=== PATIENT | female | born 1960 | race Caucasian/White ===

== ENCOUNTER 2019-08-07 14:16 | Outpatient (CLI) | payer OTHER, SELFPAY ==
--- NOTE | 2019-08-07 15:30 | MM_ITS ---
WS: [id number] SCREENING DIGITAL MAMMOGRAM WITH CAD HISTORY: screening mammogram COMPARISON: 06/27/2018 and 10/25/2016 Bilateral CC and MLO views submitted. Computer aided detection analyzed. Breast composition: There are scattered areas of fibroglandular density. No suspicious masses, microc alcifications or architectural distortion. MM/[place] [id number] IMPRESSION: BI-RADS: 1-Negative FOLLOW UP: 1 Year Follow-up
== END 2019-08-07 14:17 | disposition home or self-care (01) ==
LOC: RADSHAW 14:20
PROVIDERS: Family Provider Family Medicine; PCP Family Medicine; Visit Provider Family Medicine
DX: Z12.31 Encounter for screening mammogram for malignant neoplasm of breast (principal)
CPT/HCPCS: 77067

== ENCOUNTER → 2019-08-27 09:11 | Outpatient (BNVA) | payer OTHER, SELFPAY | PROVIDERS: Family Provider Family Medicine; PCP Family Medicine; Visit Provider Family Medicine | DX: I10 Essential (primary) hypertension (principal); G56.03 Carpal tunnel syndrome, bilateral upper limbs; K21.9 Gastro-esophageal reflux disease without esophagitis | CPT/HCPCS: 80048 ==

== ENCOUNTER 2020-03-13 05:42 | Observation (INO) | payer OTHER, SELFPAY ==
[2020-03-13] VITALS (25 sets, daily range): BP systolic 90–153; BP diastolic 56–86; PULSE 80–140; RESP 10–26; TEMP 36.8–39.6; O2SAT 90–98; BMI 28.1
--- NOTE | 2020-03-13 05:50 | XRR_ITS ---
PROCEDURE INFORMATION: Exam: XR Chest, 1 View Exam date and time: 03/13/2020 5:55 AM Age: 60 years old Clinical indication: Other: Abd pain, vomiting TECHNIQUE: Imaging protocol: XR of the chest Views: 1 view. COMPARISON: CR Chest 1 [place] [id number] 03/13/2016 7:00 AM FINDINGS: Lungs: Unremarkable. No consolidation. Pleural space: Unremarkable. No pleural effusion. No pneumothorax. Heart/Mediastinum: Unremarkable. No cardiomegaly. Bones/joints: Unremarkable. XR/XR chest 1V portable [id number] IMPRESSION: No acute findings. No free air is seen under the diaphragms.
--- NOTE | 2020-03-13 05:51 | ECG_ITS ---
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 Measurements Intervals [place] Rate: 127 P: 43 CO: 147 QRS: 22 QRSD: 62 T: 43 QT: 335 QTc: 487 Interpretive Statements SINUS TACHYCARDIA LOW QRS VOLTAGE IN PRECORDIAL LEADS [QRS DEFLECTION < 1.0 mV IN CHEST LEADS] NONSPECIFIC ST & T-WAVE ABNORMALITY ABNORMAL RHYTHM ECG Compared to ECG 03/13/2020 05:59:04 T-wave abnormality now present ST (T wave) deviation no longer present Electronically Signed On 03-13-2020 15:17:50 CDT by Stacia Pal M.D. [id number]
--- NOTE | 2020-03-13 06:00 | CTR_ITS ---
PROCEDURE INFORMATION: Exam: CT Abdomen And Pelvis With Contrast Exam date and time: 03/13/2020 7:06 AM Age: 60 years old Clinical indication: Abdominal pain. TECHNIQUE: Imaging protocol: Computed tomography of the abdomen and pelvis with intravenous contrast. Radiation optimization: All CT scans at this facility use at least one of these dose optimization techniques: automated exposure control; mA and/or kV adjustment per patient size (includes targeted exams where dose is matched to clinical indication); or iterative reconstruction. Contrast material: OMNI 300; Contrast volume: 95 ml; Contrast route: INTRAVENOUS (IV); COMPARISON: No relevant prior studies available. RADIATION DOSE METRICS: Total DLP (mGy-cm): 1233.68 FINDINGS: Lungs: No acute basilar lung consolidation. Liver: There is fatty change involving the liver parenchyma. Gallbladder and bile ducts: No calcified gallstones, gallbladder wall thickening, or pericholecystic inflammation. No biliary ductal dilation. Pancreas: No pancreatic mass. No peripancreatic inflammation. No pancreatic ductal dilation. Spleen: The spleen is homogeneous and is not enlarged. Adrenals: No adrenal mass. Kidneys and ureters: No hydronephrosis. No nephrolithiasis. Simple appearing 8 mm right renal cyst. Stomach and bowel: No bowel obstruction, colitis or diverticulitis. High attenuation intraluminal material in the proximal colon which may still be due to something the patient ingested. There is thickening of the wall of the terminal ileum which could be due to secondary inflammation. Appendix: The appendix measures 13 mm in diameter. There is appendiceal wall is thickened. There is periappendiceal inflammation. Intraperitoneal space: No ascites or pneumoperitoneum. Vasculature: No abdominal aortic aneurysm. No iliac or common femoral artery aneurysm. Lymph nodes: No enlarged lymph nodes. Bladder: No urinary bladder calculus or wall thickening. Reproductive: Unremarkable as visualized. Bones/joints: Multilevel facet arthropathy in the lumbar spine. Soft tissues: No acute soft tissue abnormality. CT/CT abdomen pelvis w con* [id number] IMPRESSION: Acute appendicitis. COMMENTS: Consistent with the [employer]'s Incidental Findings Committee white paper (J Am Gi Radiol 2018): Any incidental renal lesion less than 1.0 cm or classified as too small to characterize, or any incidental cystic renal lesion characterized as simple-appearing, is likely benign. No follow-up imaging is recommended for these lesions per consensus recommendations based on imaging criteria. Radiation Dose CTDIVOL = (mGy): DLP = 1233.68 (mGy-cm)
--- NOTE | 2020-03-13 06:02 | W.ED.ABDPA2 ---
HPI - Abdominal Pain General: Chief Complaint: Abdominal Pain Stated Complaint: abd pain Time Seen by Provider: 03/13/20 05:48 History of Present Illness: HPI narrative: This patient is a 60-year-old female who presents today with abdominal pain. She reports that it started fairly suddenly after eating pizza on . Since then she has had fairly persistent pain although she said at times she can get in a certain position where it does not hurt. She is not had any vomiting but has had loose stools and dry heaves. The only time she has had anything similar to this was in 2011 when she had a spegalian hernia which was repaired in the right lower quadrant. She has had 2 C-sections and a carpal tunnel release. She has had no other surgeries. She has a history of hypertension. She denies urinary symptoms. The pain does radiate through to her back at times. She denies fever. She denies cough. She has been able to take some broth and liquids but since Saturday has not really eaten anything. MD elicited complaint: abdominal pain Pertinent past history: other (Hernia) Onset (ago): day(s) Location: RUQ and RLQ Severity: severe Quality: sharp Radiation: R flank and back Exacerbating factors: movement Relieving factors: other (Is sometimes able to get into certain positions that relieve the pain) Associated Symptoms: Reports diarrhea (Loose stools) and nausea; Denies chills, fever(s) and vomiting Review of Systems General: Reports: 10 or more systems reviewed and unremarkable except in HPI and below Const: Reports: malaise; Denies: fever(s), chills or fatigue Eyes: Denies: change in vision ENMT: Denies: odynophagia Card: Denies: chest pain or swelling of feet/ankles Resp: Denies: dyspnea, productive cough or non-productive cough GI: Reports: abdominal pain, nausea and diarrhea (Loose stools); Denies: vomiting : Denies: flank pain or difficulty voiding Musc: Reports: back pain; Denies: neck pain Skin/Breast: Denies: rash Neuro: Denies: headache(s), numbness in extremities or weakness in extremities Eduard/Lymph: Denies: easy bruising or easy bleeding PFSH ED PFSH: Medical History Benign essential HTN Bilateral carpal tunnel syndrome Eczema GERD (gastroesophageal reflux disease) Panic attack Surgical History (Updated 03/13/20 @ 08:46 by Chente Hernandez MD) History of 2 sections History of dilatation and curettage x 1 History of hernia repair R spigelian History of surgery on left wrist Comminuted fracture --repaired with bone graft from left hip Family History Other CAD (coronary artery disease) Family history of premature coronary artery disease Social History (Updated 03/13/20 @ 08:48 by Chente Hernandez MD) Smoking and tobacco status: never smoked Alcohol intake: never 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 Exam Const: COMMON NORMALS: patient oriented x3, no limitations and alert GENERAL APPEARANCE: cooperative and in distress NUTRITIONAL APPEARANCE: overweight HENMT: HEAD & SCALP: normal to inspection FACE & SINUS: normal facial exam Eye: GENERAL EYE: appearance normal, both eyes and all related structures Neck/C-Spine: COMMON NORMALS: supple, no meningeal signs and no JVD Chest: COMMONS NORMALS: normal inspection of the chest Resp: COMMON NORMALS: normal respiratory effort, No use of accessory muscles and clear to auscultation bilaterally AUSCULTATION: clear to auscultation bilaterally Cardio: COMMON NORMALS: no JVD, regular rate, regular rhythm and No murmurs present (Cardio) RATE: regular rate RHYTHM: regular rhythm GI: COMMON NORMALS: Normal to inspection, nondistended, normoactive bowel sounds present INSPECTION: No abdominal distension PALPATION: Yes Tenderness to palpation present (GI) Details: RLQ and RUQ Back/Pelvis: COMMON NORMALS: thoracic and lumbar spine normal to inspection Extremity: COMMON NORMALS: normal to inspection Neuro: COMMON NORMALS: patient oriented x3, moves all extremities, no focal motor deficits and no sensory deficits noted SENSORIUM/ORIENTATION: Yes alert MENINGEAL SIGNS: Yes no meningeal signs Psych: COMMON NORMALS: mental status grossly normal, cooperative and normal affect Skin: COMMON NORMALS: no rashes or lesions noted and turgor normal GENERAL SKIN EXAM: no rashes or lesions noted and turgor normal Course ED course: This patient is very ill-appearing on initial presentation. She is tachycardic and although initially afebrile her temp spiked up to 103.3. I did a bedside ultrasound which did not show any obvious abnormalities with the gallbladder. Once labs were back she went to CT and that did show appendicitis with significant amount of inflammation. Given the clinical picture I am concerned that she may have a perforation although it was not read as such on the CT. She also had a very low white count of 1.6. Absolute neutrophil count was severe neutropenia. She has been given Zosyn, morphine, Zofran, IV Tylenol. I have spoken with Dr. Hernandez who will come and see her in the ED. She is also had a liter of fluid and is on her second liter currently. Her sats have been running kind of low. Initially she was in the low 90s. After pain medication she is been running in the high 80s. She was put on 2 L of oxygen. Chest x-ray was clear. EKG was unremarkable other than sinus tachycardia. She has no known covert exposures and clinically does not have symptoms of COVID other than the fever and that can be attributed to the appendicitis. Vital Signs: Vital signs: Vital Signs Temperature 98.6 F 03/13/20 15:30 Pulse Rate 89 03/13/20 15:30 Respiratory Rate 18 03/13/20 15:30 Blood Pressure 111/68 03/13/20 15:30 Pulse Oximetry 94 03/13/20 15:30 MDM - Abdominal Pain Lab Data: Labs: Lab Results 03/13/20 03/13/20 03/13/20 Range/Units 06:04 06:04 06:04 WBC 1.6 L (4.0-10.0) 10^3/ uL RBC 4.60 (4.1-5.3) 10^6/u L Hgb 14.5 (11.5-15.3) g/dL Hct 44.2 (37.0-47.0) % MCV 96.1 (81-99) fL MCH 31.5 (28.0-34.0) pg MCHC 32.8 (30.0-36.0) g/dL RDW 12.8 (12.1-15.1) % Plt Count 196 (130-400) 10^3/c mm MPV 9.7 (7.4-10.4) fL Neut % (Auto) 81.7 % Lymph % (Auto) 17.1 % Cameron % (Auto) 0.6 % Eos % (Auto) 0.6 % Baso % (Auto) 0.0 % Neut # (Auto) 1.29 L (1.8-7.7) 10^3/u L Lymph # (Auto) 0.3 L (0.8-4.8) 10^3/u L Cameron # (Auto) 0.0 L (0.2-0.9) 10^3/u L Eos # (Auto) 0.0 (0.0-0.8) 10^3/u L Baso # (Auto) 0.0 (0.0-0.1) 10^3/u L Nucleated RBC % (a uto) 0 % Nucleated RBCs # 0.0 /100WBC Sodium 135 L (136-145) mmol/L Potassium 3.6 (3.5-5.1) mmol/L Chloride 97 L (98-107) mmol/L Carbon Dioxide 20 L (22-29) mmol/L Anion Gap 21.6 H (5-19) BUN 8 (8-23) mg/dL Creatinine 0.8 (0.5-0.9) mg/dL GFR Calculation 72.9 L (90-130) mL/min Glucose 150 H (65-115) mg/dL Calculated Osmolal ity 279 L (285-295) mOsm/k g Lactic Acid 2.5 H (0.5-2.2) mmol/L Calcium 9.5 (8.5-10.5) mg/dL Total Bilirubin 1.6 H (0.15-1.2) mg/dL AST 54 H (0-32) U/L ALT 53 H (0-33) U/L Alkaline Phosphata se 83 (35-105) IU/L Troponin T Baselin e (0-10) ng/L Total Protein 7.2 (6.6-8.7) g/dL Albumin 4.4 (3.5-5.2) g/dL Globulin 2.8 (1.3-4.6) g/dL Lipase 29 (13-60) U/L Urine Color (Yellow) Urine Appearance (CLEAR) Urine pH (5-7) Ur Specific Gravit y (1.005-1.030) Urine Protein (Negative) Urine Glucose (UA) (Normal) Urine Ketones (Negative) Urine Blood (Negative) Urine Nitrate (Negative) Urine Bilirubin (Negative) Urine Urobilinogen (Negative) mg/dL Ur Leukocyte Nadine ase (Negative) Urine RBC (0-2) /hpf Urine WBC (0-5) /hpf Ur Squamous Epith Cells (0-5) /hpf Amorphous Sediment Urine Bacteria (NONE) /hpf Hyaline Casts /lpf Urine Mucus /hpf 03/13/20 03/13/20 Range/Units 06:04 06:22 WBC (4.0-10.0) 10^3/ uL RBC (4.1-5.3) 10^6/u L Hgb (11.5-15.3) g/dL Hct (37.0-47.0) % MCV (81-99) fL MCH (28.0-34.0) pg MCHC (30.0-36.0) g/dL RDW (12.1-15.1) % Plt Count (130-400) 10^3/c mm MPV (7.4-10.4) fL Neut % (Auto) % Lymph % (Auto) % Cameron % (Auto) % Eos % (Auto) % Baso % (Auto) % Neut # (Auto) (1.8-7.7) 10^3/u L Lymph # (Auto) (0.8-4.8) 10^3/u L Cameron # (Auto) (0.2-0.9) 10^3/u L Eos # (Auto) (0.0-0.8) 10^3/u L Baso # (Auto) (0.0-0.1) 10^3/u L Nucleated RBC % (a uto) % Nucleated RBCs # /100WBC Sodium (136-145) mmol/L Potassium (3.5-5.1) mmol/L Chloride (98-107) mmol/L Carbon Dioxide (22-29) mmol/L Anion Gap (5-19) BUN (8-23) mg/dL Creatinine (0.5-0.9) mg/dL GFR Calculation (90-130) mL/min Glucose (65-115) mg/dL Calculated Osmolal ity (285-295) mOsm/k g Lactic Acid (0.5-2.2) mmol/L Calcium (8.5-10.5) mg/dL Total Bilirubin (0.15-1.2) mg/dL AST (0-32) U/L ALT (0-33) U/L Alkaline Phosphata se (35-105) IU/L Troponin T Baselin e 9 (0-10) ng/L Total Protein (6.6-8.7) g/dL Albumin (3.5-5.2) g/dL Globulin (1.3-4.6) g/dL Lipase (13-60) U/L Urine Color Yellow (Yellow) Urine Appearance Clear (CLEAR) Urine pH 5 (5-7) Ur Specific Gravit y 1.015 (1.005-1.030) Urine Protein Trace (Negative) Urine Glucose (UA) Norm (Normal) Urine Ketones Negative (Negative) Urine Blood Neg (Negative) Urine Nitrate Negative (Negative) Urine Bilirubin Neg (Negative) Urine Urobilinogen Norm (Negative) mg/dL Ur Leukocyte Nadine ase Negative (Negative) Urine RBC None (0-2) /hpf Urine WBC None (0-5) /hpf Ur Squamous Epith Cells 0-4 H (0-5) /hpf Amorphous Sediment Not Reportable Urine Bacteria Trace (NONE) /hpf Hyaline Casts 5-10 H /lpf Urine Mucus Trace /hpf Discharge Plan Discharge Patient Disposition: Admitted As Inpatient Admit Provider: Chente Hernandez Clinical Impression: Acute appendicitis, Severe neutropenia, Sepsis Condition: Stable Referrals: Heaven Tyler DO [Primary Care Provider] - Umberto Dubose MD [Family Provider] - Patient Instructions: Appendicitis (GEN) Discharge Date/Time: 03/13/20 08:47 Coding Level of Care Code ED Paranormal Investigator for Chg Fwd Exam Comprehensive
[2020-03-13] MEDS: sodium chloride 0.9% 1,000 ML 999 ML IV ×2 (06:10→08:26)
[2020-03-13] MEDS: ondansetron 2 mg/ML SDV 2 mL 4 MG IVP (06:11)
[2020-03-13 06:20] LABS: Eosinophils % 0.6 %; Hematocrit 44.2 % (37.0-47.0); Hemoglobin 14.5 g/dL (11.5-15.3); Lymphocytes # 0.3 10^3/uL (0.8-4.8); Lymphocytes % 17.1 %; Mean Corpuscular HGB Conc 32.8 g/dL (30.0-36.0); Mean Corpuscular Hemoglobin 31.5 pg (28.0-34.0); Mean Corpuscular Volume 96.1 fL (81-99); Mean Platelet Volume 9.7 fL (7.4-10.4); Monocytes % 0.6 %; Neutrophils # 1.29 10^3/uL (1.8-7.7); Neutrophils % 81.7 %; Nucleated Red Blood Cells % 0 %; Platelet Count 196 10^3/cmm (130-400); Red Cell Distribution Width 12.8 % (12.1-15.1); White Blood Count 1.6 10^3/uL (4.0-10.0)
[2020-03-13] MEDS: morphine 4 mg/mL SDV 1 mL IVP (06:35)
--- NOTE | 2020-03-13 06:45 | PC.NURSE ---
PATIENT PLACED ON 3 LITERS OF OXYGEN TO MAINTAIN SPO2 >91
[2020-03-13] MEDS: piperacillin-tazobactam 3.375 GM in sodium chloride 0.9% (plus) 50 ML IV ×4 (06:49→21:29)
[2020-03-13 06:53] LABS: Lactic Sepsis W/Reflex 2.5 mmol/L (0.5-2.2)
[2020-03-13 07:00] LABS: Alanine Aminotransferase 53 U/L (0-33); Albumin Level 4.4 g/dL (3.5-5.2); Alkaline Phosphatase 83 IU/L (35-105); Anion Gap 21.6 (5-19); Aspartate Amino Transferase 54 U/L (0-32); Blood Urea Nitrogen 8 mg/dL (8-23); Calcium 9.5 mg/dL (8.5-10.5); Carbon Dioxide 20 mmol/L (22-29); Chloride 97 mmol/L (98-107); Globulin 2.8 g/dL (1.3-4.6); Glomerular Filtration Rate 72.9 mL/min (90-130); Glucose 150 mg/dL (65-115); Lipase 29 U/L (13-60); Osmolality Calculated 279 mOsm/kg (285-295); Potassium 3.6 mmol/L (3.5-5.1); Sodium 135 mmol/L (136-145); Total Bilirubin 1.6 mg/dL (0.15-1.2); Total Protein 7.2 g/dL (6.6-8.7)
[2020-03-13 07:01] LABS: Troponin(5th) Baseline 9 ng/L (0-10)
[2020-03-13] MEDS: iohexol 300 mg/mL 100 mL Btl IV (07:15)
--- NOTE | 2020-03-13 07:17 | PC.NURSE ---
REPORT RECEIVED FROM ARTI CASTANON. PATIENT RESTING IN BED WITH AT BEDSIDE. UPDATED PATIENT ON WAITING FOR LABS FOR CT SCAN.
--- NOTE | 2020-03-13 07:51 | ECG_ITS ---
[facility] Test Date: 2020-03-13 Pat Name: Kimberli Jurado Department: Room: Gender: Female Lei Maker: : 1960 Requested By: Sophie Tavraez Order Number: [id number] Daija MD: Stacia Pal M.D. Measurements Intervals [place] Rate: 136 P: 28 UT: 133 QRS: 18 QRSD: 68 T: 35 QT: 308 QTc: 463 Interpretive Statements SINUS TACHYCARDIA LOW QRS VOLTAGE IN PRECORDIAL LEADS [QRS DEFLECTION < 1.0 mV IN CHEST LEADS] MODERATE ST DEPRESSION [0.05+ mV ST DEPRESSION] Compared to ECG 03/13/2016 06:42:59 Low QRS voltage now present ST (T wave) deviation now present Sinus rhythm no longer present Electronically Signed On 03-13-2020 15:18:27 CDT by Stacia Pal M.D. [id number]
[2020-03-13 08:01] LABS: Reflex Lactate Order REFLEX LACTIC ORDERD
[2020-03-13 08:30] LABS: Add Urine Microscopic? YES; Bilirubin Urine Neg (Negative); Blood Urine Neg (Negative); Glucose Urine UA Norm (Normal); Ketones Urine Negative (Negative); Leukocyte Esterase Urine Negative (Negative); Nitrate Urine Negative (Negative); Protein Urine Trace (Negative); Specific Gravity, Urine 1.015 (1.005-1.030); Urine Appearance Clear (CLEAR); Urine Color Yellow (Yellow); Urobilinogen Urine Norm (Negative); pH Urine 5 (5-7)
[2020-03-13 08:34] LABS: Add Urine Culture? No; Bacteria Urine TRACE /hpf; Mucus Urine TRACE /hpf; Squamous Epithelial Cell Urine 0-4 /hpf (0-5)
--- NOTE | 2020-03-13 08:39 | P.HP_ITS ---
Providers/Chief Complaint Primary Care Provider: Heaven Tyler DO Chief Complaint: abd pain History of Present Illness Kimberli Jurado is a 60 year old female who says that she started having some abdominal pain 3 days ago. She said initially after eating a piece of pizza she developed nausea and left lower quadrant pain that seemed to go laterally around to her side. She says she usually can eat a couple pieces of pizza but she was only able to eat 1 and stopped. The following day (Saturday) she says she actually felt okay. Yesterday, however, she developed more acute right lower quadrant pain. This persisted throughout the day. She had some nausea and only drink some broth yesterday. She denies any recent changes in bowel habits. She awoke this morning with more intense pain in the right lower quadrant and came into the emergency room. A CAT scan showed changes consistent with acute appendicitis. She was also found to be febrile at that time. The patient has never had pain like this before. She has never had a colonoscopy in the past. She denies any family history of colon neoplasia. Review of Systems General: Reports: 10 or more systems reviewed and unremarkable except in HPI and below Const: Reports: fever(s) ( Not until this morning ) GI: Reports: abdominal pain and nausea; Denies: change in bowel habits Psych: Reports: anxiety Medications/Allergies Home Medications Medication Instructions Recorded Confirmed Last Taken Type pantoprazole 40 mg tablet,delayed 40 mg PO ONCE #90 tab 07/09/19 08/27/19 Unknown Rx release hydrochlorothiazide 25 mg tablet 25 mg PO QAM #90 tab 08/27/19 08/27/19 Unknown Rx lisinopril 10 mg tablet 10 mg PO ONCE #90 tab 08/27/19 08/27/19 Unknown Rx meloxicam 15 mg tablet 15 mg PO ONCE #90 tab 08/27/19 08/27/19 Unknown Rx alprazolam 0.25 mg tablet 0.25 mg PO ONCE PRN #30 tab 11/20/19 Unknown Rx escitalopram oxalate 10 mg tablet 10 mg PO .ONCE DAILY #90 tab 11/20/19 Unknown Rx Allergies Allergy/AdvReac Type Severity Reaction Status Date / Time No Known Allergies Allergy Unverified 03/13/20 05:56 PFSH Acute PFSH: Medical History Benign essential HTN Bilateral carpal tunnel syndrome Eczema GERD (gastroesophageal reflux disease) Panic attack Surgical History (Updated 03/13/20 @ 08:46 by Chente Hernandez MD) History of 2 sections History of dilatation and curettage x 1 History of hernia repair R spigelian History of surgery on left wrist Comminuted fracture --repaired with bone graft from left hip Family History Other CAD (coronary artery disease) Family history of premature coronary artery disease Social History (Updated 03/13/20 @ 08:48 by Chente Hernandez MD) Smoking and tobacco status: never smoked Alcohol intake: never 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 She does not appear to be in any acute distress but does not appear as if she feels very well. The pupils are equal. No carotid bruits are heard. The lungs are clear anteriorly. The heart is regular. She is tachycardic. The abdomen is mildly obese but is reasonably soft. Bowel sounds are present but are somewhat hypoactive. Her maximum point of tenderness is in the right lower quadrant. Rovsing's sign is negative. No obvious masses are palpated. The extremities reveal no edema. Neurologically the patient appears to be grossly intact. Data : 03/13/20 06:04 03/13/20 06:04 Micro: Microbiology 03/13/20 06:04 Blood Culture - Preliminary Blood SPECIMEN COLLECTED 03/13/20 06:04 Blood Culture - Preliminary Blood SPECIMEN COLLECTED CT Abd/Pel: My impression: The patient has a dilated and thick-walled appendix with surrounding inflammatory fat in the right lower quadrant. There appears to be a loop of ileum that is dilated adjacent to this; I suspect this is probably refl ective of a adjacent segment of bowel involved in an ileus. It is difficult to say that there is any gross perforation with any certainty. Radiologist's impression: CT abdomen/pelvis 03/13/2020 iMPRESSION: Acute appendicitis. A&P Assessment and plan (1) Acute appendicitis: CT reviewed. I agree with the assessment of acute appendicitis. I cannot see any evidence of obvious perforation, but I would not be surprised given the timeline of the patient's symptoms if she does not have perforation at the time of exploration. I discussed appendicitis, both conservative and surgical treatment methods, surgical risks including bleeding, infection, internal organ injury, etc. The patient seems to understand and would like to proceed with an appendectomy. I told her I would be willing to at least start this laparoscopically in hopes that we could avoid a larger incision, but I would not hesitate to do that if it is felt necessary. She understands. The patient has been n.p.o. since yesterday. We will make arrangements for a laparoscopic or possibly open appendectomy this morning. It is the weekend, and I understand that there is currently a case going on in the operating room right now so we may have a short delay. She has already received some broad-spectrum antibiotics. Status: Acute Attestations Medical Necessity Statement*: Based on my medical assessment, presenting symptoms and consideration of the scope of surgical therapy, I expect this patient will require treatment in the hospital for a period of time spanning less than 2 midnights, and is therefore being placed in observation status. Coding Level of Care Code Acute Organ Tuner Electronic for Anette Delilah Diagnoses Acute appendicitis K35.80
--- NOTE | 2020-03-13 08:46 | ANES.PREANE2 ---
Pre-Anesthetic Assessment Pre-Anesthetic Assessment: Height/Weight: Height 1.7 m Weight 81.647 kg Temp Pulse Resp BP Pulse Ox 103.3 F H 140 H 16 140/69 96 03/13/20 07:10 03/13/20 08:13 03/13/20 08:13 03/13/20 08:13 03/13/20 08:13 Preop Diagnosis: appendicitis Proposed Procedure: Appendectomy Familial anesthetic complications: none Last intake: NPO > 8 hrs Social: Social History: No alcohol and No tobacco Exam: Pre-Anes Outpt Exam: alert, oriented x 3, clear to auscultation bilaterally and regular rate & rhythm Airway: Cervical ROM: WNL MP: 1 Dentition: Full CV/HEM: CV/HEM: HTN GI: GI: GERD Anesthetic Plan: ASA status: 2 Anesthesia: General Risk of > 500 ml blood loss (7ml/kg in children): No PFSH Anesthesia PFSH: Medical History (Updated 03/13/20 @ 08:40 by Chente Hernandez MD) Benign essential HTN Bilateral carpal tunnel syndrome Eczema GERD (gastroesophageal reflux disease) Panic attack Surgical History (Updated 03/13/20 @ 08:46 by Chente Hernandez MD) History of 2 sections History of dilatation and curettage x 1 History of hernia repair R spigelian History of surgery on left wrist Comminuted fracture --repaired with bone graft from left hip Family History Other CAD (coronary artery disease) Family history of premature coronary artery disease Social History Smoking and tobacco status: never smoked Alcohol intake: never Data Anesthesia CBC & Chem 7: 03/13/20 06:04 03/13/20 06:04 Other Labs: Laboratory Results - last 48 hr 03/13/20 03/13/20 03/13/20 06:04 06:04 06:04 WBC 1.6 L RBC 4.60 Hgb 14.5 Hct 44.2 MCV 96.1 MCH 31.5 MCHC 32.8 RDW 12.8 Plt Count 196 MPV 9.7 Neut % (Auto) 81.7 Lymph % (Auto) 17.1 [place] % (Auto) 0.6 Eos % (Auto) 0.6 Baso % (Auto) 0.0 Neut # (Auto) 1.29 L Lymph # (Auto) 0.3 L [place] # (Auto) 0.0 L Eos # (Auto) 0.0 Baso # (Auto) 0.0 Nucleated RBC % (auto) 0 Nucleated RBCs # 0.0 Sodium 135 L Potassium 3.6 Chloride 97 L Carbon Dioxide 20 L Anion Gap 21.6 H BUN 8 Creatinine 0.8 GFR Calculation 72.9 L Glucose 150 H Calculated Osmolality 279 L Lactic Acid 2.5 H Calcium 9.5 Total Bilirubin 1.6 H AST 54 H ALT 53 H Alkaline Phosphatase 83 Troponin T Baseline Total Protein 7.2 Albumin 4.4 Globulin 2.8 Lipase 29 Urine Color Urine Appearance Urine pH Ur Specific [place] Urine Protein Urine Glucose (UA) Urine Ketones Urine Blood Urine Nitrate Urine Bilirubin Urine Urobilinogen Ur Leukocyte Esterase Urine RBC Urine WBC Ur Squamous Epith Cells Amorphous Sediment Urine Bacteria Hyaline Casts Urine Mucus 03/13/20 03/13/20 06:04 06:22 WBC RBC Hgb Hct MCV MCH MCHC RDW Plt Count MPV Neut % (Auto) Lymph % (Auto) [place] % (Auto) Eos % (Auto) Baso % (Auto) Neut # (Auto) Lymph # (Auto) [place] # (Auto) Eos # (Auto) Baso # (Auto) Nucleated RBC % (auto) Nucleated RBCs # Sodium Potassium Chloride Carbon Dioxide Anion Gap BUN Creatinine GFR Calculation Glucose Calculated Osmolality Lactic Acid Calcium Total Bilirubin AST ALT Alkaline Phosphatase Troponin T Baseline 9 Total Protein Albumin Globulin Lipase Urine Color Yellow Urine Appearance Clear Urine pH 5 Ur Specific [place] 1.015 Urine Protein Trace Urine Glucose (UA) Norm Urine Ketones Negative Urine Blood Neg Urine Nitrate Negative Urine Bilirubin Neg Urine Urobilinogen Norm Ur Leukocyte Esterase Negative Urine RBC None Urine WBC None Ur Squamous Epith Cells 0-4 H Amorphous Sediment Not Reportable Urine Bacteria Trace Hyaline Casts 5-10 H Urine Mucus Trace Micro: Microbiology 03/13/20 06:04 Blood Culture - Preliminary Blood SPECIMEN COLLECTED 03/13/20 06:04 Blood Culture - Preliminary Blood SPECIMEN COLLECTED Cardiac 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
--- NOTE | 2020-03-13 10:24 | SUR.PHASEI ---
pt awake alert up to bathroom to void pt denies pain is still warm to touch, and diaphoretic on her back, teds and scds on bilat at bedside,l pt on 2LNC SATS 98%
--- NOTE | 2020-03-13 12:46 | P.OP_ITS ---
Operative Report Date of procedure: March 13, 2020 Pre-op Diagnosis: Acute appendicitis. Post-op diagnosis: same Procedure Done: Laparoscopic appendectomy. Specimens removed/disposition: Appendix. Surgeon: Chente Hernandez Anesthesia: General Estimated blood loss (mL): 5 Complications: None. Condition: stable Disposition: PACU Procedure: The patient was brought to the Operating Room and was placed in a supine position on the operating room table. General endotracheal anesthesia was induced. The abdomen was prepped and draped in a sterile fashion. A small vertical incision was carried out in the superior aspect of the umbilicus. Blunt dissection was carried out down to the fascia, which was grasped with a Halley clamp. A stay suture of 0 Vicryl was placed on either side of the midline and the midline fascia was incised. The underlying peritoneum was opened bluntly and the Jenny port was placed directly into the peritoneal cavity and was held in place with the inflatable balloon. The peritoneal cavity was insufflated with carbon dioxide. The laparoscope was used to inspect the peritoneal cavity. No gross abnormalities were initially noted. Two 5-millimeter ports were placed in the left lower quadrant under direct vision. The patient was tilted in a Trendelenburg position and slightly to the left side. A laparoscopic [place] was used to elevate the cecum and the appendix was identified. The appendix was edematous throughout its length and had a small amount of exudate on its surface. No evidence of gross perforation was present. The appendix was freed using blunt dissection and was then elevated. The mesoappendix was divided using cautery to maintain hemostasis at the base of the appendix. The base of the appendix appeared healthy and was divided using an endoscopic stapler. The appendix was removed from the peritoneal cavity after being placed in a laparoscopic bag. The right lower quadrant and pelvis were irrigated. The staple line on the cecum was identified and appeared to be in good condition. The Jenny port was removed from the umbilical site and the stay sutures of Vicryl were tied to each other at the umbilicus. A simple suture of 0 Vicryl was placed at the top of the fascial opening, closing the fascial defect so that it was airtight. A final round of irrigation was carried out in the right lower quadrant and the pelvis. No ongoing problems were seen. The remaining ports were removed from the abdominal wall as the pneumoperitoneum was evacuated. All skin incisions were closed using inverted interrupted sutures of 4-0 Vicryl. Benzoin and Steri-Strips were placed over the incisions and Band- Aids followed. The patient was taken to the Recovery Room in stable condition postoperatively.
--- NOTE | 2020-03-13 13:06 | SUR.PHASEI ---
1256 PATIENT TO OPS FROM OR. RR EVEN AND UNLABORED. PATIENT DENIES PAIN. 3 INCISIONS TO ABDOMEN, COVERED WITH BANDAIDS, CDI.
--- NOTE | 2020-03-13 13:09 | PM.PACU ---
PACU note Post-Anesthesia Exam: awake and vital signs stable Disposition: admitted
--- NOTE | 2020-03-13 13:09 | ANE.PACU2 ---
Inpatient post-anesthesia follow up: Airway intact: Yes Vital signs: Temperature 98.9 F Pulse Rate [Monito r] 138 Pulse Rate 103 Respiratory Rate 10 Blood Pressure [Ri ght Arm] 130/80 Blood Pressure 106/62 Pulse Oximetry 90 Oxygen Delivery Me thod Nasal Cannula Oxygen Flow Rate 3 Fraction of Inspir ed Oxygen Hydration adequate: Yes Nausea and vomiting: No Pain level: 3 Mental status: Baseline
--- NOTE | 2020-03-13 13:43 | SUR.PHASEI ---
1327 PATIENT TO PACU FROM OR. RR EVEN AND UNLABORED. PAIN 3/10. DENIES NAUSEA, TOLERATING ICE CHIPS. PATIENT AMBULATORY FROM [facility] TO BED.
[2020-03-13] MEDS: famotidine 20 mg/2 mL INJ IVP (15:14)
[2020-03-13] MEDS: heparin 5,000 unit/mL INJ 1 mL 5000 UNIT SUBCUT (15:14)
[2020-03-13] MEDS: D5-NS 0.45% + KCL 20 mEq 20 MEQ/1,000 ML BAG 100 MEQ IV ×2 (15:15→23:43)
[2020-03-13] MEDS: HYDROcodone-acetaminophen 5-325 mg Tablet PO (19:51)
[2020-03-14] VITALS: BP 141/89; PULSE 72; RESP 19; TEMP 36.7; O2SAT 91
[2020-03-14] MEDS: ketorolac 30 mg/mL INJ IVP (01:37)
[2020-03-14] MEDS: famotidine 20 mg/2 mL INJ IVP (01:37)
[2020-03-14] MEDS: heparin 5,000 unit/mL INJ 1 mL 5000 UNIT SUBCUT (01:37)
[2020-03-14 04:37] VITALS: BP 127/67; PULSE 72; RESP 18; TEMP 36.6; O2SAT 94
[2020-03-14 05:54] LABS: Basophils % 0.4 %; Eosinophils # 0.1 10^3/uL (0.0-0.8); Eosinophils % 0.6 %; Hematocrit 37.1 % (37.0-47.0); Hemoglobin 11.8 g/dL (11.5-15.3); Lymphocytes # 0.4 10^3/uL (0.8-4.8); Lymphocytes % 3.4 %; Mean Corpuscular HGB Conc 31.8 g/dL (30.0-36.0); Mean Corpuscular Volume 100.5 fL (81-99); Mean Platelet Volume 10.8 fL (7.4-10.4); Monocytes # 0.4 10^3/uL (0.2-0.9); Monocytes % 4.1 %; Neutrophils % 90.1 %; Nucleated Red Blood Cells % 0 %; Platelet Count 145 10^3/cmm (130-400); Red Blood Count 3.69 10^6/uL (4.1-5.3); Red Cell Distribution Width 13.1 % (12.1-15.1); White Blood Count 10.2 10^3/uL (4.0-10.0)
[2020-03-14] MEDS: piperacillin-tazobactam 3.375 GM in sodium chloride 0.9% (plus) 50 ML IV (06:06)
[2020-03-14 06:12] LABS: Anion Gap 15.1 (5-19); Blood Urea Nitrogen 11 mg/dL (8-23); Calcium 7.7 mg/dL (8.5-10.5); Carbon Dioxide 21 mmol/L (22-29); Chloride 102 mmol/L (98-107); Glomerular Filtration Rate 85.1 mL/min (90-130); Glucose 150 mg/dL (65-115); Osmolality Calculated 277 mOsm/kg (285-295); Potassium 4.1 mmol/L (3.5-5.1); Sodium 134 mmol/L (136-145)
[2020-03-14 08:04] VITALS: BP 123/81; PULSE 67; RESP 18; TEMP 37.1; O2SAT 97
--- NOTE | 2020-03-14 10:16 | P.DS_ITS ---
Discharge Providers Date of Admission: 03/13/20 13:09 Date of Discharge: March 14, 2020 Attending Provider at Admission: Chente Hernandez MD Attending Provider at Discharge: Chente Hernandez MD Primary Care Provider: Heaven Tyler DO Diagnoses at Discharge Discharge Diagnosis (1) Acute appendicitis: Status: Acute Reason for Visit Reason for Visit: abd pain Hospital Course Discharge Summary: This is a 60-year-old white female who presented to the hospital after several day prodrome of intermittent abdominal pain. A CAT scan showed evidence of acute appendicitis. She was taken to the operating room the same day and a laparoscopic appendectomy was performed. No gross evidence of perforation was noted. By the following morning, the patient was feeling much better and was anxious to go home. She had remained afebrile. Her white blood cell count was at the upper limits of normal after being very low at the time of admission. Her wounds looked good. Arrangements will be made for her to follow-up in my office as an outpatient. She was instructed with respect to diet, activity limitations, wound care, etc. Physical Exam Narrative: EXAM NARRATIVE: All of the patient's laparoscopic incisions look good. The Band-Aids were removed and the Steri-Strips were left in place today. Discharge Data Data Completed and Pending: Completed Studies During Hospitalization Category Date Time Status CT abdomen pelvis w con* [id number] Urge nt Cat Scan 03/13/20 06:00 Completed XR chest 1V lilia ble [id number] Stat Exams 03/13/20 05:50 Completed Pending at discharge Category Date Time Status Blood Culture Sta t Lab 03/13/20 06:04 Results Pathology: Surgic al [PTH] Routine Pth 03/13/20 12:46 Ordered Labs from last 24 hours 03/14/20 03/14/20 04:59 04:59 WBC 10.2 H RBC 3.69 L Hgb 11.8 Hct 37.1 MCV 100.5 H MCH 32.0 MCHC 31.8 RDW 13.1 Plt Count 145 MPV 10.8 H Neut % (Auto) 90.1 Lymph % (Auto) 3.4 [place] % (Auto) 4.1 Eos % (Auto) 0.6 Baso % (Auto) 0.4 Neut # (Auto) 9.20 H Lymph # (Auto) 0.4 L [place] # (Auto) 0.4 Eos # (Auto) 0.1 Baso # (Auto) 0.0 Nucleated RBC % (a uto) 0 Nucleated RBCs # 0.0 Sodium 134 L Potassium 4.1 Chloride 102 Carbon Dioxide 21 L Anion Gap 15.1 BUN 11 Creatinine 0.7 GFR Calculation 85.1 L Glucose 150 H Calculated Osmolal ity 277 L Calcium 7.7 L Vitals: Last Vital Signs Temp 98.7 F 03/14/20 08:04 Pulse 67 03/14/20 08:04 Resp 18 03/14/20 08:04 BP 123/81 03/14/20 08:04 Pulse Ox 97 03/14/20 08:04 Discharge Plan Discharge Condition: Stable Prescriptions: New hydrocodone-acetaminophen 5-325 mg tablet 1 - 2 tab PO Q5H PRN (Reason: pain) Qty: 30 RF: 0 Continued pantoprazole 40 mg tablet,delayed release (DR/EC) 40 mg PO ONCE Qty: 90 RF: 1 hydrochlorothiazide 25 mg tablet 25 mg PO QAM Qty: 90 RF: 1 lisinopril 10 mg tablet 10 mg PO ONCE Qty: 90 RF: 1 meloxicam [Mobic] 15 mg tablet 15 mg PO ONCE Qty: 90 RF: 1 escitalopram oxalate 10 mg tablet 10 mg PO .ONCE DAILY Qty: 90 RF: 0 alprazolam 0.25 mg tablet 0.25 mg PO ONCE PRN (Reason: anxiety) Qty: 30 RF: 0 Discharge Orders: Discharge Order (Routine); Ordered 03/14/20 Ordered By: Chente Hernandez Referrals: Chente Hernandez MD [Physician] - 2 weeks Heaven Tyler DO [Primary Care Provider] - Umberto Dubose MD [Family Provider] - Discharge Diet: Advance as tolerated Discharge Activity: Limit activity as instructed Patient Instructions: Appendicitis (GEN) Activity Restrictions/Additional Instructions: 1. Discharge to home today. 2. Appointment to see Dr. Hernandez in 10-14 days as above. 3. Leave Steri-Strip(s) on as discussed, may shower. 4. [place] 5/325 1-2 tablets by mouth every 5 hours as needed for pain. #30, no refills. No lifting over 20 pounds, no repetitive bending or twisting, no strenuous pushi ng / pulling or other heavy activity. Ambulate regularly. May go up and down steps if needed. Discharge Attestations Time Spent in Discharge Care*: less than 30 min Quality Metrics Clinical Quality Measures During this hospital stay, did patient experience: None Coding Level of Care Code Acute Table Games Shift Manager for g Fwd Diagnoses Acute appendicitis K35.80
--- NOTE | 2020-03-14 11:42 | ANE.PACU2 ---
Inpatient post-anesthesia follow up: Airway intact: Yes Vital signs: Temperature 98.7 F Pulse Rate [Monito r] 138 Pulse Rate 67 Respiratory Rate 18 Blood Pressure [Ri ght Arm] 130/80 Blood Pressure 123/81 Pulse Oximetry 97 Oxygen Delivery Me thod Room Air Oxygen Flow Rate 3 Fraction of Inspir ed Oxygen Hydration adequate: Yes Nausea and vomiting: No Pain level: 1 Mental status: Baseline
[2020-03-14] MEDS: D5-NS 0.45% + KCL 20 mEq 20 MEQ/1,000 ML BAG 100 MEQ IV (11:49)
[2020-03-14 12:17] VITALS: BP 145/90; PULSE 66; RESP 18; TEMP 36.7; O2SAT 95
[2020-03-14 13:29] VITALS: BP 145/90; PULSE 66; RESP 18; TEMP 36.7; O2SAT 95
--- NOTE | 2020-03-14 13:34 | PC.CHAP ---
Pastoral Care Encounter/Spiritual Assessment Type of Contact [] Declined nursing center tutor visit [] Patient/Family/Request visit [] Outpatient visit [] Follow-up visit [] Physician referral [] Code/Alert [] Routine visit [] Staff referral [] Actively dying [] Patient sleeping [] Family support [] [] Out of room [] Palliative care [] [x] Receiving care in room [] Pre-surgical visit [] Trauma [] Long length of stay [] ICU visit [] Other: Relational/Emotional Strength [] Patient feels connected with others/family/visitors/staff [] Distress [] Loneliness/isolation [] Abandonment Spirituality of Patient [] Person of [place] [] Attends [employer] of their [place] [] Believes in Prayer [] Reads Bible or Druze materials [] There are Spiritual issues to be addressed Box Stamper Interventions [] Prayer [] Active listening [] Non-anxious presence [] Spiritual/emotional support [] Crisis/trauma care [] Spiritual counseling [] Bereavement support [] Provided bereavement packet [] Provided Bible/devotional materials [] Provided toy/stuffed animal, coloring book to patient or family member [] Provided Communion [] Anointing/[place] [] Salvation [] Completed spiritual assessment [] Other: Impact on Illness or Injury [] Angry [] Fearful [] Anxious [] Often cries [] Exhaustion [] Unable to work [] Unable to attend quaker [] Unable to walk/stand [] Unable to read [] Unable to drive [] Unable to eat/drink [] Unable to sleep [] Unable to be with family [] Patient intubated [] Other: Summary Patient was receiving care from the nursing staff at the time of the nursing center tutor visit. Patient has been referred to next nursing center tutor for a follow-up visit. Patient visit attempted by Box Stamper Haris Givens. Time spent with patient 3 minutes
== END 2020-03-14 13:33 | disposition home or self-care (01) ==
LOC: ER 08:42 → OR 08:46 → MEDSURG 15:56
PROVIDERS: Emergency Medicine; Admitting Provider Surgery; Family Provider Family Medicine; PCP Family Medicine; Visit Provider Surgery
PROC: 0DTJ4ZZ Resection of Appendix, Percutaneous Endoscopic Approach (ICD-10-PCS; CPT 44970; principal; 2020-03-13 11:00)
DX: C18.1 Malignant neoplasm of appendix (principal); K35.80 Unspecified acute appendicitis; I10 Essential (primary) hypertension; D70.9 Neutropenia, unspecified; A41.9 Sepsis, unspecified organism
CPT/HCPCS: 44970; 12345; 36415; 71045; 74177; 80048; 80053; 81001; 83605; 83690; 84484; 85025; 87040; 87077; 87205; 88304; 93005; 96361; 96365; 96366; 96372; 96375; 99284; 99285; G0378; J0131; J0330; J1100; J1644; J1885; J2270; J2405; J2543; J2704; J2710; J3010; J3490; J7030; Q9967

== ENCOUNTER → 2020-04-12 09:17 | Outpatient (BNVA) | payer OTHER, SELFPAY | PROVIDERS: Family Provider Family Medicine; PCP Family Medicine; Visit Provider Family Medicine | DX: I10 Essential (primary) hypertension (principal) | CPT/HCPCS: 80053; 80061; 82043; 85025 ==

== ENCOUNTER 2020-09-06 10:56 | Emergency (ER) | payer OTHER, SELFPAY ==
[2020-09-06 11:06] VITALS: BP 167/94; PULSE 76; RESP 16; TEMP 36.9; O2SAT 97; BMI 28.1
--- NOTE | 2020-09-06 11:40 | XRR_ITS ---
PROCEDURE INFORMATION: Exam: XR Right Hip Exam date and time: 09/06/2020 11:41 AM Age: 60 years old Clinical indication: Pain and injury or trauma; Fall; Blunt trauma (contusions or hematomas); Hip pain; Right hip; Additional info: Pain after a fall TECHNIQUE: Imaging protocol: XR Right hip. Views: AP neutral and frogleg, 2 views. COMPARISON: CT abdomen pelvis w con* [id number] 03/13/2020 7:08 AM FINDINGS: Bones/joints: No acute bony abnormality identified. Soft tissues: Benign-appearing lateral para-articular soft tissue ossification, stable. XR/XR hip RT 2-3V wo/w pel* [id number] IMPRESSION: No acute bony injury identified.
[2020-09-06 11:55] VITALS: BP 140/101; PULSE 70; RESP 18; O2SAT 96
--- NOTE | 2020-09-06 12:20 | W.ED.FALL ---
HPI - Fall General: Chief Complaint: Fall Stated Complaint: FALL, HIP PAIN Time Seen by Provider: 09/06/20 11:14 History of Present Illness: HPI Narrative: 60-year-old female who was moving a barbecue grill last night fell and landed on her right hip. She has been able to get up and was able to ambulate but this morning when she got up had severe pain overlying the greater trochanter. She denies any other injury did not strike her head there is no loss of consciousness. MD complaint: fall Onset (ago): hour(s) Fall from: standing Fall witnessed: yes, by family Place fall occurred: home Loss of consciousness: None Prolonged down time: no Symptoms prior to fall: none Context: tripped/slipped Location of injury: other (Right hip) Severity: moderate Quality: sharp Associated symptoms-after fall: Denies abdominal pain, chest pain, confusion, difficulty walking, headache(s), hematuria, lightheadedness, neck pain, numbness, short of breath, vertigo or weakness Review of Systems Const: Denies: fever(s), chills, body aches, change in appetite, fatigue or malaise ENMT: Denies: throat pain, ear or mastoid pain, nasal discharge or nasal congestion Card: Denies: chest pain or lightheadedness Resp: Denies: dyspnea, productive cough or non-productive cough GI: Denies: abdominal pain : Denies: hematuria Musc: Denies: neck pain Skin/Breast: Denies: rash or pruritus Neuro: Denies: headache(s), difficulty walking, vertigo or confusion 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 Exam Const: COMMON NORMALS: no acute distress GENERAL APPEARANCE: cooperative and comfortable ORIENTATION/CONSCIOUSNESS: Yes awake, Yes oriented to person, Yes oriented to place and Yes oriented to time HENMT: COMMON NORMALS: normocephalic, atraumatic and hearing grossly normal bilaterally HEAD & SCALP: normocephalic and atraumatic Neck/C-Spine: COMMON NORMALS: no JVD Resp: COMMON NORMALS: normal respiratory effort, No retractions, No use of accessory muscles and clear to auscultation bilaterally AUSCULTATION: clear to auscultation bilaterally Cardio: COMMON NORMALS: no JVD, regular rate, regular rhythm and No murmurs present (Cardio) RATE: regular rate RHYTHM: regular rhythm GI: COMMON NORMALS: Soft to palpation and No hepatosplenomegaly present AUSCULTATION: Yes normoactive bowel sounds PALPATION: Yes Soft to palpation, No Tenderness to palpation present (GI), No Guarding due to palpation present (GI) and Yes No hepatosplenomegaly present Extremity: COMMON NORMALS: normal to inspection, capillary refill normal, no clubbing, cyanosis or edema, no calf tenderness and no pedal edema Neuro: SENSORIUM/ORIENTATION: Yes oriented to person, Yes oriented to place and Yes oriented to time Skin: COMMON NORMALS: no rashes or lesions noted GENERAL SKIN EXAM: no rashes or lesions noted Course Vital Signs: Vital signs: Vital Signs Temperature 98.4 F 09/06/20 11:06 Pulse Rate 70 09/06/20 12:52 Respiratory Rate 19 H 09/06/20 12:52 Blood Pressure 146/93 09/06/20 12:52 Pulse Oximetry 96 09/06/20 12:52 MDM - Fall MDM Narrative: Medical decision making narrative: No acute fracture patient is able ambulate start on anti-inflammatories will use diclofenac however hold Mobic and recheck if not improving can also follow-up with primary care and look at. steroid injection into the greater trochanteric bursa. Discharge Plan Discharge Patient Disposition: Home Clinical Impression: Trochanteric bursitis of right hip Condition: Stable Prescriptions: New diclofenac sodium 75 mg tablet,delayed release (DR/EC) 75 mg PO Q12H PRN (Reason: pain) Qty: 20 RF: 0 Held meloxicam [Mobic] 15 mg tablet 15 mg PO DAILY PRN (Reason: UNKNOWN) RF: 0 Hold Instructions: Resume on 09/16/20. No Action hydrochlorothiazide 25 mg tablet 25 mg PO QAM Qty: 90 RF: 1 alprazolam 0.25 mg tablet 0.25 mg PO DAILY PRN (Reason: anxiety) Qty: 30 RF: 0 atorvastatin [Lipitor] 10 mg Tablet 10 mg PO BEDTIME RF: 0 [id number] Tablet 1 tab PO DAILY RF: 0 [place] 1 tab PO BID RF: 0 pantoprazole 40 mg tablet,delayed release (DR/EC) 40 mg PO QAM RF: 0 simvastatin 20 mg tablet 20 mg PO BEDTIME RF: 0 lisinopril 10 mg tablet 10 mg PO QAM RF: 0 escitalopram oxalate 10 mg tablet 10 mg PO QAM RF: 0 Discharge Orders: Discharge ED (Routine); Ordered 09/06/20 Ordered By: Magdiel Lamar Referrals: Heaven Tyler DO [Primary Care Provider] - Discharge Diet: Usual diet Discharge Activity: Resume usual activity Patient Instructions: Opioid Safety Coding Level of Care Code ED Head Of Loss Prevention for Chg Fwd Exam Comprehensive
[2020-09-06 12:52] VITALS: BP 146/93; PULSE 70; RESP 19; O2SAT 96
== END 2020-09-06 12:54 | disposition home or self-care (01) ==
PROVIDERS: Emergency Provider Family Medicine; PCP Family Medicine
DX: M70.61 Trochanteric bursitis, right hip (principal); I10 Essential (primary) hypertension; K21.9 Gastro-esophageal reflux disease without esophagitis
CPT/HCPCS: 73502; 99281

== ENCOUNTER 2021-02-22 16:22 | Emergency (ER) | payer OTHER, SELFPAY ==
[2021-02-22 16:33] VITALS: BP 161/102; PULSE 98; RESP 18; TEMP 36.3; O2SAT 93; BMI 28.1
--- NOTE | 2021-02-22 20:28 | CTR_ITS ---
PROCEDURE INFORMATION: Exam: CT Abdomen And Pelvis With Contrast Exam date and time: 02/22/2021 8:28 PM Age: 60 years old Clinical indication: Nausea and vomiting; Additional info: Abd pain, umbilical hernia TECHNIQUE: Imaging protocol: Computed tomography of the abdomen and pelvis with contrast. Radiation optimization: All CT scans at this facility use at least one of these dose optimization techniques: automated exposure control; mA and/or kV adjustment per patient size (includes targeted exams where dose is matched to clinical indication); or iterative reconstruction. Contrast material: OMNI 300; Contrast volume: 95 ml; Contrast route: INTRAVENOUS (IV); COMPARISON: CT abdomen pelvis w con* [id number] 03/13/2020 7:08 AM RADIATION DOSE METRICS: Total DLP (mGy-cm): 1804.06 FINDINGS: Lungs: Lung bases are clear. Liver: There is diffuse low-attenuation of the liver relative to the spleen consistent with fatty infiltration. There is no focal liver abnormality. Gallbladder and bile ducts: The gallbladder is normal. There is no biliary dilation. Pancreas: The pancreas is unremarkable. Spleen: The spleen is unremarkable. Adrenal glands: The adrenal glands are unremarkable. Kidneys and ureters: The kidneys are unremarkable. No hydronephrosis or stones. No ureteral dilation. Stomach and bowel: The stomach is decompressed, preventing meaningful evaluation of wall thickness. The small bowel is nondilated. The colon is unremarkable. Appendix: The appendix is absent. Intraperitoneal space: There is no free air or significant intraperitoneal free fluid. Vasculature: There is mild aortic atherosclerotic disease. The portal, splenic and superior mesenteric veins are patent. Lymph nodes: There is no lymphadenopathy in the retroperitoneum, mesentery, pelvis or inguinal regions. Urinary bladder: Unremarkable as visualized. Reproductive: The uterus is unremarkable. There is no adnexal mass or large cyst. Bones/joints: There is moderate degenerative disease in the lumbar spine. There are chronic bilateral L5 pars defects without spondylolisthesis. The pelvis and proximal femora are intact. Soft tissues: There is a small fat containing periumbilical ventral hernia which is new since 03/13/2020. There is minimal edema of the fat within the hernia. CT/CT abdomen pelvis w con* [id number] IMPRESSION: 1. Small fat containing periumbilical ventral hernia, new since 03/13/2020. 2. Incidental findings above. Radiation Dose CTDIVOL = (mGy): DLP = 1804.06 (mGy-cm)
--- NOTE | 2021-02-22 20:29 | ED_ITS ---
HPI - Abdominal Pain General: Chief Complaint: Abdominal Pain Stated Complaint: N/V, Poss umbilical Hernia Time Seen by Provider: 02/22/21 20:27 History of Present Illness: HPI narrative: 60-year-old female comes in today with complaints of periumbilical abdominal pain. Patient reports that she has a history of appendicitis a little over 1 year ago which she had a laparoscopic surgery done. Patient states since then she has had some umbilical discomfort w hich she thinks may be due to a hernia secondary to her laparoscopic surgery. Patient reports last 3 days she has had increased nausea and vomiting and then worsening lower abdominal pain. Patient denies any lifting or straining to lift. Patient appears mildly unwell but not toxic. Patient appears in moderate pain. Review of Systems General: Reports: 10 or more systems reviewed and unremarkable except in HPI and below GI: Reports: abdominal pain 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 Exam Const: COMMON NORMALS: no acute distress and patient oriented x3 GENERAL APPEARANCE: cooperative HENMT: COMMON NORMALS: normocephalic and Normal external nose present HEAD & SCALP: normal to inspection and normocephalic NOSE: Normal external nose present MOUTH: Normal oral and palatal mucosa present Eye: GENERAL EYE: appearance normal, both eyes and all related structures Neck/C-Spine: COMMON NORMALS: full ROM Lymph: LYMPHATIC: no lymphadenopathy noted Chest: COMMONS NORMALS: normal inspection of the chest Resp: COMMON NORMALS: normal respiratory effort EFFORT & INSPECTION: Yes able to speak in complete sentences Cardio: COMMON NORMALS: regular rate and regular rhythm RATE: regular rate RHYTHM: regular rhythm GI: COMMON NORMALS: Soft to palpation AUSCULTATION: Yes normoactive bowel sounds PALPATION: Yes Soft to palpation and Yes Tenderness to palpation present (GI) Details: LLQ Back/Pelvis: COMMON NORMALS: thoracic and lumbar spine normal to inspection Extremity: COMMON NORMALS: normal to inspection Neuro: COMMON NORMALS: patient oriented x3 and moves all extremities Psych: COMMON NORMALS: mental status grossly normal and cooperative Skin: COMMON NORMALS: no rashes or lesions noted GENERAL SKIN EXAM: no rashes or lesions noted Course Vital Signs: Vital signs: Vital Signs Temperature 97.3 F L 02/22/21 16:33 Pulse Rate 92 02/22/21 22:00 Respiratory Rate 18 02/22/21 22:00 Blood Pressure 149/90 02/22/21 22:00 Pulse Oximetry 94 02/22/21 22:00 MDM - Abdominal Pain MDM Narrative: Medical decision making narrative: 60-year-old female comes in today with complaints of periumbilical/left lower abdominal pain. On exam patient has tenderness to the left lower abdomen with a soft bowel with normal bowel sounds. Vital signs were normal. Differential diagnosis includes not limited to diverticulitis, incarcerated hernia, muscle strain. Laboratory values were unremarkable except for some mild elevation in liver enzymes which seems to be chronic for patient. CT scan did note a fat-containing ventral hernia but otherwise nonacute. I reviewed this with patient with recommendations for follow-up with surgeon. Patient reported understanding and agreed to plan. Lab Data: Labs: Lab Results 02/22/21 02/22/21 02/22/21 Range/Units 20:09 20:09 20:09 WBC 8.8 (4.0-10.0) 10^3/ uL RBC 4.74 (4.1-5.3) 10^6/u L Hgb 14.8 (11.5-15.3) g/dL Hct 44.4 (37.0-47.0) % MCV 93.7 (81-99) fl MCH 31.2 (28.0-34.0) pg MCHC 33.3 (30.0-36.0) g/dL RDW 13.4 (12.1-15.1) % Plt Count 334 (130-400) 10^3/c mm MPV 10.3 (7.4-10.4) fL Neut % (Auto) 67.9 % Lymph % (Auto) 22.1 % [place] % (Auto) 8.4 % Eos % (Auto) 0.7 % Baso % (Auto) 0.7 % Neut # (Auto) 5.96 (1.8-7.7) 10^3/u L Lymph # (Auto) 1.9 (0.8-4.8) 10^3/u L [place] # (Auto) 0.7 (0.2-0.9) 10^3/u L Eos # (Auto) 0.1 (0.0-0.8) 10^3/u L Baso # (Auto) 0.1 (0.0-0.1) 10^3/u L Nucleated RBC % (a uto) 0 % Nucleated RBCs # 0.0 /100WBC Sodium 136 (136-145) mmol/L Potassium 3.7 (3.5-5.1) mmol/L Chloride 94 L (98-107) mmol/L Carbon Dioxide 24 (22-29) mmol/L Anion Gap 21.7 H (5-19) BUN 11 (8-23) mg/dL Creatinine 0.7 (0.5-0.9) mg/dL GFR Calculation 85.1 L (90-130) mL/min Glucose 125 H (65-115) mg/dL Calculated Osmolal ity 283 L (285-295) mOsm/k g Lactic Acid 2.0 (0.5-2.2) mmol/L Calcium 10.2 (8.5-10.5) mg/dL Total Bilirubin 1.7 H (0.15-1.2) mg/dL AST 63 H (0-32) U/L ALT 55 H (0-33) U/L Alkaline Phosphata se 104 (35-105) IU/L Total Protein 7.4 (6.6-8.7) g/dL Albumin 4.7 (3.5-5.2) g/dL Globulin 2.7 (1.3-4.6) g/dL Lipase 33 (13-60) U/L Discharge Plan Discharge Patient Disposition: Home Clinical Impression: Ventral hernia Qualifiers: Obstruction and gangrene presence: without obstruction or gangrene Qualified Code(s): K43.9 - Ventral hernia without obstruction or gangrene Condition: Stable Prescriptions: New hydrocodone-acetaminophen 5-325 mg tablet 1 tab PO Q6H PRN (Reason: pain (scale score 7-10)) Qty: 14 RF: 0 ondansetron HCl 4 mg tablet 4 mg PO Q8H PRN (Reason: nausea and vomiting) Qty: 10 RF: 0 No Action meloxicam [Mobic] 15 mg tablet 15 mg PO DAILY Qty: 90 RF: 1 alprazolam 0.25 mg tablet 0.25 mg PO DAILY PRN (Reason: anxiety) Qty: 30 RF: 0 simvastatin 20 mg tablet 20 mg PO BEDTIME Qty: 90 RF: 1 [id number] Tablet 1 tab PO DAILY RF: 0 pantoprazole 40 mg tablet,delayed release (DR/EC) 40 mg PO DAILY RF: 0 lisinopril 10 mg tablet 10 mg PO DAILY RF: 0 hydrochlorothiazide 25 mg tablet 25 mg PO DAILY RF: 0 escitalopram oxalate 10 mg tablet 10 mg PO DAILY RF: 0 Discharge Orders: Discharge ED (Routine); Ordered 02/22/21 Ordered By: Edgar Garcia Referrals: Heaven Tyler DO [Primary Care Provider] - Discharge Diet: Usual diet Discharge Activity: Increase activity as tolerated Patient Instructions: Ventral Hernia (ED), Opioid Safety Activity Restrictions/Additional Instructions: Your CT scan noted a fat-containing ventral hernia. There is no sign of bowel obstruction. This can be painful and will need repair. I have placed a case management order to help you with follow-up with surgeon. Monitor for high fever, blood in vomit or stool, or new concerns. Return to the ER as needed. Follow-up with primary care as needed. Coding Level of Care Code ED Guardian Family Member for Anetteg Fwd Exam Comprehensive
[2021-02-22 20:33] LABS: Basophils # 0.1 10^3/uL (0.0-0.1); Basophils % 0.7 %; Eosinophils # 0.1 10^3/uL (0.0-0.8); Eosinophils % 0.7 %; Hematocrit 44.4 % (37.0-47.0); Hemoglobin 14.8 g/dL (11.5-15.3); Lymphocytes # 1.9 10^3/uL (0.8-4.8); Lymphocytes % 22.1 %; Mean Corpuscular HGB Conc 33.3 g/dL (30.0-36.0); Mean Corpuscular Hemoglobin 31.2 pg (28.0-34.0); Mean Corpuscular Volume 93.7 fl (81-99); Mean Platelet Volume 10.3 fL (7.4-10.4); Monocytes # 0.7 10^3/uL (0.2-0.9); Monocytes % 8.4 %; Neutrophils # 5.96 10^3/uL (1.8-7.7); Neutrophils % 67.9 %; Nucleated Red Blood Cells % 0 %; Platelet Count 334 10^3/cmm (130-400); Red Blood Count 4.74 10^6/uL (4.1-5.3); Red Cell Distribution Width 13.4 % (12.1-15.1); White Blood Count 8.8 10^3/uL (4.0-10.0)
[2021-02-22 20:43] VITALS: BP 140/96; PULSE 91; RESP 18; O2SAT 94
[2021-02-22 20:59] LABS: Alanine Aminotransferase 55 U/L (0-33); Albumin Level 4.7 g/dL (3.5-5.2); Alkaline Phosphatase 104 IU/L (35-105); Anion Gap 21.7 (5-19); Aspartate Amino Transferase 63 U/L (0-32); Blood Urea Nitrogen 11 mg/dL (8-23); Calcium 10.2 mg/dL (8.5-10.5); Carbon Dioxide 24 mmol/L (22-29); Chloride 94 mmol/L (98-107); Globulin 2.7 g/dL (1.3-4.6); Glomerular Filtration Rate 85.1 mL/min (90-130); Glucose 125 mg/dL (65-115); Lipase 33 U/L (13-60); Osmolality Calculated 283 mOsm/kg (285-295); Potassium 3.7 mmol/L (3.5-5.1); Sodium 136 mmol/L (136-145); Total Bilirubin 1.7 mg/dL (0.15-1.2); Total Protein 7.4 g/dL (6.6-8.7)
[2021-02-22 21:11] VITALS: RESP 18
[2021-02-22] MEDS: ondansetron 2 mg/ML SDV 2 mL 4 MG IVP (21:11)
[2021-02-22] MEDS: morphine 4 mg/mL SDV 1 mL 2 MG IVP (21:11)
[2021-02-22] MEDS: sodium chloride 0.9% 1,000 ML 999 ML IV (21:11)
[2021-02-22] MEDS: iohexol 300 mg/mL 100 mL Btl IV (21:18)
[2021-02-22 22:00] VITALS: BP 149/90; PULSE 92; RESP 18; O2SAT 94
[2021-02-22 22:21] LABS: Add Urine Microscopic? NO; Charge for UA Resulting for Rev
[2021-02-22 22:27] LABS: Bilirubin Urine Neg (Negative); Blood Urine Neg (Negative); Glucose Urine UA Norm (Normal); Ketones Urine Negative (Negative); Leukocyte Esterase Urine Negative (Negative); Nitrate Urine Negative (Negative); Protein Urine Neg (Negative); Specific Gravity, Urine 1.005 (1.005-1.030); Urine Appearance Clear (CLEAR); Urine Color Yellow (Yellow); Urobilinogen Urine Norm (Negative); pH Urine 5 (5-7)
[2021-02-22 22:37] VITALS: BP 149/90; PULSE 90; O2SAT 94
--- NOTE | 2021-02-23 09:32 | DCPLANNER ---
manager machine had message to schedule a follow up appointment for patient with general surgery. manager machine emailed patients information to Renee at [facility] General Surgery. Patients information will be printed and reviewed, clinic will call patient with appointment information.
--- NOTE | 2021-02-27 13:51 | DCPLANNER ---
Patient has a follow up appointment scheduled for Saturday, March 01, 2021 at 11:[address] Vigil at General Surgery. Clinic will call patient with appointment information.
--- NOTE | 2021-03-24 09:17 | DCPLANNER ---
Patient had a follow up appointment scheduled for 03.01.21 with general surgery - patient did attend appointment.
== END 2021-02-22 22:30 | disposition home or self-care (01) ==
PROVIDERS: Physician Assistant; Emergency Provider Nurse Practitioner Family; PCP Family Medicine
DX: K43.9 Ventral hernia without obstruction or gangrene (principal); I10 Essential (primary) hypertension
CPT/HCPCS: 74177; 80053; 81003; 83605; 83690; 85025; 96361; 96374; 96375; 99284; J2270; J2405; J7030; Q9967

== ENCOUNTER 2021-03-01 12:39 | Outpatient (CLI) | payer OTHER, SELFPAY ==
[2021-03-01 13:23] LABS: Basophils % 0.3 %; Eosinophils # 0.1 10^3/uL (0.0-0.8); Eosinophils % 1.5 %; Hematocrit 44.7 % (37.0-47.0); Hemoglobin 14.8 g/dL (11.5-15.3); Lymphocytes # 1.3 10^3/uL (0.8-4.8); Lymphocytes % 20.1 %; Mean Corpuscular HGB Conc 33.1 g/dL (30.0-36.0); Mean Corpuscular Hemoglobin 31.6 pg (28.0-34.0); Mean Corpuscular Volume 95.5 fl (81-99); Mean Platelet Volume 10.3 fL (7.4-10.4); Monocytes # 0.6 10^3/uL (0.2-0.9); Neutrophils # 4.56 10^3/uL (1.8-7.7); Neutrophils % 68.8 %; Nucleated Red Blood Cells % 0 %; Platelet Count 308 10^3/cmm (130-400); Red Blood Count 4.68 10^6/uL (4.1-5.3); Red Cell Distribution Width 13.4 % (12.1-15.1); White Blood Count 6.6 10^3/uL (4.0-10.0)
[2021-03-01 13:47] LABS: Chol HDL Ratio 4.29 mg/dL (0.0-4.40); Cholesterol 236 mg/dL (0-200); HDL Cholesterol 55 mg/dL (60-100); LDL Cholesterol Calculated 144 mg/dL (50-129); LDL HDL Ratio 2.62 RATIO (0.00-3.22); Triglycerides 185 mg/dL (0-150)
[2021-03-01 13:57] LABS: Carcinoembryonic Antigen 2.8 ng/mL (0.0-4.7)
[2021-03-01 14:09] LABS: Alanine Aminotransferase 82 U/L (0-33); Albumin Level 4.7 g/dL (3.5-5.2); Alkaline Phosphatase 90 IU/L (35-105); Anion Gap 17.4 (5-19); Aspartate Amino Transferase 94 U/L (0-32); Blood Urea Nitrogen 6 mg/dL (8-23); Carbon Dioxide 27 mmol/L (22-29); Chloride 94 mmol/L (98-107); Globulin 2.5 g/dL (1.3-4.6); Glomerular Filtration Rate 101.6 mL/min (90-130); Glucose 107 mg/dL (65-115); Osmolality Calculated 278 mOsm/kg (285-295); Potassium 3.4 mmol/L (3.5-5.1); Sodium 135 mmol/L (136-145); Total Bilirubin 0.7 mg/dL (0.15-1.2); Total Protein 7.2 g/dL (6.6-8.7)
== END 2021-03-01 12:40 | disposition home or self-care (01) ==
PROVIDERS: PCP Family Medicine; Visit Provider Surgery
DX: K43.9 Ventral hernia without obstruction or gangrene (principal); R97.0 Elevated carcinoembryonic antigen [CEA]; E78.5 Hyperlipidemia, unspecified
CPT/HCPCS: 36415; 80053; 80061; 82378; 85025

== ENCOUNTER → 2021-03-03 12:53 | Outpatient (BNVA) | payer OTHER, SELFPAY | PROVIDERS: PCP Family Medicine; Visit Provider Surgery | DX: Z11.52 Encounter for screening for COVID-19 (principal) | CPT/HCPCS: 87635 ==

== ENCOUNTER 2021-03-09 07:07 | Day surgery (SDC) | payer OTHER, SELFPAY ==
[2021-03-08 12:22] VITALS: BMI 28.1
--- NOTE | 2021-03-09 07:24 | ANES.PREANE2 ---
Pre-Anesthetic Assessment Pre-Anesthetic Assessment: Height/Weight: Height 1.7 m Weight 81.647 kg Preop Diagnosis: Acute appendicitis. Proposed Procedure: Operation Date: 03/09/21 08:15 Proposed Procedures p Colonoscopy 85291 C18.1(Not Applicable) - Yg Vigil MD Familial anesthetic complications: None Was Beta Mirian taken within 24 hours: N/A Was Clonidine taken within 24 hours: N/A Last intake: > 8hrs Social: Social History: No alcohol and No tobacco Exam: Pre-Anes Outpt Exam: alert, oriented x 3, clear to auscultation bilaterally and regular rate & rhythm Airway: Cervical ROM: WNL MP: 3 Dentition: Full CV/HEM: CV/HEM: HTN GI: GI: GERD Anesthetic Plan: ASA status: 2 Anesthesia: MAC Risk of > 500 ml blood loss (7ml/kg in children): No PFSH Anesthesia PFSH: Medical History Acute appendicitis Benign essential HTN Bilateral carpal tunnel syndrome Eczema GERD (gastroesophageal reflux disease) Panic attack Surgical History History of 2 sections History of appendectomy History of dilatation and curettage x 1 History of hernia repair R spigelian History of surgery on left wrist Comminuted fracture --repaired with bone graft from left hip Family History Other CAD (coronary artery disease) Family history of premature coronary artery disease Social History Smoking and tobacco status: never smoked Alcohol intake: never 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
[2021-03-09 07:51] VITALS: BP 129/89; PULSE 96; RESP 18; TEMP 36.7; O2SAT 94
[2021-03-09] MEDS: sodium chloride 0.9% 1,000 ML 30 ML IV (07:58)
--- NOTE | 2021-03-09 08:22 | W.PM.OPSUD ---
Surgery/Procedure H&P Update DATE OF PROCEDURE: March 09, 2021 DATE H&P PERFORMED: 03/01/21 H&P UPDATE INFORMATION: I have reviewed H&P completed within last 30 days, I have examined patient prior to procedure and No changes to prior documentation PREOP DIAGNOSIS: Carcinoma of the appendix PRIMARY INDICATION FOR PROCEDURE: The same PLANNED PROCEDURE: Operation Date: 03/09/21 08:15 Proposed Procedures p Colonoscopy 23551 C18.1(Not Applicable) - Yg Vigil MD
[2021-03-09 09:22] VITALS: BP 106/88; PULSE 88; RESP 16; TEMP 36.7; O2SAT 92
[2021-03-09 09:43] VITALS: BP 134/98; PULSE 76; RESP 18; O2SAT 92
--- NOTE | 2021-03-09 14:52 | ANE.PACU2 ---
Inpatient post-anesthesia follow up: Airway intact: Yes Vital signs: Temperature 98.0 F Pulse Rate 76 Respiratory Rate 18 Blood Pressure 134/98 Pulse Oximetry 92 Oxygen Delivery Me thod Room Air Oxygen Flow Rate 3 Fraction of Inspir ed Oxygen Hydration adequate: Yes Nausea and vomiting: No Pain level: 1 Mental status: Baseline
== END 2021-03-09 10:00 | disposition home or self-care (01) ==
PROVIDERS: PCP Family Medicine; Visit Provider Surgery
PROC: 0DJD8ZZ Inspection of Lower Intestinal Tract, Via Natural or Artificial Opening Endoscopic (ICD-10-PCS; CPT 45378; principal; 2021-03-09 08:15)
DX: C18.1 Malignant neoplasm of appendix (principal); I10 Essential (primary) hypertension; K21.9 Gastro-esophageal reflux disease without esophagitis; Z82.49 Family history of ischemic heart disease and other diseases of the circulatory system
CPT/HCPCS: 45378; 96360; J2704; J7030

== ENCOUNTER 2021-03-20 09:45 | Outpatient (CLI) | payer OTHER, SELFPAY ==
--- NOTE | 2021-03-20 09:53 | FL_ITS ---
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 Normal ileocecal valve. No evidence of high-grade s tricture or obstructing mass. Tortuous but otherwise normal appearing sigmoid colon. Normal hepatic a nd splenic flexures. Osteopenia. Degenerative arthritis both hips with joint space narrowing. FL/FL barium enema w air* [id number] IMPRESSION: Normal barium enema. No suspicious findings.
== END 2021-03-20 09:46 | disposition home or self-care (01) ==
LOC: RAD 09:47
PROVIDERS: PCP Family Medicine; Visit Provider Surgery
DX: C18.1 Malignant neoplasm of appendix (principal)
CPT/HCPCS: 74280

== ENCOUNTER → 2021-05-08 08:26 | Outpatient (BNVA) | payer OTHER, SELFPAY | PROVIDERS: PCP Family Medicine; Visit Provider Family Medicine | DX: R79.89 Other specified abnormal findings of blood chemistry (principal) | CPT/HCPCS: 80053 ==

== ENCOUNTER → 2021-09-12 16:10 | Outpatient (BNVA) | payer OTHER, SELFPAY | PROVIDERS: PCP Family Medicine; Visit Provider Family Medicine | DX: E78.5 Hyperlipidemia, unspecified (principal); I10 Essential (primary) hypertension | CPT/HCPCS: 80053; 80061; 85025 ==

== ENCOUNTER 2021-12-02 15:58 | Emergency (ER) | payer OTHER, SELFPAY ==
[2021-12-02 16:07] VITALS: BP 144/91; PULSE 100; RESP 18; TEMP 36.6; O2SAT 97; BMI 29.7
--- NOTE | 2021-12-02 16:18 | USR_ITS ---
PROCEDURE INFORMATION: Exam: US Abdomen, Limited; Right Upper Quadrant Exam date and time: 12/02/2021 4:28 PM Age: 61 years old Clinical indication: Nausea and vomiting; Abdominal pain; Generalized; Prior surgery; Surgery type: Multiple hernia repairs; Additional info: Ruq pain, n/v TECHNIQUE: Imaging protocol: US abdomen. Real time ultrasound with image documentation. Limited exam focused on the right upper quadrant. COMPARISON: CT abdomen pelvis w con* [id number] 02/22/2021 9:13 PM FINDINGS: Liver: Hepatic steatosis. Gallbladder: Normal. No gallstones. There is no gallbladder wall thickening. Biliary ducts: Normal. No stones. No dilation. Pancreas: Visualized pancreas is unremarkable. Right kidney: Normal. No mass. No hydronephrosis. US/US gall bladder [id number] IMPRESSION: 1. Negative for cholelithiasis or cholecystitis. 2. Hepatic steatosis.
--- NOTE | 2021-12-02 16:20 | W.ED.ABDPA2 ---
Documented by User: OSCAR Zamora 12/04/21 07:48 HPI - Abdominal Pain General: Chief Complaint: Abdominal Pain Stated Complaint: N/D painful Time Seen by Provider: 12/02/21 16:13 History of Present Illness: Patient is a 61-year-old female comes to the ED with abdominal pain nausea and vomiting. Patient's nausea and vomiting started approximately a week ago. Symptoms worsen after she eats fatty or greasy foods. She is able to keep p.o. water down. Of the last 24 hours she started developing abdominal pain in the right upper quadrant of her abdomen. She rates the pain currently a 5 out of 10. She endorses having some soft stool that is yellow in color. Denies any fevers. 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 Associated Symptoms: Reports nausea and vomiting; Denies chills, constipation, diarrhea, dysuria, fever(s), hematochezia and hematuria Review of Systems Const: Denies: fever(s), chills or fatigue Eyes: Denies: change in vision or eye discomfort ENMT: Denies: throat pain, odynophagia, nasal discharge or nasal congestion Card: Denies: chest pain, palpitations, edema, swelling of feet/ankles, dyspnea on exertion or orthopnea Resp: Denies: dyspnea, productive cough or non-productive cough GI: Reports: abdominal pain, nausea and vomiting; Denies: diarrhea, constipation or hematochezia : Denies: flank pain, dysuria or hematuria Musc: Denies: neck pain, back pain or extremity swelling Skin/Breast: Denies: rash or new lesions Neuro: Denies: headache(s), numbness in extremities or weakness in extremities 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 Exam Const: COMMON NORMALS: patient oriented x3 and alert GENERAL APPEARANCE: cooperative HENMT: COMMON NORMALS: normocephalic HEAD & SCALP: normocephalic MOUTH: Normal oral and palatal mucosa present THROAT: posterior oropharynx normal and uvula midline Neck/C-Spine: COMMON NORMALS: supple GENERAL: Yes normal visual inspection Resp: COMMON NORMALS: normal respiratory effort, No retractions, No use of accessory muscles and clear to auscultation bilaterally AUSCULTATION: clear to auscultation bilaterally Cardio: COMMON NORMALS: regular rate, regular rhythm, S1 normal heart sound present, S2 normal heart sound present, No gallops present (Cardio), No clicks present (Cardio), No murmurs present (Cardio) and Peripheral pulses 2+ throughout RATE: regular rate RHYTHM: regular rhythm HEART SOUNDS: S1 normal heart sound present and S2 normal heart sound present PERIPHERAL PULSES: Peripheral pulses 2+ throughout GI: COMMON NORMALS: Normal to inspection, nondistended, normoactive bowel sounds present, Soft to palpation and no masses PALPATION: Yes Soft to palpation and Yes Tenderness to palpation present (GI) Details: RUQ (Positive Diaz sign) : COMMON NORMALS: Yes no CVA tenderness BLADDER/KIDNEY EXAM: Yes no CVA tenderness Back/Pelvis: COMMON NORMALS: no CVA tenderness Extremity: COMMON NORMALS: normal to inspection Neuro: COMMON NORMALS: patient oriented x3 SENSORIUM/ORIENTATION: Yes alert Skin: GENERAL SKIN EXAM: dry skin Course Vital Signs: Vital signs: Vital Signs Temperature 98 F 12/02/21 16:07 Pulse Rate 84 12/02/21 18:42 Respiratory Rate 16 12/02/21 18:42 Blood Pressure 124/74 12/02/21 18:42 Pulse Oximetry 93 12/02/21 18:42 MDM - Abdominal Pain Medical Decision Making Patient is a 62-year-old female comes to the ED with abdominal pain nausea and vomiting. Symptoms have been going on for the past couple weeks but pain just started within the last 24 hours. Abdominal pain is in the right upper quadrant. She says eating certain foods such as fatty or greasy foods cause worsening symptoms. Past medical history of appendectomy, 2 ventral hernia repair and adenocarcinoma of appendix. Vitals are stable. Exam with patient shows positive Diaz sign with right upper quadrant tenderness. The rest of exam is benign. All labs were unremarkable. Ultrasound of gallbladder showed no cholelithiasis or cholecystitis. Some hepatic steatosis noted. Patient was given IV fluids, Zofran and morphine and her symptoms resolved. She was stable for discharge home. She was diagnosed with biliary colic and was discharged home with a prescription for Zofran and [place] for pain. Clear liquid diet for the next 24 hours then slowly advance diet as tolerated. Avoid fatty/greasy foods that cause worsening symptoms. She was instructed to follow-up with her PCP within the next 3 to 5 days for reevaluation. Given her history she was given strict return to ED precautions. Patient understood and agreed with plan. Lab Data I reviewed the patient's lab results. : 12/02/21 17:09 12/02/21 17:09 Labs/Radiology: Radiology Impressions Gallbladder Ultrasound 12/02/21 16:18 IMPRESSION: 1. Negative for cholelithiasis or cholecystitis. 2. Hepatic steatosis. Laboratory Results WBC 5.9 10^3/uL (4.0-10.0) 12/02/21 17:09 RBC 4.43 10^6/uL (4.1-5.3) 12/02/21 17:09 Hgb 14.7 g/dL (11.5-15.3) 12/02/21 17:09 Hct 43.0 % (37.0-47.0) 12/02/21 17:09 MCV 97.1 fl (81-99) 12/02/21 17:09 MCH 33.2 pg (28.0-34.0) 12/02/21 17:09 MCHC 34.2 g/dL (30.0-36.0) 12/02/21 17:09 RDW 12.8 % (12.1-15.1) 12/02/21 17:09 Plt Count 292 10^3/cmm (130-400) 12/02/21 17:09 MPV 10.1 fL (7.4-10.4) 12/02/21 17:09 Neut % (Auto) 66.5 % 12/02/21 17:09 Lymph % (Auto) 21.1 % 12/02/21 17:09 [place] % (Auto) 9.4 % 12/02/21 17:09 Eos % (Auto) 2.2 % 12/02/21 17:09 Baso % (Auto) 0.5 % 12/02/21 17:09 Neut # (Auto) 3.90 10^3/uL (1.8-7.7) 12/02/21 17:09 Lymph # (Auto) 1.2 10^3/uL (0.8-4.8) 12/02/21 17:09 [place] # (Auto) 0.6 10^3/uL (0.2-0.9) 12/02/21 17:09 Eos # (Auto) 0.1 10^3/uL (0.0-0.8) 12/02/21 17:09 Baso # (Auto) 0.0 10^3/uL (0.0-0.1) 12/02/21 17:09 Nucleated RBC % (auto) 0 % 12/02/21 17:09 Nucleated RBCs # 0.0 /100WBC 12/02/21 17:09 Sodium 138 mmol/L (136-145) 12/02/21 17:09 Potassium 3.9 mmol/L (3.5-5.1) 12/02/21 17:09 Chloride 95 mmol/L (98-107) L 12/02/21 17:09 Carbon Dioxide 29 mmol/L (22-29) 12/02/21 17:09 Anion Gap 17.9 (5-19) 12/02/21 17:09 BUN 10 mg/dL (8-23) 12/02/21 17:09 Creatinine 0.8 mg/dL (0.5-0.9) 12/02/21 17:09 GFR Calculation 72.7 mL/min (90-130) L 12/02/21 17:09 Glucose 115 mg/dL (65-115) 12/02/21 17:09 Calculated Osmolality 286 mOsm/kg (285-295) 12/02/21 17:09 Calcium 11.3 mg/dL (8.5-10.5) H 12/02/21 17:09 Total Bilirubin 0.4 mg/dL (0.15-1.2) 12/02/21 17:09 AST 66 U/L (0-32) H 12/02/21 17:09 ALT 81 U/L (0-33) H 12/02/21 17:09 Alkaline Phosphatase 107 IU/L (35-105) H 12/02/21 17:09 Total Protein 7.6 g/dL (6.6-8.7) 12/02/21 17:09 Albumin 4.8 g/dL (3.5-5.2) 12/02/21 17:09 Globulin 2.8 g/dL (1.3-4.6) 12/02/21 17:09 Lipase 46 U/L (13-60) 12/02/21 17:09 Urine Color Yellow (Yellow) 12/02/21 17:22 Urine Appearance Clear (CLEAR) 12/02/21 17:22 Urine pH 5 (5-7) 12/02/21 17:22 Ur Specific [place] 1.010 (1.005-1.030) 12/02/21 17:22 Urine Protein Neg (Negative) 12/02/21 17:22 Urine Glucose (UA) Norm (Normal) 12/02/21 17:22 Urine Ketones Negative (Negative) 12/02/21 17:22 Urine Blood Neg (Negative) 12/02/21 17:22 Urine Nitrate Negative (Negative) 12/02/21 17:22 Urine Bilirubin Neg (Negative) 12/02/21 17:22 Urine Urobilinogen Norm mg/dL (Negative) 12/02/21 17:22 Ur Leukocyte Esterase Negative (Negative) 12/02/21 17:22 Discharge Plan Discharge Patient Disposition: Home Clinical Impression: Biliary colic Condition: Stable Prescriptions: New ondansetron 4 mg tablet,disintegrating 4 mg PO Q8H PRN (Reason: nausea and vomiting) Qty: 20 0RF No Action lisinopril 20 mg tablet 10 mg PO BID Qty: 90 1RF alprazolam 0.25 mg tablet 0.25 mg PO DAILY PRN (Reason: anxiety) Qty: 30 1RF escitalopram oxalate 10 mg tablet 10 mg PO DAILY Qty: 90 1RF simvastatin 20 mg tablet 20 mg PO DAILY Qty: 90 1RF meloxicam 15 mg tablet See Rx Instructions .ROUTE .COMPLEX Qty: 90 1RF Dose Instruction: TAKE 1 TABLET BY MOUTH EVERY DAY Rx Instructions: TAKE 1 TABLET BY MOUTH EVERY DAY pantoprazole 40 mg tablet,delayed release (DR/EC) 40 mg PO DAILY Qty: 90 1RF hydrochlorothiazide 25 mg tablet See Rx Instructions .ROUTE .COMPLEX Qty: 90 1RF Dose Instruction: TAKE 1 TABLET BY MOUTH DAILY Rx Instructions: TAKE 1 TABLET BY MOUTH DAILY Discharge Orders: Discharge ED (Routine); Ordered 12/02/21 Ordered By: Jayme Arias Referrals: Heaven Tyler, [Primary Care Provider] - Discharge Diet: Advance as tolerated and Clear Liquid Discharge Activity: Increase activity as tolerated Patient Instructions: Biliary Colic (ED), Opioid Safety Activity Restrictions/Additional Instructions: Follow-up with medical provider as directed in the next 5 to 7 days for reevaluation. For the next 24 hours to a clear liquid diet then slowly advance diet as tolerated. Avoid any fatty, greasy foods that cause worsening symptoms. Take medications as prescribed. Return to the ER or your medical provider if condition worsens. Please read and understand discharge instructions. Thank you for choosing [facility] for your healthcare needs today. Please realize this is an emergency room and that we are providing you with a medical screening exam and this may not be complete and all inclusive of all the testing and or work up that you may need to determine your ailment or severity of your illness. It is very important that you follow up as instructed or that you return to the Emergency Department should you have concerns or if your condition changes or worsens in any way. Coding Level of Care Code ED Intellectual Property Legal Assistant for Chg Fwd Exam Comprehensive Documented by User: Solitario Moore MD 12/12/21 19:56 HPI - Abdominal Pain General: Chief Complaint: Abdominal Pain Stated Complaint: N/D painful Time Seen by Provider: 12/02/21 16:13 FOR[facility] ED PFSH: Medical History Acute appendicitis Benign essential HTN Bilateral carpal tunnel syndrome Eczema GERD (gastroesophageal reflux disease) Panic attack Surgical History History of 2 sections History of appendectomy History of dilatation and curettage x 1 History of hernia repair R spigelian History of surgery on left wrist Comminuted fracture --repaired with bone graft from left hip Family History Other CAD (coronary artery disease) Family history of premature coronary artery disease Social History Smoking and tobacco status: never smoked Alcohol intake: never 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 Symptoms have been going on for the past couple weeks but pain just started within the last 24 hours. Abdominal pain is in the right upper quadrant. She says eating certain foods such as fatty or greasy foods cause worsening symptoms. Past medical history of appendectomy, 2 ventral hernia repair and adenocarcinoma of appendix. Vitals are stable. Exam with patient shows positive Diaz sign with right upper quadrant tenderness. The rest of exam is benign. All labs were unremarkable. Ultrasound of gallbladder showed no cholelithiasis or cholecystitis. Some hepatic steatosis noted. Patient was given IV fluids, Zofran and morphine and her symptoms resolved. She was stable for discharge home. She was diagnosed with biliary colic and was discharged home with a prescription for Zofran and [place] for pain. Clear liquid diet for the next 24 hours then slowly advance diet as tolerated. Avoid fatty/greasy foods that cause worsening symptoms. She was instructed to follow-up with her PCP within the next 3 to 5 days for reevaluation. Given her history she was given strict return to ED precautions. Patient understood and agreed with plan. I discussed this case with Jayme MOORE. I have reviewed documentation. Based on discussion patient does likely need CT in the outpatient setting at some point however no emergent need to perform in the emergency department as this would likely be due to clinical history. Solitario Moore MD Emergency Medicine Lab Data : 12/02/21 17:09 12/02/21 17:09 Labs/Radiology: Radiology Impressions Gallbladder Ultrasound 12/02/21 16:18 IMPRESSION: 1. Negative for cholelithiasis or cholecystitis. 2. Hepatic steatosis. Laboratory Results WBC 5.9 10^3/uL (4.0-10.0) 12/02/21 17:09 RBC 4.43 10^6/uL (4.1-5.3) 12/02/21 17:09 Hgb 14.7 g/dL (11.5-15.3) 12/02/21 17:09 Hct 43.0 % (37.0-47.0) 12/02/21 17:09 MCV 97.1 fl (81-99) 12/02/21 17:09 MCH 33.2 pg (28.0-34.0) 12/02/21 17:09 MCHC 34.2 g/dL (30.0-36.0) 12/02/21 17:09 RDW 12.8 % (12.1-15.1) 12/02/21 17:09 Plt Count 292 10^3/cmm (130-400) 12/02/21 17:09 MPV 10.1 fL (7.4-10.4) 12/02/21 17:09 Neut % (Auto) 66.5 % 12/02/21 17:09 Lymph % (Auto) 21.1 % 12/02/21 17:09 [place] % (Auto) 9.4 % 12/02/21 17:09 Eos % (Auto) 2.2 % 12/02/21 17:09 Baso % (Auto) 0.5 % 12/02/21 17:09 Neut # (Auto) 3.90 10^3/uL (1.8-7.7) 12/02/21 17:09 Lymph # (Auto) 1.2 10^3/uL (0.8-4.8) 12/02/21 17:09 [place] # (Auto) 0.6 10^3/uL (0.2-0.9) 12/02/21 17:09 Eos # (Auto) 0.1 10^3/uL (0.0-0.8) 12/02/21 17:09 Baso # (Auto) 0.0 10^3/uL (0.0-0.1) 12/02/21 17:09 Nucleated RBC % (auto) 0 % 12/02/21 17:09 Nucleated RBCs # 0.0 /100WBC 12/02/21 17:09 Sodium 138 mmol/L (136-145) 12/02/21 17:09 Potassium 3.9 mmol/L (3.5-5.1) 12/02/21 17:09 Chloride 95 mmol/L (98-107) L 12/02/21 17:09 Carbon Dioxide 29 mmol/L (22-29) 12/02/21 17:09 Anion Gap 17.9 (5-19) 12/02/21 17:09 BUN 10 mg/dL (8-23) 12/02/21 17:09 Creatinine 0.8 mg/dL (0.5-0.9) 12/02/21 17:09 GFR Calculation 72.7 mL/min (90-130) L 12/02/21 17:09 Glucose 115 mg/dL (65-115) 12/02/21 17:09 Calculated Osmolality 286 mOsm/kg (285-295) 12/02/21 17:09 Calcium 11.3 mg/dL (8.5-10.5) H 12/02/21 17:09 Total Bilirubin 0.4 mg/dL (0.15-1.2) 12/02/21 17:09 AST 66 U/L (0-32) H 12/02/21 17:09 ALT 81 U/L (0-33) H 12/02/21 17:09 Alkaline Phosphatase 107 IU/L (35-105) H 12/02/21 17:09 Total Protein 7.6 g/dL (6.6-8.7) 12/02/21 17:09 Albumin 4.8 g/dL (3.5-5.2) 12/02/21 17:09 Globulin 2.8 g/dL (1.3-4.6) 12/02/21 17:09 Lipase 46 U/L (13-60) 12/02/21 17:09 Urine Color Yellow (Yellow) 12/02/21 17:22 Urine Appearance Clear (CLEAR) 12/02/21 17:22 Urine pH 5 (5-7) 12/02/21 17:22 Ur Specific [place] 1.010 (1.005-1.030) 12/02/21 17:22 Urine Protein Neg (Negative) 12/02/21 17:22 Urine Glucose (UA) Norm (Normal) 12/02/21 17:22 Urine Ketones Negative (Negative) 12/02/21 17:22 Urine Blood Neg (Negative) 12/02/21 17:22 Urine Nitrate Negative (Negative) 12/02/21 17:22 Urine Bilirubin Neg (Negative) 12/02/21 17:22 Urine Urobilinogen Norm mg/dL (Negative) 12/02/21 17:22 Ur Leukocyte Esterase Negative (Negative) 12/02/21 17:22 Discharge Plan Discharge Patient Disposition: Home Clinical Impression: Biliary colic Condition: Stable Prescriptions: New ondansetron 4 mg tablet,disintegrating 4 mg PO Q8H PRN (Reason: nausea and vomiting) Qty: 20 0RF No Action lisinopril 20 mg tablet 10 mg PO BID Qty: 90 1RF alprazolam 0.25 mg tablet 0.25 mg PO DAILY PRN (Reason: anxiety) Qty: 30 1RF escitalopram oxalate 10 mg tablet 10 mg PO DAILY Qty: 90 1RF simvastatin 20 mg tablet 20 mg PO DAILY Qty: 90 1RF meloxicam 15 mg tablet See Rx Instructions .ROUTE .COMPLEX Qty: 90 1RF Dose Instruction: TAKE 1 TABLET BY MOUTH EVERY DAY Rx Instructions: TAKE 1 TABLET BY MOUTH EVERY DAY pantoprazole 40 mg tablet,delayed release (DR/EC) 40 mg PO DAILY Qty: 90 1RF hydrochlorothiazide 25 mg tablet See Rx Instructions .ROUTE .COMPLEX Qty: 90 1RF Dose Instruction: TAKE 1 TABLET BY MOUTH DAILY Rx Instructions: TAKE 1 TABLET BY MOUTH DAILY Discharge Orders: Discharge ED (Routine); Ordered 12/02/21 Ordered By: Jayme Arias Referrals: Heaven Tyler DO [Primary Care Provider] - Discharge Diet: Advance as tolerated and Clear Liquid Discharge Activity: Increase activity as tolerated Patient Instructions: Biliary Colic (ED), Opioid Safety Activity Restrictions/Additional Instructions: Follow-up with medical provider as directed in the next 5 to 7 days for reevaluation. For the next 24 hours to a clear liquid diet then slowly advance diet as tolerated. Avoid any fatty, greasy foods that cause worsening symptoms. Take medications as prescribed. Return to the ER or your medical provider if condition worsens. Please read and understand discharge instructions. Thank you for choosing [facility] for your healthcare needs today. Please realize this is an emergency room and that we are providing you with a medical screening exam and this may not be complete and all inclusive of all the testing and or work up that you may need to determine your ailment or severity of your illness. It is very important that you follow up as instructed or that you return to the Emergency Department should you have concerns or if your condition changes or worsens in any way. Coding Level of Care Code ED Intellectual Property Legal Assistant for Myles Fwd Exam Comprehensive
[2021-12-02] MEDS: sodium chloride 0.9% 1,000 ML 999 ML IV (17:05)
[2021-12-02] MEDS: morphine 4 mg/mL SDV 1 mL IVP (17:06)
[2021-12-02] MEDS: ondansetron 2 mg/ML SDV 2 mL 4 MG IVP (17:06)
[2021-12-02 17:12] VITALS: BP 128/86; PULSE 88; RESP 16; O2SAT 92
[2021-12-02 17:29] LABS: Basophils % 0.5 %; Eosinophils # 0.1 10^3/uL (0.0-0.8); Eosinophils % 2.2 %; Hemoglobin 14.7 g/dL (11.5-15.3); Lymphocytes # 1.2 10^3/uL (0.8-4.8); Lymphocytes % 21.1 %; Mean Corpuscular HGB Conc 34.2 g/dL (30.0-36.0); Mean Corpuscular Hemoglobin 33.2 pg (28.0-34.0); Mean Corpuscular Volume 97.1 fl (81-99); Mean Platelet Volume 10.1 fL (7.4-10.4); Monocytes # 0.6 10^3/uL (0.2-0.9); Monocytes % 9.4 %; Neutrophils % 66.5 %; Nucleated Red Blood Cells % 0 %; Platelet Count 292 10^3/cmm (130-400); Red Blood Count 4.43 10^6/uL (4.1-5.3); Red Cell Distribution Width 12.8 % (12.1-15.1); White Blood Count 5.9 10^3/uL (4.0-10.0)
[2021-12-02 17:36] LABS: Add Urine Microscopic? NO; Charge for UA Resulting for Rev
[2021-12-02 17:47] LABS: Bilirubin Urine Neg (Negative); Blood Urine Neg (Negative); Glucose Urine UA Norm (Normal); Ketones Urine Negative (Negative); Leukocyte Esterase Urine Negative (Negative); Nitrate Urine Negative (Negative); Protein Urine Neg (Negative); Urine Appearance Clear (CLEAR); Urine Color Yellow (Yellow); Urobilinogen Urine Norm (Negative); pH Urine 5 (5-7)
[2021-12-02 17:49] LABS: Alanine Aminotransferase 81 U/L (0-33); Albumin Level 4.8 g/dL (3.5-5.2); Alkaline Phosphatase 107 IU/L (35-105); Anion Gap 17.9 (5-19); Aspartate Amino Transferase 66 U/L (0-32); Blood Urea Nitrogen 10 mg/dL (8-23); Calcium 11.3 mg/dL (8.5-10.5); Carbon Dioxide 29 mmol/L (22-29); Chloride 95 mmol/L (98-107); Globulin 2.8 g/dL (1.3-4.6); Glomerular Filtration Rate 72.7 mL/min (90-130); Glucose 115 mg/dL (65-115); Lipase 46 U/L (13-60); Osmolality Calculated 286 mOsm/kg (285-295); Potassium 3.9 mmol/L (3.5-5.1); Sodium 138 mmol/L (136-145); Total Bilirubin 0.4 mg/dL (0.15-1.2); Total Protein 7.6 g/dL (6.6-8.7)
[2021-12-02 18:42] VITALS: BP 124/74; PULSE 84; RESP 16; O2SAT 93
== END 2021-12-02 18:45 | disposition home or self-care (01) ==
PROVIDERS: Emergency Provider Physician Assistant; PCP Family Medicine
DX: K80.50 Calculus of bile duct without cholangitis or cholecystitis without obstruction (principal)
CPT/HCPCS: 76705; 80053; 81003; 83690; 85025; 96361; 96374; 96375; 99284; J2270; J2405; J7030

== ENCOUNTER 2022-03-08 15:59 | Observation (INO) | payer OTHER, SELFPAY ==
[2022-03-08] VITALS (21 sets, daily range): BP systolic 112–135; BP diastolic 76–85; PULSE 83–110; RESP 16–31; TEMP 36.8; O2SAT 92–94
--- NOTE | 2022-03-08 16:15 | ECG_ITS ---
[facility] Test Date: 2022-03-08 Pat Name: Kimberli Jurado Department: Room: Gender: Female 3D Designer: : 1960 Requested By: Solitario Moore Order Number: [id number] Daija MD: Martinez Valencia M.D. Measurements Intervals [place] Rate: 100 P: 57 [place]: 148 QRS: 19 QRSD: 73 T: 12 QT: 346 QTc: 448 Interpretive Statements SINUS TACHYCARDIA WITH OCCASIONAL VENTRICULAR PREMATURE COMPLEXES LOW QRS VOLTAGE IN PRECORDIAL LEADS [QRS DEFLECTION < 1.0 mV IN CHEST LEADS] ST DEVIATION AND MODERATE T-WAVE ABNORMALITY, CONSIDER ANTERIOR ISCHEMIA [-0.1+ mV T-WAVE IN V3/V4] Compared to ECG 03/13/2020 07:52:22 Ventricular premature complex(es) now present Possible ischemia now present T-wave abnormality still present Electronically Signed On 03-09-2022 14:29:00 CDT by Martinez Valencia M.D. [id number]
--- NOTE | 2022-03-08 17:11 | ECG_ITS ---
[facility] Test Date: 2022-03-08 Pat Name: Kimberli Jurado Department: Room: Gender: Female Supervisor [employer] Joining: : 1960 Requested By: Magdiel Tavarez Order Number: [id number] Daija MD: Martinez Valencia M.D. Measurements Intervals [place] Rate: 87 P: 84 IA: 157 QRS: 24 QRSD: 70 T: 16 QT: 348 QTc: 420 Interpretive Statements SINUS RHYTHM ST DEVIATION AND MODERATE T-WAVE ABNORMALITY, CONSIDER ANTEROLATERAL ISCHEMIA [-0.1+ mV T-WAVE IN V3-V6] Compared to ECG 03/08/2022 16:15:02 Sinus tachycardia no longer present Ventricular premature complex(es) no longer present T-wave abnormality still present Possible ischemia still present Electronically Signed On 03-09-2022 14:28:25 CDT by Martinez Valencia M.D. [id number]
--- NOTE | 2022-03-08 17:30 | XRR_ITS ---
NOTE: Report was unsigned for reason: Order was edited. Original Signature date and time was: 03/08/2022 1732 [employer] [facility] Final Radiology Report Call: [phone] assistance Online chat: [email or web address] Name: REYNALDO BLAIR Age: 62Years F Date: 03/08/2022 SSN: [id number] : 1960 Study: XR CHEST 1 VIEW Requesting Physician: MICHAEL MARIA Images: 1 Add?l Studies: Provided Clinical History: dyspnea/cough PROCEDURE INFORMATION: Exam: XR Chest Exam date and time: 03/08/2022 5:13 PM Age: 62 years old Clinical indication: Shortness of breath; Additional info: Dyspnea/cough TECHNIQUE: Imaging protocol: Radiologic exam of the chest. Views: 1 view. COMPARISON: CR XR chest 1V portable [id number] 03/13/2020 5:58 AM FINDINGS: Lungs: Interval appearance of 2 areas of horizontal stranding in the right lower lung. Still no consolidation. Pleural spaces: Still no pneumothorax or apparent pleural fluid. Heart/Mediastinum: Still no cardiomegaly. Bones/joints: Diffuse osteopenia now possible. [facility] XR/XR chest 1V [id number] IMPRESSION: Interval appearance of 2 areas of probable atelectasis in the right lower lung. No acute finding elsewhere. Thank you for allowing us to participate in the care of your patient. Dictated and Authenticated by: Alexia Duvall MD 03/08/2022 5:32 PM Central Time ([place] & [place])
[2022-03-08 17:39] LABS: Basophils % 0.5 %; Eosinophils # 0.2 10^3/uL (0.0-0.8); Eosinophils % 2.2 %; Hematocrit 46.2 % (37.0-47.0); Hemoglobin 15.4 g/dL (11.5-15.3); Lymphocytes # 1.5 10^3/uL (0.8-4.8); Mean Corpuscular HGB Conc 33.3 g/dL (30.0-36.0); Mean Corpuscular Hemoglobin 31.4 pg (28.0-34.0); Mean Corpuscular Volume 94.1 fl (81-99); Mean Platelet Volume 10.1 fL (7.4-10.4); Monocytes # 0.6 10^3/uL (0.2-0.9); Monocytes % 7.9 %; Neutrophils # 5.64 10^3/uL (1.8-7.7); Nucleated Red Blood Cells % 0 %; Platelet Count 376 10^3/cmm (130-400); Red Blood Count 4.91 10^6/uL (4.1-5.3); Red Cell Distribution Width 13.2 % (12.1-15.1); White Blood Count 8.1 10^3/uL (4.0-10.0)
[2022-03-08] MEDS: aspirin 81 mg Chew Tablet 324 MG PO (17:57)
[2022-03-08 18:00] LABS: Alanine Aminotransferase 41 U/L (0-33); Albumin Level 0.2 g/dL (3.5-5.2); Aspartate Amino Transferase 41 U/L (0-32); Blood Urea Nitrogen 12 mg/dL (8-23); Calcium 11.5 mg/dL (8.5-10.5); Carbon Dioxide 26 mmol/L (22-29); Globulin 7.2 g/dL (1.3-4.6); Glucose 113 mg/dL (65-115); Total Bilirubin 1.4 mg/dL (0.15-1.2); Total Protein 7.4 g/dL (6.6-8.7)
[2022-03-08 18:09] LABS: Troponin(5th) Baseline 11 ng/L (0-10)
--- NOTE | 2022-03-08 18:33 | ED_ITS ---
HPI - SOB/Dyspnea General: Chief Complaint: Shortness of Breath/Dyspnea Stated Complaint: SOB Time Seen by Provider: 03/08/22 17:09 Source: patient Mode of arrival: ambulatory Limitations: no limitations History of Present Illness: HPI Narrative: 62-year-old female states that over the last 2 to 3 weeks she has been having an increasing cough she states that she is started having exertional dyspnea with her cough as well. States its been much worse today she been having some chest pain as well. She states with any exertion currently she gets very short of breath. Has had subjective fevers at home. 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 Exam Const: COMMON NORMALS: patient oriented x3 HENMT: COMMON NORMALS: normocephalic and atraumatic HEAD & SCALP: normocephalic and atraumatic Eye: COMMON NORMALS: Equal, round and reactive pupils present and EOMs intact bilaterally PUPIL: Yes Equal, round and reactive pupils present Neck/C-Spine: COMMON NORMALS: full ROM and supple Chest: COMMONS NORMALS: normal inspection of the chest and normal palpation of entire chest wall Resp: COMMON NORMALS: normal respiratory effort, No retractions and No use of accessory muscles AUSCULTATION: rales on the right Cardio: COMMON NORMALS: regular rate, regular rhythm and No murmurs present (Cardio) RATE: regular rate RHYTHM: regular rhythm GI: COMMON NORMALS: Normal to inspection, nondistended, normoactive bowel sounds present, Soft to palpation, non-tender and no masses PALPATION: Yes Soft to palpation Extremity: COMMON NORMALS: normal to inspection and full ROM Neuro: COMMON NORMALS: patient oriented x3, moves all extremities and no focal motor deficits Psych: COMMON NORMALS: mental status grossly normal, Normal thought process present and cooperative THOUGHT PROCESS: Normal thought process present Skin: COMMON NORMALS: no rashes or lesions noted and no wounds GENERAL SKIN EXAM: no rashes or lesions noted Course Vital Signs: Vital signs: Vital Signs Temperature 98.3 F 03/08/22 16:02 Pulse Rate 91 03/08/22 18:10 Respiratory Rate 26 H 03/08/22 18:10 Blood Pressure 121/76 03/08/22 18:00 Pulse Oximetry 92 03/08/22 18:14 Oxygen Delivery Me thod 03/08/22 18:14 MDM - SOB/Dyspnea Medical Decision Making Patient presents here with exertional dyspnea along with pain her CT does show pulmonary emboli no signs of RV strain we will admit at this time patient given Lovenox in the ER. Lab Data : 03/08/22 17:28 03/08/22 17:28 Labs/Radiology: Radiology Impressions Chest CTA 03/08/22 18:43 IMPRESSION: 1. Interval appearance of multiple bilateral pulmonary emboli as described above. No RV strain. 2. Interval appearance of most of the patchy haziness and stranding in the lungs, with the greatest disease in the right middle lobe related to the pulmonary embolic disease. 3. Interval subacute fractures of 3 left ribs. Probable hepatic steatosis. Other findings detailed above. ADDENDUM: 03/08/22 2030 THIS REPORT CONTAINS FINDINGS THAT MAY BE CRITICAL TO PATIENT CARE. The findings were verbally communicated via telephone conference with DEBI RIZZO at 8:09 PM CDT on 03/08/2022. The findings were acknowledged and understood. Laboratory Results WBC 8.1 10^3/uL (4.0-10.0) 03/08/22 17:28 RBC 4.91 10^6/uL (4.1-5.3) 03/08/22 17:28 Hgb 15.4 g/dL (11.5-15.3) H 03/08/22 17:28 Hct 46.2 % (37.0-47.0) 03/08/22 17:28 MCV 94.1 fl (81-99) 03/08/22 17:28 MCH 31.4 pg (28.0-34.0) 03/08/22 17: MCHC 33.3 g/dL (30.0-36.0) 03/08/22 17: RDW 13.2 % (12.1-15.1) 03/08/22 17:28 Plt Count 376 10^3/cmm (130-400) 03/08/22 17: MPV 10.1 fL (7.4-10.4) 03/08/22 17:28 Neut % (Auto) 70.0 % 03/08/22 17: Lymph % (Auto) 19.0 % 03/08/22 17:28 [place] % (Auto) 7.9 % 03/08/22 17: Eos % (Auto) 2.2 % 03/08/22 17: Baso % (Auto) 0.5 % 03/08/22: Neut # (Auto) 5.64 10^3/uL (1.8-7.7) 03/08/22 17: Lymph # (Auto) 1.5 10^3/uL (0.8-4.8) 03/08/22 17:28 [place] # (Auto) 0.6 10^3/uL (0.2-0.9) 03/08/22 17:28 Eos # (Auto) 0.2 10^3/uL (0.0-0.8) 03/08/22 17: Baso # (Auto) 0.0 10^3/uL (0.0-0.1) 03/08/22 17: Nucleated RBC % (auto) 0 % 03/08/22 17: Nucleated RBCs # 0.0 /100WBC 03/08/22 17:28 D-Dimer 1.41 ug/mIFEU (0-0.59) H 03/08/22 17:24 Sodium 126 mmol/L (136-145) L 03/08/22 17:28 Potassium 3.8 mmol/L (3.5-5.1) 03/08/22 17:28 Chloride 85 mmol/L (98-107) L 03/08/22 17:28 Carbon Dioxide 26 mmol/L (22-29) 03/08/22 17:28 Anion Gap 18.8 (5-19) 03/08/22 17:28 BUN 12 mg/dL (8-23) 03/08/22 17:28 Creatinine 1.0 mg/dL (0.5-0.9) H 03/08/22 17:28 GFR Calculation 56.0 mL/min (90-130) L 03/08/22 17:28 Glucose 113 mg/dL (65-115) 03/08/22 17:28 Calculated Osmolality 263 mOsm/kg (285-295) L 03/08/22 17:28 Calcium 11.5 mg/dL (8.5-10.5) H 03/08/22 17:28 Total Bilirubin 1.4 mg/dL (0.15-1.2) H 03/08/22 17:28 AST 41 U/L (0-32) H 03/08/22 17:28 ALT 41 U/L (0-33) H 03/08/22 17:28 Alkaline Phosphatase 123 U/L (35-105) H 03/08/22 17:28 Troponin T Baseline 11 ng/L (0-10) H 03/08/22 17:28 Total Protein 7.4 g/dL (6.6-8.7) 03/08/22 17:28 Albumin 0.2 g/dL (3.5-5.2) L 03/08/22 17:28 Globulin 7.2 g/dL (1.3-4.6) H 03/08/22 17:28 EKG Data EKG 1: I personally reviewed and interpreted this EKG as follows: EKG Interpretation Date: 03/08/22 EKG interpretation time: 18:17 Interpretation: nsr hr [address] or t wave abnormalities qrs 70 qtc 392 Discharge Plan Discharge Patient Disposition: Admitted As Inpatient Clinical Impression: Pulmonary embolism Condition: Stable Prescriptions: No Action alprazolam 0.25 mg tablet 0.25 mg PO DAILY PRN (Reason: anxiety) Qty: 30 1RF escitalopram oxalate 10 mg tablet 10 mg PO DAILY Qty: 90 1RF pantoprazole 40 mg tablet,delayed release (DR/EC) 40 mg PO DAILY Qty: 90 1RF lisinopril 10 mg tablet 10 mg PO BID meloxicam 15 mg tablet 15 mg PO DAILY hydrochlorothiazide 25 mg tablet 25 mg PO DAILY Referrals: Heaven Tyler DO [Primary Care Provider] - Coding Level of Care Code ED Metal Wire Technician for Chg Fwd Exam Comprehensive
[2022-03-08 18:39] LABS: D Dimer 1.41 ug/mIFEU (0-0.59)
--- NOTE | 2022-03-08 18:43 | CTR_ITS ---
PROCEDURE INFORMATION: Exam: CTA Chest With Contrast Exam date and time: 03/08/2022 7:22 PM Age: 62 years old Clinical indication: Cough and shortness of breath; Additional info: SOB TECHNIQUE: Imaging protocol: Computed tomographic angiography of the chest with contrast. 3D rendering (Not supervised by radiologist): MIP and/or 3D reconstructed images were created by the technologist. Radiation optimization: All CT scans at this facility use at least one of these dose optimization techniques: automated exposure control; mA and/or kV adjustment per patient size (includes targeted exams where dose is matched to clinical indication); or iterative reconstruction. Contrast material: OMNIPAQUE 350; Contrast volume: 80 ml; Contrast route: INTRAVENOUS (IV); COMPARISON: CT angio chest PE protcl [id number] 07/30/2015 8:50 PM RADIATION DOSE METRICS: Total DLP (mGy-cm): 422.94 FINDINGS: Pulmonary arteries: Interval appearance of multiple bilateral pulmonary emboli, with a large right central branching embolus noted to occlude the right middle lobe arteries and some of the right lower lobe pulmonary arteries. Prominent narrowing of the central segmental and subsegmental right upper lobe pulmonary arteries due to emboli. Segmental emboli in the left upper and lower lobes noted to be mostly nonocclusive in nature; branching of the left lower lobe embolus noted to occlude 1 subsegmental artery. Aorta: No interval aortic aneurysm or dissection. Lungs: Interval appearance of most of the patchy haziness and stranding in the lungs. Largest area of stranding and conceivable early airspace disease evident in the right middle lobe. Pleural spaces: No pneumothorax or pleural fluid. Interval disappearance of the minimal right pleural fluid. Heart: Probably no interval cardiomegaly considering the fat pads along the heart. Still no pericardial effusion. No coronary artery calcifications. Heart RV/LV ratio: 0.8 (Normal is less than 0.9-1). Mediastinal space: Interval worsening of the mediastinal lipomatosis. Lymph nodes: Continued calcified lymph node in the left axilla. No interval suspicious lymph nodes. Liver: Probable hepatic steatosis. Bones/joints: Old compression fractures again evident. Continued degeneration of several discs. Large cavernous hemangioma in T7 still present. Interval increase in the subchondral defects in the humeral heads. A few small calcifications now visible along the right humeral head. Interval subacute fractures of the distal left 4th, 5th and 7th ribs. Soft tissues: No acute finding. CT/CT angio chest PE protcl [id number] IMPRESSION: 1. Interval appearance of multiple bilateral pulmonary emboli as described above. No RV strain. 2. Interval appearance of most of the patchy haziness and stranding in the lungs, with the greatest disease in the right middle lobe related to the pulmonary embolic disease. 3. Interval subacute fractures of 3 left ribs. Probable hepatic steatosis. Other findings detailed above.
[2022-03-08 18:48] LABS: Anion Gap 18.8 (5-19); Chloride 85 mmol/L (98-107); Osmolality Calculated 263 mOsm/kg (285-295); Potassium 3.8 mmol/L (3.5-5.1); Sodium 126 mmol/L (136-145)
[2022-03-08] MEDS: cefTRIAXone 1,000 MG in sodium chloride 0.9% (plus) 50 ML 100 MG IV (18:48)
[2022-03-08 20:35] LABS: Alkaline Phosphatase 123 U/L (35-105)
--- NOTE | 2022-03-08 20:44 | PM.HP ---
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 Patient is stating that for last 2 weeks she has been experiencing dry hacking cough but today she started spearing seeing chest pain on exertion that prompted her visit to the ER. Her shortness of breath is also associated with exertion. She has not noticed any fever, COVID-like symptoms. No recent long drive, traveling. She is leading a very active lifestyle. 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 Otherwise she is healthy, non-smoker. No family history of blood disorder, clotting disorder. No history of recurrent abortions. In the ER she has been diagnosed with pulmonary embolism without right heart strain no active chest pain she is hemodynamically stable D-dimer 1.4 Sodium 126 She takes hydrochlorothiazide and lisinopril for hypertension Review of Systems Const: Denies: chills Eyes: Denies: change in vision ENMT: Denies: throat pain Card: Reports: chest pain Resp: Reports: dyspnea GI: Reports: nausea : Denies: flank pain Musc: Denies: neck pain Skin/Breast: Denies: rash Neuro: Denies: headache(s) Psych: Denies: anxiety Endo: Denies: polyuria Eduard/Lymph: Denies: easy bruising All/Imm: Denies: urticaria Medications/Allergies Home Medications Medication Instructions Recorded Confirmed Last Taken Type alprazolam 0.25 mg tablet 0.25 mg PO DAILY PRN anxiety #30 10/30/21 03/08/22 Unknown Rx tabs escitalopram oxalate 10 mg tablet 10 mg PO DAILY #90 tabs 10/30/21 03/08/22 03/08/22 Rx pantoprazole 40 mg tablet,delayed 40 mg PO DAILY #90 tabs 10/30/21 03/08/22 03/08/22 Rx release hydrochlorothiazide 25 mg tablet 25 mg PO DAILY 03/08/22 03/08/22 03/08/22 History lisinopril 10 mg tablet 10 mg PO BID 03/08/22 03/08/22 03/08/22 History meloxicam 15 mg tablet 15 mg PO DAILY 03/08/22 03/08/22 03/08/22 History Allergies Allergy/AdvReac Type Severity Reaction Status Date / Time No Known Allergies Allergy Verified 03/08/22 19:00 PFSH Acute PFSH: Medical History Acute appendicitis Benign essential HTN Bilateral carpal tunnel syndrome Eczema GERD (gastroesophageal reflux disease) Panic attack Surgical History History of 2 sections History of appendectomy History of dilatation and curettage x 1 History of hernia repair R spigelian History of surgery on left wrist Comminuted fracture --repaired with bone graft from left hip Family History Other CAD (coronary artery disease) Family history of premature coronary artery disease Social History Smoking and tobacco status: never smoked Alcohol intake: never 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 Vitals/I&O/Wt Last Vital Signs Temp 98.3 F 03/08/22 16:02 Pulse 91 03/08/22 18:10 Resp 26 H 03/08/22 18:10 BP 121/76 03/08/22 18:00 Pulse Ox 92 03/08/22 18:14 O2 Del Method 03/08/22 18:14 Weight last 48 hrs Weight 96.162 kg Physical Exam Narrative: female sitting comfortably at the bedside at the bedside Awake and alert Healthy appearing Euvolemic S1, S2 Lungs are clear to auscultation Currently on room air Abdomen soft No signs of edema of legs EOMI, PERRLA Nonfocal neuro exam Appropriate mood and affect Data : 03/08/22 17:28 03/08/22 17:28 Micro: Microbiology 03/08/22 18:35 Blood Culture - Preliminary Blood SPECIMEN COLLECTED 03/08/22 18:35 Blood Culture - Preliminary Blood SPECIMEN COLLECTED A&P Assessment and plan (1) Pulmonary embolism: Status: Acute (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 (3) GERD (gastroesophageal reflux disease): Status: Chronic Qualifiers: Esophagitis presence: without esophagitis Qualified Code(s): K21.9 - Gastro-esophageal reflux disease without esophagitis (4) Benign essential HTN: Status: Chronic (5) Hyponatremia: Status: Acute Plan Unprovoked pulmonary embolism Symptomatic pulm embolism Adenocarcinoma of appendix Started on therapeutic dose of Lovenox Check echo Venous Doppler in the morning Currently hemodynamically stable No right heart strain At the time of discharge she will most likely need Eliquis loading dose Full code Cardiac diet DVT prophylaxis sufficed with therapeutic Lovenox Hyponatremia most likely related to use of hydrochlorothiazide I will start her on normal saline gentle hydration overnight Attestations Medical Necessity Statement*: Anticipating discharge within 42 hours will need work-up for unprovoked PE Time Spent in Patient Care: 40 Coding Level of Care Code Acute Permastone Mechanic for Chg Fwd Diagnoses Pulmonary embolism I26.99 Goblet cell carcinoid of small intestine C17.9 GERD (gastroesophageal reflux disease) K21.9 Esophagitis presence: without esophagitis Benign essential HTN I10 Hyponatremia E87.1
[2022-03-08] MEDS: sodium chloride 0.9% 1,000 ML 999 ML IV (21:17)
[2022-03-08] MEDS: azithromycin 500 MG in sodium chloride 0.9% 250 ML 250 MG IV ×2 (21:30→21:38)
[2022-03-08] MEDS: enoxaparin 100 mg/mL Syringe SUBCUT (21:38)
--- NOTE | 2022-03-08 22:02 | USCV_ITS ---
Kimberli Jurado Age: 62 Gender: F : 1960 Exam Date: 03/09/2022 00:34 Ordering Phys: Stacia Edmonds MD Technologist: AAMRILYS [place]am Location[place] [facility] [place] Indication: pulmonary emboli. No history of cardiac intervention per patient. BP: 135 / 79 HR: 84 Rhythm: Sinus Technical Quality: Adequate MEASUREMENTS (Male / Female) Normal Values 2D ECHO LV Diastolic Diameter PLAX 3.7 cm 4.2 - 5.9 / 3.9 - 5.3 cm LV Systolic Diameter PLAX 2.5 cm IVS Diastolic Thickness 1.2 cm 0.6 - 1.0 / 0.6 - 0.9 cm IVS Systolic Thickness 1.5 cm LVPW Diastolic Thickness 1.3 cm 0.6 - 1.0 / 0.6 - 0.9 cm LVPW Systolic Thickness 1.6 cm LVOT Diameter 1.8 cm LV Ejection Fraction 2D Teich 59.4 % LV Ejection Fraction MOD 2C 64.9 % LV Ejection Fraction 2C AL 71.3 % LA Diameter 3.7 cm LA Width 3.0 cm LA Height 2.9 cm RA Width 3.5 cm RA Height 3.8 cm Aorta at Sinotubular Diameter 2.8 cm IVC Diameter 1.5 cm M-MODE Aortic Annulus Diameter 3.3 cm LA Ao Ratio MM 1.2 MV E Point Septal Separation 0.3 cm DOPPLER AV Peak Velocity 136.0 cm/s LVOT Peak Velocity 73.0 cm/s AV Area Cont Eq vti 2.1 cm squared AV Area Cont Eq pk 1.4 cm squared MV Area PHT 2.7 cm squared Mitral E to A Ratio 0.5 MV E' Velocity 27.5 cm/s Mitral E to MV E' Ratio 5.2 Mitral E to LV E' Lateral Ratio 5.4 Mitral E to LV E' Septal Ratio 5.0 TR Peak Velocity 300.5 cm/s TR Peak Gradient 36.1 mmHg TV Peak E Velocity 44.0 cm/s Right Atrial Pressure 5.0 mmHg Pulmonary Artery Systolic Pressu 41.1 mmHg PV Peak Velocity 104.0 cm/s RV Acceleration Time 0.1 s RV Ejection Time 0.4 s RV AcT/ET 0.2 FINDINGS Left Ventricle Left ventricle is normal in size. LV systolic function is normal with EF 55 to 60%. No regional wall motion abnormalities are seen.Grade 1 diastolic dysfunction Right Ventricle Normal in size and function Right Atrium Normal in size Left Atrium Normal in size Mitral Valve Structurally normal mitral valve. No significant regurgitation or stenosis Aortic Valve Grossly normal.Mild aortic regurgitation. No significant aortic stenosis Tricuspid Valve Mild tricuspid regurgitation. RVSP is 40 to 45 mmHg. This is consistent with mild to moderate pulmonary hypertension. Pulmonic Valve Not well-visualized Pericardium Normal Aorta Normal in size IVC CONCLUSIONS LV systolic function is normal with EF 55 to 60%. Grade 1 diastolic dysfunction. Mild aortic regurgitation. Mild tricuspid regurgitation. Mild to moderate pulmonary hypertension Compared to prior echocardiogram from 2016, patient has mild to moderate pulmonary hypertension. Martinez Valencia MD (Electronically Signed) Final Date: 09 March 2022 17:38 S
[2022-03-08 22:11] LABS: NT Pro B Type Natriuretic Pept 165 pg/mL (0-125)
[2022-03-08] MEDS: sodium chloride 0.9% 1,000 ML 75 ML IV (22:19)
--- NOTE | 2022-03-08 23:11 | ECG_ITS ---
[facility] Test Date: 2022-03-08 Pat Name: Kimberli Jurado Department: Room: Gender: Female Still Operator Gin: : 1960 Requested By: Magdiel Tavarez Order Number: [id number] Daija MD: Martinez Valencia M.D. Measurements Intervals [place] Rate: 73 P: 47 [place]: 143 QRS: 24 QRSD: 74 T: 26 QT: 386 QTc: 428 Interpretive Statements SINUS RHYTHM LOW QRS VOLTAGE IN PRECORDIAL LEADS [QRS DEFLECTION < 1.0 mV IN CHEST LEADS] ST DEVIATION AND MODERATE T-WAVE ABNORMALITY, CONSIDER ANTERIOR ISCHEMIA [-0.1+ mV T-WAVE IN V3/V4] Compared to ECG 03/08/2022 18:17:23 Low QRS voltage now present T-wave abnormality still present Possible ischemia still present Electronically Signed On 03-09-2022 14:40:00 CDT by Martinez Valencia M.D. [email or web address]
[2022-03-08 23:38] LABS: Troponin 5 6HR 12.83 ng/L (0-10)
[2022-03-08 23:43] LABS: Troponin 5 6HR Delta 1.83 ng/L (0-12)
[2022-03-09 01:25] VITALS: BP 112/69; PULSE 77; RESP 15; TEMP 36.8; O2SAT 94
[2022-03-09 02:09] VITALS: PULSE 79; RESP 16; O2SAT 97
[2022-03-09 05:47] LABS: Basophils % 0.6 %; Eosinophils # 0.3 10^3/uL (0.0-0.8); Eosinophils % 5.5 %; Hematocrit 40.9 % (37.0-47.0); Hemoglobin 13.6 g/dL (11.5-15.3); Lymphocytes # 1.4 10^3/uL (0.8-4.8); Lymphocytes % 27.6 %; Mean Corpuscular HGB Conc 33.3 g/dL (30.0-36.0); Mean Corpuscular Hemoglobin 31.6 pg (28.0-34.0); Mean Corpuscular Volume 94.9 fl (81-99); Monocytes # 0.4 10^3/uL (0.2-0.9); Monocytes % 7.9 %; Neutrophils # 2.95 10^3/uL (1.8-7.7); Nucleated Red Blood Cells % 0 %; Platelet Count 264 10^3/cmm (130-400); Red Blood Count 4.31 10^6/uL (4.1-5.3); White Blood Count 5.1 10^3/uL (4.0-10.0)
[2022-03-09 06:03] LABS: Blood Urea Nitrogen 11 mg/dL (8-23); C Reactive Protein 21.3 mg/L (0.0-4.9); Calcium 10.7 mg/dL (8.5-10.5); Carbon Dioxide 24 mmol/L (22-29); Chloride 99 mmol/L (98-107); Glomerular Filtration Rate 72.4 mL/min (90-130); Glucose 105 mg/dL (65-115); Magnesium 1.5 mg/dL (1.7-2.3); Osmolality Calculated 280 mOsm/kg (285-295); Sodium 135 mmol/L (136-145)
[2022-03-09 06:21] LABS: Anion Gap 15.8 (5-19); Potassium 3.8 mmol/L (3.5-5.1)
[2022-03-09 08:00] VITALS: BP 104/72; PULSE 73; PULSE 85; RESP 16; TEMP 36.6; O2SAT 95; O2SAT 97
[2022-03-09] MEDS: pantoprazole DR 40 mg Tablet PO (08:16)
[2022-03-09] MEDS: enoxaparin 100 mg/mL Syringe SUBCUT (08:16)
[2022-03-09] MEDS: lisinopril 10 mg Tablet PO (08:16)
--- NOTE | 2022-03-09 09:17 | USCV_ITS ---
Kimberli Jurado Age: 62 Gender: F : 1960 Exam Date: 03/09/2022 12:21 Ordering Phys: Pawel Arredondo MD Technologist: Hari Rowe Exam Location: [facility] – [place] Indication: RT LEG PAIN PROCEDURES: The venous duplex Doppler examination of both lower extremities was performed in the standard fashion. The following venous structures were evaluated: common femoral vein, profunda vein, proximal portion of the greater saphenous vein, superficial femoral vein, and the popliteal vein. FINDINGS: There is non occluding dvt in rt cfv vein protruding from a completely thrombused rt great saph the entire lt leg veins are normal CONCLUSIONS Non-occlusive DVT in right common femoral vein in continuity with the thrombosed right GSV No evidence of left lower extremity DVT. Guido Schaffer MD (Electronically Signed) Final Date: 09 March 2022 13:19 S
[2022-03-09 09:36] VITALS: O2SAT 93; O2SAT 95
--- NOTE | 2022-03-09 11:51 | PC.CHAP ---
Pastoral Care Encounter/Spiritual Assessment Type of Contact [] Declined cardiac catheterization technologist visit [] Patient/Family/Request visit [] Outpatient visit [] Follow-up visit [] Physician referral [] Code/Alert [x] Routine visit [] Staff referral [] Actively dying [] Patient sleeping [] Family support [] [] Out of room [] Palliative care [] [] Receiving care in room [] Pre-surgical visit [] Trauma [] Long length of stay [] ICU visit [] Other: Relational/Emotional Strength [] Patient feels connected with others/family/visitors/staff [] Distress [] Loneliness/isolation [] Abandonment Spirituality of Patient [] Person of [place] [] Attends Restorationism of their [place] [] Believes in Prayer [] Reads Bible or Advent materials [] There are Spiritual issues to be addressed Data Coordinator Interventions x[] Prayer [] Active listening [] Non-anxious presence [] Spiritual/emotional support [] Crisis/trauma care [] Spiritual counseling [] Bereavement support [] Provided bereavement packet [] Provided Bible/devotional materials [] Provided toy/stuffed animal, coloring book to patient or family member [] Provided Communion [] Anointing/[place] [] Salvation [x] Completed spiritual assessment [] Other: Impact on Illness or Injury [] Angry [] Fearful [] Anxious [] Often cries [] Exhaustion [] Unable to work [] Unable to attend mu-ism [] Unable to walk/stand [] Unable to read [] Unable to drive [] Unable to eat/drink [] Unable to sleep [] Unable to be with family [] Patient intubated [] Other: Summary patient very quite and not responsive Time spent with patient 5 min
--- NOTE | 2022-03-09 11:53 | P.DS_ITS ---
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 Patient is stating that for last 2 weeks she has been experiencing dry hacking cough but today she started spearing seeing chest pain on exertion that prompted her visit to the ER.? Her shortness of breath is also associated with exertion.? She has not noticed any fever, COVID-like symptoms.? No recent long drive, traveling.? She is leading a very active lifestyle.? 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 Otherwise she is healthy, non-smoker.? No family history of blood disorder, clotting disorder.? History of 2 miscarriages in the past. In the ER she was found to have elevated D-dimer after which CTA was done which was consistent with bilateral pulmonary embolism without right heart strain. Patient remained on room air during hospitalization without any chest pain. She was started on anticoagulation which was later transition to Eliquis. She has been discharged hemodynamically stable condition on Eliquis 10 mg twice daily for next 7 days followed by 5 mg twice daily. She is to follow-up with her primary care provider within next 1 week. Patient is advised to have a CT abdomen pelvis and chest done as an outpatient for evaluation of malignancy given her past medical history. Physical Exam Narrative: female sitting comfortably at the bedside at the bedside Awake and alert Healthy appearing Euvolemic S1, S2 Lungs are clear to auscultation Currently on room air Abdomen soft No signs of edema of legs EOMI, PERRLA Nonfocal neuro exam Appropriate mood and affect Discharge Data Studies Completed and Pending Completed Studies During Hospitalization Category Date Time Status CTA chest [CT angio chest PE protcl 42079] Stat Cat Scan 03/08/22 18:43 Completed XR chest 1V 43708 Stat Exams 03/08/22 16:10 Completed Pending at discharge Category Date Time Status Blood Culture Stat Lab 03/08/22 18:35 Results COVID [SARS Covid-2 Antigen] Routine Lab 03/09/22 09:17 Uncollected CV. echo complete* [id number] Routine Ultrasound 03/08/22 22:02 Taken US venous duplex lower extremity bilat [CV venous Ultrasound 03/09/22 09:17 [place] [id number]] Routine Radiology Impressions Chest X-Ray 03/08/22 17:30 IMPRESSION: Interval appearance of 2 areas of probable atelectasis in the right lower lung. No acute findingn elsewhere. Thank you for allowing us to participate in the care of your patient. Dictated and Authenticated by: Alexia Duvall MD 03/08/2022 5:32 PM Central Time ([place] & [place]) Chest CTA 03/08/22 18:43 IMPRESSION: 1. Interval appearance of multiple bilateral pulmonary emboli as described above. No RV strain. 2. Interval appearance of most of the patchy haziness and stranding in the lungs, with the greatest disease in the right middle lobe related to the pulmonary embolic disease. 3. Interval subacute fractures of 3 left ribs. Probable hepatic steatosis. Other findings detailed above. ADDENDUM: 03/08/22 1468 THIS REPORT CONTAINS FINDINGS THAT MAY BE CRITICAL TO PATIENT CARE. The findings were verbally communicated via telephone conference with DEBI RIZZO at 8:09 PM CDT on 03/08/2022. The findings were acknowledged and understood. Laboratory Results WBC 5.1 10^3/uL (4.0-10.0) 03/09/22 05:15 RBC 4.31 10^6/uL (4.1-5.3) 03/09/22 05:15 Hgb 13.6 g/dL (11.5-15.3) 03/09/22 05:15 Hct 40.9 % (37.0-47.0) 03/09/22 05:15 MCV 94.9 fl (81-99) 03/09/22 05:15 MCH 31.6 pg (28.0-34.0) 03/09/22 05:15 MCHC 33.3 g/dL (30.0-36.0) 03/09/22 05:15 RDW 13.0 % (12.1-15.1) 03/09/22 05:15 Plt Count 264 10^3/cmm (130-400) 03/09/22 05:15 MPV 10.0 fL (7.4-10.4) 03/09/22 05:15 Neut % (Auto) 58.0 % 03/09/22 05:15 Lymph % (Auto) 27.6 % 03/09/22 05:15 [place] % (Auto) 7.9 % 03/09/22 05:15 Eos % (Auto) 5.5 % 03/09/22 05:15 Baso % (Auto) 0.6 % 03/09/22 05:15 Neut # (Auto) 2.95 10^3/uL (1.8-7.7) 03/09/22 05:15 Lymph # (Auto) 1.4 10^3/uL (0.8-4.8) 03/09/22 05:15 [place] # (Auto) 0.4 10^3/uL (0.2-0.9) 03/09/22 05:15 Eos # (Auto) 0.3 10^3/uL (0.0-0.8) 03/09/22 05:15 Baso # (Auto) 0.0 10^3/uL (0.0-0.1) 03/09/22 05:15 Nucleated RBC % (auto) 0 % 03/09/22 05:15 Nucleated RBCs # 0.0 /100WBC 03/09/22 05:15 D-Dimer 1.41 ug/mIFEU (0-0.59) H 03/08/22 17:24 Sodium 135 mmol/L (136-145) L 03/09/22 05:15 Potassium 3.8 mmol/L (3.5-5.1) 03/09/22 05:15 Chloride 99 mmol/L (98-107) 03/09/22 05:15 Carbon Dioxide 24 mmol/L (22-29) 03/09/22 05:15 Anion Gap 15.8 (5-19) 03/09/22 05:15 BUN 11 mg/dL (8-23) 03/09/22 05:15 Creatinine 0.8 mg/dL (0.5-0.9) 03/09/22 05:15 GFR Calculation 72.4 mL/min (90-130) L 03/09/22 05:15 Glucose 105 mg/dL (65-115) 03/09/22 05:15 Calculated Osmolality 280 mOsm/kg (285-295) L 03/09/22 05:15 Calcium 10.7 mg/dL (8.5-10.5) H 03/09/22 05:15 Magnesium 1.5 mg/dL (1.7-2.3) L 03/09/22 05:15 Total Bilirubin 1.4 mg/dL (0.15-1.2) H 03/08/22 17:28 AST 41 U/L (0-32) H 03/08/22 17:28 ALT 41 U/L (0-33) H 03/08/22 17:28 Alkaline Phosphatase 123 U/L (35-105) H 03/08/22 17:28 Troponin T Baseline 11 ng/L (0-10) H 03/08/22 17:28 Troponin T Hi Sens 6Hr 12.83 ng/L (0-10) H 03/08/22 23:02 Troponin T Hi Sens 6Hr Delta 1.83 ng/L (0-12) 03/08/22 23:02 C-Reactive Protein 21.3 mg/L (0.0-4.9) H 03/09/22 05:15 NT-Pro-B Natriuret Pep 165 pg/mL (0-125) H 03/08/22 17:28 Total Protein 7.4 g/dL (6.6-8.7) 03/08/22 17:28 Albumin 0.2 g/dL (3.5-5.2) L 03/08/22 17:28 Globulin 7.2 g/dL (1.3-4.6) H 03/08/22 17:28 Vitals Last Vital Signs Temp 97.9 F 03/09/22 08:00 Pulse 73 03/09/22 08:00 Resp 16 03/09/22 08:00 BP 104/72 03/09/22 08:00 Pulse Ox 95 03/09/22 09:36 O2 Del Method 03/09/22 08:00 Discharge Plan Discharge Patient Disposition: Home Condition: Stable Prescriptions: New Eliquis DVT-PE Treat 30D Start 5 mg (74 tabs) tablets,dose pack See Rx Instructions .ROUTE .COMPLEX Qty: 74 0RF Rx Instructions: orally per package directions Continued alprazolam 0.25 mg tablet 0.25 mg PO DAILY PRN (Reason: anxiety) Qty: 30 1RF escitalopram oxalate 10 mg tablet 10 mg PO DAILY Qty: 90 1RF pantoprazole 40 mg tablet,delayed release (DR/EC) 40 mg PO DAILY Qty: 90 1RF meloxicam 15 mg tablet 15 mg PO DAILY Changed lisinopril 10 mg tablet 10 mg PO DAILY Qty: 30 0RF Discontinued hydrochlorothiazide 25 mg tablet 25 mg PO DAILY Discharge Orders: Discharge Order (Routine); Ordered 03/09/22 Ordered By: Pawel Arredondo Referrals: Heaven Tyler DO [Primary Care Provider] - 1 week Discharge Diet: Cardiac Discharge Activity: Resume usual activity and Increase activity as tolerated Patient Instructions: Apixaban (By mouth) (Eliquis), Opioid Safety Discharge Attestations Time Spent in Discharge Care*: greater than 30 min Specific Discharge Activities: educating patient, educating and/or supporting family/caregiver, discussing with rifle case repairer/social workers/dc planners, documenting/other paperwork and evaluating patient/reviewing data Status at Discharge: Cognitive status at discharge: cognitively intact , Behavioral status at discharge: cooperative , Functional status at discharge: independent ambulation , Overall status at discharge: patient is back to baseline Quality Metrics Clinical Quality Measures [ Venous Thromboembolism { Contraindication to Overlap Therapy: None; Overlap threrpy ordered; VTE Discharge Education: Education about anticoagulant therapy/Care Notes given; Deep Vein Thrombosis/Pulmonary Embolism Present on Admission: Yes;}] Coding Level of Care Code Acute g DC note Diagnoses Pulmonary embolism I26.99 Goblet cell carcinoid of small intestine C17.9 GERD (gastroesophageal reflux disease) K21.9 Esophagitis presence: without esophagitis Benign essential HTN I10 Hyponatremia E87.1
[2022-03-09 12:00] VITALS: BP 98/66; PULSE 76; RESP 16; TEMP 36.8; O2SAT 97
[2022-03-09 12:20] LABS: SARS Covid-2 Antigen Negative (Negative)
== END 2022-03-09 13:55 | disposition home or self-care (01) ==
LOC: ER 20:45 → MEDSURG 21:01
PROVIDERS: Family Medicine; Admitting Provider Internal Medicine; Emergency Provider Emergency Medicine; PCP Family Medicine; Visit Provider Student in an Organized Health Care Education/Training Program
DX: I26.99 Other pulmonary embolism without acute cor pulmonale (principal); I10 Essential (primary) hypertension; K21.9 Gastro-esophageal reflux disease without esophagitis; E78.1 Pure hyperglyceridemia; Z85.038 Personal history of other malignant neoplasm of large intestine; Z82.49 Family history of ischemic heart disease and other diseases of the circulatory system
CPT/HCPCS: 36415; 71045; 71275; 80048; 80053; 83735; 83880; 84484; 85025; 85378; 86140; 87040; 87426; 93005; 93306; 93970; 94760; 96365; 96366; 96367; 96372; 99285; G0378; J0456; J0696; J1650; J7030; J7050; Q9967

== ENCOUNTER 2022-04-09 14:47 | Emergency (ER) | payer OTHER, SELFPAY ==
[2022-04-09 15:04] VITALS: BP 120/82; PULSE 94; RESP 16; TEMP 36.8; O2SAT 94; BMI 33.0
--- NOTE | 2022-04-09 15:08 | ECG_ITS ---
[facility] Test Date: 2022-04-09 Pat Name: Kimberli Jurado Department: Room: Gender: Female Management Coordinator: : 1960 Requested By: Magdiel Tavarez Order Number: [id number] Daija MD: Víctor Jiang M.D. Measurements Intervals [place] Rate: 103 P: 52 SC: 154 QRS: 12 QRSD: 59 T: 33 QT: 309 QTc: 405 Interpretive Statements SINUS TACHYCARDIA LOW QRS VOLTAGE IN PRECORDIAL LEADS [QRS DEFLECTION < 1.0 mV IN CHEST LEADS] NONSPECIFIC ST & T-WAVE ABNORMALITY ABNORMAL RHYTHM ECG Compared to ECG 03/08/2022 20:54:41 Sinus rhythm no longer present Possible ischemia no longer present T-wave abnormality still present Electronically Signed On 04-09-2022 21:26:22 CDT by Víctor Jiang M.D. [id number] f
== END 2022-04-09 17:35 | disposition left against medical advice (07) ==
PROVIDERS: Emergency Provider Family Medicine; PCP Family Medicine
DX: Z53.21 Procedure and treatment not carried out due to patient leaving prior to being seen by health care provider (principal)
CPT/HCPCS: 93005

== ENCOUNTER 2022-04-10 15:11 | Emergency (ER) | payer OTHER, SELFPAY ==
[2022-04-10 15:33] VITALS: BP 137/85; PULSE 87; RESP 18; TEMP 36.7; O2SAT 95; BMI 33.0
[2022-04-10 16:56] LABS: Basophils % 0.6 %; Eosinophils # 0.1 10^3/uL (0.0-0.8); Eosinophils % 2.2 %; Hematocrit 43.1 % (37.0-47.0); Hemoglobin 13.9 g/dL (11.5-15.3); Lymphocytes # 1.3 10^3/uL (0.8-4.8); Lymphocytes % 26.2 %; Mean Corpuscular HGB Conc 32.3 g/dL (30.0-36.0); Mean Corpuscular Hemoglobin 30.3 pg (28.0-34.0); Mean Corpuscular Volume 94.1 fl (81-99); Mean Platelet Volume 10.4 fL (7.4-10.4); Monocytes # 0.5 10^3/uL (0.2-0.9); Monocytes % 9.3 %; Neutrophils # 3.02 10^3/uL (1.8-7.7); Neutrophils % 61.5 %; Nucleated Red Blood Cells % 0 %; Platelet Count 299 10^3/cmm (130-400); Red Blood Count 4.58 10^6/uL (4.1-5.3); Red Cell Distribution Width 12.5 % (12.1-15.1); White Blood Count 4.9 10^3/uL (4.0-10.0)
[2022-04-10 17:15] LABS: Alanine Aminotransferase 62 U/L (0-33); Albumin Level 4.2 g/dL (3.5-5.2); Alkaline Phosphatase 96 U/L (35-105); Anion Gap 15.1 (5-19); Aspartate Amino Transferase 65 U/L (0-32); Blood Urea Nitrogen 7 mg/dL (8-23); Calcium 11.5 mg/dL (8.5-10.5); Carbon Dioxide 25 mmol/L (22-29); Chloride 101 mmol/L (98-107); Globulin 2.8 g/dL (1.3-4.6); Glucose 125 mg/dL (65-115); Osmolality Calculated 283 mOsm/kg (285-295); Potassium 4.1 mmol/L (3.5-5.1); Sodium 137 mmol/L (136-145); Total Bilirubin 0.9 mg/dL (0.15-1.2)
--- NOTE | 2022-04-10 17:38 | ED_ITS ---
HPI - Dizziness General: Chief Complaint: Dizziness Stated Complaint: Dr. Tyler sent for Low BP Time Seen by Provider: 04/10/22 17:07 Source: patient History of Present Illness: HPI Narrative: 62-year-old female presents emergency room concerning with low blood pressure. She had a PE last month and is reporting that when she bends over time she will get dizzy and lightheaded she not been particularly short of breath. She has dizziness with change in position. Most often when she bends over. She not have any chest pain. She is still taking her Eliquis 5 mg twice daily. MD elicited complaint: dizziness and lightheadedness Onset (ago): day(s) Severity: mild Description: lightheadedness Exacerbating factors: change in body position Relieving factors: remaining still and lying down Associated symptoms: Denies abnormal vaginal bleeding, change in hearing, chest pain, chills, cough, diaphoresis, ear discharge, ear pressure, fevers/chills, headache(s), malaise, nausea, nasal congestion, palpitations, rash, short of breath, syncope, tinnitus, vomiting or weakness Associated neuro symptoms: Deny confusion, difficulty speaking, dysphagia, diplopia, extremity weakness, facial numbness, facial weakness, gait changes, numbness in extremities or visual changes Review of Systems Const: Denies: fever(s), chills, fatigue, malaise or diaphoresis ENMT: Denies: ear discharge, change in hearing, tinnitus or nasal congestion Card: Denies: chest pain, palpitations, irregular heart rhythm, edema or syncope Resp: Denies: dyspnea, productive cough, non-productive cough or wheezing GI: Denies: abdominal pain, nausea, vomiting or dysphagia : Denies: flank pain, difficulty voiding, dysuria or urinary frequency Neuro: Denies: headache(s), numbness in extremities or confusion PFSH ED PFSH: Medical History Acute appendicitis Benign essential HTN Bilateral carpal tunnel syndrome Eczema GERD (gastroesophageal reflux disease) Goblet cell carcinoid of small intestine Panic attack Surgical History History of 2 sections History of appendectomy History of dilatation and curettage x 1 History of hernia repair R spigelian History of surgery on left wrist Comminuted fracture --repaired with bone graft from left hip Family History Other CAD (coronary artery disease) Family history of premature coronary artery disease Social History Smoking and tobacco status: never smoked Alcohol intake: never 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 Exam Const: COMMON NORMALS: no acute distress GENERAL APPEARANCE: cooperative and comfortable ORIENTATION/CONSCIOUSNESS: Yes awake, Yes oriented to person, Yes oriented to place and Yes oriented to time HENMT: COMMON NORMALS: normocephalic, atraumatic, hearing grossly normal bilaterally, external ears normal, EAC's normal, TM's normal bilaterally and Normal nasal mucous membranes and turbinates present HEAD & SCALP: normocephalic and atraumatic NOSE: Normal nasal mucous membranes and turbinates present EXTERNAL EAR: Yes external ears normal EXTERNAL AUDITORY CANAL: EAC's normal TYMPANIC MEMBRANE: TM's normal bilaterally Eye: COMMON NORMALS: Equal, round and reactive pupils present, EOMs intact bilaterally, conjunctivae normal and no scleral icterus CONJUNCTIVA: Yes conjunctivae normal PUPIL: Yes Equal, round and reactive pupils present Resp: COMMON NORMALS: normal respiratory effort, No retractions, No use of accessory muscles and clear to auscultation bilaterally AUSCULTATION: clear to auscultation bilaterally Cardio: COMMON NORMALS: regular rate, regular rhythm and No murmurs present (Cardio) RATE: regular rate RHYTHM: regular rhythm GI: COMMON NORMALS: Soft to palpation and No hepatosplenomegaly present AUSCULTATION: Yes normoactive bowel sounds PALPATION: Yes Soft to palpation, No Tenderness to palpation present (GI), No Guarding due to palpation present (GI) and Yes No hepatosplenomegaly present Extremity: COMMON NORMALS: normal to inspection, capillary refill normal, no clubbing, cyanosis or edema, no calf tenderness and no pedal edema Neuro: SENSORIUM/ORIENTATION: Yes oriented to person, Yes oriented to place and Yes oriented to time Skin: COMMON NORMALS: no rashes or lesions noted GENERAL SKIN EXAM: no rashes or lesions noted Course Vital Signs: Vital signs: Vital Signs Temperature 98.1 F 04/10/22 15:33 Pulse Rate 77 04/10/22 18:12 Respiratory Rate 18 10/11/22 15:33 Blood Pressure 147/110 04/10/22 18:12 Pulse Oximetry 92 04/10/22 18:12 Oxygen Delivery Me thod 04/10/22 17:39 MDM - Dizziness Medical Decision Making Laboratory studies reviewed. Liver enzymes mildly elevated but this is a chronic thing for her. They are about at the same level to have been in the pas t for the most part T bili is normal. Electrolytes and hemoglobin are all fine. She is not significantly anemic. Blood pressure is stable. Remainder of exam is unremarkable at this point no indication for repeat CT scan observe avoid sudden postural changes follow-up with your primary care doctor. Medical Records I reviewed the patient's medical records. Lab Data I reviewed the patient's lab results. : 04/10/22 16:43 04/10/22 16:43 Laboratory Results WBC 4.9 10^3/uL (4.0-10.0) 04/10/22 16:43 RBC 4.58 10^6/uL (4.1-5.3) 04/10/22 16:43 Hgb 13.9 g/dL (11.5-15.3) 04/10/22 16:43 Hct 43.1 % (37.0-47.0) 04/10/22 16:43 MCV 94.1 fl (81-99) 04/10/22 16:43 MCH 30.3 pg (28.0-34.0) 04/10/22 16:43 MCHC 32.3 g/dL (30.0-36.0) 04/10/22 16:43 RDW 12.5 % (12.1-15.1) 04/10/22 16:43 Plt Count 299 10^3/cmm (130-400) 04/10/22 16:43 MPV 10.4 fL (7.4-10.4) 04/10/22 16:43 Neut % (Auto) 61.5 % 04/10/22 16:43 Lymph % (Auto) 26.2 % 04/10/22 16:43 [place] % (Auto) 9.3 % 04/10/22 16:43 Eos % (Auto) 2.2 % 04/10/22 16:43 Baso % (Auto) 0.6 % 04/10/22 16:43 Neut # (Auto) 3.02 10^3/uL (1.8-7.7) 04/10/22 16:43 Lymph # (Auto) 1.3 10^3/uL (0.8-4.8) 04/10/22 16:43 [place] # (Auto) 0.5 10^3/uL (0.2-0.9) 04/10/22 16:43 Eos # (Auto) 0.1 10^3/uL (0.0-0.8) 04/10/22 16:43 Baso # (Auto) 0.0 10^3/uL (0.0-0.1) 04/10/22 16:43 Nucleated RBC % (auto) 0 % 04/10/22 16:43 Nucleated RBCs # 0.0 /100WBC 04/10/22 16:43 Sodium 137 mmol/L (136-145) 04/10/22 16:43 Potassium 4.1 mmol/L (3.5-5.1) 04/10/22 16:43 Chloride 101 mmol/L (98-107) 04/10/22 16:43 Carbon Dioxide 25 mmol/L (22-29) 04/10/22 16:43 Anion Gap 15.1 (5-19) 04/10/22 16:43 BUN 7 mg/dL (8-23) L 04/10/22 16:43 Creatinine 0.6 mg/dL (0.5-0.9) 04/10/22 16:43 GFR Calculation 101.0 mL/min (90-130) 04/10/22 16:43 Glucose 125 mg/dL (65-115) H 04/10/22 16:43 Calculated Osmolality 283 mOsm/kg (285-295) L 04/10/22 16:43 Calcium 11.5 mg/dL (8.5-10.5) H 04/10/22 16:43 Total Bilirubin 0.9 mg/dL (0.15-1.2) 04/10/22 16:43 AST 65 U/L (0-32) H 04/10/22 16:43 ALT 62 U/L (0-33) H 04/10/22 16:43 Alkaline Phosphatase 96 U/L (35-105) 04/10/22 16:43 Total Protein 7.0 g/dL (6.6-8.7) 04/10/22 16:43 Albumin 4.2 g/dL (3.5-5.2) 04/10/22 16:43 Globulin 2.8 g/dL (1.3-4.6) 04/10/22 16:43 Discharge Plan Discharge Patient Disposition: Home Clinical Impression: Orthostatic hypotension, Pulmonary embolism Condition: Stable Prescriptions: No Action simvastatin 20 mg tablet 20 mg PO DAILY Eliquis 5 mg tablet 5 mg PO BID Qty: 60 5RF lisinopril 10 mg tablet 10 mg PO BID 90 Days Qty: 180 1RF alprazolam 0.25 mg tablet 0.25 mg PO DAILY PRN (Reason: anxiety) Qty: 30 1RF escitalopram oxalate 10 mg tablet 10 mg PO DAILY Qty: 90 1RF pantoprazole 40 mg tablet,delayed release (DR/EC) 40 mg PO DAILY Qty: 90 1RF Eliquis DVT-PE Treat 30D Start 5 mg (74 tabs) tablets,dose pack See Rx Instructions .ROUTE .COMPLEX Qty: 74 0RF Rx Instructions: orally per package directions Discharge Orders: Discharge ED (Routine); Ordered 04/10/22 Ordered By: Magdiel Lamar Referrals: Heaven Tyler DO [Primary Care Provider] - Patient Instructions: Opioid Safety, Pain Management Activity Restrictions/Additional Instructions: Follow-up with your primary care doctor continue to hold the hydrochlorothiazide. Recommend following up with your primary care doctor within the week and taking your home blood pressure monitor to your appointment to compare readings at the office. Coding Level of Care Code ED Specialized Developer 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
[2022-04-10 17:39] VITALS: BP 134/96; BP 142/89; PULSE 74; PULSE 78; O2SAT 99
[2022-04-10 17:45] VITALS: BP 144/94; PULSE 82
[2022-04-10 17:48] VITALS: BP 134/96; PULSE 84
[2022-04-10 18:12] VITALS: BP 147/110; PULSE 77; O2SAT 92
== END 2022-04-10 18:14 | disposition home or self-care (01) ==
PROVIDERS: Emergency Provider Family Medicine; PCP Family Medicine
DX: I95.1 Orthostatic hypotension (principal); I26.99 Other pulmonary embolism without acute cor pulmonale; Z79.01 Long term (current) use of anticoagulants; I10 Essential (primary) hypertension
CPT/HCPCS: 36415; 80053; 85025; 99282

== ENCOUNTER 2022-04-26 14:36 | Outpatient (CLI) | payer OTHER, SELFPAY ==
[2022-04-26] MEDS: iohexol 350 mg/mL 100 mL Btl PO (15:03)
[2022-04-26] MEDS: iohexol 350 mg/mL 100 mL Btl IV (15:04)
--- NOTE | 2022-04-26 16:00 | CT_ITS ---
WS: [id number] CT CHEST, ABDOMEN AND PELVIS WITH CONTRAST HISTORY: rule out mass, follow-up carcinoma of the appendix and pulmonary embolism. TECHNIQUE: Contiguous 5 mm axial imaging performed through the chest, abdomen and pelvis with IV cont rast, oral contrast has been provided. Coronal and sagittal reformats chest. Coronal and sagittal ref ormats through the abdomen and pelvis. All CT scans at [facility] use at least one of these d ose optimization techniques: automated exposure control; mA and/or kV adjustment per patient size (in cludes targeted exams where dose is matched to clinical indication); or iterative reconstruction. CONTRAST: Omnipaque 350; 95 mL IV. DLP: 1737.15 mGy.cm COMPARISON: 03/08/2022 and 02/22/[address]: Compared to the prior CT angiogram there has been significant improvement in the pulmonary embolic burden. Please note this study was not obtained angiogram of the chest CT. There is no saddle embolism. Filling defects are noted at the bifurcation of the RIGHT pulmonary artery. Emboli extend to the proximal upper and lower lobes. In light described in the LEFT lower lobe and LEFT upper lobe pulmonary arteries is resolved. Wedge-shaped opacification RIGHT middle lobe corresponds to an area o f atelectasis and possible infarct. This was also noted on the prior examination. No additional mass or nodule. No mediastinal or hilar adenopathy. No RIGHT heart strain. No pericardial or pleural effus ion. Abdomen CT: Liver is normal size. No portal vein thrombosis or enlargement. Normal spleen and gallbla dder. Normal pancreas and adrenal glands. No bile duct dilatation. Normal size kidneys with a few are as of cortical thinning and scarring. No obstruction or mass. No ascites or adenopathy. Mildly distended stomach. No small bowel obstruction. Appendix is been removed. No recurrent mass in the RIGHT lower quadrant. No colon obstruction. Fat-containing umbilical hernia. There are several small defects in the periumbilical region with her niating fat. Pelvic CT: No free fluid in the pelvis. Urinary bladder is normally distended. Uterus is atrophic. CT/CT chest abd pel w con* IMPRESSION: 1. Significant improvement in the pulmonary embolic burden described on 03/08/20 22. Residual emboli in the proximal RIGHT lobar arteries. 2. RIGHT middle lobe partial atelectasis and infarct. 3. No metastatic disease in the chest, abdomen or pelvis. 4. Prior appendectomy. 5. Multiple small periumbilical hernias containing fat only.
== END 2022-04-26 14:37 | disposition home or self-care (01) ==
LOC: RAD 14:36
PROVIDERS: PCP Family Medicine; Visit Provider Family Medicine
DX: C17.9 Malignant neoplasm of small intestine, unspecified (principal); K42.9 Umbilical hernia without obstruction or gangrene; Q42.8 Congenital absence, atresia and stenosis of other parts of large intestine; J98.11 Atelectasis
CPT/HCPCS: 71260; 74177

== ENCOUNTER 2022-06-02 10:10 | Observation (INO) | payer OTHER, SELFPAY ==
[2022-06-02] VITALS (16 sets, daily range): BP systolic 127–159; BP diastolic 71–98; PULSE 70–103; RESP 15–20; TEMP 36.6–36.9; O2SAT 91–98
--- NOTE | 2022-06-02 10:21 | ECG_ITS ---
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 Measurements Intervals [place] Rate: 79 P: 55 TX: 148 QRS: 27 QRSD: 74 T: 32 QT: 354 QTc: 408 Interpretive Statements SINUS RHYTHM LOW QRS VOLTAGE IN PRECORDIAL LEADS [QRS DEFLECTION < 1.0 mV IN CHEST LEADS] Compared to ECG 04/09/2022 15:38:37 Sinus tachycardia no longer present T-wave abnormality no longer present Electronically Signed On 06-03-2022 19:46:58 STONE HAND by Martinez Valencia M.D. [email or web address], [email or web address].[employer]/store/OM/[id number]
--- NOTE | 2022-06-02 10:57 | XRR_ITS ---
PROCEDURE INFORMATION: Exam: XR Thoracic Spine Exam date and time: 06/02/2022 11:25 AM Age: 62 years old Clinical indication: Fall with blunt trauma. Pain after fall. TECHNIQUE: Imaging protocol: Radiologic exam of the thoracic spine. Views: 3 views. COMPARISON: CT chest abd pel w con* 04/26/2022 4:51 PM FINDINGS: Bones/joints: The thoracic kyphosis is maintained. There is loss of height of the T7 vertebral body that appears new from prior suspicious for acute compression fracture. Mild degenerative disc disease in the thoracic spine. Soft tissues: No gross soft tissue swelling. The heart appears enlarged. XR/XR thoracic spine 3V* [id number] IMPRESSION: 1. Loss of height of the T7 vertebral body that appears new from prior suspicious for acute compression fracture. 2. Mild degenerative disc disease.
[2022-06-02 11:26] LABS: Basophils % 0.3 %; Eosinophils # 0.1 10^3/uL (0.0-0.8); Eosinophils % 0.9 %; Hematocrit 36.8 % (37.0-47.0); Hemoglobin 11.7 g/dL (11.5-15.3); Lymphocytes # 0.6 10^3/uL (0.8-4.8); Lymphocytes % 8.6 %; Mean Corpuscular HGB Conc 31.8 g/dL (30.0-36.0); Mean Corpuscular Hemoglobin 30.7 pg (28.0-34.0); Mean Corpuscular Volume 96.6 fl (81-99); Mean Platelet Volume 10.5 fL (7.4-10.4); Monocytes # 0.8 10^3/uL (0.2-0.9); Monocytes % 11.4 %; Neutrophils # 5.47 10^3/uL (1.8-7.7); Neutrophils % 78.5 %; Nucleated Red Blood Cells % 0 %; Platelet Count 252 10^3/cmm (130-400); Red Blood Count 3.81 10^6/uL (4.1-5.3); Red Cell Distribution Width 14.9 % (12.1-15.1)
[2022-06-02 11:42] LABS: Alanine Aminotransferase 32 U/L (0-33); Albumin Level 3.7 g/dL (3.5-5.2); Alkaline Phosphatase 126 U/L (35-105); Anion Gap 11.9 (5-19); Aspartate Amino Transferase 30 U/L (0-32); Blood Urea Nitrogen 16 mg/dL (8-23); Calcium 11.1 mg/dL (8.5-10.5); Carbon Dioxide 27 mmol/L (22-29); Chloride 98 mmol/L (98-107); Globulin 2.9 g/dL (1.3-4.6); Glomerular Filtration Rate 84.5 mL/min (90-130); Glucose 106 mg/dL (65-115); Osmolality Calculated 278 mOsm/kg (285-295); Potassium 3.9 mmol/L (3.5-5.1); Sodium 133 mmol/L (136-145); Total Bilirubin 0.6 mg/dL (0.15-1.2); Total Protein 6.6 g/dL (6.6-8.7)
[2022-06-02 11:46] LABS: Troponin(5th) Baseline 9 ng/L (0-10)
--- NOTE | 2022-06-02 12:58 | ECG_ITS ---
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 Measurements Intervals [place] Rate: 83 P: 35 [place]: 156 QRS: 53 QRSD: 69 T: 74 QT: 366 QTc: 432 Interpretive Statements SINUS RHYTHM LOW QRS VOLTAGE IN PRECORDIAL LEADS [QRS DEFLECTION < 1.0 mV IN CHEST LEADS] MODERATE T-WAVE ABNORMALITY, CONSIDER ANTERIOR ISCHEMIA [-0.1+ mV T-WAVE IN V3/V4] Compared to ECG 06/02/2022 10:59:43 T-wave abnormality now present Possible ischemia now present Electronically Signed On 06-03-2022 19:58:53 COMMERCIAL AGENT by Martinez Valencia M.D. [email or web address] [facility]icalmission [facility].[employer]/store/OM/[id number]
--- NOTE | 2022-06-02 13:31 | W.ED.BACK ---
HPI - Back Pain/Injury General: Chief Complaint: Back Pain/Injury Stated Complaint: Fall, SOB, Dizzy Time Seen by Provider: 06/02/22 10:45 Source: patient Mode of arrival: ambulatory History of Present Illness: 59-year-old female presents emergency room complaining of dizziness and pain. She reports its pain in her chest that radiates into her back between her shoulder blades approximately a week ago she fell backwards landed on her back is been painful since then. Makes it difficult to take a deep breath and she feels a little sweaty at times she is noticed that when she is upright and active is worse if she is sitting or laying down it is better. No fever sweats chills no nausea vomiting or diarrhea. [facility] ED PFSH: Medical History Acute appendicitis Benign essential HTN Bilateral carpal tunnel syndrome Eczema GERD (gastroesophageal reflux disease) Goblet cell carcinoid of small intestine Panic attack Surgical History History of 2 sections History of appendectomy History of dilatation and curettage x 1 History of hernia repair R spigelian History of surgery on left wrist Comminuted fracture --repaired with bone graft from left hip Family History Other CAD (coronary artery disease) Family history of premature coronary artery disease Social History Smoking and tobacco status: never smoked Alcohol intake: never 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 We called the patient back she is not having any chest pain at this time. Organ to go ahead and put her on observation I discussed with hospitalist orders written. Majority her pain still does seem to be coming from the thoracic compression fracture. Interestingly she had complained of chest pain previously to her doctor and has an appointment with cardiology in July. Medical Records I reviewed the patient's medical records. Labs I reviewed the patient's lab results. 06/02/22 11:15 06/02/22 11:15 Radiology Impressions Thoracic Spine X-Ray 06/02/22 10:57 IMPRESSION: 1. Loss of height of the T7 vertebral body that appears new from prior suspicious for acute compression fracture. 2. Mild degenerative disc disease. Thoracic Spine CT 06/02/22 16:05 IMPRESSION: 1. T7 vertebral body compression fracture as seen on thoracic spine radiograph series, with minimal retropulsion of the inferior fracture components with very mild spinal canal narrowing. 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 2. Emphysematous changes. Laboratory Results WBC 7.0 10^3/uL (4.0-10.0) 06/02/22 11:15 RBC 3.81 10^6/uL (4.1-5.3) L 06/02/22 11:15 Hgb 11.7 g/dL (11.5-15.3) 06/02/22 11:15 Hct 36.8 % (37.0-47.0) L 06/02/22 11:15 MCV 96.6 fl (81-99) 06/02/22 11:15 MCH 30.7 pg (28.0-34.0) 06/02/22 11:15 MCHC 31.8 g/dL (30.0-36.0) 06/02/22 11:15 RDW 14.9 % (12.1-15.1) 06/02/22 11:15 Plt Count 252 10^3/cmm (130-400) 06/02/22 11:15 MPV 10.5 fL (7.4-10.4) H 06/02/22 11:15 Neut % (Auto) 78.5 % 06/02/22 11:15 Lymph % (Auto) 8.6 % 06/02/22 11:15 [place] % (Auto) 11.4 % 06/02/22 11:15 Eos % (Auto) 0.9 % 06/02/22 11:15 Baso % (Auto) 0.3 % 06/02/22 11:15 Neut # (Auto) 5.47 10^3/uL (1.8-7.7) 06/02/22 11:15 Lymph # (Auto) 0.6 10^3/uL (0.8-4.8) L 06/02/22 11:15 [place] # (Auto) 0.8 10^3/uL (0.2-0.9) 06/02/22 11:15 Eos # (Auto) 0.1 10^3/uL (0.0-0.8) 06/02/22 11:15 Baso # (Auto) 0.0 10^3/uL (0.0-0.1) 06/02/22 11:15 Nucleated RBC % (auto) 0 % 06/02/22 11:15 Nucleated RBCs # 0.0 /100WBC 06/02/22 11:15 ESR 9 mm/hr (0-15) 06/02/22 11:15 Sodium 133 mmol/L (136-145) L 06/02/22 11:15 Potassium 3.9 mmol/L (3.5-5.1) 06/02/22 11:15 Chloride 98 mmol/L (98-107) 06/02/22 11:15 Carbon Dioxide 27 mmol/L (22-29) 06/02/22 11:15 Anion Gap 11.9 (5-19) 06/02/22 11:15 BUN 16 mg/dL (8-23) 06/02/22 11:15 Creatinine 0.7 mg/dL (0.5-0.9) 06/02/22 11:15 GFR Calculation 84.5 mL/min (90-130) L 06/02/22 11:15 Glucose 106 mg/dL (65-115) 06/02/22 11:15 Calculated Osmolality 278 mOsm/kg (285-295) L 06/02/22 11:15 Calcium 11.1 mg/dL (8.5-10.5) H 06/02/22 11:15 Total Bilirubin 0.6 mg/dL (0.15-1.2) 06/02/22 11:15 AST 30 U/L (0-32) 06/02/22 11:15 ALT 32 U/L (0-33) 06/02/22 11:15 Alkaline Phosphatase 126 U/L (35-105) H 06/02/22 11:15 Troponin T Baseline 9 ng/L (0-10) 06/02/22 11:15 Troponin T 120 Minute 17.62 ng/L (0-10) H 06/02/22 13:30 Delta Troponin T 8.62 ABS# (0-10) 06/02/22 13:30 Total Protein 6.6 g/dL (6.6-8.7) 06/02/22 11:15 Albumin 3.7 g/dL (3.5-5.2) 06/02/22 11:15 Globulin 2.9 g/dL (1.3-4.6) 06/02/22 11:15 Discharge Plan Discharge Patient Disposition: Placed in Observation Admit Provider: Kp Ward Clinical Impression: Elevated troponin, Closed compression fracture of thoracic vertebra Condition: Stable Discharge Orders: Discharge ED (Routine); Ordered 06/02/22 Ordered By: Magdiel Lamar Discharge Diet: Usual diet Discharge Activity: Limit activity as instructed Coding Level of Care Code ED [employer] Worker 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
[2022-06-02 14:00] LABS: Troponin 5 2HR 17.62 ng/L (0-10)
[2022-06-02 14:01] LABS: Troponin 5 2HR Delta 8.62 ABS# (0-10)
[2022-06-02] MEDS: HYDROcodone-acetaminophen 5-325 mg Tablet 2 TAB PO (14:17)
--- NOTE | 2022-06-02 16:05 | CTR_ITS ---
PROCEDURE INFORMATION: Exam: CT Thoracic Spine Without Contrast Exam date and time: 06/02/2022 4:09 PM Age: 62 years old Clinical indication: Injury or trauma; Fall; Fracture, traumatic; Closed; T7-t8 thoracic vertebra; Additional info: T7 fracture TECHNIQUE: Imaging protocol: Computed tomography of the thoracic spine without contrast. Radiation optimization: All CT scans at this facility use at least one of these dose optimization techniques: automated exposure control; mA and/or kV adjustment per patient size (includes targeted exams where dose is matched to clinical indication); or iterative reconstruction. COMPARISON: CR (CHEST, ) 06/02/2022 11:25 AM RADIATION DOSE METRICS: Total DLP (mGy-cm): 1069.11 FINDINGS: Bones/joints: T7 vertebral body compression fracture as seen on thoracic spine radiograph series, with minimal retropulsion of the inferior fracture components with very mild spinal canal narrowing. 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 T1-T2: No significant disc protrusion. No severe spinal canal stenosis. No significant neural foraminal narrowing. T2-T3: No significant disc protrusion. No severe spinal canal stenosis. No significant neural foraminal narrowing. T3-T4: No significant disc protrusion. No severe spinal canal stenosis. No significant neural foraminal narrowing. T4-T5: No significant disc protrusion. No severe spinal canal stenosis. No significant neural foraminal narrowing. T5-T6: No significant disc protrusion. No severe spinal canal stenosis. No significant neural foraminal narrowing. T6-T7: No significant disc protrusion. No severe spinal canal stenosis. No significant neural foraminal narrowing. T7-T8: No significant disc protrusion. No severe spinal canal stenosis. No significant neural foraminal narrowing. T8-T9: No significant disc protrusion. No severe spinal canal stenosis. No significant neural foraminal narrowing. T9-T10: No significant disc protrusion. No severe spinal canal stenosis. No significant neural foraminal narrowing. T10-T11: No significant disc protrusion. No severe spinal canal stenosis. No significant neural foraminal narrowing. T11-T12: No significant disc protrusion. No severe spinal canal stenosis. No significant neural foraminal narrowing. T12-L1: No significant disc protrusion. No severe spinal canal stenosis. No significant neural foraminal narrowing. Lungs: Emphysematous changes. CT/CT thoracic spin wo con* [id number] IMPRESSION: 1. T7 vertebral body compression fracture as seen on thoracic spine radiograph series, with minimal retropulsion of the inferior fracture components with very mild spinal canal narrowing. 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 2. Emphysematous changes.
--- NOTE | 2022-06-02 16:05 | PM.HP ---
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 Patient tells me that a few weeks ago she was wearing flip-flops and she tripped and fell face forward, since then she has had pain between her shoulder blades, it is a sharp stabbing-like pain, pain increases with range of motion. She denies any active chest pain, no palpitations, no orthopnea, no paroxysmal nocturnal dyspnea does report increased lower extremity edema and shortness of breath. She tells her that she feels short of breath since her pulmonary embolism but she has been feeling more short of breath than normal. She is taking the Eliquis as prescribed, denies any bloody or black stools, denies passing out, she did have 1 ER visit for central orthostatic hypotension dizziness, none since then. In the emergency room she was found have a T7 compression fracture,, closed, there was concerns for elevated troponin that is why hospitalist team was called for admission, EKG no acute ST-T wave changes, she denies any chest pain, no active chest pain, Troponin 19, 120-minute 17.6, delta 8.6 to Review of Systems Const: Denies: fever(s) or chills Card: Reports: edema and dyspnea on exertion; Denies: chest pain, palpitations or pre-syncope Resp: Reports: dyspnea and non-productive cough GI: Denies: abdominal pain Medications/Allergies Home Medications Medication Instructions Recorded Confirmed Last Taken Type apixaban 5 mg (74 tabs) tablets in See Rx Instructions PO .COMPLEX 03/09/22 04/09/22 Unknown Rx a dose pack (Eliquis DVT-PE Treat #74 ea 30D Start) alprazolam 0.25 mg tablet 0.25 mg PO DAILY PRN anxiety #30 03/13/22 04/09/22 Unknown Rx tabs apixaban 5 mg tablet (Eliquis) 5 mg PO BID #60 tabs 03/13/22 04/09/22 Unknown Rx escitalopram oxalate 10 mg tablet 10 mg PO DAILY #90 tabs 03/13/22 04/09/22 Unknown Rx lisinopril 10 mg tablet 10 mg PO BID 90 days #180 tabs 03/13/22 04/09/22 Unknown Rx pantoprazole 40 mg tablet,delayed 40 mg PO DAILY #90 tabs 03/13/22 04/09/22 Unknown Rx release simvastatin 20 mg tablet See Rx Instructions .Route 04/24/22 Unknown Rx .COMPLEX #90 tabs hydrocodone 5 mg-acetaminophen 325 1 tab PO Q6H PRN pain #25 tabs 06/02/22 Unknown Rx mg tablet Allergies Allergy/AdvReac Type Severity Reaction Status Date / Time No Known Allergies Allergy Verified 04/09/22 14:09 PFSH Acute PFSH: Medical History Acute appendicitis Benign essential HTN Bilateral carpal tunnel syndrome Eczema GERD (gastroesophageal reflux disease) Goblet cell carcinoid of small intestine Panic attack Surgical History History of 2 sections History of appendectomy History of dilatation and curettage x 1 History of hernia repair R spigelian History of surgery on left wrist Comminuted fracture --repaired with bone graft from left hip Family History Other CAD (coronary artery disease) Family history of premature coronary artery disease Social History Smoking and tobacco status: never smoked Alcohol intake: never 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 Vitals/I&O/Wt Last Vital Signs Temp 98.2 F 06/02/22 10:18 Pulse 85 06/02/22 14:23 Resp 16 06/02/22 12:00 BP 129/79 06/02/22 14:23 Pulse Ox 97 06/02/22 14:23 Weight last 48 hrs Weight 86.183 kg Physical Exam Const: COMMON NORMALS: no acute distress and patient oriented x3 HENMT: COMMON NORMALS: normocephalic HEAD & SCALP: normocephalic Eye: COMMON NORMALS: Equal, round and reactive pupils present and EOMs intact bilaterally Neck/C-Spine: COMMON NORMALS: no JVD Resp: COMMON NORMALS: normal respiratory effort, No retractions, No use of accessory muscles and clear to auscultation bilaterally AUSCULTATION: clear to auscultation bilaterally Cardio: COMMON NORMALS: no JVD, regular rate, regular rhythm, S1 normal heart sound present and S2 normal heart sound present RATE: regular rate RHYTHM: regular rhythm HEART SOUNDS: S1 normal heart sound present and S2 normal heart sound present GI: COMMON NORMALS: Normal to inspection, nondistended, normoactive bowel sounds present, Soft to palpation, non-tender, No hepatosplenomegaly present, no masses and no bruits PALPATION: Yes Soft to palpation and Yes No hepatosplenomegaly present Extremity: COMMON NORMALS: capillary refill normal, no clubbing, cyanosis or edema and no calf tenderness NARRATIVE EXTREMITY EXAM: 1+ pitting edema Neuro: COMMON NORMALS: patient oriented x3, CN's II-XII intact bilaterally, moves all extremities and no focal motor deficits Psych: COMMON NORMALS: mental status grossly normal Data 06/02/22 11:15 06/02/22 11:15 A&P Assessment and plan (1) Closed compression fracture of thoracic vertebra: (2) GERD (gastroesophageal reflux disease): Qualifiers: Esophagitis presence: without esophagitis Qualified Code(s): K21.9 - Gastro-esophageal reflux disease without esophagitis (3) Benign essential HTN: (4) Pulmonary HTN: (5) Pulmonary embolism: Qualifiers: Pulmonary embolism type: multiple subsegmental (without acute cor pulmonale) Qualified Code(s): I26.94 - Multiple subsegmental pulmonary emboli without acute cor pulmonale (6) Elevated troponin: Plan Thoracic compression fracture at T7 -We will do CT thoracic spine -TL SLO brace -PT OT -Oxycodone for pain control -Full code -Eliquis for DVT prophylaxis -We will discuss with Dr. Thompson based on test results Elevated troponin, baseline troponin 9, 120-minute 17.6, delta 8.6 to -EKG no acute ST-T wave changes -Serial EKGs serial troponins telemetry monitoring -She denies chest pain -She had a echocardiogram in March History of DVT pulmonary embolism, inciting factor unknown, continue Eliquis Attestations Medical Necessity Statement*: Patient requires hospitalization for thoracic compression fracture, elevated troponins Coding Level of Care Code Acute Hospice Chaplain for Chg Fwd Diagnoses Closed compression fracture of thoracic vertebra S22.000A GERD (gastroesophageal reflux disease) K21.9 Esophagitis presence: without esophagitis Benign essential HTN I10 Pulmonary HTN I27.20 Pulmonary embolism I26.94 Pulmonary embolism type: multiple subsegmental (without acute cor pulmonale) Elevated troponin R77.8
--- NOTE | 2022-06-02 16:13 | USCV_ITS ---
Kimberli Jurado Age: 62 Gender: F : 1960 Exam Date: 06/02/2022 16:51 Ordering Phys: Kp Ward MD Technologist: MEGHNA Exam Location: [facility] – [place] Indication: EF. Elevated Troponin BP: 149 / 94 HR: 80 Rhythm: Sinus Technical Quality: Adequate MEASUREMENTS (Male / Female) Normal Values 2D ECHO LV Diastolic Diameter PLAX 4.8 cm 4.2 - 5.9 / 3.9 - 5.3 cm LV Systolic Diameter PLAX 3.3 cm IVS Diastolic Thickness 0.7 cm 0.6 - 1.0 / 0.6 - 0.9 cm IVS Systolic Thickness 1.0 cm LVPW Diastolic Thickness 0.6 cm 0.6 - 1.0 / 0.6 - 0.9 cm LVPW Systolic Thickness 0.9 cm LVOT Diameter 2.1 cm LV Ejection Fraction 2D Teich 58.5 % LV Ejection Fraction MOD 2C 62.0 % LV Ejection Fraction 2C AL 62.2 % LA Diameter 3.5 cm IVC Diameter 1.1 cm M-MODE Aortic Annulus Diameter 3.0 cm LA Ao Ratio MM 1.3 MV E Point Septal Separation 0.5 cm DOPPLER AV Peak Velocity 133.0 cm/s LVOT Peak Velocity 102.0 cm/s AV Area Cont Eq vti 2.1 cm squared AV Area Cont Eq pk 2.6 cm squared MV E' Velocity 11.0 cm/s TR Peak Velocity 241.3 cm/s TR Peak Gradient 23.3 mmHg TV Peak E Velocity 60.0 cm/s PV Peak Velocity 87.0 cm/s FINDINGS Left Ventricle Left ventricle is normal in size. LV systolic function is normal with EF of 55 to 60%. No regional wall motion abnormalities are seen. Grade 1 diastolic dysfunction Right Ventricle Normal in size and function Right Atrium Normal in size Left Atrium Normal in size Mitral Valve Structurally normal mitral valve. Trace mitral regurgitation. No significant stenosis. Aortic Valve Structurally normal aortic valve. Significant stenosis or regurgitation. Tricuspid Valve Mild tricuspid regurgitation. Insufficient TR jet to calculate RVSP Pulmonic Valve Not well-visualized Pericardium Normal Aorta Normal in size IVC Appears to be normal CONCLUSIONS LV systolic function is normal with EF 55 to 60%. Grade 1 diastolic dysfunction Trace mitral regurgitation Mild tricuspid regurgitation Compared to prior echocardiogram from 03/09/2022, no significant changes are seen. Martinez Valencia MD (Electronically Signed) Final Date: 03 June 2022 10:44 S
[2022-06-02 16:17] LABS: Erythrocyte Sedimentation Rate 9 mm/hr (0-15)
[2022-06-02] MEDS: oxyCODONE-APAP 5-325 mg Tablet 1 TAB PO ×2 (19:37→23:51)
[2022-06-02] MEDS: pantoprazole DR 40 mg Tablet PO (19:37)
[2022-06-02] MEDS: lisinopril 10 mg Tablet PO (19:37)
[2022-06-02] MEDS: FUROsemide 10 mg/mL SDV 4mL 40 MG IVP (20:22)
[2022-06-02 20:40] LABS: Add Urine Microscopic? NO; Charge for UA Resulting for Rev
[2022-06-02 20:46] LABS: Urine Appearance Clear (CLEAR); Urine Color Colorless (Yellow)
[2022-06-02 20:47] LABS: Bilirubin Urine Neg (Negative); Blood Urine Neg (Negative); Glucose Urine UA Norm (Normal); Ketones Urine Negative (Negative); Leukocyte Esterase Urine Negative (Negative); Nitrate Urine Negative (Negative); Protein Urine Neg (Negative); Urobilinogen Urine Neg (Negative); pH Urine 6.5 (5-7)
[2022-06-02] MEDS: atorvastatin 40 mg Tablet 20 MG PO (20:51)
[2022-06-02] MEDS: apixaban 5 mg Tablet PO (20:51)
[2022-06-03] VITALS (10 sets, daily range): BP systolic 106–145; BP diastolic 73–87; PULSE 68–79; RESP 14–18; TEMP 36.5–36.8; O2SAT 91–96
[2022-06-03] MEDS: oxyCODONE-APAP 5-325 mg Tablet 1 TAB PO ×3 (03:51→13:36)
[2022-06-03] MEDS: ALPRAZolam 0.5 mg Tablet 0.25 MG PO (04:46)
[2022-06-03 05:43] LABS: Basophils % 0.4 %; Eosinophils # 0.1 10^3/uL (0.0-0.8); Eosinophils % 2.6 %; Hematocrit 36.8 % (37.0-47.0); Hemoglobin 11.9 g/dL (11.5-15.3); Lymphocytes # 1.1 10^3/uL (0.8-4.8); Mean Corpuscular HGB Conc 32.3 g/dL (30.0-36.0); Mean Corpuscular Hemoglobin 31.2 pg (28.0-34.0); Mean Corpuscular Volume 96.6 fl (81-99); Mean Platelet Volume 10.4 fL (7.4-10.4); Monocytes # 0.8 10^3/uL (0.2-0.9); Monocytes % 14.7 %; Neutrophils # 3.27 10^3/uL (1.8-7.7); Neutrophils % 61.9 %; Nucleated Red Blood Cells % 0 %; Platelet Count 280 10^3/cmm (130-400); Red Blood Count 3.81 10^6/uL (4.1-5.3); Red Cell Distribution Width 14.9 % (12.1-15.1); White Blood Count 5.3 10^3/uL (4.0-10.0)
[2022-06-03 06:13] LABS: Estmated Average Glucose 97
[2022-06-03 06:18] LABS: Chol HDL Ratio 3.04 mg/dL (0.0-4.40); Cholesterol 158 mg/dL (0-200); HDL Cholesterol 52 mg/dL (60-100); LDL Cholesterol Calculated 83 mg/dL (50-129); NT Pro B Type Natriuretic Pept 200 pg/mL (0-125); Triglycerides 116 mg/dL (0-150)
[2022-06-03 06:19] LABS: Anion Gap 12.7 (5-19); Blood Urea Nitrogen 10 mg/dL (8-23); Calcium 11.2 mg/dL (8.5-10.5); Carbon Dioxide 31 mmol/L (22-29); Chloride 94 mmol/L (98-107); Creatinine Clr Calc Pharmacy 108.2246; Glucose 114 mg/dL (65-115); Magnesium 1.5 mg/dL (1.7-2.3); Osmolality Calculated 278 mOsm/kg (285-295); Phosphorus 2.3 mg/dL (2.5-4.5); Potassium 3.7 mmol/L (3.5-5.1); Sodium 134 mmol/L (136-145)
[2022-06-03] MEDS: gabapentin 300 mg Capsule PO (10:22)
[2022-06-03] MEDS: pantoprazole DR 40 mg Tablet PO (10:22)
[2022-06-03] MEDS: escitalopram 10 mg Tablet PO (10:22)
[2022-06-03] MEDS: lisinopril 10 mg Tablet PO (10:22)
[2022-06-03] MEDS: apixaban 5 mg Tablet PO (10:24)
[2022-06-03] MEDS: magnesium sulfate premix 2 GM/50 ML PIGGYBACK IV (10:24)
[2022-06-03] MEDS: calcitonin nasal 200 unit/spray 3.7 mL Btl 1 SPRAY NOSTRIL-AL (12:39)
--- NOTE | 2022-06-03 13:47 | PM.DCS ---
Discharge Providers Date of Admission: 06/02/22 16:00 Date of Discharge: June 03, 2022 Attending Provider at Admission: Kp Ward MD Attending Provider at Discharge: Kp Ward MD Primary Care Provider: Heaven Tyler DO Diagnoses at Discharge Discharge Diagnosis (1) Closed compression fracture of thoracic vertebra: Status: Acute (2) GERD (gastroesophageal reflux disease): Status: Acute Qualifiers: Esophagitis presence: without esophagitis Qualified Code(s): K21.9 - Gastro-esophageal reflux disease without esophagitis (3) Benign essential HTN: Status: Acute (4) Pulmonary HTN: Status: Acute (5) Pulmonary embolism: Status: Acute Qualifiers: Pulmonary embolism type: multiple subsegmental (without acute cor pulmonale) Qualified Code(s): I26.94 - Multiple subsegmental pulmonary emboli without acute cor pulmonale (6) Elevated troponin: Status: Acute Reason for Visit Reason for Visit: Fall, SOB, Dizzy Hospital Course Hospital Course Kimberli Jurado is a 62 year old female with a past medica history of bilateral pulmonary embolism, right lower extremity DVT, on Eliquis, 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 Patient was found to have a T7 vertebral compression fracture T7 vertebral body compression fracture as seen on thoracic spine radiograph series, with minimal retropulsion of the inferior fracture components with very mild spinal canal narrowing. 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 -Managed conservatively with TLSO brace, pain control, clinically monitored -She will be discharged with a TLSO brace with a close follow-up with Dr. Holland -[id number] every 6 hours as needed to be used sparingly for pain -Continue intranasal calcitonin for 2 weeks There was concerns for elevated troponin during hospitalization, 120 minutes 17.62, delta 8.62, BNP 200, echocardiogram had no significant wall motion abnormalities, normal ejection fraction, and she had no chest pain complaints -Discharged with close follow-up with cardiology as outpatient, if she were to have any chest pain to go to emergency room Physical Exam Const: COMMON NORMALS: no acute distress and patient oriented x3 Resp: COMMON NORMALS: normal respiratory effort, No retractions, No use of accessory muscles and clear to auscultation bilaterally AUSCULTATION: clear to auscultation bilaterally Cardio: COMMON NORMALS: regular rate, regular rhythm, S1 normal heart sound present and S2 normal heart sound present RATE: regular rate RHYTHM: regular rhythm HEART SOUNDS: S1 normal heart sound present and S2 normal heart sound present GI: COMMON NORMALS: Normal to inspection, nondistended, normoactive bowel sounds present and non-tender Extremity: COMMON NORMALS: no pedal edema Neuro: COMMON NORMALS: patient oriented x3 Psych: COMMON NORMALS: mental status grossly normal Discharge Data Studies Completed and Pending Completed Studies During Hospitalization Category Date Time Status CT thoracic spine wo con [CT thoracic spin wo con* Cat Scan 06/02/22 16:05 Completed [id number]] Stat XR thoracic spine 3V* [id number] Stat Exams 06/02/22 10:57 Completed CV. echo complete* [id number] Stat Ultrasound 06/02/22 16:13 Completed Pending at discharge Category Date Time Status JULIUS Profile Rheumatology Stat Lab 06/02/22 16:44 Received Magnesium AM LABS Lab 06/04/22 04:00 Ordered Magnesium AM LABS Lab 06/05/22 04:00 Ordered Phosphorus AM LABS Lab 06/04/22 04:00 Ordered Phosphorus AM LABS Lab 06/05/22 04:00 Ordered Radiology Impressions Thoracic Spine X-Ray 06/02/22 10:57 IMPRESSION: 1. Loss of height of the T7 vertebral body that appears new from prior suspicious for acute compression fracture. 2. Mild degenerative disc disease. Thoracic Spine CT 06/02/22 16:05 IMPRESSION: 1. T7 vertebral body compression fracture as seen on thoracic spine radiograph series, with minimal retropulsion of the inferior fracture components with very mild spinal canal narrowing. 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 2. Emphysematous changes. Laboratory Results WBC 5.3 10^3/uL (4.0-10.0) 06/03/22 05:14 RBC 3.81 10^6/uL (4.1-5.3) L 06/03/22 05:14 Hgb 11.9 g/dL (11.5-15.3) 06/03/22 05:14 Hct 36.8 % (37.0-47.0) L 06/03/22 05:14 MCV 96.6 fl (81-99) 06/03/22 05:14 MCH 31.2 pg (28.0-34.0) 06/03/22 05:14 MCHC 32.3 g/dL (30.0-36.0) 06/03/22 05:14 RDW 14.9 % (12.1-15.1) 06/03/22 05:14 Plt Count 280 10^3/cmm (130-400) 06/03/22 05:14 MPV 10.4 fL (7.4-10.4) 06/03/22 05:14 Neut % (Auto) 61.9 % 06/03/22 05:14 Lymph % (Auto) 20.0 % 06/03/22 05:14 Harmon % (Auto) 14.7 % 06/03/22 05:14 Eos % (Auto) 2.6 % 06/03/22 05:14 Baso % (Auto) 0.4 % 06/03/22 05:14 Neut # (Auto) 3.27 10^3/uL (1.8-7.7) 06/03/22 05:14 Lymph # (Auto) 1.1 10^3/uL (0.8-4.8) 06/03/22 05:14 Harmon # (Auto) 0.8 10^3/uL (0.2-0.9) 06/03/22 05:14 Eos # (Auto) 0.1 10^3/uL (0.0-0.8) 06/03/22 05:14 Baso # (Auto) 0.0 10^3/uL (0.0-0.1) 06/03/22 05:14 Nucleated RBC % (auto) 0 % 06/03/22 05:14 Nucleated RBCs # 0.0 /100WBC 06/03/22 05:14 ESR 9 mm/hr (0-15) 06/02/22 11:15 Sodium 134 mmol/L (136-145) L 06/03/22 05:14 Potassium 3.7 mmol/L (3.5-5.1) 06/03/22 05:14 Chloride 94 mmol/L (98-107) L 06/03/22 05:14 Carbon Dioxide 31 mmol/L (22-29) H 06/03/22 05:14 Anion Gap 12.7 (5-19) 06/03/22 05:14 BUN 10 mg/dL (8-23) 06/03/22 05:14 Creatinine 0.6 mg/dL (0.5-0.9) 06/03/22 05:14 GFR Calculation 101.0 mL/min (90-130) 06/03/22 05:14 Glucose 114 mg/dL (65-115) 06/03/22 05:14 Estimat Average Glucose 97 06/03/22 05:14 Hemoglobin A1c 5.0 % (4.0-6.0) 06/03/22 05:14 Calculated Osmolality 278 mOsm/kg (285-295) L 06/03/22 05:14 Calcium 11.2 mg/dL (8.5-10.5) H 06/03/22 05:14 Phosphorus 2.3 mg/dL (2.5-4.5) L 06/03/22 05:14 Magnesium 1.5 mg/dL (1.7-2.3) L 06/03/22 05:14 Total Bilirubin 0.6 mg/dL (0.15-1.2) 06/02/22 11:15 AST 30 U/L (0-32) 06/02/22 11:15 ALT 32 U/L (0-33) 06/02/22 11:15 Alkaline Phosphatase 126 U/L (35-105) H 06/02/22 11:15 Troponin T Baseline 9 ng/L (0-10) 06/02/22 11:15 Troponin T 120 Minute 17.62 ng/L (0-10) H 06/02/22 13:30 Delta Troponin T 8.62 ABS# (0-10) 06/02/22 13:30 NT-Pro-B Natriuret Pep 200 pg/mL (0-125) H 06/03/22 05:14 Total Protein 6.6 g/dL (6.6-8.7) 06/02/22 11:15 Albumin 3.7 g/dL (3.5-5.2) 06/02/22 11:15 Globulin 2.9 g/dL (1.3-4.6) 06/02/22 11:15 Triglycerides 116 mg/dL (0-150) 06/03/22 05:14 Cholesterol 158 mg/dL (0-200) 06/03/22 05:14 LDL Cholesterol, Calc 83 mg/dL (50-129) 06/03/22 05:14 HDL Cholesterol 52 mg/dL (60-100) L 06/03/22 05:14 LDL/HDL Ratio 1.60 RATIO (0.00-3.22) 06/03/22 05:14 Cholesterol/HDL Ratio 3.04 mg/dL (0.0-4.40) 06/03/22 05:14 TSH 3.80 uIU/mL (0.27-4.20) 06/03/22 05:14 Urine Color Colorless (Yellow) 06/02/22 20:30 Urine Appearance Clear (CLEAR) 06/02/22 20:30 Urine pH 6.5 (5-7) 06/02/22 20:30 Ur Specific [place] 1.010 (1.005-1.030) 06/02/22 20:30 Urine Protein Neg (Negative) 06/02/22 20:30 Urine Glucose (UA) Norm (Normal) 06/02/22 20:30 Urine Ketones Negative (Negative) 06/02/22 20:30 Urine Blood Neg (Negative) 06/02/22 20:30 Urine Nitrate Negative (Negative) 06/02/22 20:30 Urine Bilirubin Neg (Negative) 06/02/22 20:30 Urine Urobilinogen Neg mg/dL (Negative) 06/02/22 20:30 Ur Leukocyte Esterase Negative (Negative) 06/02/22 20:30 Vitals Last Vital Signs Temp 98.3 F 06/03/22 11:32 Pulse 78 06/03/22 11:32 Resp 14 06/03/22 13:36 BP 109/75 06/03/22 11:32 Pulse Ox 93 06/03/22 11:32 O2 Del Method 06/03/22 11:32 Discharge Plan Discharge Patient Disposition: Home Condition: Stable Prescriptions: New calcitonin (salmon) 200 unit/actuation [place],Non-Aerosol 1 spray nostril-al DAILY 14 Days Qty: 3.7 0RF oxycodone-acetaminophen 10-325 mg Tablet 1 tab PO Q6H PRN (Reason: Moderate Pain) 7 Days Qty: 28 0RF gabapentin 300 mg Capsule 300 mg PO DAILY 30 Days Qty: 30 0RF Continued Eliquis 5 mg tablet 5 mg PO BID Qty: 60 5RF lisinopril 10 mg tablet 10 mg PO BID 90 Days Qty: 180 1RF alprazolam 0.25 mg tablet 0.25 mg PO DAILY PRN (Reason: anxiety) Qty: 30 1RF escitalopram oxalate 10 mg tablet 10 mg PO DAILY Qty: 90 1RF pantoprazole 40 mg tablet,delayed release (DR/EC) 40 mg PO DAILY Qty: 90 1RF aspirin 325 mg Tablet 325 mg PO DAILY simvastatin 20 mg tablet 20 mg PO DAILY Discharge Orders: Discharge Order (Routine); Ordered 06/03/22 Ordered By: Kp Ward Referrals: Steven Holland DO [Physician] - 4-7 days Heaven Tyler DO [Primary Care Provider] - Discharge Diet: Usual diet Discharge Activity: Limit activity as instructed Patient Instructions: Opioid Safety, Pain Management Activity Restrictions/Additional Instructions: - Please use oxycodone sparingly for pain, if any lightheadedness, dizziness change in mentation or or difficulty breathing stop taking medication, and call 911 -Please take gabapentin for compression fracture and neuropathic pain -Please take intranasal calcitonin for pain -Follow-up with Dr. Holland in the next few days -Follow-up with cardiology Discharge Attestations Time Spent in Discharge Care*: less than 30 min Status at Discharge: Cognitive status at discharge: cognitively intact, Behavioral status at discharge: cooperative, Quality Metrics Clinical Quality Measures [ No reported AMI, CVA or VTE this stay] Coding Level of Care Code Acute Chg FW DC note Diagnoses Closed compression fracture of thoracic vertebra S22.000A GERD (gastroesophageal reflux disease) K21.9 Esophagitis presence: without esophagitis Benign essential HTN I10 Pulmonary HTN I27.20 Pulmonary embolism I26.94 Pulmonary embolism type: multiple subsegmental (without acute cor pulmonale) Elevated troponin R77.8
[2022-06-05 12:24] LABS: CENTROMERE B ANTIBODY <1.0 NEG AI (<1.0 NEG); JO-1 ANTIBODY <1.0 NEG AI (<1.0 NEG); RNP ANTIBODY 1.3 POS AI (<1.0 NEG); SCL-70 ANTIBODY <1.0 NEG AI (<1.0 NEG); SJOGREN'S ANTIBODY (SS-A) <1.0 NEG AI (<1.0 NEG); SM ANTIBODY <1.0 NEG AI (<1.0 NEG); SS-B <1.0 NEG AI (<1.0 NEG)
[2022-06-05 17:04] LABS: THYROID PEROXIDASE ANTIBODIES 3 IU/mL (<9)
[2022-06-06 12:58] LABS: ANA SCREEN, IFA POSITIVE (NEGATIVE); ANA TITER 1:40 titer
[2022-06-08 16:19] LABS: DNA AB (DS) CRITHIDIA,IFA NEGATIVE (NEGATIVE)
== END 2022-06-03 16:09 | disposition home or self-care (01) ==
LOC: ER 14:04 → MEDSURG 17:01
PROVIDERS: Admitting Provider Family Medicine; Emergency Provider Family Medicine; PCP Family Medicine; Visit Provider Family Medicine
DX: S22.000A Wedge compression fracture of unspecified thoracic vertebra, initial encounter for closed fracture (principal); K21.9 Gastro-esophageal reflux disease without esophagitis; I10 Essential (primary) hypertension; I27.20 Pulmonary hypertension, unspecified; I26.94 Multiple subsegmental thrombotic pulmonary emboli without acute cor pulmonale; R77.8 Other specified abnormalities of plasma proteins; Z86.718 Personal history of other venous thrombosis and embolism; Z79.01 Long term (current) use of anticoagulants; E78.5 Hyperlipidemia, unspecified
CPT/HCPCS: 36415; 72072; 72128; 80048; 80053; 80061; 81003; 83036; 83735; 83880; 84100; 84443; 84484; 85025; 85651; 86160; 86162; 86235; 86255; 86376; 93005; 93306; 94664; 96365; 96375; 97161; 97165; 99285; G0378; J1940; J3475; L0456

== ENCOUNTER 2022-06-07 16:16 | Outpatient (CLI) | payer OTHER, SELFPAY ==
--- NOTE | 2022-06-07 16:45 | MR_ITS ---
WS: [id number] MRI THORACIC SPINE noncontrast HISTORY: pain after fall COMPARISON: Thoracic spine CT 06/02/2022, prior CT 04/26/2022 TECHNIQUE: Multiplanar sequences are performed in sagittal and axial planes. New since 04/26/2022 is a biconcave fracture involving the T7 vertebral body. On the STIR sequence th ere is increased signal suggesting this is acute and probably related to recent trauma. T7 vertebral body retropulsion by 3.5 mm. Increased T2 signal extends into the posterior elements, greatest on the LEFT. Interspinous ligament edema at T7-8. There is a focal kyphosis centered at the T7 level with v seth minimal posterior displacement of the thoracic cord. Seen only on the T1 sequence is a 7 mm intermediate signal posterior to the T7-8 disc. This is not s een on additional imaging due to motion artifact. This could potentially be a small disc protrusion. No abnormality was noted on the CT in this region. Mild degenerative disc space narrowing at T8-9 with chronic changes in the anterior endplates. These findings are not acute. No signal abnormality within the cord. T1-2: Motion artifact. No stenosis. T2-3: Significant motion artifact. T3-4: Significant motion artifact. T4-5: Motion artifact. T5-6: Severe motion artifact. T6-7: Severe motion artifact. T7-8: Nondiagnostic axial imaging. There may be a small disc protrusion centrally seen on the sagitt al sequences. T8-9: Nondiagnostic due to motion. T9-10: Mild facet arthritis. No stenosis. T10-11: Mild facet arthritis. T11-12: Mild facet arthritis. MR/MR thoracic spin wo con* [id number] IMPRESSION: 1. Acute, moderate to severe biconcave fracture at T7 with 3.5 mm retropulsion and marrow edema extending into the posterior elements. 2. Focal kyphosis centered at T7 with minimal posterior displacement of the th oracic cord. No cord compression. 3. Small amount of edema in the interspinous ligaments at T7-8. 4. The axial sequence is nondiagnostic due to significant motion artifact. 5. 7 mm intermediate signal noted at T7-8 disc level extending towards the the tomi sac. Could be related to motion artifact or very small disc protrusion. No corresponding abnormality was noted on the CT.
== END 2022-06-07 16:17 | disposition home or self-care (01) ==
PROVIDERS: PCP Family Medicine; Visit Provider Physician Assistant
DX: S22.069A Unspecified fracture of T7-T8 vertebra, initial encounter for closed fracture (principal); W19.XXXA Unspecified fall, initial encounter; R60.0 Localized edema
CPT/HCPCS: 72146

== ENCOUNTER 2022-06-10 21:24 | Emergency (ER) | payer OTHER, SELFPAY ==
[2022-06-10 21:42] VITALS: BP 119/75; PULSE 109; RESP 16; TEMP 36.1; O2SAT 94; BMI 30.8
--- NOTE | 2022-06-10 22:09 | XRR_ITS ---
PROCEDURE INFORMATION: Exam: XR Chest Exam date and time: 06/10/2022 10:38 PM Age: 62 years old Clinical indication: Shortness of breath; Additional info: AMS TECHNIQUE: Imaging protocol: Radiologic exam of the chest. Views: 1 view. COMPARISON: CT chest abd pel w con* 04/26/2022 4:51 PM FINDINGS: Lungs: Strandy opacities are seen in the lung bases bilaterally likely representing atelectasis. Pleural spaces: There is some blunting of the left costophrenic recess possibly secondary to a tiny left pleural effusion versus pleural thickening. Heart/Mediastinum: Unremarkable. No cardiomegaly. Bones/joints: Unremarkable. XR/XR chest 1V portable [id number] IMPRESSION: 1. Strandy opacities present in the lung bases bilaterally likely represents atelectasis. Basilar infiltrates and pneumonia cannot be entirely excluded. 2. Blunting of the left costophrenic recess possibly secondary to a tiny left pleural effusion versus pleural thickening.
--- NOTE | 2022-06-10 22:09 | CTR_ITS ---
PROCEDURE INFORMATION: Exam: CT Head Without Contrast Exam date and time: 06/10/2022 10:41 PM Age: 62 years old Clinical indication: Altered mental status/memory loss; Additional info: AMS TECHNIQUE: Imaging protocol: Computed tomography of the head without contrast. Radiation optimization: All CT scans at this facility use at least one of these dose optimization techniques: automated exposure control; mA and/or kV adjustment per patient size (includes targeted exams where dose is matched to clinical indication); or iterative reconstruction. COMPARISON: No relevant prior studies available. RADIATION DOSE METRICS: Total DLP (mGy-cm): 1215.48 FINDINGS: Brain: There is mild diffuse cerebral atrophy. Patchy areas of hypoattenuation are seen in the deep white matter of the cerebral hemispheres bilaterally compatible mild deep white matter microvascular disease. Cerebral ventricles: No ventriculomegaly. Paranasal sinuses: Visualized sinuses are unremarkable. No fluid levels. Mastoid air cells: Visualized mastoid air cells are well aerated. Bones/joints: Unremarkable. No acute fracture. Soft tissues: Unremarkable. CT/CT head wo con* [id number] IMPRESSION: There are no acute intracranial findings.
--- NOTE | 2022-06-10 22:38 | W.ED.AMS ---
HPI - Altered Mental Status General: Chief Complaint: Altered Mental Status Stated Complaint: Mixed Up Medicine Time Seen by Provider: 06/10/22 21:53 Source: family History of Present Illness: 62-year-old female with a history of vertebral compression fracture. She is recently been placed on pain medication including hydrocodone. She is recently been placed on gabapentin as well as Xanax. She has become increasingly lethargic and obtunded over the past couple of days. Her son does note that she is very difficult to arouse, and has been significantly confused when she speaks at home. No fever. She is also recently been placed on blood thinners for pulmonary embolism. MD complaint: altered mental status and decreased responsiveness Onset (ago): day(s) Timing confirmed by: family member Severity: moderate Consistency of symptoms: Getting Worse Context: change in medication Associated symptoms: Reports delusions; Deny auditory hallucinations, homicidal ideation or suicidal ideation Review of Systems General: Reports: ROS unobtainable due to mental status Const: Denies: fever(s) or chills Card: Denies: chest pain Resp: Denies: dyspnea GI: Denies: vomiting Neuro: Reports: confusion; Denies: headache(s) Psych: Denies: auditory hallucinations, suicidal ideation or homicidal ideation [facility] ED PFSH: Medical History Acute appendicitis Benign essential HTN Bilateral carpal tunnel syndrome Eczema GERD (gastroesophageal reflux disease) Goblet cell carcinoid of small intestine Panic attack Surgical History History of 2 sections History of appendectomy History of dilatation and curettage x 1 History of hernia repair R spigelian History of surgery on left wrist Comminuted fracture --repaired with bone graft from left hip Family History Other CAD (coronary artery disease) Family history of premature coronary artery disease Social History Smoking and tobacco status: never smoked Alcohol intake: never 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 Exam Const: GENERAL APPEARANCE: lethargic and frail appearing ORIENTATION/CONSCIOUSNESS: Yes lethargic HENMT: COMMON NORMALS: normocephalic, atraumatic and Normal external nose present HEAD & SCALP: normocephalic and atraumatic FACE & SINUS: normal facial exam and face symmetric NOSE: Normal external nose present Eye: COMMON NORMALS: Equal, round and reactive pupils present and EOMs intact bilaterally PUPIL: Yes Equal, round and reactive pupils present OTHER: Pupils are constricted equally Neck/C-Spine: GENERAL: Yes trachea midline Chest: CHEST: Yes Symmetrical chest wall rise Resp: COMMON NORMALS: normal respiratory effort, No use of accessory muscles and clear to auscultation bilaterally AUSCULTATION: clear to auscultation bilaterally Cardio: COMMON NORMALS: regular rate and regular rhythm RATE: regular rate RHYTHM: regular rhythm GI: COMMON NORMALS: Normal to inspection, nondistended, normoactive bowel sounds present and Soft to palpation PALPATION: Yes Soft to palpation Extremity: COMMON NORMALS: no pedal edema Neuro: CAROLIN COMA SCALE: document GCS findings Carolin coma scale eye opening: To pressure Carolin coma scale verbal response: Confused [place] coma scale motor response: Obey commands [place] coma scale total score: 12 SENSORIUM/ORIENTATION: Yes lethargic Psych: THOUGHT CONTENT: Yes delusions Course Vital Signs: Vital signs: Vital Signs Temperature 97.0 F L 06/10/22 21:42 Pulse Rate 109 H 06/10/22 21:42 Respiratory Rate 16 06/10/22 21:42 Blood Pressure 119/75 06/10/22 21:42 Pulse Oximetry 94 06/10/22 21:42 Oxygen Delivery Me thod 06/10/22 21:42 MDM - Altered Mental Status Medical Decision Making This lady is significantly lethargic nearing obtundation on exam. She does, however, respond appropriately to verbal commands. She is given IV fluid bolus. Head CT is negative for acute change or abnormality. Chest x-ray shows some atelectasis in the bibasilar region. Her vitals have remained stable here. Over the course of her ER stay, she became more alert. She actually became quite agitated. Multiple attempts had to be made to obtain this patient an IV. She ripped it out on her own. She states that she wants to go home. Her and 2 sons are quite concerned about her, understandably, as she has been significantly lethargic at home. She was agitated to the point that she was up walking around in the room. She was asking for her medication. At 1 point she even went over to try to take more medication. She was answering questions somewhat appropriately at this point. However, she was still acting strangely. 1 example is that she was pouring her water cup onto her arm for no apparent reason. I had a long discussion with the patient's and her son. At this point, with her becoming more alert already, this is almost assuredly an accidental medication overdose. The more alert and agitated she becomes, especially in an unfamiliar environment, and the more we will have to intervene. Essentially at that point we would be holding her against her will, and likely having to restrain her forcibly. At home, she will likely be more calm, less agitated, and not require such restraint. We encouraged the and son to watch her closely, to sweep the house for any potential hidden medications, and to keep her medication from her, especially the hydrocodone, gabapentin, and Xanax. She will stop the S-Citalopram as well for now. She will continue her Eliquis and lisinopril. They agree to watch her closely as she clears the medication. At the rate she is improved since she has been here, I expect that this will happen over the next 12 to 24 hours. We offered admission, but obviously holding the patient down against her will and keeping her against her will, as she is asked multiple times to go home, is not advisable if she can safely be at home to come off of her medication. They agreed to take her home. They will return for any new or worsening symptoms. Lab Data 06/11/22 01:01 06/11/22 01:01 Radiology Impressions Chest X-Ray 06/10/22 22:09 IMPRESSION: 1. Strandy opacities present in the lung bases bilaterally likely represents atelectasis. Basilar infiltrates and pneumonia cannot be entirely excluded. 2. Blunting of the left costophrenic recess possibly secondary to a tiny left pleural effusion versus pleural thickening. Head CT 06/10/22 22:09 IMPRESSION: There are no acute intracranial findings. Laboratory Results WBC 7.9 10^3/uL (4.0-10.0) 06/11/22 01:01 Corrected WBC Cancelled 06/11/22 00:10 RBC 4.16 10^6/uL (4.1-5.3) 06/11/22 01:01 Hgb 12.6 g/dL (11.5-15.3) 06/11/22 01:01 Hct 39.3 % (37.0-47.0) 06/11/22 01:01 MCV 94.5 fl (81-99) 06/11/22 01:01 MCH 30.3 pg (28.0-34.0) 06/11/22 01:01 MCHC 32.1 g/dL (30.0-36.0) 06/11/22 01:01 RDW 14.1 % (12.1-15.1) 06/11/22 01:01 Plt Count 423 10^3/cmm (130-400) H 06/11/22 01:01 MPV 9.8 fL (7.4-10.4) 06/11/22 01:01 Gran % Cancelled 06/11/22 00:10 Neut % (Auto) 74.6 % 06/11/22 01:01 Lymph % (Auto) 15.5 % 06/11/22 01:01 [place]arton % (Auto) 8.1 % 06/11/22 01:01 Eos % (Auto) 0.8 % 06/11/22 01:01 Baso % (Auto) 0.5 % 06/11/22 01:01 Neut # (Auto) 5.92 10^3/uL (1.8-7.7) 06/11/22 01:01 Lymph # (Auto) 1.2 10^3/uL (0.8-4.8) 06/11/22 01:01 Wharton # (Auto) 0.6 10^3/uL (0.2-0.9) 06/11/22 01:01 Eos # (Auto) 0.1 10^3/uL (0.0-0.8) 06/11/22 01:01 Baso # (Auto) 0.0 10^3/uL (0.0-0.1) 06/11/22 01:01 Absolute Gran (auto) Cancelled 06/11/22 00:10 Nucleated RBC % (auto) 0 % 06/11/22 01:01 Nucleated RBCs # 0.0 /100WBC 06/11/22 01:01 PT 14.60 SECONDS (12.1-14.9) 06/11/22 01:01 INR 1.11 (0.8-1.2) 06/11/22 01:01 APTT 28.5 SECONDS (23.9-36.7) 06/11/22 01:01 Sodium 131 mmol/L (136-145) L 06/11/22 01:01 Potassium 3.6 mmol/L (3.5-5.1) 06/11/22 01:01 Chloride 92 mmol/L (98-107) L 06/11/22 01:01 Carbon Dioxide 27 mmol/L (22-29) 06/11/22 01:01 Anion Gap 15.6 (5-19) 06/11/22 01:01 BUN 7 mg/dL (8-23) L 06/11/22 01:01 Creatinine 0.4 mg/dL (0.5-0.9) L 06/11/22 01:01 GFR Calculation 161.2 mL/min (90-130) H 06/11/22 01:01 Glucose 87 mg/dL (65-115) 06/11/22 01:01 Calculated Osmolality 269 mOsm/kg (285-295) L 06/11/22 01:01 Lactate 1.8 mmol/L (0.5-2.2) 06/11/22 00:10 Calcium 11.1 mg/dL (8.5-10.5) H 06/11/22 01:01 Total Bilirubin 0.4 mg/dL (0.15-1.2) 06/11/22 01:01 AST 34 U/L (0-32) H 06/11/22 01:01 ALT 24 U/L (0-33) 06/11/22 01:01 Alkaline Phosphatase 106 U/L (35-105) H 06/11/22 01:01 Ammonia 35 umol/L (11-51) 06/11/22 01:01 Total Protein 7.3 g/dL (6.6-8.7) 06/11/22 01:01 Albumin 3.6 g/dL (3.5-5.2) 06/11/22 01:01 Globulin 3.7 g/dL (1.3-4.6) 06/11/22 01:01 Urine Color Dark yellow (Yellow) 06/10/22 23:09 Urine Appearance Hazy (CLEAR) A 06/10/22 23:09 Urine pH 5 (5-7) 06/10/22 23:09 Ur Specific [place] 1.020 (1.005-1.030) 06/10/22 23:09 Urine Protein 1+ (Negative) H 06/10/22 23:09 Urine Glucose (UA) Norm (Normal) 06/10/22 23:09 Urine Ketones 2+ (Negative) H 06/10/22 23:09 Urine Blood Neg (Negative) 06/10/22 23:09 Urine Nitrate Negative (Negative) 06/10/22 23:09 Urine Bilirubin 1+ (Negative) H 06/10/22 23:09 Urine Urobilinogen 1 mg/dL (Negative) H 06/10/22 23:09 Ur Leukocyte Esterase Negative (Negative) 06/10/22 23:09 Urine RBC None /hpf (0-2) 06/10/22 23:09 Urine WBC None /hpf (0-5) 06/10/22 23:09 Ur Squamous Epith Cells Rare /hpf (0-5) 06/10/22 23:09 Amorphous Sediment Not Reportable 06/10/22 23:09 Urine Bacteria Trace /hpf (NONE) 06/10/22 23:09 Hyaline Casts 5-10 /lpf H 06/10/22 23:09 Fine Granular Casts 0-4 /lpf H 06/10/22 23:09 Ethyl Alcohol < 10 mg/dL (0-10) 06/11/22 01:01 Discharge Plan Discharge Patient Disposition: Home Clinical Impression: Delirium due to general medical condition, Accidental drug overdose Condition: Stable Prescriptions: Discontinued escitalopram oxalate 10 mg tablet 10 mg PO DAILY Qty: 90 1RF alprazolam 0.25 mg tablet 0.25 mg PO DAILY PRN (Reason: anxiety) Qty: 30 1RF gabapentin 300 mg Capsule 300 mg PO DAILY 30 Days Qty: 30 0RF No Action Eliquis 5 mg tablet 5 mg PO BID Qty: 60 5RF lisinopril 10 mg tablet 10 mg PO BID 90 Days Qty: 180 1RF pantoprazole 40 mg tablet,delayed release (DR/EC) 40 mg PO DAILY Qty: 90 1RF aspirin 325 mg Tablet 325 mg PO DAILY simvastatin 20 mg tablet 20 mg PO DAILY calcitonin (salmon) 200 unit/actuation [place],Non-Aerosol 1 spray nostril-al DAILY 14 Days Qty: 3.7 0RF Discharge Orders: Discharge ED (Routine); Ordered 06/11/22 Ordered By: Preston Hansen Referrals: Heaven Tyler DO [Primary Care Provider] - 1-3 days Activity Restrictions/Additional Instructions: Stop the following medications: Hydrocodone, gabapentin, alprazolam. Stop other medications that have been brought up such as liquid lorazepam that may be at home. Escitalopram can be stopped as well as it can affect mental status. Make sure to stay hydrated. Call your doctor later today for an appointment. Return for worsening mental status despite the above. If mental status continues to improve, procedure can proceed on Saturday as scheduled. Coding Level of Care Code ED Dance Instructor for Myles Fwd Exam Comprehensive
[2022-06-10 23:55] LABS: Glucose Urine UA Norm (Normal); Ketones Urine 2+ (Negative); Protein Urine 1+ (Negative); Urine Appearance Hazy (CLEAR); Urine Color Dark Yellow (Yellow); pH Urine 5 (5-7)
[2022-06-10 23:56] LABS: Add Urine Microscopic? YES; Bilirubin Urine 1+ (Negative); Blood Urine Neg (Negative); Leukocyte Esterase Urine Negative (Negative); Nitrate Urine Negative (Negative); Urobilinogen Urine 1 mg/dL (Negative)
[2022-06-11 00:21] LABS: Bacteria Urine TRACE /hpf; Fine Granular Casts Urine 0-4 /lpf; Squamous Epithelial Cell Urine RARE /hpf (0-5)
[2022-06-11 00:22] LABS: Add Urine Culture? No
[2022-06-11] MEDS: sodium chloride 0.9% 1,000 ML 999 ML IV (00:27)
[2022-06-11 00:40] LABS: Lactate (Lactic Acid level) 1.8 mmol/L (0.5-2.2)
[2022-06-11 01:06] LABS: Basophils % 0.5 %; Eosinophils # 0.1 10^3/uL (0.0-0.8); Eosinophils % 0.8 %; Hematocrit 39.3 % (37.0-47.0); Hemoglobin 12.6 g/dL (11.5-15.3); Lymphocytes # 1.2 10^3/uL (0.8-4.8); Lymphocytes % 15.5 %; Mean Corpuscular HGB Conc 32.1 g/dL (30.0-36.0); Mean Corpuscular Hemoglobin 30.3 pg (28.0-34.0); Mean Corpuscular Volume 94.5 fl (81-99); Mean Platelet Volume 9.8 fL (7.4-10.4); Monocytes # 0.6 10^3/uL (0.2-0.9); Monocytes % 8.1 %; Neutrophils # 5.92 10^3/uL (1.8-7.7); Neutrophils % 74.6 %; Nucleated Red Blood Cells % 0 %; Platelet Count 423 10^3/cmm (130-400); Red Blood Count 4.16 10^6/uL (4.1-5.3); Red Cell Distribution Width 14.1 % (12.1-15.1); White Blood Count 7.9 10^3/uL (4.0-10.0)
[2022-06-11 01:16] LABS: INR 1.11 (0.8-1.2)
[2022-06-11 01:17] LABS: Partial Thromboplastin Time 28.5 SECONDS (23.9-36.7)
[2022-06-11 01:23] LABS: Alanine Aminotransferase 24 U/L (0-33); Albumin Level 3.6 g/dL (3.5-5.2); Alkaline Phosphatase 106 U/L (35-105); Anion Gap 15.6 (5-19); Aspartate Amino Transferase 34 U/L (0-32); Blood Urea Nitrogen 7 mg/dL (8-23); Calcium 11.1 mg/dL (8.5-10.5); Carbon Dioxide 27 mmol/L (22-29); Chloride 92 mmol/L (98-107); Globulin 3.7 g/dL (1.3-4.6); Glomerular Filtration Rate 161.2 mL/min (90-130); Glucose 87 mg/dL (65-115); Osmolality Calculated 269 mOsm/kg (285-295); Potassium 3.6 mmol/L (3.5-5.1); Sodium 131 mmol/L (136-145); Total Bilirubin 0.4 mg/dL (0.15-1.2); Total Protein 7.3 g/dL (6.6-8.7)
[2022-06-11 01:24] LABS: Ammonia 35 umol/L (11-51)
[2022-06-11 01:25] LABS: Alcohol Level < 10 mg/dL (0-10)
== END 2022-06-11 02:44 | disposition home or self-care (01) ==
PROVIDERS: Emergency Provider Emergency Medicine; PCP Family Medicine
DX: T65.91XA Toxic effect of unspecified substance, accidental (unintentional), initial encounter (principal); F05 Delirium due to known physiological condition; Z79.01 Long term (current) use of anticoagulants; Z79.82 Long term (current) use of aspirin; I10 Essential (primary) hypertension
CPT/HCPCS: 70450; 71045; 80053; 80307; 81001; 81003; 82140; 83605; 85025; 85610; 85730; 96360; 96361; 99285; J7030

== ENCOUNTER → 2022-06-12 08:37 | Outpatient (BNVA) | payer OTHER, SELFPAY | PROVIDERS: PCP Family Medicine; Visit Provider Physician Assistant | DX: S22.060A Wedge compression fracture of T7-T8 vertebra, initial encounter for closed fracture (principal); W10.9XXA Fall (on) (from) unspecified stairs and steps, initial encounter | CPT/HCPCS: 72070 ==

== ENCOUNTER 2022-06-15 18:37 | Inpatient (IN) | payer OTHER, SELFPAY ==
[2022-06-14 18:08] VITALS: BMI 29.1
[2022-06-15] VITALS (25 sets, daily range): BP systolic 132–165; BP diastolic 84–105; PULSE 81–113; RESP 10–20; TEMP 36.1–36.8; O2SAT 90–100
--- NOTE | 2022-06-15 | XR_ITS ---
WS: [id number] Exam: XR thoracic spine 1V [id number] Date/Time of Exam: 06/15/2022 12:00 AM Reason For Exam: ESTRELLA PICS Suboptimal lateral C-arm image of the thoracic spine is submitted. A compression fracture of the mid T-spine is noted. Exact level difficult to determine based on the single image presented.
--- NOTE | 2022-06-15 12:04 | ANES.PREANE2 ---
Pre-Anesthetic Assessment Height/Weight: Height 1.7 m Weight 84.368 kg Temp Pulse Resp BP Pulse Ox O2 Del Method 97.1 F L 113 H 20 H 141/105 96 06/15/22 11:44 06/15/22 11:44 06/15/22 11:44 06/15/22 11:44 06/15/22 11:44 06/15/22 11:53 Preop Diagnosis: Carcinoma of the appendix Operation Date: 06/15/22 13:15 Proposed Procedures p THORACIC Spinal Fusion T4-T9 [id number]/S22.000A(Not Applicable) - Steven Holland, DO Familial anesthetic complications: None Was Beta Mirian taken within 24 hours: N/A Was Clonidine taken within 24 hours: N/A Last intake: Intake Last Liquid Date 06/14/22 Last Liquid Time 22:00 Last Solid Date 06/14/22 Last Solid Time 22:00 Social No alcohol and No tobacco Exam alert, oriented x 3, clear to auscultation bilaterally and regular rate & rhythm Airway Mallampati: Class II Dentition: full Pulmonary B/L PE in March on eliquis. Patient stopped eliquis on saturday. Discussed case with surgeon Dr. Holland, patient's PCP Dr. Tyler, and Hospitalist Dr. Jamison. Decision made that patient can safely undergo procedure given interval of 3 months since event and because patient has already paused eliquis. 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 Anesthetic Plan ASA status: 3 Anesthesia: General Other: A-line +/- Transfusion Risk of > 500 ml blood loss (7ml/kg in children): Yes, adequate IV access and fluids planned Medications/Allergies Home Medications Medication Instructions Recorded Confirmed Last Taken Type apixaban 5 mg tablet (Eliquis) 5 mg PO BID #60 tabs 03/13/22 06/15/22 06/07/22 Rx lisinopril 10 mg tablet 10 mg PO BID 90 days #180 tabs 03/13/22 06/15/22 06/14/22 Rx pantoprazole 40 mg tablet,delayed 40 mg PO DAILY #90 tabs 03/13/22 06/15/22 06/14/22 Rx release aspirin 325 mg tablet 325 mg PO DAILY 06/02/22 06/15/22 06/01/22 History simvastatin 20 mg tablet 20 mg PO DAILY 06/02/22 06/15/22 06/14/22 History calcitonin (salmon) 200 1 spray nostril-al DAILY 2 weeks 06/03/22 06/15/22 06/14/22 Rx unit/actuation nasal spray #3.7 mL hydrocodone 5 mg-acetaminophen 325 1 tab PO Q4H PRN pain 5 days #30 06/12/22 06/15/22 06/15/22 06:00 Rx mg tablet tabs Intraoperative neuromonitoring #1 ea 06/14/22 Unknown Rx Allergies Allergy/AdvReac Type Severity Reaction Status Date / Time No Known Allergies Allergy Verified 06/15/22 11:39 PFSH Anesthesia Medical History Acute appendicitis Benign essential HTN Bilateral carpal tunnel syndrome Eczema GERD (gastroesophageal reflux disease) Goblet cell carcinoid of small intestine Panic attack Surgical History History of 2 sections History of appendectomy History of dilatation and curettage x 1 History of hernia repair R spigelian History of surgery on left wrist Comminuted fracture --repaired with bone graft from left hip Family History Other CAD (coronary artery disease) Family history of premature coronary artery disease Social History Smoking and tobacco status: never smoked Alcohol intake: never 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
[2022-06-15 12:23] LABS: Basophils % 0.4 %; Eosinophils # 0.1 10^3/uL (0.0-0.8); Eosinophils % 0.8 %; Hematocrit 41.8 % (37.0-47.0); Lymphocytes # 1.2 10^3/uL (0.8-4.8); Lymphocytes % 13.9 %; Mean Corpuscular HGB Conc 33.5 g/dL (30.0-36.0); Mean Corpuscular Hemoglobin 29.9 pg (28.0-34.0); Mean Corpuscular Volume 89.1 fl (81-99); Monocytes # 0.6 10^3/uL (0.2-0.9); Monocytes % 7.4 %; Neutrophils # 6.44 10^3/uL (1.8-7.7); Nucleated Red Blood Cells % 0 %; Platelet Count 757 10^3/cmm (130-400); Red Blood Count 4.69 10^6/uL (4.1-5.3); Red Cell Distribution Width 14.2 % (12.1-15.1); White Blood Count 8.4 10^3/uL (4.0-10.0)
[2022-06-15 12:40] LABS: Anion Gap 19.5 (5-19); Blood Urea Nitrogen 7 mg/dL (8-23); Calcium 12.3 mg/dL (8.5-10.5); Carbon Dioxide 22 mmol/L (22-29); Chloride 97 mmol/L (98-107); Glucose 119 mg/dL (65-115); Osmolality Calculated 279 mOsm/kg (285-295); Potassium 3.5 mmol/L (3.5-5.1); Sodium 135 mmol/L (136-145)
[2022-06-15] MEDS: sodium chloride 0.9% 1,000 ML 30 ML IV (12:50)
[2022-06-15] MEDS: ondansetron 2 mg/ML SDV 2 mL 4 MG IVP ×2 (12:51→20:22)
--- NOTE | 2022-06-15 13:17 | W.PM.OPSUD ---
Surgery/Procedure H&P Update DATE OF PROCEDURE: June 15, 2022 DATE H&P PERFORMED: 06/12/22 H&P UPDATE INFORMATION: I have reviewed H&P completed within last 30 days, I have examined patient prior to procedure and No changes to prior documentation PREOP DIAGNOSIS: T7 compression fracture PLANNED PROCEDURE: Operation Date: 06/15/22 13:15 Proposed Procedures p THORACIC Spinal Fusion T4-T9 [id number]/S22.000A(Not Applicable) - Steven Holland DO
[2022-06-15] MEDS: ceFAZolin 2,000 MG in sodium chloride 0.9% (plus) 50 ML 100 MG IV ×2 (13:43→21:19)
--- NOTE | 2022-06-15 14:37 | SUR.OPER ---
called and notified of surgical start.
[2022-06-15] MEDS: vancomycin 1,000 MG SDV 1000 MG XX (14:43)
--- NOTE | 2022-06-15 16:43 | SUR.OPER ---
1643 pt moved to floor bed from OR bed. All lines intact. gown and warm blankets applied to patient.
--- NOTE | 2022-06-15 17:19 | P.OP_ITS ---
Operative Report Date of procedure: June 15, 2022 Pre-op diagnosis: Preop Diagnosis T7 compression fracture Post-op diagnosis: same Procedure done: 1. T4-T9 posterior spine fusion 2. T4- T9 instrumentation 3. T7/8 laminectomy with partial facetectomy 4. use of computer navigation for spine stereotactic 5. use of allograft 6. use of autograft Surgeon: Steven Hollnad Estimated blood loss (mL): 200 Procedure: 1. T4-T9 posterior spine fusion 2. T4- T9 instrumentation 3. T7/8 laminectomy with partial facetectomy 4. use of computer navigation for spine stereotactic 5. use of allograft 6. use of autograft Patient is brought to the operative suite after undergoing anesthesia was placed in the prone position all areas appear well-padded. Patient preparations were fashion. Skin incision was made over the T4-T9 level. The thoracolumbar fascia was split retractors were placed subperiosteal dissection was made out to the transverse processes of T4-T9 bilaterally. Retractors were placed. Next attention was brought to placing the spinal navigation clamp. The clamp was placed onto the T10 spinous process. This was locked into place. The C-arm was then brought in and spun around the patient. Information from the C-arm was then loaded into the computer. And this was used for placement of the pedicle screws. Next attention was brought to placing the pedicle screws. A drill was drilled over the pedicle starting point and then the gearshift probe linked to computer navigation was inserted screws were measured and then the pedicle feeler was used and then the screw was placed using computer navigation. This technique was used to place screws. The screws were placed at C4 bilaterally, T5 bilaterally, T6 bilaterally,. T7 was skipped because this is a fracture level. Then screws were placed at T8 bilaterally, and T9. Next attention was brought to performing the laminectomy at T7. This was done using high-speed bur and Kerrison rongeurs. The laminectomy was brought up to the point of the insertion of the ligamentum flavum and slightly further towards the head. And then medial aspect of the T7-8 facet joints were taken down bilaterally. With a high-speed bur and Kerrison rongeurs. Ligamentum flavum was taken down from T7-T8. Dura was exposed upon to be adequately decompressed. Next attention was brought to placing the rods and screws. The marivel was connected from T4-T9. End caps were placed on top for at T4-T5-T6 T8 and T9 bilaterally. These were then counted torqued and locked into position. Wounds were then irrigated. The lamina and transverse processes from T4 down to T9 were decorticated with a high-speed bur. The autograft from the laminectomy was packed into the lateral gutters along the lamina as well and the ostium bone graft was placed from T4-T9. Vancomycin powder was placed and deep drain was placed wound was closed in a layered fashion with 0 Vicryl 2-0 Vicryl and Monocryl suture suture. Steri- Strips were placed a Steri-Strip was also placed on drain. In the supine dressing was placed and patient was transferred to the PACU in stable condition.
[2022-06-15] MEDS: fentaNYL 50 mcg/mL INJ 2mL IVP ×2 (17:21→17:32)
[2022-06-15] MEDS: ketorolac 30 mg/mL INJ IVP (18:14)
[2022-06-15] MEDS: HYDROcodone-acetaminophen 5-325 mg Tablet PO ×2 (18:14→22:56)
[2022-06-15] MEDS: apixaban 5 mg Tablet PO (18:15)
[2022-06-15] MEDS: docusate sodium 100 mg Capsule PO (18:15)
[2022-06-15] MEDS: lactated ringers 1,000 ML 90 ML IV (18:15)
[2022-06-15] MEDS: lisinopril 10 mg Tablet PO (18:15)
[2022-06-15] MEDS: morphine 4 mg/mL SDV 1 mL 2 MG IVP ×4 (19:03→23:45)
[2022-06-16] VITALS (13 sets, daily range): BP systolic 122–152; BP diastolic 81–96; PULSE 92–114; RESP 15–18; TEMP 36.6–37; O2SAT 92–98
[2022-06-16] MEDS: morphine 4 mg/mL SDV 1 mL 2 MG IVP ×3 (02:15→19:58)
--- NOTE | 2022-06-16 02:28 | PC.NURSE ---
per patient insistence IV to left hand removed
[2022-06-16] MEDS: ketorolac 30 mg/mL INJ IVP (04:18)
[2022-06-16] MEDS: ceFAZolin 2,000 MG in sodium chloride 0.9% (plus) 50 ML 100 MG IV ×2 (05:10→14:55)
[2022-06-16] MEDS: lactated ringers 1,000 ML 90 ML IV ×2 (05:11→19:36)
[2022-06-16] MEDS: HYDROcodone-acetaminophen 5-325 mg Tablet PO ×4 (09:21→21:23)
[2022-06-16] MEDS: docusate sodium 100 mg Capsule PO ×2 (09:22→17:21)
[2022-06-16] MEDS: ondansetron 2 mg/ML SDV 2 mL 4 MG IVP (09:22)
[2022-06-16] MEDS: atorvastatin 40 mg Tablet 20 MG PO (09:22)
[2022-06-16] MEDS: lisinopril 10 mg Tablet PO ×2 (09:22→17:21)
[2022-06-16] MEDS: apixaban 5 mg Tablet PO ×2 (09:23→17:21)
[2022-06-16] MEDS: aspirin 325 mg Tablet PO (09:23)
[2022-06-16] MEDS: pantoprazole DR 40 mg Tablet PO (09:23)
--- NOTE | 2022-06-16 09:46 | P.PN_ITS ---
Subjective Subjective: Patient is doing well overall pain is relatively controlled. She had a bad night and had difficulty sleeping due to the pain. Vitals/I&O/Wt Last Vital Signs Temp 98.4 F 06/16/22 07:58 Pulse 92 06/16/22 08:37 Resp 16 06/16/22 09:21 BP 152/87 06/16/22 07:58 Pulse Ox 98 06/16/22 08:37 O2 Del Method 06/16/22 08:37 O2 Flow Rate 6 06/15/22 17:05 06/15/22 06/16/22 06/16/22 22:59 06:59 14:59 Intake Total 1275 / 1325 1514 / 2839 Output Total 610 / 610 490 / 1100 Balance 665 / 715 1024 / 1739 Weight last 48 hrs Weight 206 lb 1.6 oz Weight 186 lb Physical Exam Narrative: Drain had 5 cc this morning her 120 last night. 5 strength bilate ral lower extremities. Urinary Catheter Management: Cantrell: Cath Placed During This Visit: yes Reason for Continuing Indwelling Catheter: Acute Urinary Retention or Obstruction Urinary Catheter Date of Insertion: 06/15/22 Urinary Catheter Time of Insertion: 14:00 Data 06/15/22 11:55 06/15/22 11:55 A&P Assessment and plan (1) Encounter for postoperative care: Postop day #1 T4-T9 posterior spine fusion. Up with physical therapy today DC Cantrell DC Hemovac drain Anticipate possible discharge tomorrow. Attestations Medical Necessity Statement*: Pain control Coding Level of Care Code Acute Dental Insurance Coordinator 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 Diagnoses Encounter for postoperative care Z48.89
[2022-06-16] MEDS: ALPRAZolam 0.5 mg Tablet 0.25 MG PO (20:50)
[2022-06-17] VITALS (7 sets, daily range): BP systolic 133–196; BP diastolic 85–104; PULSE 92–106; RESP 15–17; TEMP 36.6–36.8; O2SAT 91–96
[2022-06-17] MEDS: HYDROcodone-acetaminophen 5-325 mg Tablet PO ×6 (01:21→22:05)
[2022-06-17] MEDS: lactated ringers 1,000 ML 90 ML IV (06:25)
[2022-06-17] MEDS: atorvastatin 40 mg Tablet 20 MG PO (09:28)
[2022-06-17] MEDS: apixaban 5 mg Tablet PO ×2 (09:28→17:49)
[2022-06-17] MEDS: aspirin 325 mg Tablet PO (09:28)
[2022-06-17] MEDS: docusate sodium 100 mg Capsule PO ×2 (09:28→17:49)
[2022-06-17] MEDS: lisinopril 10 mg Tablet PO ×2 (09:28→17:49)
[2022-06-17] MEDS: pantoprazole DR 40 mg Tablet PO (09:28)
--- NOTE | 2022-06-17 14:48 | P.PN_ITS ---
Subjective Subjective: Patient is doing well pain is little better controlled. This point is resting comfortably. Vitals/I&O/Wt Last Vital Signs Temp 98.1 F 06/17/22 11:35 Pulse 96 06/17/22 11:35 Resp 16 06/17/22 11:35 BP 148/87 06/17/22 11:35 Pulse Ox 96 06/17/22 11:35 O2 Del Method 06/17/22 11:35 O2 Flow Rate 6 06/15/22 17:05 06/16/22 06/17/22 06/17/22 22:59 06:59 14:59 Intake Total 1530 / 1650 973.5 / 2623.5 600 / 600 Balance 1530 / 1650 973.5 / 2623.5 600 / 600 Weight last 48 hrs Weight 206 lb 1.6 oz Physical Exam Narrative: Resting comfortably in bed Urinary Catheter Management: Cantrell: Cath Placed During This Visit: yes, but has since been removed by the nurse Reason for Continuing Indwelling Catheter: Not indwelling catheter Urinary Catheter Date of Insertion: 06/15/22 Urinary Catheter Time of Insertion: 14:00 Date Urinary Catheter Removed: 06/16/22 Time Urinary Catheter Discontinued: 10:00 Data 06/15/22 11:55 06/15/22 11:55 A&P Assessment and plan (1) Encounter for postoperative care: Patient is postop day #2 T4-T9 posterior spine fusion. At this point doing more days to help with therapy and get better pain control anticipate discharge tomorrow. Attestations Medical Necessity Statement*: Pain control Coding Level of Care Code Acute Clinical Research Specialist 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 Diagnoses Encounter for postoperative care Z48.89
[2022-06-17] MEDS: ALPRAZolam 0.5 mg Tablet 0.25 MG PO (20:30)
[2022-06-17] MEDS: ketorolac 30 mg/mL INJ IVP (22:56)
[2022-06-17] MEDS: morphine 4 mg/mL SDV 1 mL 2 MG IVP (22:56)
--- NOTE | 2022-06-17 23:02 | PC.NURSE ---
Pt states her pain is unbearable at this time, no relief from PO medications. Pt also states that she was incontinent of urine and needed her bed changed due to pain. PRN Morphine and Torodal administered per orders.
[2022-06-18] VITALS: BP 166/96; PULSE 84; RESP 17; TEMP 36.6; O2SAT 91
[2022-06-18] MEDS: HYDROcodone-acetaminophen 5-325 mg Tablet PO ×4 (02:10→14:30)
[2022-06-18 04:00] VITALS: BP 137/84; PULSE 87; RESP 17; TEMP 36.6; O2SAT 91
--- NOTE | 2022-06-18 06:42 | PM.PN ---
Subjective Subjective: POD 3 Patient resting comfortably. Been walking the halls pain have much improved. Denies any shortness of breath, chest pain, headaches. Vitals/I&O/Wt Last Vital Signs Temp 97.8 F 06/18/22 04:00 Pulse 87 06/18/22 04:00 Resp 17 06/18/22 04:00 BP 137/84 06/18/22 04:00 Pulse Ox 91 06/18/22 04:00 O2 Del Method 06/17/22 15:44 O2 Flow Rate 6 06/15/22 17:05 06/17/22 06/17/22 06/18/22 14:59 22:59 06:59 Intake Total 600 / 600 1240 / 1840 Balance 600 / 600 1240 / 1840 Physical Exam Narrative: Patient presents alert and oriented x3 with a good general appearance normal mood and affect. Normal coordination normal stability. Mild tenderness around the incisional site with the incision appear to be healing nicely. No signs of erythema or drainage. No signs of infection. Patient denies any fevers or chills. 4/5 motor strength both lower extremities with negative straight leg raise bilaterally. Calves are supple no medial thigh tenderness. Pulses are 2+ at the dorsalis pedis and posterior tibial region. Good capillary refill throughout normal sensation light touch both lower extremities. Urinary Catheter Management: Cantrell: Cath Placed During This Visit: yes, but has since been removed by the nurse Reason for Continuing Indwelling Catheter: Not indwelling catheter Urinary Catheter Date of Insertion: 06/15/22 Urinary Catheter Time of Insertion: 14:00 Date Urinary Catheter Removed: 06/16/22 Time Urinary Catheter Discontinued: 10:00 Data 06/15/22 11:55 06/15/22 11:55 A&P Assessment and plan (1) S/P spinal fusion: Physical therapy to continue to mobilize. Will discharge home today. Have her follow-up in the office in 1 week's time encouraged her to take the incentive spirometer at home as well for pulmonary toilet. No bending lifting or twisting. Attestations Medical Necessity Statement*: DC home Coding Level of Care Code Acute Conference Assistant for Chg Fwd Diagnoses S/P spinal fusion Z98.1
--- NOTE | 2022-06-18 06:52 | PM.DCS ---
Discharge Providers Date of Admission: 06/15/22 18:37 Date of Discharge: June 18, 2022 Attending Provider at Admission: Steven Holland DO Attending Provider at Discharge: Steven Holland DO Primary Care Provider: Heaven Tyler DO Diagnoses at Discharge Discharge Diagnosis (1) S/P spinal fusion: Status: Acute Reason for Visit Reason for Visit: S22.000A Hospital Course Hospital Course pain controlled Physical Exam Urinary Catheter Management: Cantrell: Cath Placed During This Visit: yes, but has since been removed by the nurse Reason for Continuing Indwelling Catheter: Not indwelling catheter Urinary Catheter Date of Insertion: 06/15/22 Urinary Catheter Time of Insertion: 14:00 Date Urinary Catheter Removed: 06/16/22 Time Urinary Catheter Discontinued: 10:00 Discharge Data Studies Completed and Pending Pending at discharge Category Date Time Status C-arm Fluoroscopy [id number] Routine Exams 06/15/22 12:10 Ordered Laboratory Results WBC 8.4 10^3/uL (4.0-10.0) 06/15/22 11:55 RBC 4.69 10^6/uL (4.1-5.3) 06/15/22 11:55 Hgb 14.0 g/dL (11.5-15.3) 06/15/22 11:55 Hct 41.8 % (37.0-47.0) 06/15/22 11:55 MCV 89.1 fl (81-99) 06/15/22 11:55 MCH 29.9 pg (28.0-34.0) 06/15/22 11:55 MCHC 33.5 g/dL (30.0-36.0) 06/15/22 11:55 RDW 14.2 % (12.1-15.1) 06/15/22 11:55 Plt Count 757 10^3/cmm (130-400) H 06/15/22 11:55 MPV 10.0 fL (7.4-10.4) 06/15/22 11:55 Neut % (Auto) 77.0 % 06/15/22 11:55 Lymph % (Auto) 13.9 % 06/15/22 11:55 [place] % (Auto) 7.4 % 06/15/22 11:55 Eos % (Auto) 0.8 % 06/15/22 11:55 Baso % (Auto) 0.4 % 06/15/22 11:55 Neut # (Auto) 6.44 10^3/uL (1.8-7.7) 06/15/22 11:55 Lymph # (Auto) 1.2 10^3/uL (0.8-4.8) 06/15/22 11:55 [place] # (Auto) 0.6 10^3/uL (0.2-0.9) 06/15/22 11:55 Eos # (Auto) 0.1 10^3/uL (0.0-0.8) 06/15/22 11:55 Baso # (Auto) 0.0 10^3/uL (0.0-0.1) 06/15/22 11:55 Nucleated RBC % (auto) 0 % 06/15/22 11:55 Nucleated RBCs # 0.0 /100WBC 06/15/22 11:55 Sodium 135 mmol/L (136-145) L 06/15/22 11:55 Potassium 3.5 mmol/L (3.5-5.1) 06/15/22 11:55 Chloride 97 mmol/L (98-107) L 06/15/22 11:55 Carbon Dioxide 22 mmol/L (22-29) 06/15/22 11:55 Anion Gap 19.5 (5-19) H 06/15/22 11:55 BUN 7 mg/dL (8-23) L 06/15/22 11:55 Creatinine 0.6 mg/dL (0.5-0.9) 06/15/22 11:55 GFR Calculation 101.0 mL/min (90-130) 06/15/22 11:55 Glucose 119 mg/dL (65-115) H 06/15/22 11:55 Calculated Osmolality 279 mOsm/kg (285-295) L 06/15/22 11:55 Calcium 12.3 mg/dL (8.5-10.5) H 06/15/22 11:55 Blood Type B Positive 06/15/22 11:55 Rho(D) Type Positive 06/15/22 11:55 Antibody Screen Negative 06/15/22 11:55 Vitals Last Vital Signs Temp 97.8 F 06/18/22 04:00 Pulse 87 06/18/22 04:00 Resp 17 06/18/22 04:00 BP 137/84 06/18/22 04:00 Pulse Ox 91 06/18/22 04:00 O2 Del Method 06/17/22 15:44 O2 Flow Rate 6 06/15/22 17:05 Discharge Plan Discharge Patient Disposition: Home Condition: Stable Prescriptions: New hydrocodone-acetaminophen 5-325 mg Tablet 1 - 2 tab PO Q4H PRN (Reason: Moderate To Severe Pain) Qty: 40 0RF Continued Eliquis 5 mg tablet 5 mg PO BID Qty: 60 5RF lisinopril 10 mg tablet 10 mg PO BID 90 Days Qty: 180 1RF pantoprazole 40 mg tablet,delayed release (DR/EC) 40 mg PO DAILY Qty: 90 1RF hydrocodone-acetaminophen 5-325 mg tablet 1 tab PO Q4H PRN (Reason: pain) 5 Days Qty: 30 0RF (DME) Intraoperative neuromonitoring See Rx Instructions .Route .MEDSUPPLY Qty: 1 0RF Rx Instructions: As directed alprazolam 0.25 mg tablet 0.25 mg PO DAILY PRN (Reason: Anxiety) gabapentin 300 mg capsule 300 mg PO DAILY aspirin 325 mg Tablet 325 mg PO DAILY simvastatin 20 mg tablet 20 mg PO DAILY calcitonin (salmon) 200 unit/actuation [place],Non-Aerosol 1 spray nostril-al DAILY 14 Days Qty: 3.7 0RF Discharge Orders: Discharge Order (Routine); Ordered 06/18/22 Ordered By: Kwadwo Donald Discharge Diet: Advance as tolerated Discharge Activity: Limit activity as instructed Patient Instructions: Opioid Safety Activity Restrictions/Additional Instructions: Thank you for choosing [facility] for your care! The following is a list of instructions, from your provider, to follow upon your discharge to ensure you have the optimal recovery from your recent injury or surgery. Follow-up care is a garcia part of your treatment and safety. Be sure to make and go to all appointments and call your doctor if you are having problems. If you do not already have a follow-up appointment made, call Dr. Holland's] office in the next 1-3 days to make follow up appointment for 1 weeks at [phone]. It is also a good idea to know your test results and keep a list of the medicines you take. Medications will be prescribed for you at your provider's discretion. These medications are to be used as instructed; if they are taken more often that prescribed they will not be refilled early and in most cases will not be refilled at all. > When a refill is needed, you should contact laquita gastelum 2-3 business days before your prescription runs out. Medications will NOT be refilled by electrician constructor supervisor providers after hours! > Many pain medications contain Tylenol (Acetaminophen). Do not consume more than 4,000 mg of Tylenol per day in total with any combination of medications. > Pain medications can cause constipation. Please use an over the counter stool softener as directed, while taking pain medications. Consult your local pharmacist with questions or recommendations on stool softeners. If constipation persists, contact our office or your primary care provider. > While under our care, you are not to receive pain medications or other controlled substances from any other provider unless our office is notified and approves. Any attempts to do so will result in refusal to prescribe any further pain medications and possible dismissal from our practice. ? Walking is essential for the healing process after surgery. We would like you to slowly advance your walking. This should be done on relatively flat clear ground (inside or out) or can be done on a treadmill. Remember this goal does not have to happen all at once, slowly increase your distance and duration. This can be broken into more more than one walk per day as tolerated. Patients who walk as directed after surgery rarely require Physical Therapy. In the unlikely event this issue arises your provider will direct hospital staff to make the appropriate arrangements. ? No lifting over 5 pounds {a gallon of milk) or bending/twisting until further notice. Each of these activities places an unnecessary amount of stress onto the body and can impede the delicate healing process. > Instead of bending at the waist, keep your back straight and bend at the knees. > Instead of twisting your torso, keep your back straight and turn your entire body with your feet. ? You may sleep in any position which makes you comfortable. Many patients find comfort sleeping in a reclining chair. It is not abnormal to have difficulty sleeping for the first several weeks following your surgery. We recommend trying Benadry! or Tylenol PM as directed to help with your sleeping difficulties. Both medications are over the counter and available without prescription. ? NO SMOKING!!! Smoking dramatically increases the probability of developing postoperative wound infections. ? Common complaints after lumbar and/or thoracic spine surgery include, but are not limited to: numbness and/or tingling in the legs, pain around the incision and surrounding tissues, muscle spasms, or stiffness of the middle to low back. Contact our office if these symptoms persist or if an acute change occurs. ? No driving for the first 3-5days, and not while taking narcotics until seen at your follow-up appointment and cleared. There are no restrictions for riding on short trips, however if you take a longer trip, arrangements should be made to make regular stops to get out of the vehicle and stretch . ? Swelling is an unfortunate event that will take place with any surgery and is the primary source of your postoperative discomfort. While walking and regular approved activities helps control inflammation, there are additional steps you can take to minimize swelling. > Place ice over the surgical site and surrounding tissue for twenty minutes, followed by applying a low/medium heat (heating pad) for an additional twenty minutes every 1-2 hours as needed for painrelief. > You may use of over the counter anti-inflammatory medications (Ibuprofen, Motrin, Aleve, Advil, etc) as directed on the package label. These types of medicines will significantly reduce the amount of discomfort you experience after surgery from swelling. It should be noted that if you have and allergy to any of these medications, or a history of ulcers or kidney disease you should consult you primary care provider prior to starting these medications. Discharge Attestations Time Spent in Discharge Care*: less than 30 min Status at Discharge: Cognitive status at discharge: cognitively intact, Behavioral status at discharge: cooperative, Quality Metrics Clinical Quality Measures [ No reported AMI, CVA or VTE this stay] Coding Level of Care Code Acute Chg FW DC note Diagnoses S/P spinal fusion Z98.1
[2022-06-18 08:00] VITALS: BP 119/63; PULSE 85; RESP 16; TEMP 36.7; O2SAT 92
[2022-06-18] MEDS: ketorolac 30 mg/mL INJ IVP (08:08)
[2022-06-18] MEDS: lisinopril 10 mg Tablet PO (08:08)
[2022-06-18] MEDS: aspirin 325 mg Tablet PO (08:08)
[2022-06-18] MEDS: atorvastatin 40 mg Tablet 20 MG PO (08:08)
[2022-06-18] MEDS: apixaban 5 mg Tablet PO (08:08)
[2022-06-18] MEDS: pantoprazole DR 40 mg Tablet PO (08:09)
[2022-06-18] MEDS: docusate sodium 100 mg Capsule PO (08:09)
[2022-06-18 08:47] VITALS: BP 119/63; PULSE 85; RESP 16; TEMP 36.7; O2SAT 92
[2022-06-18 11:42] VITALS: BP 139/78; PULSE 92; RESP 16; TEMP 36.6; O2SAT 95
--- NOTE | 2022-06-18 12:26 | PC.CHAP ---
Pastoral Care Encounter/Spiritual Assessment Type of Contact [] Declined apple picking supervisor visit [] Patient/Family/Request visit [] Outpatient visit [] Follow-up visit [] Physician referral [] Code/Alert [x] Routine visit [] Staff referral [] Actively dying [x] Patient sleeping [] Family support [] [] Out of room [] Palliative care [] [] Receiving care in room [] Pre-surgical visit [] Trauma [] Long length of stay [] ICU visit [] Other: Relational/Emotional Strength [] Patient feels connected with others/family/visitors/staff [] Distress [] Loneliness/isolation [] Abandonment Spirituality of Patient [] Person of [place] [] Attends Yarsanism of their [place] [] Believes in Prayer [] Reads Bible or Jainism materials [] There are Spiritual issues to be addressed Physics Technical Officer Interventions [] Prayer [] Active listening [] Non-anxious presence [] Spiritual/emotional support [] Crisis/trauma care [] Spiritual counseling [] Bereavement support [] Provided bereavement packet [] Provided Bible/devotional materials [] Provided toy/stuffed animal, coloring book to patient or family member [] Provided Communion [] Anointing/[place] [] Salvation [] Completed spiritual assessment [] Other: Impact on Illness or Injury [] Angry [] Fearful [] Anxious [] Often cries [] Exhaustion [] Unable to work [] Unable to attend protestant [] Unable to walk/stand [] Unable to read [] Unable to drive [] Unable to eat/drink [] Unable to sleep [] Unable to be with family [] Patient intubated [] Other: Summary Time spent with patient
== END 2022-06-18 15:55 | disposition home or self-care (01) | DRG 460 ==
LOC: MEDSURG 18:38
PROVIDERS: Anesthesiology; Admitting Provider Orthopaedic Surgery; PCP Family Medicine; Visit Provider Orthopaedic Surgery
PROC: 0RG7071 Fusion of 2 to 7 Thoracic Vertebral Joints with Autologous Tissue Substitute, Posterior Approach, Posterior Column, Open Approach (ICD-10-PCS; principal; 2022-06-15 12:45)
DX: S22.068A Other fracture of T7-T8 thoracic vertebra, initial encounter for closed fracture (principal); W19.XXXA Unspecified fall, initial encounter; I10 Essential (primary) hypertension; K21.9 Gastro-esophageal reflux disease without esophagitis; M40.204 Unspecified kyphosis, thoracic region; Z86.711 Personal history of pulmonary embolism; Z79.01 Long term (current) use of anticoagulants; Z79.891 Long term (current) use of opiate analgesic; Z79.82 Long term (current) use of aspirin; Z85.060 Personal history of malignant carcinoid tumor of small intestine; Z90.89 Acquired absence of other organs
CPT/HCPCS: 36592; 51702; 72020; 76000; 80048; 85025; 86850; 86900; 97110; 97161; 97530; C1713; J0131; J0330; J0690; J1100; J1170; J1885; J2270; J2370; J2405; J2704; J3010; J3370; J3490; J7030; J7120

== ENCOUNTER → 2022-06-26 10:44 | Outpatient (BNVA) | payer OTHER, SELFPAY | PROVIDERS: PCP Family Medicine; Visit Provider Physician Assistant | DX: Z98.1 Arthrodesis status (principal); Z98.890 Other specified postprocedural states | CPT/HCPCS: 72070 ==

== ENCOUNTER → 2022-07-06 13:01 | Outpatient (BNVA) | payer OTHER, SELFPAY | PROVIDERS: PCP Family Medicine; Visit Provider Family Medicine | DX: I10 Essential (primary) hypertension (principal) | CPT/HCPCS: 87086 ==

== ENCOUNTER → 2022-07-24 10:17 | Outpatient (BNVA) | payer OTHER, SELFPAY | PROVIDERS: PCP Family Medicine; Visit Provider Physician Assistant | DX: Z98.1 Arthrodesis status (principal) | CPT/HCPCS: 72070 ==

== ENCOUNTER → 2022-09-04 10:09 | Outpatient (BNVA) | payer OTHER, SELFPAY | PROVIDERS: PCP Family Medicine; Visit Provider Physician Assistant | DX: Z98.1 Arthrodesis status (principal) | CPT/HCPCS: 72070 ==

== ENCOUNTER → 2022-12-06 09:50 | Outpatient (BNVA) | payer OTHER, SELFPAY | PROVIDERS: PCP Family Medicine; Visit Provider Physician Assistant | DX: Z98.1 Arthrodesis status (principal) | CPT/HCPCS: 72070 ==

== ENCOUNTER 2023-06-01 09:57 | Observation (INO) | payer OTHER, SELFPAY ==
[2023-06-01] VITALS (28 sets, daily range): BP systolic 106–178; BP diastolic 65–125; PULSE 0–120; RESP 13–29; TEMP 37.7; O2SAT 80–100; BMI 30.2; BMI 34.4
--- NOTE | 2023-06-01 10:24 | XRR_ITS ---
PROCEDURE INFORMATION: Exam: XR Soft Tissue Neck Exam date and time: 06/01/2023 11:43 AM Age: 63 years old Clinical indication: Other: Wheezing; Additional info: Stridor TECHNIQUE: Imaging protocol: Radiologic exam of the soft tissues of the neck. COMPARISON: CR (CHEST, ) 06/01/2023 11:41 AM FINDINGS: Airway: Normal. No abnormal narrowing. Soft tissues: No abnormal soft tissue in the nasopharynx or the visualized oropharynx. Prevertebral soft tissue are within normal limits. Bones/joints: Chronic multilevel degenerative changes of the cervical spine with multilevel space disc narrowing. Midthoracic spinal instrumentation is seen. Appears unremarkable. Other findings: Partially visualized lung mahmood are clear. XR/XR soft tissue neck [id number] IMPRESSION: No acute findings.
--- NOTE | 2023-06-01 10:25 | XRR_ITS ---
PROCEDURE INFORMATION: Exam: XR Chest Exam date and time: 06/01/2023 11:41 AM Age: 63 years old Clinical indication: Cough and dyspnea; Additional info: Dyspnea/cough TECHNIQUE: Imaging protocol: Radiologic exam of the chest. Views: 1 view. COMPARISON: CR XR chest 1V portable [id number] 06/10/2022 10:38 PM FINDINGS: Lungs: Persistent linear opacities in the right middle and lower lobes, likely signifying atelectatic lung changes. Bilateral lung lobes otherwise clear. Pleural spaces: No pneumothorax, or pleural effusion. Heart/Mediastinum: Unremarkable. No cardiomegaly. Bones/joints: Interval placement of a thoracic spinal instrumentation. No acute fracture. Chronic degenerative changes of the shoulder joints left greater than right. XR/XR chest 1V portable [id number] IMPRESSION: No focal consolidation or pneumonia.
--- NOTE | 2023-06-01 10:28 | ED_ITS ---
HPI - SOB/Dyspnea 2 General: Chief Complaint: Shortness of Breath/Dyspnea Stated Complaint: sob Time Seen by Provider: 06/01/23 10:22 Source: patient Mode of arrival: ambulatory History of Present Illness: HPI Narrative: 63-year-old female who presents to the e mergency room with complaints of shortness of breath difficulty breathing she is having significant stridor on arrival she says it began last night. She denies any chest pain fever sweats chills had not been sick prior to this. Has a hoarse almost seal-like cough barking cough. History of pulmonary hypertension no history of COPD. She is not on oxygen at home she is not oxygenating well and has a low-grade fever. MD elicited complaint: shortness of breath and cough Exacerbating factors: nothing Relieving factors: nothing Known history of: COPD Associated symptoms: Reports fever(s); Deny abdominal pain, chest congestion, chest pain, cough, diaphoresis, dizziness, extremity pain, hemoptysis, lightheadedness, myalgias, nausea, orthopnea, palpitations, paresthesias, polydipsia, polyuria, rash, sense of impending doom, syncope or vomiting Related Data: Home oxygen amount: none Review of Systems 2 Const: Reports: fever(s); Denies: chills, fatigue, malaise or diaphoresis Card: Denies: chest pain, palpitations, lightheadedness, syncope or orthopnea Resp: Reports: dyspnea, non-productive cough, wheezing and stridor; Denies: hemoptysis or chest congestion GI: Denies: abdominal pain, nausea or vomiting Musc: Denies: extremity pain Neuro: Denies: dizziness Endo: Denies: polyuria or polydipsia PFSH ED 2 PFSH: Medical History (Updated 06/09/23 @ 17:38 by Magdiel Lamar DO) JULIUS positive Closed compression fracture of thoracic vertebra Pulmonary HTN Hyponatremia Pulmonary embolism 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 Acute appendicitis Bilateral carpal tunnel syndrome GERD (gastroesophageal reflux disease) Panic attack Benign essential HTN Eczema Surgical History (Updated 06/03/23 @ 00:01 by NAM Pope) S/P spinal fusion History of appendectomy History of dilatation and curettage x 1 History of 2 sections History of surgery on left wrist Comminuted fracture --repaired with bone graft from left hip History of hernia repair R spigelian Family History Other CAD (coronary artery disease) Family history of premature coronary artery disease Social History Smoking and tobacco/nicotine status: never used tobacco/nicotine Alcohol intake: never Substance/Drug Use: never 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 Patient will require observation for allergic reaction precipitated by alpha-gal discussed with hospitalist orders written Medical Records I reviewed the patient's medical records. Lab Data I reviewed the patient's lab results. 06/02/23 03:40 06/02/23 03:40 Labs/Radiology: Radiology Impressions Soft Tissue Neck X-Ray 06/01/23 10:24 IMPRESSION: No acute findings. Chest X-Ray 06/01/23 10:25 IMPRESSION: No focal consolidation or pneumonia. Neck CT 06/01/23 12:30 IMPRESSION: 1. Central airways are patent, without abnormal narrowing. 2. No obstructing lesion in the nasopharynx, oropharynx or oral cavity. 3. Mild paranasal sinusitis. Laboratory Results WBC 8.97 10^3/uL (3.29-11.43) 06/01/23 10:32 RBC 4.61 10^6/uL (3.85-5.65) 06/01/23 10:32 Hgb 13.30 g/dL (11.27-16.99) 06/01/23 10:32 Hct 41.7 % (36-47) 06/01/23 10:32 MCV 90.5 fl (85-98) 06/01/23 10:32 MCH 28.9 pg (27-33) 06/01/23 10:32 MCHC 31.9 g/dL (30-55) 06/01/23 10:32 RDW 13.2 % (12.1-15.1) 06/01/23 10:32 Plt Count 297 10^3/cmm (157-399) 06/01/23 10:32 MPV 10.3 fL (7.4-10.4) 06/01/23 10:32 Neut % (Auto) 77.3 % 06/01/23 10:32 Lymph % (Auto) 13.7 % 06/01/23 10:32 [place] % (Auto) 8.1 % 06/01/23 10:32 Eos % (Auto) 0.4 % 06/01/23 10:32 Baso % (Auto) 0.3 % 06/01/23 10:32 Neut # (Auto) 6.92 10^3/uL (1.8-7.7) 06/01/23 10:32 Lymph # (Auto) 1.2 10^3/uL (0.8-4.8) 06/01/23 10:32 [place] # (Auto) 0.7 10^3/uL (0.2-0.9) 06/01/23 10:32 Eos # (Auto) 0.0 10^3/uL (0.0-0.8) 06/01/23 10:32 Baso # (Auto) 0.0 10^3/uL (0.0-0.1) 06/01/23 10:32 Nucleated RBC % (auto) 0 % 06/01/23 10:32 Nucleated RBCs # 0.0 /100WBC 06/01/23 10:32 D-Dimer 0.42 ug/mLFEU (0-0.59) 06/01/23 13:42 Sodium 142 mmol/L (136-145) 06/01/23 10:32 Potassium 4.2 mmol/L (3.5-5.1) 06/01/23 10:32 Chloride 101 mmol/L (98-107) 06/01/23 10:32 Carbon Dioxide 24 mmol/L (22-29) 06/01/23 10:32 Anion Gap 21.2 (5-19) H 06/01/23 10:32 BUN 7 mg/dL (8-23) L 06/01/23 10:32 Creatinine 0.6 mg/dL (0.5-0.9) 06/01/23 10:32 GFR Calculation 100.6 mL/min (90-130) 06/01/23 10:32 Glucose 136 mg/dL (65-115) H 06/01/23 10:32 Calculated Osmolality 294 mOsm/kg (285-295) 06/01/23 10:32 Calcium 11.1 mg/dL (8.5-10.5) H 06/01/23 10:32 Total Bilirubin 0.6 mg/dL (0.15-1.2) 06/01/23 10:32 AST 67 U/L (0-32) H 06/01/23 10:32 ALT 69 U/L (0-33) H 06/01/23 10:32 Alkaline Phosphatase 146 U/L (35-105) H 06/01/23 10:32 Total Protein 7.5 g/dL (6.6-8.7) 06/01/23 10:32 Albumin 4.5 g/dL (3.5-5.2) 06/01/23 10:32 Globulin 3.0 g/dL (1.3-4.6) 06/01/23 10:32 Group A Strep Rapid Negative (Negative) 06/01/23 17:18 All radiology interpretation(s) finalized by discharge Discharge Plan Discharge Patient Disposition: Placed in Observation Admit Provider: Sari Gonzalez Clinical Impression: Allergic reaction to alpha-gal, Benign essential HTN, Hx pulmonary embolism Discharge Diet: Regular Discharge Activity: Resume usual activity and Increase activity as tolerated Coding Level of Care Code ED Public Works Laborer for Anetteg Delilah
[2023-06-01] MEDS: racepinephrine 0.5 mL Neb INHALATION ×3 (10:29→17:33)
[2023-06-01] MEDS: ipratropium-albuterol 3 mL Neb INHALATION ×2 (10:29→20:51)
[2023-06-01] MEDS: dexamethasone 10 mg/mL INJ IM (10:39)
[2023-06-01] MEDS: sodium chloride 0.9% 1,000 ML 999 ML IV (10:40)
[2023-06-01 10:59] LABS: Basophils % 0.3 %; Eosinophils % 0.4 %; Hematocrit 41.7 % (36-47); Lymphocytes # 1.2 10^3/uL (0.8-4.8); Lymphocytes % 13.7 %; Mean Corpuscular HGB Conc 31.9 g/dL (30-55); Mean Corpuscular Hemoglobin 28.9 pg (27-33); Mean Corpuscular Volume 90.5 fl (85-98); Mean Platelet Volume 10.3 fL (7.4-10.4); Monocytes # 0.7 10^3/uL (0.2-0.9); Monocytes % 8.1 %; Neutrophils # 6.92 10^3/uL (1.8-7.7); Neutrophils % 77.3 %; Nucleated Red Blood Cells % 0 %; Platelet Count 297 10^3/cmm (157-399); Red Blood Count 4.61 10^6/uL (3.85-5.65); Red Cell Distribution Width 13.2 % (12.1-15.1); White Blood Count 8.97 10^3/uL (3.29-11.43)
[2023-06-01 11:02] LABS: Alanine Aminotransferase 69 U/L (0-33); Albumin Level 4.5 g/dL (3.5-5.2); Alkaline Phosphatase 146 U/L (35-105); Anion Gap 21.2 (5-19); Aspartate Amino Transferase 67 U/L (0-32); Blood Urea Nitrogen 7 mg/dL (8-23); Calcium 11.1 mg/dL (8.5-10.5); Carbon Dioxide 24 mmol/L (22-29); Chloride 101 mmol/L (98-107); Glomerular Filtration Rate 100.6 mL/min (90-130); Glucose 136 mg/dL (65-115); Osmolality Calculated 294 mOsm/kg (285-295); Potassium 4.2 mmol/L (3.5-5.1); Sodium 142 mmol/L (136-145); Total Bilirubin 0.6 mg/dL (0.15-1.2); Total Protein 7.5 g/dL (6.6-8.7)
--- NOTE | 2023-06-01 12:30 | CTR_ITS ---
PROCEDURE INFORMATION: Exam: CT Neck With Contrast Exam date and time: 06/01/2023 2:06 PM Age: 63 years old Clinical indication: Other: Stridor TECHNIQUE: Imaging protocol: Computed tomography of the neck with contrast. Radiation optimization: All CT scans at this facility use at least one of these dose optimization techniques: automated exposure control; mA and/or kV adjustment per patient size (includes targeted exams where dose is matched to clinical indication); or iterative reconstruction. Contrast material: OMNI 350; Contrast volume: 80 ml; Contrast route: INTRAVENOUS (IV); REPORTING DATA: Count of CT and Cardiac NM exams in prior 12 months: This patient has received 2 known CTs and 0 known cardiac nuclear medicine studies in the 12 months prior to the current study. COMPARISON: CR (NECK, ) 06/01/2023 11:43 AM RADIATION DOSE METRICS: Total DLP (mGy-cm): 433.17 FINDINGS: Tubes, catheters and devices: Partially visualized thoracic surgical instrument are intact. Paranasal sinuses: Partial opacification of the sphenoid sinuses, and mild right maxillary mucosal thickening. Pharynx: The nasopharynx, oropharynx, oral cavity, parapharyngeal space, and retropharyngeal space are normal. Larynx: The larynx and hypopharynx are normal. Prevertebral and retropharyngeal spaces: No prevertebral soft tissue swelling. Salivary glands: The parotid, submandibular, and sublingual glands are normal. Thyroid: Normal. Lymph nodes: No enlarged or abnormal appearing lymph nodes. Trachea: Visualized trachea is unremarkable. Lungs: The visualized lung apices and upper thorax are unremarkable. Bones/joints: No lytic or blastic osseous lesions. Soft tissues: Unremarkable. No significant soft tissue swelling. CT/CT neck w con* [id number] IMPRESSION: 1. Central airways are patent, without abnormal narrowing. 2. No obstructing lesion in the nasopharynx, oropharynx or oral cavity. 3. Mild paranasal sinusitis.
[2023-06-01] MEDS: acetaminophen 500 mg Tablet 1000 MG PO (13:34)
[2023-06-01] MEDS: iohexol 350 mg/mL 500 mL Btl (per mL) IV (14:09)
[2023-06-01] MEDS: diphenhydrAMINE 50 mg/mL SDV 1mL IVP (14:28)
[2023-06-01] MEDS: enalaprilat 2.5 mg/2 mL SDV 1.25 MG IVP (14:28)
[2023-06-01] MEDS: EPINEPHrine 1 mg/mL INJ 0.3 MG IM (15:41)
[2023-06-01] MEDS: LORazepam 2 mg/mL INJ 1 mL IVP (17:22)
[2023-06-01 17:28] LABS: Rapid Strep A Test Negative (Negative)
--- NOTE | 2023-06-01 19:10 | PC.NURSE ---
Assumed care of patient from Shiva Jurado Rn @ [id number]. Patient asked to change in to a gown and declined. I don't want my backside hanging out .
--- NOTE | 2023-06-01 19:20 | PM.HP ---
Providers/Chief Complaint Admitting Physician: Sari Gonzalez MD Primary Care Provider: Heaven Tyler DO Chief Complaint: sob History of Present Illness Kimberli Jurado is a 63 year old female without significant past medical history other than of alkaline phosphatase deficiency, no history of asthma or COPD no significant allergic reactions or anaphylaxis in the past presented with chief complaint of stridor. Patient is stating that she had [place] noodle yesterday and then her symptoms started afterwards with congestion, she was noticing her symptoms before going to bed however when she woke up her symptoms worsened, she was noticing audible stridor, she did not notice any fever, chest pain, diarrhea, skin rash, vision changes, stroke related symptoms, pain in her arms or legs significant drop in blood pressure. Patient has been on lisinopril for quite some time, no recent use of antibiotics, patient has 2 dogs at home, she does not have carpets, stating that there is no chance there is mold in her house, there is nothing out of ordinary other than [place] food that she took on that day In the ER she was given epinephrine which caused tachycardia she was given racemic epinephrine, IV fluids, Benadryl, Decadron At the time of my evaluation she is saturating 95% on room air, she is afebrile Heart rate 105 sinus No skin rash She is not endorsing any significant respiratory distress Neck imaging did not show any significant findings Review of Systems Eyes: Denies: change in vision ENMT: Denies: throat pain Card: Reports: dyspnea on exertion; Denies: chest pain Resp: Reports: dyspnea and stridor GI: Denies: abdominal pain : Denies: flank pain Musc: Denies: neck pain Medications/Allergies Home Medications Medication Instructions Recorded Confirmed Last Taken Type hospital bed and mattress #1 ea 06/18/22 06/01/23 Unknown Rx escitalopram oxalate 10 mg tablet 10 mg PO DAILY #90 tabs 08/15/22 06/01/23 05/31/23 Rx (Lexapro) pantoprazole 40 mg tablet,delayed 40 mg PO DAILY #90 tabs 08/15/22 06/01/23 05/31/23 Rx release alprazolam 0.25 mg tablet 0.25 mg PO DAILY PRN Anxiety #15 09/18/22 06/01/23 Unknown Rx tabs lisinopril 10 mg tablet 10 mg PO BID 90 days #180 tabs 09/18/22 06/01/23 05/31/23 Rx tramadol 50 mg tablet 50 mg PO BID PRN pain 30 days #60 09/18/22 06/01/23 05/31/23 Rx tabs apixaban 5 mg tablet (Eliquis) 5 mg PO BID 06/01/23 06/01/23 05/31/23 History simvastatin 20 mg tablet 20 mg PO QPM 06/01/23 06/01/23 05/31/23 History Allergies Allergy/AdvReac Type Severity Reaction Status Date / Time No Known Allergies Allergy Verified 06/01/23 11:07 PFSH Acute PFSH: Medical History Goblet cell carcinoid of small intestine Acute appendicitis Bilateral carpal tunnel syndrome GERD (gastroesophageal reflux disease) Panic attack Benign essential HTN Eczema Surgical History History of appendectomy History of dilatation and curettage x 1 History of 2 sections History of surgery on left wrist Comminuted fracture --repaired with bone graft from left hip History of hernia repair R spigelian Family History Other CAD (coronary artery disease) Family history of premature coronary artery disease Social History Smoking and tobacco/nicotine status: never used tobacco/nicotine Alcohol intake: never Substance/Drug Use: never 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 Vitals/I&O/Wt Last Vital Signs Temp 99.8 F H 06/01/23 10:19 Pulse 110 H 06/01/23 18:39 Resp 18 06/01/23 18:39 BP 139/81 06/01/23 18:39 Pulse Ox 95 06/01/23 18:39 O2 Del Method Room Air 06/01/23 18:39 Weight last 48 hrs Weight 87.543 kg Physical Exam Narrative: Pleasant cooperative female GCS 15 Nonfocal neuro exam No active wheezing Mild stridor audible Currently on room air patient able to talk without any conversational dyspnea Husky voice Abdomen distended nontender Lower extremity no edema She is able to provide above-mentioned history is at the bedside S1, S2 sinus rhythm tachycardia No skin rash Data 06/01/23 10:32 06/01/23 10:32 Micro: Microbiology 06/01/23 10:37 Blood Culture - Preliminary Blood SPECIMEN COLLECTED 06/01/23 10:32 Blood Culture - Preliminary Blood SPECIMEN COLLECTED A&P Assessment and plan (1) Stridor: (2) Pulmonary embolism: Qualifiers: Pulmonary embolism type: multiple subsegmental (without acute cor pulmonale) Qualified Code(s): I26.94 - Multiple subsegmental pulmonary emboli without acute cor pulmonale (3) GERD (gastroesophageal reflux disease): Qualifiers: Esophagitis presence: without esophagitis Qualified Code(s): K21.9 - Gastro-esophageal reflux disease without esophagitis Plan Stridor Hoarseness of voice noted Check TSH Patient has history of GERD No history of COPD or asthma Does not smoke I have asked patient not to consume [place] food 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 Her kidney function is normal For her hypertension without focal of positive deficiency it is beneficial to keep lisinopril on board, for mild tachycardia we can use low-dose metoprolol at this point Monitor in ICU I will keep her on Decadron for now avoid epinephrine No signs of anaphylaxis or active respiratory distress CT imaging of neck did not show any significant findings Continue Eliquis for history of PE Full code I will keep her on mechanical soft diet Attestations Medical Necessity Statement*: Anticipating discharge within 48 hours Diagnoses Stridor R06.1 Multiple subsegmental pulmonary emboli without acute cor pulmonale I26.94 Pulmonary embolism type: multiple subsegmental (without acute cor pulmonale) Gastroesophageal reflux disease without esophagitis K21.9 Esophagitis presence: without esophagitis
[2023-06-01 20:07] LABS: D Dimer 0.42 ug/mLFEU (0-0.59)
[2023-06-01] MEDS: budesonide 0.5 mg/2 mL Neb INHALATION (20:51)
[2023-06-01] MEDS: sodium chloride 0.9% 1,000 ML 50 ML IV (21:06)
[2023-06-01] MEDS: apixaban 5 mg Tablet PO (21:09)
[2023-06-01] MEDS: pantoprazole DR 40 mg Tablet PO (21:09)
[2023-06-01] MEDS: metoprolol tartrate 25 mg Tablet 12.5 MG PO (21:09)
[2023-06-01] MEDS: ALPRAZolam 0.5 mg Tablet 0.25 MG PO (22:46)
--- NOTE | 2023-06-01 22:49 | PC.NURSE ---
Patient resting comfortably at this time. Remains on room air with SpO2 of 88-91%. Denies any distress presently. Will continue to monitor.
[2023-06-02] VITALS (10 sets, daily range): BP systolic 153–178; BP diastolic 80–122; PULSE 77–90; RESP 14–20; TEMP 36.7–37.3; O2SAT 94–98
[2023-06-02 04:01] LABS: Basophils % 0.1 %; Lymphocytes # 0.7 10^3/uL (0.8-4.8); Lymphocytes % 8.6 %; Mean Corpuscular HGB Conc 31.3 g/dL (30-55); Mean Corpuscular Hemoglobin 28.1 pg (27-33); Mean Corpuscular Volume 89.8 fl (85-98); Mean Platelet Volume 10.8 fL (7.4-10.4); Monocytes # 0.5 10^3/uL (0.2-0.9); Monocytes % 5.8 %; Neutrophils # 6.76 10^3/uL (1.8-7.7); Nucleated Red Blood Cells % 0 %; Platelet Count 233 10^3/cmm (157-399); Red Blood Count 4.23 10^6/uL (3.85-5.65); Red Cell Distribution Width 13.5 % (12.1-15.1); White Blood Count 7.95 10^3/uL (3.29-11.43)
[2023-06-02 04:39] LABS: Anion Gap 15.9 (5-19); Blood Urea Nitrogen 9 mg/dL (8-23); C Reactive Protein 36.4 mg/L (0.0-4.9); Calcium 11.5 mg/dL (8.5-10.5); Carbon Dioxide 24 mmol/L (22-29); Chloride 104 mmol/L (98-107); Glomerular Filtration Rate 124.2 mL/min (90-130); Glucose 150 mg/dL (65-115); Magnesium 1.7 mg/dL (1.7-2.3); Osmolality Calculated 292 mOsm/kg (285-295); Potassium 3.9 mmol/L (3.5-5.1); Sodium 140 mmol/L (136-145)
[2023-06-02] MEDS: budesonide 0.5 mg/2 mL Neb INHALATION (08:13)
[2023-06-02] MEDS: apixaban 5 mg Tablet PO (09:08)
[2023-06-02] MEDS: dexamethasone 10 mg/mL INJ 5 MG IVP (09:08)
[2023-06-02] MEDS: pantoprazole DR 40 mg Tablet PO (09:09)
[2023-06-02] MEDS: metoprolol tartrate 25 mg Tablet 12.5 MG PO (10:04)
--- NOTE | 2023-06-02 10:45 | P.DS_ITS ---
Discharge Providers Date of Admission: 06/01/23 18:15 Date of Discharge: June 02, 2023 Attending Provider at Admission: Sari Gonzalez MD Attending Provider at Discharge: Pawel Arredondo MD Primary Care Provider: Heaven Tyler DO Diagnoses at Discharge Discharge Diagnosis (1) Stridor: Status: Acute (2) Pulmonary embolism: Status: Inactive Qualifiers: Pulmonary embolism type: multiple subsegmental (without acute cor pulmonale) Qualified Code(s): I26.94 - Multiple subsegmental pulmonary emboli without acute cor pulmonale (3) GERD (gastroesophageal reflux disease): Status: Acute Qualifiers: Esophagitis presence: without esophagitis Qualified Code(s): K21.9 - Gastro-esophageal reflux disease without esophagitis (4) JULIUS positive: Status: Acute Reason for Visit Reason for Visit: sob Brief History: History as per HPI: Kimberli Jurado is a 63 year old female without significant past medical history other than of alkaline phosphatase deficiency, no history of asthma or COPD no significant allergic reactions or anaphylaxis in the past presented with chief complaint of stridor. Patient is stating that she had [place] noodle yesterday and then her symptoms started afterwards with congestion, she was noticing her symptoms before going to bed however when she woke up her symptoms worsened, she was noticing audible stridor, she did not notice any fever, chest pain, diarrhea, skin rash, vision changes, stroke related symptoms, pain in her arms or legs significant drop in blood pressure. Patient has been on lisinopril for quite some time, no recent use of antibiotics, patient has 2 dogs at home, she does not have carpets, stating that there is no chance there is mold in her house, there is nothing out of ordinary other than [place] food that she took on that day In the ER she was given epinephrine which caused tachycardia she was given racemic epinephrine, IV fluids, Benadryl, Decadron Hospital Course Hospital Course Patient was admitted to the ICU for further monitoring with concerns for stridor. Patient remained on room air saturating well during the hospital stay. She did have wheezing and slight difficulty in breathing but remained stable. Patient is able to ambulate without difficulty in breathing. Patient is able to have conversation without any difficulty in breathing. Patient remained hemodynamically stable. Safe discharge planning was discussed in detail with patient and family at bedside. She has been discharged on oral steroids daily, nebulization treatment scheduled 3 times a day for 1 week, Flonase twice daily and loratadine. She has been counseled in detail about danger signs. She is to follow-up with a primary care provider within next 1 week. She was advised in detail to avoid any offending agents. EpiPen has been prescribed for her as well. Physical Exam Narrative: Pleasant cooperative female GCS 15 Nonfocal neuro exam No active wheezing Mild stridor audible Currently on room air patient able to talk without any conversational dyspnea Husky voice Abdomen distended nontender Lower extremity no edema She is able to provide above-mentioned history is at the bedside S1, S2 sinus rhythm tachycardia No skin rash Discharge Data Studies Completed and Pending Completed Studies During Hospitalization Category Date Time Status CT neck w con* [id number] Stat Cat Scan 06/01/23 12:30 Completed XR chest 1V portable [id number] Stat Exams 06/01/23 10:25 Completed XR soft tissue neck [id number] Stat Exams 06/01/23 10:24 Completed Pending at discharge Category Date Time Status Blood Culture Stat Lab 06/01/23 10:37 Results Streptococcus Culture Group A Stat Lab 06/01/23 17:18 Received Radiology Impressions Soft Tissue Neck X-Ray 06/01/23 10:24 IMPRESSION: No acute findings. Chest X-Ray 06/01/23 10:25 IMPRESSION: No focal consolidation or pneumonia. Neck CT 06/01/23 12:30 IMPRESSION: 1. Central airways are patent, without abnormal narrowing. 2. No obstructing lesion in the nasopharynx, oropharynx or oral cavity. 3. Mild paranasal sinusitis. Laboratory Results WBC 7.95 10^3/uL (3.29-11.43) 06/02/23 03:40 RBC 4.23 10^6/uL (3.85-5.65) 06/02/23 03:40 Hgb 11.90 g/dL (11.27-16.99) 06/02/23 03:40 Hct 38.0 % (36-47) 06/02/23 03:40 MCV 89.8 fl (85-98) 06/02/23 03:40 MCH 28.1 pg (27-33) 06/02/23 03:40 MCHC 31.3 g/dL (30-55) 06/02/23 03:40 RDW 13.5 % (12.1-15.1) 06/02/23 03:40 Plt Count 233 10^3/cmm (157-399) 06/02/23 03:40 MPV 10.8 fL (7.4-10.4) H 06/02/23 03:40 Neut % (Auto) 85.0 % 06/02/23 03:40 Lymph % (Auto) 8.6 % 06/02/23 03:40 [place] % (Auto) 5.8 % 06/02/23 03:40 Eos % (Auto) 0.0 % 06/02/23 03:40 Baso % (Auto) 0.1 % 06/02/23 03:40 Neut # (Auto) 6.76 10^3/uL (1.8-7.7) 06/02/23 03:40 Lymph # (Auto) 0.7 10^3/uL (0.8-4.8) L 06/02/23 03:40 [place] # (Auto) 0.5 10^3/uL (0.2-0.9) 06/02/23 03:40 Eos # (Auto) 0.0 10^3/uL (0.0-0.8) 06/02/23 03:40 Baso # (Auto) 0.0 10^3/uL (0.0-0.1) 06/02/23 03:40 Nucleated RBC % (auto) 0 % 06/02/23 03:40 Nucleated RBCs # 0.0 /100WBC 06/02/23 03:40 D-Dimer 0.42 ug/mLFEU (0-0.59) 06/01/23 13:42 Sodium 140 mmol/L (136-145) 06/02/23 03:40 Potassium 3.9 mmol/L (3.5-5.1) 06/02/23 03:40 Chloride 104 mmol/L (98-107) 06/02/23 03:40 Carbon Dioxide 24 mmol/L (22-29) 06/02/23 03:40 Anion Gap 15.9 (5-19) 06/02/23 03:40 BUN 9 mg/dL (8-23) 06/02/23 03:40 Creatinine 0.5 mg/dL (0.5-0.9) 06/02/23 03:40 GFR Calculation 124.2 mL/min (90-130) 06/02/23 03:40 Glucose 150 mg/dL (65-115) H 06/02/23 03:40 Calculated Osmolality 292 mOsm/kg (285-295) 06/02/23 03:40 Calcium 11.5 mg/dL (8.5-10.5) H 06/02/23 03:40 Magnesium 1.7 mg/dL (1.7-2.3) 06/02/23 03:40 Total Bilirubin 0.6 mg/dL (0.15-1.2) 06/01/23 10:32 AST 67 U/L (0-32) H 06/01/23 10:32 ALT 69 U/L (0-33) H 06/01/23 10:32 Alkaline Phosphatase 146 U/L (35-105) H 06/01/23 10:32 C-Reactive Protein 36.4 mg/L (0.0-4.9) H 06/02/23 03:40 Total Protein 7.5 g/dL (6.6-8.7) 06/01/23 10:32 Albumin 4.5 g/dL (3.5-5.2) 06/01/23 10:32 Globulin 3.0 g/dL (1.3-4.6) 06/01/23 10:32 Group A Strep Rapid Negative (Negative) 06/01/23 17:18 Vitals Last Vital Signs Temp 98.4 F 06/02/23 08:00 Pulse 78 06/02/23 10:00 Resp 18 06/02/23 10:00 BP 153/86 06/02/23 10:00 Pulse Ox 96 06/02/23 10:00 O2 Del Method Room Air 06/02/23 10:00 Discharge Plan Discharge Patient Disposition: Home Condition: Stable Prescriptions: New dexamethasone 6 mg tablet 6 mg PO DAILY Qty: 7 0RF ipratropium-albuterol 0.5 mg-3 mg(2.5 mg base)/3 mL solution for nebulization 3 ml inhalation Q8H Qty: 90 0RF Pulmicort 0.5 mg/2 mL suspension for nebulization 0.5 mg inhalation BID Qty: 60 0RF Flonase Allergy Relief 50 mcg/actuation spray,suspension 1 spray intranasal BID Qty: 16 0RF Rx Instructions: administer into each nostril loratadine 10 mg tablet 10 mg PO DAILY Qty: 7 0RF EpiPen 2-Joselito 0.3 mg/0.3 mL auto-injector 0.3 mg IM Q10M PRN (Reason: anaphylaxis) Qty: 2 0RF Rx Instructions: for 2 doses Continued alprazolam 0.25 mg tablet 0.25 mg PO DAILY PRN (Reason: Anxiety) Qty: 15 2RF tramadol 50 mg tablet 50 mg PO BID PRN (Reason: pain) 30 Days Qty: 60 0RF lisinopril 10 mg tablet 10 mg PO BID 90 Days Qty: 180 1RF (DME) hospital bed and mattress See Rx Instructions .Route .MEDSUPPLY Qty: 1 0RF Rx Instructions: As directed escitalopram oxalate [Lexapro] 10 mg tablet 10 mg PO DAILY Qty: 90 1RF pantoprazole 40 mg tablet,delayed release (DR/EC) 40 mg PO DAILY Qty: 90 1RF simvastatin 20 mg tablet 20 mg PO QPM Eliquis 5 mg tablet 5 mg PO BID Discharge Orders: Discharge Order (Routine); Ordered 06/02/23 Ordered By: Pawel Arredondo Referrals: Heaven Tyler DO [Primary Care Provider] - 4-7 days Discharge Diet: Regular Discharge Activity: Resume usual activity and Increase activity as tolerated Patient Instructions: Anaphylaxis, Reactive Airways Disease (GEN), Opioid Safety Activity Restrictions/Additional Instructions: Patient should get curator herbarium referral from her primary care provider office. Please avoid offending agents. Continue with steroid as described. Please use nebulization treatment regularly for now. You can use Flonase. Please follow-up with your primary care provider within next 7 days. If you have any difficulty in breathing, choking sensation please come back to the ER. Discharge Attestations Time Spent in Discharge Care*: greater than 30 min Specific Discharge Activities: educating patient, educating and/or supporting family/caregiver, discussing with pcp/other providers, discussing with bilingual case manager/social workers/dc planners, documenting/other paperwork and evaluating patient/reviewing data Status at Discharge: Cognitive status at discharge: cognitively intact , Behavioral status at discharge: cooperative , Quality Metrics Clinical Quality Measures [ No reported AMI, CVA or VTE this stay] Coding Level of Care Code 99119 Total time (in minutes) for Discharge: 60 Diagnoses Stridor R06.1 Multiple subsegmental pulmonary emboli without acute cor pulmonale I26.94 Pulmonary embolism type: multiple subsegmental (without acute cor pulmonale) Gastroesophageal reflux disease without esophagitis K21.9 Esophagitis presence: without esophagitis JULIUS positive R76.8
[2023-06-02] MEDS: ipratropium-albuterol 3 mL Neb INHALATION (10:54)
== END 2023-06-02 11:32 | disposition home or self-care (01) ==
LOC: ER 15:39 → ICU 18:20
PROVIDERS: Internal Medicine; Admitting Provider Student in an Organized Health Care Education/Training Program; Emergency Provider Family Medicine; PCP Family Medicine; Visit Provider Student in an Organized Health Care Education/Training Program
DX: R06.1 Stridor (principal); I26.94 Multiple subsegmental thrombotic pulmonary emboli without acute cor pulmonale; K21.9 Gastro-esophageal reflux disease without esophagitis; R76.8 Other specified abnormal immunological findings in serum; R00.0 Tachycardia, unspecified
CPT/HCPCS: 36415; 70360; 70491; 71045; 80048; 80053; 83735; 85025; 85378; 86140; 87040; 87081; 87880; 94640; 96372; 96374; 96375; 96376; 99285; G0378; J0171; J1100; J1200; J2060; J7030; J7626; Q9967

== ENCOUNTER 2024-05-26 13:42 | Emergency (ER) | payer OTHER, SELFPAY ==
[2024-05-26 13:57] VITALS: BP 117/83; PULSE 105; RESP 20; TEMP 36.8; O2SAT 94; BMI 29.7
--- NOTE | 2024-05-26 14:13 | XRR_ITS ---
PROCEDURE INFORMATION: Exam: XR Right Hip Exam date and time: 05/26/2024 2:16 PM Age: 64 years old Clinical indication: Hip pain; Right hip; Patient HX: Fell 4 years ago TECHNIQUE: Imaging protocol: Radiologic exam of the right hip. Views: 1 view hip with pelvis when performed. COMPARISON: CT chest abdpel w/*[id number] 04/26/2022 4:51 PM FINDINGS: Bones/joints: Mild articular surface narrowing and spurring. No fracture or dislocation. Eggshell soft tissue calcification in the upper thigh is probably within fat and probably represents an area of fat necrosis.. No acute fracture. Soft tissues: Unremarkable. XR/XR hip RT 2-3V wo/w pel* [id number] IMPRESSION: No acute traumatic injury.
--- NOTE | 2024-05-26 14:20 | ED_ITS ---
HPI - General Adult 2 General: Chief complaint: General Medical Stated complaint: nausa, hip pain, something wrong wond(dr. reyes) Time Seen by Provider: 05/26/24 14:08 Source: patient Mode of arrival: ambulatory Limitations: no limitations History of Present Illness: 64-year-old female who states she has be en having some right hip pain has been going on for few weeks. States she had a hernia repair in March she had a wound dehiscence that is since healed and she has had some hip pain since that surgery states got much worse in the last few days extreme full painful to move or to walk. Does improve with rest she rates her pain a 6 out of 10 she had some vomiting denies any fevers Associated symptoms: Deny chest pain, dyspnea, headache(s), nausea, rash or vomiting Related Data Home Medications Medication Instructions Recorded Confirmed apixaban 5 mg tablet (Eliquis) 5 mg PO BID 06/01/23 05/26/24 atorvastatin 40 mg tablet 40 mg PO QPM 05/26/24 05/26/24 Previous Rx's Medication Instructions Recorded hospital bed and mattress #1 ea 06/18/22 escitalopram oxalate 10 mg tablet 10 mg PO DAILY #90 tabs 08/15/22 (Lexapro) pantoprazole 40 mg tablet,delayed 40 mg PO DAILY #90 tabs 08/15/22 release alprazolam 0.25 mg tablet 0.25 mg PO DAILY PRN Anxiety #15 09/18/22 tabs lisinopril 10 mg tablet 10 mg PO BID 90 days #180 tabs 09/18/22 tramadol 50 mg tablet 50 mg PO BID PRN pain 30 days #60 09/18/22 tabs epinephrine 0.3 mg/0.3 mL 0.3 mg (0.3 mL) IM Q10M PRN 06/02/23 injection, auto-injector (EpiPen anaphylaxis #2 ea 2-Joselito) fluticasone propionate 50 1 spray intranasal BID #16 grams 06/02/23 mcg/actuation nasal spray,suspension (Flonase Allergy Relief) ipratropium 0.5 mg-albuterol 3 mg 3 ml inhalation Q8H #90 mL 06/02/23 (2.5 mg base)/3 mL nebulization soln loratadine 10 mg tablet 10 mg PO DAILY #7 tabs 06/02/23 hydrocodone 5 mg-acetaminophen 325 1 tab PO Q6H PRN pain #14 tabs 05/26/24 mg tablet ondansetron 4 mg disintegrating 4 mg PO Q6H PRN nausea and 05/26/24 tablet vomiting #14 tabs Allergies Allergy/AdvReac Type Severity Reaction Status Date / Time No Known Allergies Allergy Verified 05/26/24 14:05 Review of Systems 2 Const: Denies: fever(s), chills, body aches or change in appetite ENMT: Denies: throat pain or dental pain Card: Denies: chest pain Resp: Denies: dyspnea GI: Denies: abdominal pain, nausea, vomiting or diarrhea Musc: Denies: neck pain or back pain Skin/Breast: Denies: rash Neuro: Denies: headache(s) PFSH ED 2 PFSH: Medical History (Updated 05/26/24 @ 16:03 by Eloise Mitchell MD) JULIUS positive Closed compression fracture of thoracic vertebra Pulmonary HTN Hyponatremia Pulmonary embolism 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 Acute appendicitis Bilateral carpal tunnel syndrome GERD (gastroesophageal reflux disease) Panic attack Benign essential HTN Eczema Surgical History (Updated 06/03/23 @ 00:01 by NAM Pope) S/P spinal fusion History of appendectomy History of dilatation and curettage x 1 History of 2 sections History of surgery on left wrist Comminuted fracture --repaired with bone graft from left hip History of hernia repair R spigelian Family History Other CAD (coronary artery disease) Family history of premature coronary artery disease Social History Smoking and tobacco/nicotine status: never used tobacco/nicotine Alcohol intake: never Substance/Drug Use: never 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 Exam 2 Const: COMMON NORMALS: no acute distress, patient oriented x3 and healthy appearing HENMT: COMMON NORMALS: normocephalic and atraumatic HEAD & SCALP: n ormocephalic and atraumatic Eye: COMMON NORMALS: Equal, round and reactive pupils present and EOMs intact bilaterally PUPIL: Yes Equal, round and reactive pupils present Neck/C-Spine: COMMON NORMALS: full ROM and supple Chest: COMMONS NORMALS: normal inspection of the chest and normal palpation of entire chest wall Resp: COMMON NORMALS: normal respiratory effort, No retractions, No use of accessory muscles and clear to auscultation bilaterally AUSCULTATION: clear to auscultation bilaterally Cardio: COMMON NORMALS: regular rate, regular rhythm and No murmurs present (Cardio) RATE: regular rate RHYTHM: regular rhythm GI: COMMON NORMALS: Normal to inspection, nondistended, normoactive bowel sounds present, Soft to palpation, non-tender and no masses PALPATION: Yes Soft to palpation Extremity: COMMON NORMALS: normal to inspection and full ROM Neuro: COMMON NORMALS: patient oriented x3, moves all extremities and no focal motor deficits Psych: COMMON NORMALS: mental status grossly normal, Normal thought process present and cooperative THOUGHT PROCESS: Normal thought process present Skin: COMMON NORMALS: no rashes or lesions noted and no wounds GENERAL SKIN EXAM: no rashes or lesions noted Course 2 Vital Signs: Vital signs: Vital Signs Temperature 98.2 F 05/26/24 13:57 Pulse Rate 108 H 05/26/24 14:35 Respiratory Rate 18 05/26/24 14:30 Blood Pressure 112/74 05/26/24 14:35 Pulse Oximetry 93 05/26/24 14:35 Oxygen Delivery Me thod Room Air 05/26/24 14:35 MDM - General Adult Medical Decision Making Patient presents with hip pain likely muscular in nature x-ray here is negative she is also had normal blood work as well follow-up with orthopedics she is return if worsening she understands agrees to plan Medical Records I reviewed the patient's medical records. Lab Data I reviewed the patient's lab results. 05/26/24 15:05 05/26/24 15:05 Radiology Impressions Hip/Pelvis X-Ray 05/26/24 14:13 IMPRESSION: No acute traumatic injury. Laboratory Results WBC 6.32 10^3/uL (3.29-11.43) 05/26/24 15:05 RBC 4.77 10^6/uL (3.85-5.65) 05/26/24 15:05 Hgb 13.30 g/dL (11.27-16.99) 05/26/24 15:05 Hct 42.2 % (36-47) 05/26/24 15:05 MCV 88.5 fl (85-98) 05/26/24 15:05 MCH 27.9 pg (27-33) 05/26/24 15:05 MCHC 31.5 g/dL (30-55) 05/26/24 15:05 RDW 15.6 % (12.1-15.1) H 05/26/24 15:05 Plt Count 456 10^3/cmm (157-399) H 05/26/24 15:05 MPV 10.2 fL (7.4-10.4) 05/26/24 15:05 Neut % (Auto) 66.2 % 05/26/24 15:05 Lymph % (Auto) 22.3 % 05/26/24 15:05 [place] % (Auto) 9.7 % 05/26/24 15:05 Eos % (Auto) 1.3 % 05/26/24 15:05 Baso % (Auto) 0.3 % 05/26/24 15:05 Neut # (Auto) 4.19 10^3/uL (1.8-7.7) 05/26/24 15:05 Lymph # (Auto) 1.4 10^3/uL (0.8-4.8) 05/26/24 15:05 [place] # (Auto) 0.6 10^3/uL (0.2-0.9) 05/26/24 15:05 Eos # (Auto) 0.1 10^3/uL (0.0-0.8) 05/26/24 15:05 Baso # (Auto) 0.0 10^3/uL (0.0-0.1) 05/26/24 15:05 Nucleated RBC % (auto) 0 % 05/26/24 15:05 Nucleated RBCs # 0.0 /100WBC 05/26/24 15:05 Sodium 133 mmol/L (136-145) L 05/26/24 15:05 Potassium 4.0 mmol/L (3.5-5.1) 05/26/24 15:05 Chloride 97 mmol/L (98-107) L 05/26/24 15:05 Carbon Dioxide 25 mmol/L (22-29) 05/26/24 15:05 Anion Gap 15.0 (5-19) 05/26/24 15:05 BUN 6 mg/dL (8-23) L 05/26/24 15:05 Creatinine 0.8 mg/dL (0.5-0.9) 05/26/24 15:05 GFR Calculation 72.0 mL/min (90-130) L 05/26/24 15:05 Glucose 120 mg/dL (65-115) H 05/26/24 15:05 Calculated Osmolality 275 mOsm/kg (285-295) L 05/26/24 15:05 Calcium 12.0 mg/dL (8.5-10.5) H 05/26/24 15:05 Total Bilirubin 0.5 mg/dL (0.15-1.2) 05/26/24 15:05 AST 174 U/L (0-32) H 05/26/24 15:05 ALT 107 U/L (0-33) H 05/26/24 15:05 Alkaline Phosphatase 105 U/L (35-105) 05/26/24 15:05 Total Protein 7.7 g/dL (6.6-8.7) 05/26/24 15:05 Albumin 4.5 g/dL (3.5-5.2) 05/26/24 15:05 Globulin 3.2 g/dL (1.3-4.6) 05/26/24 15:05 All radiology interpretation(s) finalized by discharge Discharge Plan Discharge Patient Disposition: Home Clinical Impression: Hip pain, right Condition: Stable Prescriptions: New hydrocodone-acetaminophen 5-325 mg tablet 1 tab PO Q6H PRN (Reason: pain) Qty: 14 0RF ondansetron 4 mg tablet,disintegrating 4 mg PO Q6H PRN (Reason: nausea and vomiting) Qty: 14 0RF No Action alprazolam 0.25 mg tablet 0.25 mg PO DAILY PRN (Reason: Anxiety) Qty: 15 2RF tramadol 50 mg tablet 50 mg PO BID PRN (Reason: pain) 30 Days Qty: 60 0RF lisinopril 10 mg tablet 10 mg PO BID 90 Days Qty: 180 1RF (DME) hospital bed and mattress See Rx Instructions .Route .MEDSUPPLY Qty: 1 0RF Rx Instructions: As directed escitalopram oxalate [Lexapro] 10 mg tablet 10 mg PO DAILY Qty: 90 1RF pantoprazole 40 mg tablet,delayed release (DR/EC) 40 mg PO DAILY Qty: 90 1RF Eliquis 5 mg tablet 5 mg PO BID ipratropium-albuterol 0.5 mg-3 mg(2.5 mg base)/3 mL solution for nebulization 3 ml inhalation Q8H Qty: 90 0RF fluticasone propionate [Flonase Allergy Relief] 50 mcg/actuation spray,suspension 1 spray intranasal BID Qty: 16 0RF Rx Instructions: administer into each nostril loratadine 10 mg tablet 10 mg PO DAILY Qty: 7 0RF epinephrine [EpiPen 2-Joselito] 0.3 mg/0.3 mL auto-injector 0.3 mg IM Q10M PRN (Reason: anaphylaxis) Qty: 2 0RF Rx Instructions: for 2 doses atorvastatin 40 mg tablet 40 mg PO QPM Discharge Orders: Discharge ED (Routine); Ordered 05/26/24 Ordered By: Eloise Mitchell Referrals: Heaven Tyler DO [Primary Care Provider] - Discharge Diet: Advance as tolerated Discharge Activity: Resume usual activity Patient Instructions: Hip Pain (ED) Coding Level of Care Code ED Hide Salter 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
[2024-05-26] MEDS: ondansetron 2 mg/ML SDV 2 mL 4 MG IVP (14:28)
[2024-05-26 14:30] VITALS: RESP 18
[2024-05-26] MEDS: morphine 4 mg/mL SDV 1 mL IVP (14:30)
[2024-05-26 14:35] VITALS: BP 112/74; PULSE 108; O2SAT 93
[2024-05-26 15:25] LABS: Basophils % 0.3 %; Eosinophils # 0.1 10^3/uL (0.0-0.8); Eosinophils % 1.3 %; Hematocrit 42.2 % (36-47); Lymphocytes # 1.4 10^3/uL (0.8-4.8); Lymphocytes % 22.3 %; Mean Corpuscular HGB Conc 31.5 g/dL (30-55); Mean Corpuscular Hemoglobin 27.9 pg (27-33); Mean Corpuscular Volume 88.5 fl (85-98); Mean Platelet Volume 10.2 fL (7.4-10.4); Monocytes # 0.6 10^3/uL (0.2-0.9); Monocytes % 9.7 %; Neutrophils # 4.19 10^3/uL (1.8-7.7); Neutrophils % 66.2 %; Nucleated Red Blood Cells % 0 %; Platelet Count 456 10^3/cmm (157-399); Red Blood Count 4.77 10^6/uL (3.85-5.65); Red Cell Distribution Width 15.6 % (12.1-15.1); White Blood Count 6.32 10^3/uL (3.29-11.43)
[2024-05-26 15:41] LABS: Alanine Aminotransferase 107 U/L (0-33); Albumin Level 4.5 g/dL (3.5-5.2); Alkaline Phosphatase 105 U/L (35-105); Aspartate Amino Transferase 174 U/L (0-32); Blood Urea Nitrogen 6 mg/dL (8-23); Carbon Dioxide 25 mmol/L (22-29); Chloride 97 mmol/L (98-107); Creatinine Clr Calc Pharmacy 79.0602; Globulin 3.2 g/dL (1.3-4.6); Glucose 120 mg/dL (65-115); Osmolality Calculated 275 mOsm/kg (285-295); Sodium 133 mmol/L (136-145); Total Bilirubin 0.5 mg/dL (0.15-1.2); Total Protein 7.7 g/dL (6.6-8.7)
[2024-05-26 16:19] VITALS: BP 114/85; PULSE 98; O2SAT 90
--- NOTE | 2024-05-27 08:24 | DCPLANNER ---
Message sent to Ortho for a follow up on Right Hip Pain-
== END 2024-05-26 16:22 | disposition home or self-care (01) ==
PROVIDERS: Emergency Provider Emergency Medicine; PCP Family Medicine
DX: M25.551 Pain in right hip (principal); Z79.01 Long term (current) use of anticoagulants; I10 Essential (primary) hypertension; C18.1 Malignant neoplasm of appendix; Z86.711 Personal history of pulmonary embolism
CPT/HCPCS: 36415; 73502; 80053; 85025; 96374; 96375; 99284; J2270; J2405

== ENCOUNTER → 2024-06-12 10:02 | Outpatient (BNVA) | payer OTHER, MEDICARE, SELFPAY | PROVIDERS: PCP Family Medicine; Visit Provider Physician Assistant | DX: M16.11 Unilateral primary osteoarthritis, right hip; R22.41 Localized swelling, mass and lump, right lower limb; S79.911A Unspecified injury of right hip, initial encounter; W19.XXXA Unspecified fall, initial encounter | CPT/HCPCS: 73502 ==

== ENCOUNTER 2024-07-14 13:32 | Outpatient (CLI) | payer OTHER, SELFPAY ==
--- NOTE | 2024-07-14 13:45 | MR_ITS ---
WS: [id number] MRI RIGHT HIP WITH AND WITHOUT CONTRAST. COMPARISON: Radiograph 06/12/2024, 05/26/2024, prior CT 04/26/2022, 05/02/2012 Multiplanar, multisequence imaging is performed with and without contrast. MultiHance 18 mL IV. Well-circumscribed subcutaneous calcified mass lateral to the RIGHT greater trochanter does not enhan ce. This is heavily calcified on prior CT and radiologic exams. This has been present on multiple darian or studies. No associated edema. Markedly abnormal appearance of the RIGHT hip extending through the femoral head and neck. There is m arrow edema and increased T2 and FLAIR signal involving a large portion of the femoral head and neck. There is sparing of the superior femoral head and there is also no enhancement suggesting this is an area of osteonecrosis. There is mild flattening of the femoral head with narrowing of the joint spac e. There is a small size joint effusion with synovial thickening. Small amount of edema within the ac etabulum and also the muscle surrounding the hip. On the postcontrast imaging there is no enhancement within the superior femoral head. There is enhancement involving majority of the femoral head and th e neck at the site of the previously described edema. No associated lymph nodes MR/MR hip RT wo/w con [id number] IMPRESSION: 1. Markedly abnormal appearance of the RIGHT hip. Findings are highly suspicio us for osteonecrosis of the femoral head with extensive marrow edema extending through portions of the femoral head and neck. There is enhancement of the jose ow edema. 2. Small joint effusion with synovial thickening and enhancement. This may be a response to the osteonecrosis. Inflammatory or infectious arthritis should be considered also. 3. Small amount of marrow edema in the acetabulum. 4. No enhancement within the superior femoral head in the area of the osteonec rosis. There is loss of the normal cortex with irregularity. Differential would include subchondral insufficiency fracture. 5. Benign soft tissue calcification lateral to the RIGHT greater trochanter. C alcification is been present on multiple prior examinations and may be a calcif ied remote hematoma.
[2024-07-14] MEDS: gadobenate dimeglumine 20 mL vial 18 ML IV (14:40)
== END 2024-07-14 13:33 | disposition home or self-care (01) ==
LOC: RAD 13:33
PROVIDERS: PCP Electrodiagnostic Medicine; Visit Provider Physician Assistant
DX: R22.41 Localized swelling, mass and lump, right lower limb (principal); S79.911A Unspecified injury of right hip, initial encounter; X58.XXXA Exposure to other specified factors, initial encounter; M89.8X5 Other specified disorders of bone, thigh
CPT/HCPCS: 73723

== ENCOUNTER → 2024-07-31 09:56 | Outpatient (BNVA) | payer OTHER, SELFPAY | PROVIDERS: PCP Electrodiagnostic Medicine; Visit Provider Student in an Organized Health Care Education/Training Program | DX: M16.11 Unilateral primary osteoarthritis, right hip (principal); M87.051 Idiopathic aseptic necrosis of right femur | CPT/HCPCS: 77002 ==

== ENCOUNTER → 2024-10-28 10:46 | Outpatient (BNVA) | payer MEDICARE, OTHER, SELFPAY | PROVIDERS: PCP Electrodiagnostic Medicine; Visit Provider Student in an Organized Health Care Education/Training Program | DX: M87.051 Idiopathic aseptic necrosis of right femur (principal); M16.11 Unilateral primary osteoarthritis, right hip; Z01.818 Encounter for other preprocedural examination | CPT/HCPCS: 36415; 73502; 80053; 81001; 85025; 99214 ==

== ENCOUNTER → 2024-10-30 07:46 | Outpatient (BNVA) | payer MEDICARE, OTHER, SELFPAY | PROVIDERS: PCP Electrodiagnostic Medicine; Visit Provider Family Medicine | DX: Z01.818 Encounter for other preprocedural examination (principal) | CPT/HCPCS: 93005 ==

== ENCOUNTER 2024-11-02 15:25 | Outpatient (CLI) | payer MEDICARE, OTHER, SELFPAY ==
--- NOTE | 2024-11-02 15:45 | USCV_ITS ---
Kimberli Jurado Age: 64 Gender: F : 1960 Exam Date: 11/02/2024 15:49 Ordering Phys: Rg Arias DO Technologist: R Exam Location: [facility] [place] Indication: R/O DVT- PRE OP HISTORY: Patient has history of. DVT. PROCEDURES: Venous duplex imaging was performed in bilateral lower extremities. The following venous structures were evaluated: common femoral vein, profunda vein, proximal portion of the greater saphenous vein, superficial femoral vein, and the popliteal vein. In addition, the posterior tibial and peroneal trunk were evaluated. FINDINGS: No evidence of DVT seen in any vessel visualized at this time. CONCLUSIONS No evidence of right lower extremity DVT. No evidence of left lower extremity DVT. Guido Schaffer MD (Electronically Signed) Final Date: 03 Nov 2024 10:08 S
== END 2024-11-02 15:26 | disposition home or self-care (01) ==
LOC: RAD 15:26
PROVIDERS: PCP Electrodiagnostic Medicine; Visit Provider Student in an Organized Health Care Education/Training Program
DX: Z01.818 Encounter for other preprocedural examination (principal)
CPT/HCPCS: 93970

== ENCOUNTER 2024-11-04 09:20 | Outpatient (CLI) | payer MEDICARE, OTHER, SELFPAY ==
--- NOTE | 2024-11-04 09:45 | CT_ITS ---
WS: [id number] CT RIGHT hip for NAVIN procedure HISTORY: RIGHT TOTAL HIP ARTHROPLASTY Date: 11/04/2024 9:33 AM TECHNIQUE: Protocol for [facility] total hip replacement has been obtained. This includes axial imaging from the hip joint through the knee joint. DLP: [id number] FINDINGS: Osteopenia. Moderate facet arthropathy lower lumbar spine. Degenerative arthritis sacroiliac joints. Advanced degenerative arthritis RIGHT hip with sclerosis and avascular necrosis. Nondisplaced fracture lines with fragmentation involving the RIGHT femoral head with a small amount of subchondral collapse. Avascular necrosis with fragmentation has progressed compared to the prior MRI with no evidence of healing. Fat-containing LEFT periumbilical hernia. CT/CT hip RT [facility] [id number] IMPRESSION: CT imaging provided for [facility] robotic hip replacement.
== END 2024-11-04 09:21 | disposition home or self-care (01) ==
PROVIDERS: PCP Electrodiagnostic Medicine; Visit Provider Student in an Organized Health Care Education/Training Program
DX: M87.051 Idiopathic aseptic necrosis of right femur (principal); M16.11 Unilateral primary osteoarthritis, right hip
CPT/HCPCS: 73700

== ENCOUNTER 2024-11-09 15:38 | Inpatient (IN) | payer MEDICARE, OTHER, SELFPAY ==
[2024-11-09] VITALS (118 sets, daily range): BP systolic 73–158; BP diastolic 47–98; PULSE 68–100; RESP 6–26; TEMP 36.2–36.8; O2SAT 80–100; BMI 30.5
--- NOTE | 2024-11-09 10:28 | P.HPUD_ITS ---
Surgery/Procedure H&P Update DATE OF PROCEDURE: November 09, 2024 DATE H&P PERFORMED: 10/28/24 H&P UPDATE INFORMATION: I have reviewed H&P completed within last 30 days, I have examined patient prior to procedure and No changes to prior documentation CHANGES TO PREVIOUS DOCUMENTATION: Patient is cleared the preoperative clearance process, preoperative ultrasound study is negative for no acute DVT. Patient is ready proceed with right total h ip arthroplasty she does have a soft tissue mass/calcium deposit which we will excise during the surgery as well which she is consented for appropriately. Patient understands the ins outs procedure risk benefits complication alternatives surgery through shared decision make elects proceed with surgical invention all questions answered at this time we will proceed to the OR today for a right total hip arthroplasty with Bulmaro robotic assist, with right hip soft tissue mass excision. All questions answered at this time. 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
[2024-11-09 10:30] LABS: Basophils % 0.6 %; Eosinophils # 0.2 10^3/uL (0.0-0.8); Eosinophils % 2.3 %; Hematocrit 44.3 % (36-47); Lymphocytes # 2.2 10^3/uL (0.8-4.8); Lymphocytes % 32.5 %; Mean Corpuscular HGB Conc 33.4 g/dL (30-55); Mean Corpuscular Hemoglobin 31.4 pg (27-33); Mean Corpuscular Volume 94.1 fl (85-98); Mean Platelet Volume 10.1 fL (7.4-10.4); Monocytes # 0.5 10^3/uL (0.2-0.9); Monocytes % 7.7 %; Neutrophils # 3.86 10^3/uL (1.8-7.7); Neutrophils % 56.5 %; Nucleated Red Blood Cells % 0 %; Platelet Count 335 10^3/cmm (157-399); Red Blood Count 4.71 10^6/uL (3.85-5.65); Red Cell Distribution Width 13.9 % (12.1-15.1); White Blood Count 6.84 10^3/uL (3.29-11.43)
[2024-11-09] MEDS: sodium chloride 0.9% 1,000 ML 30 ML IV (10:32)
[2024-11-09] MEDS: ketorolac 30 mg/mL INJ IVP (10:40)
[2024-11-09] MEDS: acetaminophen 1,000 MG/100 ML PIGGYBACK 400 MG IV ×2 (10:42→18:04)
[2024-11-09] MEDS: scopolamine 1 mg PATCH 1 PATCH TRANSDERMA (10:43)
--- NOTE | 2024-11-09 10:48 | ANES.PREANE2 ---
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, right hip soft tissue mass Operation Date: 11/09/24 11:35 Proposed Procedures p Bulmaro Robot Total Hip Arthroplasty posterior approach(Right) - Rg Arias, DO s possible right hip mass excision(Right) - Rg [place], DO Last intake: Intake Last Liquid Date 11/08/24 Last Liquid Time 18:00 Last Solid Date 11/08/24 Last Solid Time 18:00 Social No alcohol and No tobacco Exam alert, oriented x 3, clear to auscultation bilaterally and regular rate & rhythm Airway Submandibular: within normal limits Cervical ROM: within normal limits Mallampati: Class III Pulmonary Sleep Apnea CV/HEM Deep Vein Thrombosis (PE) and Hypertension GI Gastroesophageal Reflux Disease Metabolic Diabetes Mellitus and Hyperlipidemia Anesthetic Plan ASA status: 3 Anesthesia: General Medications/Allergies Home Medications ?Medication ?Instructions ?Recorded ?Confirmed ?Last Taken ?Type hospital bed and mattress #1 ea 06/18/22 07/31/24 Unknown Rx escitalopram oxalate 10 mg tablet 10 mg PO DAILY #90 tabs 08/15/22 11/09/24 11/08/24 Rx (Lexapro) pantoprazole 40 mg tablet,delayed 40 mg PO DAILY #90 tabs 08/15/22 11/09/24 11/08/24 Rx release alprazolam 0.25 mg tablet 0.25 mg PO DAILY PRN Anxiety #15 09/18/22 11/09/24 11/08/24 Rx tabs lisinopril 10 mg tablet 10 mg PO BID 90 days #180 tabs 09/18/22 11/09/24 11/08/24 Rx apixaban 5 mg tablet (Eliquis) 5 mg PO BID 06/01/23 11/05/24 11/06/24 History epinephrine 0.3 mg/0.3 mL 0.3 mg (0.3 mL) IM Q10M PRN 06/02/23 11/09/24 Unknown Rx injection, auto-injector (EpiPen anaphylaxis #2 ea 2-Joselito) hydrocodone 5 mg-acetaminophen 325 1 tab PO Q6H PRN pain #14 tabs 05/26/24 11/09/24 11/08/24 Rx mg tablet tramadol 50 mg tablet 50 mg PO Q6H PRN pain 5 days #20 09/07/24 11/09/24 11/04/24 Rx tabs cetirizine 10 mg tablet (Zyrtec) 10 mg PO DAILY PRN Allergy Symptoms 10/30/24 11/09/24 11/08/24 History Allergies Allergy/AdvReac Type Severity Reaction Status Date / Time Alpha-Gal Allergy ALGY-Anaphy Verified 11/09/24 10:08 (Xfpuseqlj-Qhzxd-8,3-Gala laxis Current Medications Generic Name Dose Route Start Last Admin Trade Name Freq PRN Reason Stop Dose Admin Sodium Chloride 1,000 mls @ 30 mls/hr 11/09/24 06:30 11/09/24 10:32 Sodium Chloride 0.9% IV 11/10/24 06:29 30 mls/hr .Q24H SCOT Administration PFSH Anesthesia Medical History JULIUS positive Closed compression fracture of thoracic vertebra Pulmonary HTN Hyponatremia Pulmonary embolism 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 Acute appendicitis Bilateral carpal tunnel syndrome GERD (gastroesophageal reflux disease) Panic attack Benign essential HTN Eczema Surgical History S/P spinal fusion History of appendectomy History of dilatation and curettage x 1 History of 2 sections History of surgery on left wrist Comminuted fracture --repaired with bone graft from left hip History of hernia repair R spigelian Family History Other CAD (coronary artery disease) Family history of premature coronary artery disease Social History Smoking and tobacco/nicotine status: never used tobacco/nicotine Alcohol intake: never Substance/Drug Use: never Marital status: 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
[2024-11-09] MEDS: ceFAZolin 2,000 MG in sodium chloride 0.9% (plus) 50 ML 100 MG IV ×2 (11:25→20:27)
[2024-11-09] MEDS: vancomycin 1,000 MG SDV 1000 MG XX (12:19)
[2024-11-09] MEDS: VANCOMYCIN ADD-Vantage 1,000 MG VIAL 1000 MG INTRA-ARTI (13:22)
--- NOTE | 2024-11-09 14:10 | P.BOP_ITS ---
Date of Procedure: 11/09/2024 Surgeon: Rg Arias DO Director Investment Banking(s): Jayme Arias PA-C Procedure(s) performed: Right total hip arthroplasty?Bulmaro robotic assisted (posterior approach) Right hip soft tissue mass excision (4 cm x 3 cm x 3 cm) Findings of the procedure(s): Patient underwent right total hip arthroplasty no issues or complications. Patient did have a soft tissue mass that was excised and sent for specimen. Patient taken to PACU stable condition. Estimated blood loss: 300 mL Specimen(s) removed: Femoral head removed and sent for specimen, right hip soft tissue mass excised and sent for specimen Post-operative diagnosis: Right hip degenerative joint disease with AVN femoral head, right hip soft tissue mass
--- NOTE | 2024-11-09 14:17 | PM.OP ---
Operative Report Date of procedure: November 09, 2024 Surgeon: gR Arias DO Quality Assurance Assessor: Jayme Arias PA-C: PA was necessary for assistance in this case with leg positioning, hip reductions, retraction and protection of neurovascular structures assistance with reaming and broaching, as well as assistance in implantation wound closure and dressing application. 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, right hip soft tissue mass Post-op diagnosis: same Procedure done: Right total hip arthroplasty?Bulmaro robotic assisted (posterior approach) Right hip soft tissue mass excision (4 cm x 3 cm x 3 cm) Implants: [place] total hip arthroplasty implants 52 mm cluster hole acetabular shell 6.5 mm x (25 & 20mm) acetabular screws Alpha code E MDM cementless metal liner [place] insignia Femoral stem size #7 132 degree high offset Alpha code E MDM +0 mm head Surgeon: Rg Arias DO Estimated blood loss: 300 mL IV fluids: 2400 mL Urine output: 200 mL Complications: None Condition: stable Disposition: floor Brief History: Patient's been seen and worked up by myself in the outpatient setting and findings consistent with Right hip AVN and DJD with right hip soft tissue mass. She has failed conservative treatment this is causing her severe pain and inability to perform daily activities . We talked about treatment options as far as nonoperative and operative intervention. Patient ultimately through shared decision-making would like to proceed with a Right total hip arthroplasty. we detailed out his risk benefits complications alternatives to surgical and nonsurgical treatment options. Understanding risk for surgery patient elects to proceed with Right total hip arthroplasty robotic assisted Bulmaro utilizing a?posterior?approach and was right hip soft tissue mass excision. All questions answered. Patient elects proceed with surgery today. Patient is held We[place] for 2 days preoperatively. Cleared the preoperative clearance process and ready to proceed with surgery today. Procedure: Patient was seen evaluate in preoperative holding area.? Consent was reviewed and signed with patient.? Correct extremity was then marked.? Patient seen evaluate by anesthesia department once cleared for surgery pt was taken back to the operative suite.? Patient underwent anesthesia per the anesthesia department.? This point time pt was then placed on the operative suite and table.? Pt was then placed in lateral decubitus patient worked with the Right hip up.? Patient was secured in the lateral decubitus position with pegboard. All bony prominences well-padded he was properly secured to the bed.? At this point time the Right lower extremity was then prepped and draped in standard orthopedic fashion with care not to drape out the iliac wing for pelvic array placement.? Final timeout performed.? Patient received appropriate preoperative antibiotics. Started off with establishment of my pelvic array pins.? A small longitudinal incision was made directly over the iliac wing.? Sharp scalpel excision through skin and subcutaneous tissue directly onto bone.? Next I then loaded my pelvic pin.? This was then drilled through the iliac wing corridor with excellent fixation.? Next I then loaded the guide which was placed directly onto bone and then subsequently placed 2 more pins to secure fixation.? Next the pelvic array was then sent had excellent visualization with the What's Trending robot and was secured. Skin soraya were placed in a box configuration as placed on the distal lateral aspect of the femur and sterile aseptic technique and use as my distal reference point. Next I proceeded with my standard?posterior?approach.? Sharp scalpel through skin and subcutaneous tissue this was centered over the greater trochanter.? At this point in time on the anterior aspect of the incision there was a palpable soft tissue mass. I was able to dissect from my baseline posterior approach incision anteriorly and this was right in the subcutaneous region patient had a firm hard calcified soft tissue mass. This was excised out of the subcutaneous tissue had no deep involvement this was entirety of 4 cm x 3 cm x 3 cm having a small pocket of the subcutaneous tissue leaving a small defect/void in the subcutaneous tissue. This was excised sent for specimen and proceeded with the procedure. I then utilized a Ayala elevator over the gluteus fritz fascia.? Next the fascia was then split longitudinally with bipolar electrocautery.? Next a Charnley retractor was then placed.? All bone was then placed into the abductors.? A standard full-thickness release of the piriformis and the short external rotators along with the capsule to grade 1 full thick sleeve for later repair was then placed straight down to the lesser trochanter.? Lesser trochanter was then subsequently identified.? Prior to dislocating the hip we then placed our greater trochanter femur checkpoint.? We marked our appropriate checkpoint for referencing on pelvic array.? At this point in time we then established both of our checkpoints as well as referencing for leg lengths I utilized the skin staple as my distal reference point. The legs were marked and traced to have appropriate position on the drapes to allow for accurate reading.? Preoperative leg lengths set. Once this was then established I then proceeded with dislocation of the femoral head.? At this point Hohmann's were then placed superiorly and inferiorly along the femoral neck..? The sciatic nerve was protected throughout this case.? At this point time I then utilized the What[employer] Trend[employer] robot and referencing point to reference different aspects along the femoral head and neck for my appropriate neck length.? These were referenced on the inferior mid substance as well as up into the superior shoulder of the femoral neck.? This marked my oscillating saw was used to make my femoral neck cut.? Femoral head was then removed. Next the leg was placed in appropriate position and my anterior and?posterior?acetabular retractors then placed.? Next I excised the labrum and then remove the pulvinar.? I did do a small release of the inferior capsule which was severely taut to allow for easier placement of my reamers as well as reduction.? Acetabulum was thoroughly irrigated. At this point in time keeping my retractors in place I subsequently loaded up the What[employer] Trending robot for my acetabular reaming.?? Next I then set my 52 reamer under the What's Trending robot and subsequently held this with appropriate preplanned preop planned version of 40 degrees of abduction angle as well as 20 degrees of anteversion.? This preoperative plan was then subsequently made to accommodate for ranges of motion of impingement?that was assessed preoperatively utilizing the [employer]rend[employer] robotic software technology. I then subsequently reamed this to the appropriate depth with 52mm reamer.? This had satisfactory circumferential bleeding bone. We opened up the acetabular shell clusterhole of the 52 mm Irene this was then loaded onto my impacting system and then I subsequently impacted this to appropriate depth.? This was then removed from the robot and I used the Bulmaro probe at the center to confirm on the CT scan?that this was down on bone which it was.? Next I then drilled and placed 2 acetabular screws with excellent fixation these were drilled and measured to be 25 & 20mm this was in the?posterior?superior aspect of the acetabulum had excellent bite and fixation.? The cup was solid and had excellent press-fit fixation. next, opened the alpha code E MDM cementless liner then subsequently placed in appropriate position and impacted into place.? I then placed a sponge into the acetabulum to protect the polyethylene while my femur preparation was performed.? At this point time I then utilized a small rongeur to clear off the shoulder of the femoral neck to clear out the soft tissue envelope for my box osteotome.? Next box osteotome was used a canal finder was placed as well as a lateral lysing rattail rasp.? Once I was appropriately lateralized I then sequentially broached up to a size 7 femoral stem.? This was impacted to appropriate depth and flushed with my femoral neck cut.? This point I loaded a standard size neck and subsequently reduced the hip.? At this point in time the hip was taken through range of motion before evaluating with the robot on leg lengths.? The hip was taken through range of motion and had excellent stability with hip flexion and internal rotation with no evidence of instability. This point time utilized the Bulmaro probe from our femur checkpoint down to her distal checkpoint. Satisfied with this trial implants, at this point I dislocated the hip and then called for my final implants with excellent stability in all planes.? Opened up a size 7 femoral [place] insignia high offset stem My trials were then removed and then subsequently impacted my [place] insignia high offset stem size 7 to the same level.? This point in time I trialed up to a +0 mm neck length which helped match with Bulmaro robotic assistance had appropriate leg lengths comparative to the contralateral hip and this was confirmed clinically as well as had excellent stability I felt as though this was best combination with leg lengths being equal as well as with stability and elected for the final +0 mm MDM femoral head. Final MDM femoral head component was then opened and the trunnion was dried and this was impacted with excellent fixation and the hip was subsequently reduced.? We measured our final leg lengths which were appropriate patient had excellent stability in all ranges of motion.? This point time a robotic pins and checkpoints were removed.? I remove the femur checkpoint as well as my pelvic array and iliac wing pins.? Appropriate counts were then made.? This point time thoroughly irrigated the wound bed with pulse lavage.? Vancomycin powder was then sprinkled into the wound bed.? I then performed a standard capsular and external rotator repair utilizing #5 Ethibond and this was tied and repaired through bone tunnels hip, sciatic nerve was protected throughout this portion of the case. Was then kept in abduction external rotation and subsequently closed the fascial layer with Ethibond suture as well as running strata fix suture.? I then closed the deep subcutaneous layer as well as superficial subcutaneous layer with running strata fix suture as well as 3-0strata fix for skin.? Prineo glue dressing was then placed over the skin.? I then irrigated the pelvic array pin site.? There is were then closed with interrupted 0, 2-0 Vicryl suture and Monocryl as well as Prineo glue for the skin.? Incisions were then covered with brad and Silverlon dressing.? Patient was awakened from anesthesia and taken to PACU in stable condition Disposition: Patient taken to PACU in stable condition.? Patient will receive appropriate discharge instructions as well as DVT prophylaxis and pain medication.? Patient will be admitted to the floor for observation should be evaluated by the internal medicine team for medical management.? Patient received appropriate DVT prophylaxis as well as pain medication PT/OT weightbearing as tolerated Right lower extremity with?posterior?hip precautions, Postoperative abx.? We will follow-up with patient in the office in 2 weeks.? Patient understands agrees with current plan.? All questions answered.
--- NOTE | 2024-11-09 14:32 | XR_ITS ---
WS: [id number] Exam: XR hip RT 2-3V wo/w pel* [id number] Date/Time of Exam: 11/09/2024 2:50 PM Reason For Exam: post op RAYSA Comparison 10/28/2024. RIGHT total hip arthroplasty is in place in satisfactory position. Postoperative changes in the adjacent soft tissues. XR/XR hip RT 2-3V wo/w pel* [id number] IMPRESSION: 1. RIGHT total hip arthroplasty in satisfactory position.
--- NOTE | 2024-11-09 14:53 | PM.PACU ---
PACU note Narrative: Patient is a 64-year-old female who just underwent a right hip total arthroplasty. Pt transferred to PACU in stable condition. Dressing is dry. pt is awake and alert. pt can wiggle toes and plantarflex and dorsiflex foot. Distal pulses are palpable toes are warm and well-perfused. Cap refill is normal and under 2 seconds. Sensation to foot is intact. Pain is controlled. Exam: awake Disposition: admitted
[2024-11-09] MEDS: albumin 12.5 GM/250 ML VIAL IV ×3 (15:34→18:02)
[2024-11-09] MEDS: HYDROmorphone 1 mg/mL INJ 1ml 0.25 MG IVP (16:05)
[2024-11-09 16:12] LABS: Basophils % 0.2 %; Eosinophils % 0.1 %; Hematocrit 33.1 % (36-47); Lymphocytes % 11.5 %; Mean Corpuscular HGB Conc 31.4 g/dL (30-55); Mean Corpuscular Hemoglobin 31.4 pg (27-33); Mean Platelet Volume 10.6 fL (7.4-10.4); Monocytes # 0.4 10^3/uL (0.2-0.9); Monocytes % 2.4 %; Neutrophils # 14.85 10^3/uL (1.8-7.7); Neutrophils % 85.2 %; Nucleated Red Blood Cells % 0 %; Platelet Count 332 10^3/cmm (157-399); Red Blood Count 3.31 10^6/uL (3.85-5.65); Red Cell Distribution Width 14.1 % (12.1-15.1); White Blood Count 17.45 10^3/uL (3.29-11.43)
--- NOTE | 2024-11-09 16:13 | P.CONIM_ITS ---
Providers/Reason For Consult 2 Consulting Physician/Specialty*: Hospitalist Reason for Consult*: Postoperative shock Requesting Physician: Dr. Arias Attending Physician: Rg Arias DO Primary Care Provider: Maxim Warner DO History of Present Illness History of Present Illness Kimberli Jurado is a 64 year old female with past medical history of right arm DVT, bilateral PE on Eliquis, atrial fibrillation, adenocarcinoma of appendix, hypertension, hyperlipidemia underwent right total hip arthroplasty. Last Eliquis was 2 days ago. Patient had an estimated blood loss of around 300 cc. Postoperatively patient remained hypotensive requiring up to 3 L of fluid bolus. Patient was given 1 dose of phenylephrine. When seen in the PACU patient was in Trendelenburg position with blood pressure of 90 systolic getting her third liter of IV fluid bolus. Patient is awake but confused postoperatively. Appreciate CBC preoperatively with hemoglobin of 14. Review of Systems 2 General: Reports: ROS unobtainable due to mental status Medications/Allergies Home Medications ?Medication ?Instructions ?Recorded ?Confirmed ?Last Taken ?Type hospital bed and mattress #1 ea 06/18/22 07/31/24 Unk nown Rx escitalopram oxalate 10 mg tablet 10 mg PO DAILY #90 t abs 08/15/22 11/09/24 11/08/24 Rx (Lexapro) pantoprazole 40 mg tablet,delayed 40 mg PO DAILY #90 t abs 08/15/22 11/09/24 11/08/24 Rx release alprazolam 0.25 mg tablet 0.25 mg PO DAILY PRN Anxiety #15 09/18/22 11/09/24 11/08/24 Rx tabs lisinopril 10 mg tablet 10 mg PO BID 90 days #180 ta bs 09/18/22 11/09/24 11/08/24 Rx apixaban 5 mg tablet (Eliquis) 5 mg PO BID 06/01/2311/06/24 History epinephrine 0.3 mg/0.3 mL 0.3 mg (0.3 mL) IM Q10M PRN 06/02/23 11/09/24 Unknown Rx injection, auto-injector (EpiPen anaphylaxis #2 ea 2-Joselito) hydrocodone 5 mg-acetaminophen 325 1 tab PO Q6H PRN pa in #14 tabs 05/26/24 11/09/24 11/08/24 Rx mg tablet tramadol 50 mg tablet 50 mg PO Q6H PRN pain 5 days #20 09/07/24 11/09/24 11/04/24 Rx tabs cetirizine 10 mg tablet (Zyrtec) 10 mg PO DAILY PRN Al lergy Symptoms 10/30/24 11/09/24 11/08/24 History Allergies Allergy/AdvReac Type Severity Reaction Status Date / Time Alpha-Gal Allergy ALGY-Anaphy Verified 11/09/24 10:08 (Ezbbzufhr-Ftygl-3,3-Gala laxis Current Medications Generic Name Dose Route Start Last Admin Trade Name Freq PRN Reason Stop Dose Admin Sodium Chloride 1,000 mls @ 30 mls/hr 11/09/24 06:30 11/09/24 12:15 Sodium Chloride 0.9% IV 11/10/24 06:29 Infused .Q24H SCOT Infusion Albumin Human 12.5 gm in 250 mls @ 300 mls/hr 11/09/24 15:33 11/09/24 15:34 Albumin IV 11/09/24 16:22 300 mls/hr ONCE ONE Administration PFSH Acute 2 PFSH: Medical History JULIUS positive Closed compression fracture of thoracic vertebra Pulmonary HTN Hyponatremia Pulmonary embolism 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 Acute appendicitis Bilateral carpal tunnel syndrome GERD (gastroesophageal reflux disease) Panic attack Benign essential HTN Eczema Surgical History S/P spinal fusion History of appendectomy History of dilatation and curettage x 1 History of 2 sections History of surgery on left wrist Comminuted fracture --repaired with bone graft from left hip History of hernia repair R spigelian Family History Other CAD (coronary artery disease) Family history of premature coronary artery disease Social History Smoking and tobacco/nicotine status: never used tobacco/nicotine Alcohol intake: never Substance/Drug Use: never 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 status: 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 Vitals/I&O/Wt Last Vital Signs Temp 97.3 F L 11/09/24 14:44 Pulse 91 11/09/24 15:29 Resp 17 05/12/25 15:29 BP 81/67 11/09/24 15:29 Pulse Ox 96 11/09/24 15:29 O2 Del Method Nasal Cannula 11/09/24 15:29 O2 Flow Rate 3 11/09/24 15:29 11/09/24 11/09/24 11/09/24 06:59 14:59 22:59 Intake Total 2550 / 2550 Output Total 500 / 500 Balance 2049 / 2049 Weight last 48 hrs Weight 88.451 kg Physical Exam 2 Narrative: General: In distress because of pain, awake, alert to self HEENT: PERRLA, pupils bilaterally equal and reactive Chest: Normal vesicular breath sounds, no added sounds, equal good air entry bilaterally CVS: S1-S2 regular, no murmurs, no tachycardia, no gallops, no rubs Abdomen: Soft, nontender, no organomegaly, bowel sounds present Neuro: No focal deficits, no facial deformity, AO x3, power 5/5 in all limbs Urinary Catheter Management: Cantrell: Cath Placed During This Visit: yes Urinary Catheter Date of Insertion: 11/09/24 Urinary Catheter Time of Insertion: 11:20 Data 11/09/24 15:58 11/09/24 15:58 A&P Assessment and plan (1) Postoperative hemorrhagic shock: Preoperative hemoglobin of 14. 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 Last Eliquis 2 days ago. 300 cc of EBL. Stat CBC. Subsequently hemoglobin and hematocrit every 6 hour. Target hemoglobin over 8 or hemodynamic stability. Goal mean arterial pressure over 65. 1 L of IV fluid bolus. Strict input and output charting, daily weights. Check echocardiogram. If needed will start Levophed. Check blood culture. Check MRSA swab, urinalysis, chest x-ray procalcitonin. Empirically start on IV vancomycin. Continue with cefazolin as per primary team for now. Infectious cause less likely for now. (2) S/P total right hip arthroplasty: Physical therapy, anticoagulation, perioperative antibiotic as per primary team. (3) Hx pulmonary embolism: Anticoagulation on hold given concerns for hemorrhagic shock. (4) Chronic anticoagulation: (5) Benign essential HTN: Plan Continue other chronic medication including Xanax as needed, Lexapro. Protonix for PUD prophylaxis Diet advance as per primary team once patient is more awake and alert. SCD for DVT prophylaxis Transfer to ICU. PDMP PDMP Reviewed: Not Reviewed Consult Attestations 2 Medical Necessity Statement: Requires further hospitalization for management of posthemorrhagic shock, post- ORIF Critical Care Time: The high probability of a clinically significant, sudden or life threatening deterioration of the patient's [cardiac, hematological] system(s) required my full and direct attention, intervention and personal management. The critical care time is as shown. This time is in addition to time spent performing any reported procedures but includes the following: [x] Data and vital sign review and interpretation [x] Patient assessment, examination and intervention [x] Documentation [x] Medication orders and management Critical Care Time (min): 65 Coding Level of Care Code Critical Care >/= 30 minutes Critical care time (in minutes): 65 The high probability of a clinically significant, sudden or life threatening deterioration, as referenced in this documentation, required my full and direct attention, intervention and personal management. The critical care time shown is in addition to time spent performing any reported separately billable procedures and includes the following: [x] Data and vital sign review and interpretation [x ] Patient assessment, examination and intervention [x] Medication orders and management [x] Patient/Family updates as able [x] Care Coordination and Documentation. Diagnoses Postoperative hemorrhagic shock T81.19XA S/P total right hip arthroplasty Z96.641 Hx pulmonary embolism Z86.711 Chronic anticoagulation Z79.01 Benign essential HTN I10
[2024-11-09 16:31] LABS: Alanine Aminotransferase 17 U/L (0-33); Albumin Level 3.9 g/dL (3.5-5.2); Alkaline Phosphatase 77 U/L (35-105); Aspartate Amino Transferase 25 U/L (0-32); Blood Urea Nitrogen 9 mg/dL (8-23); Calcium 9.6 mg/dL (8.5-10.5); Carbon Dioxide 21 mmol/L (22-29); Chloride 106 mmol/L (98-107); Creatinine Clr Calc Pharmacy 80.0642; Globulin 1.9 g/dL (1.3-4.6); Glomerular Filtration Rate 100.3 mL/min (90-130); Glucose 135 mg/dL (65-115); Osmolality Calculated 293 mOsm/kg (285-295); Sodium 141 mmol/L (136-145); Total Bilirubin 0.3 mg/dL (0.15-1.2); Total Protein 5.8 g/dL (6.6-8.7)
[2024-11-09 16:42] LABS: Anion Gap 18.2 (5-19); Potassium 4.2 mmol/L (3.5-5.1)
--- NOTE | 2024-11-09 16:42 | ANE.PACU2 ---
Inpatient post-anesthesia follow up: Airway intact: Yes Vital signs: Temperature 97.3 F Pulse Rate 85 Respiratory Rate 17 Blood Pressure 88/51 Pulse Oximetry 96 Oxygen Delivery Me thod Nasal Cannula Oxygen Flow Rate 3 Fraction of Inspir ed Oxygen Hydration adequate: Yes Nausea and vomiting: No Pain level: actively treated Mental status: Baseline (responds appropriately but periods of restlessness especially with breakthrough pain) Additional Comments: Hypotensive post op; responded well to albumin/fluids and single dose of phenylephrine. Additional IV started with ultrasound guidance and blood collected; Labs appear to be in the acceptable range thus far. Will transfer to ICU for further monitoring and treatment.
[2024-11-09 16:45] LABS: Estmated Average Glucose 91; Hemoglobin A1C 4.8 % (4.0-6.0)
[2024-11-09 16:52] LABS: Glucose Point of Care 149 mg/dL (70-110)
[2024-11-09 17:02] LABS: Iron 71 ug/dL (37-145); Percent Saturation 21.9 % (20-50); Total Iron Binding Capacity 323 mcg/dl; Unsaturated Iron Binding 252 ug/dL (112-347)
[2024-11-09 17:08] LABS: Thyroid Stimulating Hormone 2.21 uIU/mL (0.27-4.20)
--- NOTE | 2024-11-09 17:08 | USCV_ITS ---
Kimberli Jurado Age: 64 Gender: F : 1960 Exam Date: 11/09/2024 19:42 Ordering Phys: Pawel Arredondo MD Technologist: AMARILYS Exam Location: [facility] [place] Indication: shock, s/p RIGHT hip ORIF BP: 102 / 70 HR: 77 Rhythm: Sinus Technical Quality: Adequate MEASUREMENTS (Male / Female) Normal Values 2D ECHO LV Diastolic Diameter PLAX 4.5 cm 4.2 - 5.9 / 3.9 - 5.3 cm IVS Diastolic Thickness 1.4 cm 0.6 - 1.0 / 0.6 - 0.9 cm IVS Systolic Thickness 1.3 cm LVPW Diastolic Thickness 1.5 cm 0.6 - 1.0 / 0.6 - 0.9 cm LVPW Systolic Thickness 1.7 cm LVOT Diameter 2.0 cm LV Ejection Fraction 2D Teich 59.4 % LV Ejection Fraction MOD 4C 50.7 % LV Ejection Fraction MOD 2C 59.9 % LV Ejection Fraction 2C AL 62.6 % LA Diameter 3.6 cm Aorta at Sinotubular Diameter 2.9 cm IVC Diameter 1.3 cm M-MODE LA Ao Ratio MM 1.4 AV Cusp Separation MM 1.8 cm DOPPLER AV Peak Velocity 117.0 cm/s LVOT Peak Velocity 71.0 cm/s AV Area Cont Eq vti 2.8 cm squared AV Area Cont Eq pk 2.0 cm squared MV Peak Velocity 112.0 cm/s MV Area PHT 2.2 cm squared Mitral E to A Ratio 0.8 TV Peak Velocity 274.0 cm/s TR Peak Velocity 290.0 cm/s TR Peak Gradient 33.6 mmHg TV Peak E Velocity 60.0 cm/s PV Peak Velocity 120.0 cm/s FINDINGS Left Ventricle Normal left ventricular size, systolic function and wall thickness, with no regional wall motion abnormalities. Left ventricular ejection fraction is estimated at 60 %. Grade I/IV diastolic dysfunction (abnormal relaxation filling pattern), normal to mildly elevated filling pressures. Right Ventricle The right ventricle is normal in size and function. Right Atrium The right atrium is normal in size. Left Atrium The left atrium is normal in size. Mitral Valve Mildly thickened mitral valve. No mitral valve stenosis. Trace mitral valve regurgitation. Aortic Valve Mild aortic valve calcification. No aortic valve stenosis. Trace aortic valve regurgitation. Tricuspid Valve Structurally normal tricuspid valve without significant stenosis or regurgitation. Pulmonary artery systolic pressure is normal. Pulmonic Valve Structurally normal pulmonic valve without significant stenosis. There is no pulmonic regurgitation. Pericardium Normal pericardium without effusion. Aorta Normal ascending aorta dimension. IVC The inferior vena cava appears normal. CONCLUSIONS Normal left ventricular size, systolic function and wall thickness, with no regional wall motion abnormalities. Left ventricular ejection fraction is estimated at 60 %. Grade I/IV diastolic dysfunction (abnormal relaxation filling pattern), normal to mildly elevated filling pressures. There is no pericardial effusion. No significant valve abnormalities. Right atrial pressure is around 5 mm of mercury. Stacia Pal MD (Electronically Signed) Final Date: 10 Nov 2024 18:38 S
--- NOTE | 2024-11-09 17:40 | XRR_ITS ---
PROCEDURE INFORMATION: Exam: XR Chest Exam date and time: 11/09/2024 7:26 PM Age: 64 years old Clinical indication: Shortness of breath and other: Hypoxia; Prior surgery; Surgery date: 6+ months; Surgery type: Spinal fusion; Additional info: Shortness of breath, hypoxia TECHNIQUE: Imaging protocol: Radiologic exam of the chest. Views: 1 view. COMPARISON: CR XR chest 1V portable [id number] 06/01/2023 11:41 AM FINDINGS: Lungs: Lungs are hyperinflated. Clear parenchyma. Pleural spaces: No pleural effusion. No pneumothorax. Heart/Mediastinum: Cardiac silhouette is normal in size for technique. Bones/joints: Subjective bony demineralization. Thoracic spinal fusion hardware is unchanged from prior. XR/XR chest 1V portable [id number] IMPRESSION: Hyperinflated but clear lungs. No other acute cardiopulmonary abnormality.
--- NOTE | 2024-11-09 17:46 | PHA.VACGOAL ---
Vancomycin Goal - Goal Vancomycin Goal:: 15-20 mg/L Vancomycin Indication:: Other (EMPIRIC THERAPY) - Therapy Current therapy:: Cefazolin Day of therpy:: Day []of [] . Actual body weight (kg): 195 lb - Data Labs: WBC 17.45 10^3/uL (3.29-11.43) H 11/09/24 15:58 RBC 3.31 10^6/uL (3.85-5.65) L 11/09/24 15:58 Hgb 10.40 g/dL (11.27-16.99) L 11/09/24 15:58 Hct 33.1 % (36-47) L 11/09/24 15:58 MCV 100.0 fl (85-98) H D 11/09/24 15:58 MCH 31.4 pg (27-33) 11/09/24 15:58 MCHC 31.4 g/dL (30-55) D 11/09/24 15:58 RDW 14.1 % (12.1-15.1) 11/09/24 15:58 Sodium 141 mmol/L (136-145) 11/09/24 15:58 Potassium 4.2 mmol/L (3.5-5.1) 11/09/24 15:58 Chloride 106 mmol/L (98-107) 11/09/24 15:58 Carbon Dioxide 21 mmol/L (22-29) L 11/09/24 15:58 Anion Gap 18.2 (5-19) 11/09/24 15:58 BUN 9 mg/dL (8-23) 11/09/24 15:58 Creatinine 0.6 mg/dL (0.5-0.9) 11/09/24 15:58 GFR Calculation 100.3 mL/min (90-130) 11/09/24 15:58 Last dialysis session:: N/A Treatment plan:: new consult Regimen:: STARTING MAINTENANCE DOSE OF 1500 MG Q12H PER DOSING PROTOCOL. Follow up:: WILL CONTINUE TO MONITOR AND FOLLOW UP DAILY
--- NOTE | 2024-11-09 17:59 | SUR.PHASEI ---
1450 Bilat scds on and working per pump.
[2024-11-09] MEDS: mupirocin oint 22 gm 1 APPLIC NASAL (18:03)
[2024-11-09] MEDS: lactated ringers 1,000 ML 100 ML IV (18:05)
[2024-11-09] MEDS: sodium chloride 0.9% 1,000 ML 999 ML IV (18:30)
--- NOTE | 2024-11-09 18:30 | PC.NURSE ---
MRSA swab and UA sent to lab with tech
[2024-11-09 18:53] LABS: Bilirubin Urine Negative (Negative); Blood Urine Negative (Negative); Glucose Urine UA Negative (Normal); Ketones Urine Negative (Negative); Leukocyte Esterase Urine Negative (Negative); Nitrate Urine Negative (Negative); Protein Urine Trace (Negative); Specific Gravity, Urine 1.021 (1.005-1.030); Urine Appearance Clear (CLEAR); Urine Color Yellow (Yellow); Urobilinogen Urine 0.2 mg/dL (Negative)
[2024-11-09 18:58] LABS: Add Urine Microscopic? YES; Bacteria Urine None Seen /hpf; Hyaline Casts Urine 11.57 /lpf; RBC Urine 0-2 /hpf (0-2); Squamous Epithelial Cell Urine 0-5 /hpf (0-5)
[2024-11-09 19:12] LABS: UA Slide Review UA Slide Review Perf
[2024-11-09] MEDS: HYDROmorphone 0.5 MG/0.5 ML INJ IVP (19:40)
[2024-11-09 19:56] LABS: MRSA PCR OZH (swab) NOT DETECTED (Not Detecte)
[2024-11-09 22:06] LABS: Hematocrit 28.1 % (36-47)
[2024-11-09] MEDS: vancomycin 1,500 MG/300 ML PIGGYBACK 200 MG IV (22:25)
--- NOTE | 2024-11-09 22:35 | PC.NURSE ---
Nurse attempted to administer IV toradol. Patient complained of pain while flushing and requested PO meds.
[2024-11-09 22:41] LABS: Vitamin B12 233 pg/mL (232-1245)
[2024-11-09] MEDS: HYDROcodone-acetaminophen 5-325 mg Tablet 1 TAB PO (22:42)
[2024-11-10] VITALS (153 sets, daily range): BP systolic 81–157; BP diastolic 44–99; PULSE 70–105; RESP 10–32; TEMP 36.6–37.3; O2SAT 84–100
[2024-11-10] MEDS: HYDROmorphone 0.5 MG/0.5 ML INJ IVP (00:34)
[2024-11-10] MEDS: acetaminophen 1,000 MG/100 ML PIGGYBACK 400 MG IV ×2 (02:23→10:17)
[2024-11-10] MEDS: ceFAZolin 2,000 MG in sodium chloride 0.9% (plus) 50 ML 100 MG IV ×2 (03:03→12:44)
[2024-11-10 04:34] LABS: Basophils % 0.1 %; Lymphocytes % 8.7 %; Nucleated Red Blood Cells % 0 %
[2024-11-10 04:36] LABS: Hematocrit 26.3 % (36-47); Lymphocytes # 0.6 10^3/uL (0.8-4.8); Mean Corpuscular HGB Conc 30.8 g/dL (30-55); Mean Corpuscular Hemoglobin 31.2 pg (27-33); Mean Corpuscular Volume 101.2 fl (85-98); Mean Platelet Volume 10.6 fL (7.4-10.4); Monocytes # 0.4 10^3/uL (0.2-0.9); Monocytes % 5.8 %; Neutrophils # 6.16 10^3/uL (1.8-7.7); Platelet Count 210 10^3/cmm (157-399); Red Cell Distribution Width 14.2 % (12.1-15.1); White Blood Count 7.25 10^3/uL (3.29-11.43)
[2024-11-10 04:48] LABS: Anion Gap 14.7 (5-19); Blood Urea Nitrogen 8 mg/dL (8-23); Calcium 9.6 mg/dL (8.5-10.5); Carbon Dioxide 24 mmol/L (22-29); Chloride 104 mmol/L (98-107); Creatinine Clr Calc Pharmacy 80.0642; Glomerular Filtration Rate 100.3 mL/min (90-130); Glucose 135 mg/dL (65-115); Osmolality Calculated 286 mOsm/kg (285-295); Potassium 4.7 mmol/L (3.5-5.1); Sodium 138 mmol/L (136-145)
[2024-11-10 04:55] LABS: Chol HDL Ratio 3.85 mg/dL (0.0-4.40); Cholesterol 185 mg/dL (0-200); HDL Cholesterol 48 mg/dL (60-100); LDL Cholesterol Calculated 111 mg/dL (50-129); Magnesium 1.4 mg/dL (1.7-2.3); Triglycerides 131 mg/dL (0-150); VLDL Cholestrol Calculation 26 mg/dL (0-30)
[2024-11-10 05:11] LABS: Folate Level 16.7 ng/mL (4.8-37.3)
[2024-11-10] MEDS: HYDROcodone-acetaminophen 5-325 mg Tablet 1 TAB PO ×3 (07:38→22:02)
[2024-11-10] MEDS: ketorolac 30 mg/mL INJ 15 MG IVP (07:38)
[2024-11-10] MEDS: calcium carb-vit d 600mg/400unit 1 Tablet 1 EACH PO ×2 (08:12→18:00)
[2024-11-10] MEDS: multivitamin therapeutic Tablet 1 TAB PO (08:12)
[2024-11-10] MEDS: chlorhexidine gluconate 0.12% Btl 473 mL 30 ML MUCOUS MEM ×3 (08:12→18:00)
[2024-11-10] MEDS: mupirocin oint 22 gm 1 APPLIC NASAL ×2 (08:12→18:00)
[2024-11-10] MEDS: escitalopram 10 mg Tablet PO (08:12)
[2024-11-10] MEDS: sennosides-docusate Tablet 2 TAB PO ×2 (08:12→18:00)
[2024-11-10] MEDS: pantoprazole DR 40 mg Tablet PO (08:12)
[2024-11-10] MEDS: lactated ringers 1,000 ML 100 ML IV (09:10)
[2024-11-10] MEDS: vancomycin 1,500 MG/300 ML PIGGYBACK 200 MG IV (11:03)
--- NOTE | 2024-11-10 12:33 | P.PN_ITS ---
Subjective 2 Subjective: Patient seen and examined postoperative day 1 of right total hip arthroplasty she is currently in ICU. Hemoglobin down to 8.1 today she is symptomatic with orthostatics. Receiving 1 unit of PRBC today appreciate internal medicine's assistance with management and care. Dressings are on in place clean dry and intact Vitals/I&O/Wt Last Vital Signs Temp 98.2 F 11/10/24 12:14 Pulse 90 11/10/24 12:14 Resp 20 H 11/10/24 12:14 BP 100/62 11/10/24 12:14 Pulse Ox 92 11/10/24 10:59 O2 Del Method Room Air 11/10/24 09:11 O2 Flow Rate 2 11/10/24 07:00 11/09/24 11/10/24 11/10/24 22:59 06:59 14:59 Intake Total 3873.334 / 6423.334 773.333 / 7196.667 823.333 / 823.333 Output Total 200 / 700 1600 / 2300 Balance 3673.334 / 5723.334 -826.667 / 4896.667 823.333 / 823.333 Weight last 48 hrs Weight 195 lb Physical Exam 2 Narrative: Right hip examination: right hip Dressing on in place, clean dry and intact. No evidence of saturation. Patient has normal postoperative swelling and tenderness to palpation to the hip. Compartments are soft compressible,'s calf soft and nontender. Sensations intact to light touch distally. Distal pulses are palpable. Patient is able to wiggle toes as well as plantarflex and dorsiflex ankle. Urinary Catheter Management: Cantrell: Cath Placed During This Visit: yes Reason for Continuing Indwelling Catheter: Accurate Measurement of Urinary Output in Critically Ill Patients Urinary Catheter Date of Insertion: 11/09/24 Urinary Catheter Time of Insertion: 11:20 Data 11/12/24 05:40 11/12/24 05:40 Other Labs: 11/11/2019 5 AM labs: WBC 7.25 Hemoglobin 8.10 Creatinine 0.6 Micro: Microbiology 11/09/24 18:20 Bacterial Antigens - Final Urine Kidney 11/09/24 18:25 Blood Culture - Preliminary Blood SPECIMEN COLLECTED 11/09/24 18:23 Blood Culture - Preliminary Blood SPECIMEN COLLECTED Xray Ortho: Radiologist's impression: Ordering Provider/Ordering MD: Rg Arias Date of Service: 11/09/24 Procedure(s): XR hip RT 2-3V wo/w pel* [id number] Accession Number(s): [id number] Report Number: [id number] WS: [id number] Exam: XR hip RT 2-3V wo/w pel* [id number] Date/Time of Exam: 11/09/2024 2:50 PM Reason For Exam: post op RAYSA Comparison 10/28/2024. RIGHT total hip arthroplasty is in place in satisfactory position. Postoperative changes in the adjacent soft tissues. XR/XR hip RT 2-3V wo/w pel* [id number] IMPRESSION: 1. RIGHT total hip arthroplasty in satisfactory position. A&P Assessment and plan (1) S/P total right hip arthroplasty: (2) Postoperative hemorrhagic shock: Appreciate internal medicine's management and care please refer to their daily progress note for detail management and care (3) Chronic anticoagulation: Plan Postop day 1 right total hip arthroplasty Weightbearing as tolerated right lower extremity Change dressing as needed Ice as needed for pain and swelling Pain control DVT prophylaxis?SCDs anticoagulation on hold due to patient's drop in hemoglobin AM labs reviewed?8.1 hemoglobin patient currently symptomatic with orthostatics will receive 1 unit PRBC per internal medicine team Internal medicine on board for medical management appreciate their assistance in care Posterior hip precautions PT/OT Orthopedics will continue to follow?patient will require continued hospitalization as patient had acute drop in hemoglobin postoperatively receiving unit PRBC today stay in the ICU we will follow-up on patient tomorrow with recheck on a.m. labs PDMP PDMP Reviewed: Last Reviewed 11/12/24 11:40 EDT by Rg Arias DO Attestations 2 Medical Necessity Statement*: Requires further hospitalization status post right total hip arthroplasty, ongoing care for management of postoperative hemorrhagic shock, orthostatic hypotension while patient requires blood transfusion Coding Level of Care Code Acute Code for Chg Fwd Diagnoses S/P total right hip arthroplasty Z96.641 Postoperative hemorrhagic shock T81.19XA Chronic anticoagulation Z79.01 Time Spent (min) 20
--- NOTE | 2024-11-10 14:53 | P.PN_ITS ---
Subjective 2 Subjective: No acute events overnight. Seen with family at bedside. Patient had a restful night. Today morning walked with physical therapy though did have dizziness. Blood pressure stable while laying down though on sitting up dropping down to 88 systolics. Patient symptomatic with dizziness. Vitals/I&O/Wt Last Vital Signs Temp 98.3 F 11/10/24 13:18 Pulse 85 11/10/24 14:00 Resp 19 H 11/10/24 14:00 BP 99/72 11/10/24 14:00 Pulse Ox 92 11/10/24 14:00 O2 Del Method Room Air 11/10/24 14:00 O2 Flow Rate 2 11/10/24 12:00 11/09/24 11/10/24 11/10/24 22:59 06:59 14:59 Intake Total 3873.334 / 6423.334 773.333 / 7196.667 1623.333 / 1623.333 Output Total 200 / 700 1600 / 2300 1400 / 1400 Balance 3673.334 / 5723.334 -826.667 / 4896.667 223.333 / 223.333 Weight last 48 hrs Weight 88.451 kg Physical Exam 2 Narrative: General: In distress because of pain, awake, alert to self HEENT: PERRLA, pupils bilaterally equal and reactive Chest: Normal vesicular breath sounds, no added sounds, equal good air entry bilaterally CVS: S1-S2 regular, no murmurs, no tachycardia, no gallops, no rubs Abdomen: Soft, nontender, no organomegaly, bowel sounds present Neuro: No focal deficits, no facial deformity, AO x3, power 5/5 in all limbs Urinary Catheter Management: Cantrell: Cath Placed During This Visit: yes Reason for Continuing Indwelling Catheter: Accurate Measurement of Urinary Output in Critically Ill Patients Urinary Catheter Date of Insertion: 11/09/24 Urinary Catheter Time of Insertion: 11:20 Data 11/10/24 03:49 11/10/24 03:49 Micro: Microbiology 11/09/24 18:20 Bacterial Antigens - Final Urine Kidney 11/09/24 18:25 Blood Culture - Preliminary Blood SPECIMEN COLLECTED 11/09/24 18:23 Blood Culture - Preliminary Blood SPECIMEN COLLECTED A&P Assessment and plan (1) Postoperative hemorrhagic shock: Preoperative hemoglobin of 14. 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 Last Eliquis 2 days ago. 300 cc of EBL. Hemoglobin postoperatively down to 8.1 today. Patient symptomatic with orthostatic hypotension. Transfuse 1 unit of PRBC. Echocardiogram taken but pending. Monitor orthostatic blood pressures every shift. Maintain mean artery pressure over 65. Recheck hemoglobin 3 hours after transfusion. Follow-up blood cultures. MRSA swab negative. UA negative for concern for UTI. Remove Cantrell catheter. Infection less likely though patient continues to have hypotension. For now continue with empiric IV antibiotics. Discontinue vancomycin. Cefazolin perioperatively has been discontinued. Start on IV ceftriaxone 1 g daily for now. Monitor urine output. (2) S/P total right hip arthroplasty: Physical therapy, anticoagulation, perioperative antibiotic as per primary team. Given soft blood pressures will change pain medications from Dilaudid 0.2 to every 4 hours as needed. [place] 5 mg every 6 hours as needed. Can add tramadol as needed. (3) Hx pulmonary embolism: Anticoagulation on hold given concerns for hemorrhagic shock. (4) Chronic anticoagulation: (5) Benign essential HTN: Plan Continue other chronic medication including Xanax as needed, Lexapro. Protonix for PUD prophylaxis Diet advance as per primary team once patient is more awake and alert. SCD for DVT prophylaxis Care discussed in detail with RN at bedside, primary team. Thank you for involving us in care of Mrs. Jurado. Please call back with any questions. Continue care at ICU. PDMP PDMP Reviewed: Not Reviewed Attestations 2 Medical Necessity Statement*: Requires further hospitalization for management of postoperative hemorrhagic shock, orthostatic hypotension while patient requires blood transfusion Diagnoses Postoperative hemorrhagic shock T81.19XA S/P total right hip arthroplasty Z96.641 Hx pulmonary embolism Z86.711 Chronic anticoagulation Z79.01 Benign essential HTN I10
[2024-11-10 15:49] LABS: Hematocrit 29.8 % (36-47)
[2024-11-10] MEDS: cefTRIAXone 1,000 mg SDV 1000 MG IVP (15:57)
[2024-11-10] MEDS: HYDROmorphone 0.5 MG/0.5 ML INJ 0.2 MG IVP (20:45)
[2024-11-11] VITALS (63 sets, daily range): BP systolic 98–135; BP diastolic 59–82; PULSE 85–110; RESP 14–27; TEMP 36.6–38.1; O2SAT 86–100; BMI 30.4
[2024-11-11] MEDS: HYDROmorphone 0.5 MG/0.5 ML INJ 0.2 MG IVP (03:08)
[2024-11-11 03:34] LABS: Basophils % 0.3 %; Eosinophils % 0.7 %; Hematocrit 26.9 % (36-47); Lymphocytes # 1.1 10^3/uL (0.8-4.8); Lymphocytes % 18.5 %; Mean Corpuscular HGB Conc 31.2 g/dL (30-55); Mean Corpuscular Hemoglobin 30.5 pg (27-33); Mean Corpuscular Volume 97.8 fl (85-98); Mean Platelet Volume 10.7 fL (7.4-10.4); Monocytes # 0.6 10^3/uL (0.2-0.9); Monocytes % 10.6 %; Neutrophils # 4.21 10^3/uL (1.8-7.7); Neutrophils % 69.6 %; Nucleated Red Blood Cells % 0 %; Platelet Count 168 10^3/cmm (157-399); Red Blood Count 2.75 10^6/uL (3.85-5.65); Red Cell Distribution Width 15.8 % (12.1-15.1); White Blood Count 6.05 10^3/uL (3.29-11.43)
[2024-11-11 04:00] LABS: Anion Gap 14.4 (5-19); Blood Urea Nitrogen 6 mg/dL (8-23); Calcium 10.3 mg/dL (8.5-10.5); Carbon Dioxide 24 mmol/L (22-29); Chloride 103 mmol/L (98-107); Creatinine Clr Calc Pharmacy 80.0642; Glomerular Filtration Rate 160.2 mL/min (90-130); Glucose 101 mg/dL (65-115); Osmolality Calculated 282 mOsm/kg (285-295); Potassium 4.4 mmol/L (3.5-5.1); Sodium 137 mmol/L (136-145)
[2024-11-11 04:07] LABS: Magnesium 1.4 mg/dL (1.7-2.3)
--- NOTE | 2024-11-11 06:16 | PC.NURSE ---
Provider notified of patients lab results for mag, RBC, HGB, and HCT. Provider entered orders for 4g Mag Sulfate. See MAR
[2024-11-11] MEDS: magnesium sulfate premix 4 GM/100 ML PREMIX IV (06:18)
[2024-11-11] MEDS: ketorolac 30 mg/mL INJ 15 MG IVP ×2 (07:33→16:21)
[2024-11-11] MEDS: HYDROcodone-acetaminophen 5-325 mg Tablet 1 TAB PO ×3 (07:34→21:33)
[2024-11-11] MEDS: multivitamin therapeutic Tablet 1 TAB PO (08:40)
[2024-11-11] MEDS: escitalopram 10 mg Tablet PO (08:40)
[2024-11-11] MEDS: pantoprazole DR 40 mg Tablet PO (08:41)
[2024-11-11] MEDS: sennosides-docusate Tablet 2 TAB PO ×2 (08:41→16:50)
[2024-11-11] MEDS: calcium carb-vit d 600mg/400unit 1 Tablet 1 EACH PO ×2 (08:41→16:50)
[2024-11-11] MEDS: mupirocin oint 22 gm 1 APPLIC NASAL ×2 (08:42→16:51)
[2024-11-11] MEDS: chlorhexidine gluconate 0.12% Btl 473 mL 30 ML MUCOUS MEM ×3 (08:42→21:33)
--- NOTE | 2024-11-11 11:37 | P.PN_ITS ---
Subjective 2 Subjective: No acute events overnight. Patient's blood pressure is more stable. Able to work with physical therapy. Vitals/I&O/Wt Last Vital Signs Temp 98.0 F 11/11/24 08:00 Pulse 92 11/11/24 09:00 Resp 15 11/11/24 09:00 BP 105/70 11/11/24 09:00 Pulse Ox 91 11/11/24 09:00 O2 Del Method Room Air 11/11/24 08:00 O2 Flow Rate 2 11/10/24 12:00 11/10/24 11/11/24 11/11/24 22:59 06:59 14:59 Intake Total 865.833 / 2489.166 480 / 2969.166 850 / 850 Output Total 850 / 2250 400 / 2650 Balance 15.833 / 239.166 80 / 319.166 850 / 850 Weight last 48 hrs Weight 88 kg Physical Exam 2 Narrative: General: In distress because of pain, awake, alert to self HEENT: PERRLA, pupils bilaterally equal and reactive Chest: Normal vesicular breath sounds, no added sounds, equal good air entry bilaterally CVS: S1-S2 regular, no murmurs, no tachycardia, no gallops, no rubs Abdomen: Soft, nontender, no organomegaly, bowel sounds present Neuro: No focal deficits, no facial deformity, AO x3, power 5/5 in all limbs Urinary Catheter Management: Cantrell: Cath Placed During This Visit: yes Reason for Continuing Indwelling Catheter: Accurate Measurement of Urinary Output in Critically Ill Patients Urinary Catheter Date of Insertion: 11/09/24 Urinary Catheter Time of Insertion: 11:20 Data 11/11/24 03:15 11/11/24 03:15 Micro: Microbiology 11/09/24 18:25 Blood Culture - Preliminary Blood NEGATIVE TO DATE 11/09/24 18:23 Blood Culture - Preliminary Blood NEGATIVE TO DATE 11/09/24 18:20 Bacterial Antigens - Final Urine Kidney A&P Assessment and plan (1) Postoperative hemorrhagic shock: Preoperative hemoglobin of 14. 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 Last Eliquis 2 days ago. 300 cc of EBL. Hemoglobin postoperatively down to 8.1 today. Patient symptomatic with orthostatic hypotension. Transfuse 1 unit of PRBC. Echocardiogram taken but pending. Monitor orthostatic blood pressures every shift. Maintain mean artery pressure over 65. Recheck hemoglobin 3 hours after transfusion. Follow-up blood cultures. MRSA swab negative. UA negative for concern for UTI. Remove Cantrell catheter. Infection less likely though patient continues to have hypotension. For now continue with empiric IV antibiotics. Discontinue vancomycin. Cefazolin perioperatively has been discontinued. Start on IV ceftriaxone 1 g daily for now. Monitor urine output. (2) S/P total right hip arthroplasty: Physical therapy, anticoagulation, perioperative antibiotic as per primary team. Given soft blood pressures will change pain medications from Dilaudid 0.2 to every 4 hours as needed. [place] 5 mg every 6 hours as needed. Can add tramadol as needed. (3) Hx pulmonary embolism: Anticoagulation on hold given concerns for hemorrhagic shock. (4) Chronic anticoagulation: (5) Benign essential HTN: Plan Continue other chronic medication including Xanax as needed, Lexapro. Protonix for PUD prophylaxis Diet advance as per primary team once patient is more awake and alert. SCD for DVT prophylaxis Care discussed in detail with RN at bedside, primary team. Plan for the day: Check orthostatic blood pressures. If stable patient is stable to be discharged from medicine standpoint. Hemoglobin has remained stable after 1 unit of blood transfusion yesterday. No concerns for any infection or infectious source. Can hold off on antibiotics on discharge. It would be okay to hold off on Eliquis for 1 week. Discussed in detail with the patient earlier in admission regarding need to hold off on Eliquis given significant blood loss and hypotension while being on blood thinner postoperatively at least for 1 week. Patient understands she would be at a higher risk for DVT or PE given her history of DVT in the past. Discussed about early and regular mobilization. She should follow-up with her PCP within next 1 week for repeat CBC. PDMP PDMP Reviewed: Not Reviewed Attestations 2 Medical Necessity Statement*: As per primary team. Diagnoses Postoperative hemorrhagic shock T81.19XA S/P total right hip arthroplasty Z96.641 Hx pulmonary embolism Z86.711 Chronic anticoagulation Z79.01 Benign essential HTN I10
--- NOTE | 2024-11-11 12:03 | P.PN_ITS ---
Subjective 2 Subjective: Patient seen and examined in ICU again today. Her hemoglobin has trended upward after 1 unit PRBC yesterday is 8.4 today pressures have improved. She is progressing with therapy. Vitals/I&O/Wt Last Vital Signs Temp 98.0 F 11/11/24 08:00 Pulse 92 11/11/24 09:00 Resp 15 11/11/24 09:00 BP 105/70 11/11/24 09:00 Pulse Ox 91 11/11/24 09:00 O2 Del Method Room Air 11/11/24 08:00 O2 Flow Rate 2 11/10/24 12:00 11/10/24 11/11/24 11/11/24 22:59 06:59 14:59 Intake Total 865.833 / 2489.166 480 / 2969.166 850 / 850 Output Total 850 / 2250 400 / 2650 Balance 15.833 / 239.166 80 / 319.166 850 / 850 Weight last 48 hrs Weight 194 lb 0.108 oz Physical Exam 2 Narrative: Right hip examination: right hip Dressing on in place, clean dry and intact. No evidence of saturation. Patient has normal postoperative swelling and tenderness to palpation to the hip. Compartments are soft compressible,'s calf soft and nontender. Sensations intact to light touch distally. Distal pulses are palpable. Patient is able to wiggle toes as well as plantarflex and dorsiflex ankle. Urinary Catheter Management: Cantrell: Cath Placed During This Visit: yes Reason for Continuing Indwelling Catheter: Accurate Measurement of Urinary Output in Critically Ill Patients Urinary Catheter Date of Insertion: 11/09/24 Urinary Catheter Time of Insertion: 11:20 Data 11/12/24 05:40 11/12/24 05:40 Other Labs: 11/12/2019 5 AM labs listed below: WBC 6.05, hemoglobin 8.4, creatinine 0.4 Micro: Microbiology 11/09/24 18:25 Blood Culture - Preliminary Blood NEGATIVE TO DATE 11/09/24 18:23 Blood Culture - Preliminary Blood NEGATIVE TO DATE 11/09/24 18:20 Bacterial Antigens - Final Urine Kidney A&P Assessment and plan (1) S/P total right hip arthroplasty: (2) Postoperative hemorrhagic shock: Appreciate internal medicine's management and care please refer to their daily progress note for detail management and care (3) Chronic anticoagulation: Plan Postop day 2 right total hip arthroplasty Weightbearing as tolerated right lower extremity Change dressing as needed Ice as needed for pain and swelling Pain control DVT prophylaxis?SCDs anticoagulation on hold due to patient's drop in hemoglobin AM labs reviewed?8.4 hemoglobin patient, patient only received 1 unit PRBC postoperatively and was received yesterday Internal medicine on board for medical management appreciate their assistance in care Posterior hip precautions PT/OT Orthopedics will continue to follow?patient will require continued hospitalization as patient had acute drop in hemoglobin postoperatively receiving unit PRBC yesterday, will transfer out of ICU today with goal of hopefully discharging home with home health care tomorrow as she would benefit from continued therapy in the hospital prior to discharge given she had minimal work with them due to her postoperative anemia. PDMP PDMP Reviewed: Last Reviewed 11/12/24 11:40 EDT by Rg Arias DO Attcachorroations 2 Medical Necessity Statement*: Ongoing care status post right total hip arthroplasty having acute postoperative anemia causing hemorrhagic shock patient required ICU admission with 1 unit PRBC patient is improving and now starting to work with therapy would benefit from additional hospital stay will transfer out of ICU today progressing through therapy with goal hopefully discharge tomorrow with home health care. Coding Level of Care Code Acute Code for Chg Fwd Diagnoses S/P total right hip arthroplasty Z96.641 Postoperative hemorrhagic shock T81.19XA Chronic anticoagulation Z79.01 Time Spent (min) 20
--- NOTE | 2024-11-11 15:51 | PC.NURSE ---
Report called to ARTI MIXON.
[2024-11-11] MEDS: cefTRIAXone 1,000 mg SDV 1000 MG IVP (16:04)
--- NOTE | 2024-11-11 16:35 | PC.NURSE ---
Transferred to [id number] via bed.
[2024-11-11] MEDS: TRAMadol 50 mg Tablet PO (16:50)
[2024-11-12 04:00] VITALS: BP 105/67; PULSE 88; RESP 18; TEMP 36.9; O2SAT 90
[2024-11-12] MEDS: HYDROcodone-acetaminophen 5-325 mg Tablet 1 TAB PO (04:05)
[2024-11-12 06:00] VITALS: PULSE 86
[2024-11-12 06:05] LABS: Basophils % 0.2 %; Eosinophils # 0.1 10^3/uL (0.0-0.8); Eosinophils % 1.7 %; Hematocrit 27.4 % (36-47); Lymphocytes # 1.1 10^3/uL (0.8-4.8); Lymphocytes % 20.6 %; Mean Corpuscular HGB Conc 31.8 g/dL (30-55); Mean Corpuscular Hemoglobin 31.3 pg (27-33); Mean Corpuscular Volume 98.6 fl (85-98); Mean Platelet Volume 10.5 fL (7.4-10.4); Monocytes # 0.5 10^3/uL (0.2-0.9); Monocytes % 9.6 %; Neutrophils # 3.66 10^3/uL (1.8-7.7); Neutrophils % 67.3 %; Nucleated Red Blood Cells % 0 %; Platelet Count 195 10^3/cmm (157-399); Red Blood Count 2.78 10^6/uL (3.85-5.65); Red Cell Distribution Width 15.2 % (12.1-15.1); White Blood Count 5.43 10^3/uL (3.29-11.43)
[2024-11-12 06:30] LABS: Blood Urea Nitrogen 7 mg/dL (8-23); Calcium 10.4 mg/dL (8.5-10.5); Carbon Dioxide 26 mmol/L (22-29); Chloride 101 mmol/L (98-107); Creatinine Clr Calc Pharmacy 86.5504; Glomerular Filtration Rate 160.2 mL/min (90-130); Glucose 96 mg/dL (65-115); Osmolality Calculated 282 mOsm/kg (285-295); Sodium 137 mmol/L (136-145)
[2024-11-12 06:31] LABS: Magnesium 1.7 mg/dL (1.7-2.3)
[2024-11-12 07:43] VITALS: BP 104/67; PULSE 84; RESP 14; TEMP 36.7; O2SAT 90
[2024-11-12] MEDS: multivitamin therapeutic Tablet 1 TAB PO (10:29)
[2024-11-12] MEDS: chlorhexidine gluconate 0.12% Btl 473 mL 30 ML MUCOUS MEM (10:29)
[2024-11-12] MEDS: escitalopram 10 mg Tablet PO (10:29)
[2024-11-12] MEDS: pantoprazole DR 40 mg Tablet PO (10:29)
[2024-11-12] MEDS: calcium carb-vit d 600mg/400unit 1 Tablet 1 EACH PO (10:29)
[2024-11-12] MEDS: sennosides-docusate Tablet 2 TAB PO (10:29)
[2024-11-12] MEDS: mupirocin oint 22 gm 1 APPLIC NASAL (10:30)
[2024-11-12] MEDS: TRAMadol 50 mg Tablet PO (10:35)
--- NOTE | 2024-11-12 10:43 | P.DS_ITS ---
Discharge Providers Date of Admission: 11/10/24 10:20 Date of Discharge: November 12, 2024 Attending Provider at Admission: Rg Arias DO Attending Provider at Discharge: Rg Arias DO Consults: Dr. 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 Once cleared by anesthesia for surgery subsequently was taken back to the operative suite underwent anesthesia per the anesthesia department and then underwent [right] total hip arthroplasty with Bulmaro robotic assistance posterior approach w ithout any complications. Patient did have intraoperatively generalized increased bloody oozing likely due to her Eliquis even though this was stopped. She did close 300 mL intraoperatively. Patient was then subsequently taken back to PACU in stable condition, she did have softer blood pressures and internal medicine was consulted at this point I am recommending ICU for closer monitoring and care given patient's postoperative hypotension this is likely due to acute blood loss. Internal medicine was consulted for medical management assistance. Patient weightbearing as tolerated to the right lower extremity, posterior hip precautions. PT/OT. Pain control. DVT prophylaxis was SCDs while in the hospital as patient had acute blood loss and was not placed on anticoagulants. Postoperative antibiotics. dressing was change as needed. Internal medicine was on board and appreciate their medical management and assistance. Appreciate acquired hospitalization in the ICU due to hemorrhagic shock due to acute blood loss during surgery on postoperative day 1 her hemoglobin downtrend to 8.1 and subsequently required 1 unit PRBC. On postoperative day 2 she did have a stable response to this and improvement in her blood pressure she transferred out of ICU on postoperative day 2 and progressed well with therapy up to postoperative day 3. Pt was determined on postoperative day [3 ] the patient was stable for discharge from orthopedic as well as internal medicine standpoint. Patient's labs were monitored daily. Patient will receive appropriate pain medication as well as informed by internal medicine to have early follow-up with primary care for recheck of hemoglobin and then resumption of Eliquis given patient's history however given her acute blood loss this was held at this time she understands this and the risks moving forward and agrees to proceed per the recommendations of the internal medicine team. Please refer to internal medicine's daily progress notes for detailed decision making throughout patient's hospitalization. Appropriate discharge instructions as well. Patient was then discharged in stable condition. Patient will discharge home. Pt will follow-up with Orthopedics in the office in 2 weeks. Patient understands and agrees with current plan. All questions answered. Understands there is any issues or concerns and contact the office. Physical Exam Narrative: Right hip examination: right hip Dressing on in place, clean dry and intact. No evidence of saturation. Patient has normal postoperative swelling and tenderness to palpation to the hip. Compartments are soft compressible,'s calf soft and nontender. Sensations intact to light touch distally. Distal pulses are palpable. Patient is able to wiggle toes as well as plantarflex and dorsiflex ankle. Urinary Catheter Management: Cantrell: Cath Placed During This Visit: yes Reason for Continuing Indwelling Catheter: Accurate Measurement of Urinary Output in Critically Ill Patients Urinary Catheter Date of Insertion: 11/09/24 Urinary Catheter Time of Insertion: 11:20 Discharge Data Studies Completed and Pending Completed Studies During Hospitalization Category Date Time Status XR chest 1V portable [id number] Routine Exams 11/09/24 17:40 Completed XR hip RT 2-3V wo/w pel* [id number] Routine Exams 11/09/24 14:32 Completed Pathology: Surgical [PTH] Routine Pth 11/09/24 12:35 Completed CV. echo complete* [id number] Routine Ultrasound 11/09/24 17:08 Completed Pending at discharge Category Date Time Status Blood Culture Stat Lab 11/09/24 18:25 Results Radiology Impressions Hip/Pelvis X-Ray 11/09/24 14:32 IMPRESSION: 1. RIGHT total hip arthroplasty in satisfactory position. Chest X-Ray 11/09/24 17:40 IMPRESSION: Hyperinflated but clear lungs. No other acute cardiopulmonary abnormality. Laboratory Results WBC 5.43 10^3/uL (3.29-11.43) 11/12/24 05:40 RBC 2.78 10^6/uL (3.85-5.65) L 11/12/24 05:40 Hgb 8.70 g/dL (11.27-16.99) L 11/12/24 05:40 Hct 27.4 % (36-47) L 11/12/24 05:40 MCV 98.6 fl (85-98) H 11/12/24 05:40 MCH 31.3 pg (27-33) 11/12/24 05:40 MCHC 31.8 g/dL (30-55) 11/12/24 05:40 RDW 15.2 % (12.1-15.1) H 11/12/24 05:40 Plt Count 195 10^3/cmm (157-399) 11/12/24 05:40 MPV 10.5 fL (7.4-10.4) H 11/12/24 05:40 Neut % (Auto) 67.3 % 11/12/24 05:40 Lymph % (Auto) 20.6 % 11/12/24 05:40 [place] % (Auto) 9.6 % 11/12/24 05:40 Eos % (Auto) 1.7 % 11/12/24 05:40 Baso % (Auto) 0.2 % 11/12/24 05:40 Neut # (Auto) 3.66 10^3/uL (1.8-7.7) 11/12/24 05:40 Lymph # (Auto) 1.1 10^3/uL (0.8-4.8) 11/12/24 05:40 [place] # (Auto) 0.5 10^3/uL (0.2-0.9) 11/12/24 05:40 Eos # (Auto) 0.1 10^3/uL (0.0-0.8) 11/12/24 05:40 Baso # (Auto) 0.0 10^3/uL (0.0-0.1) 11/12/24 05:40 Nucleated RBC % (auto) 0 % 11/12/24 05:40 Nucleated RBCs # 0.0 /100WBC 11/12/24 05:40 Sodium 137 mmol/L (136-145) 11/12/24 05:40 Potassium 4.0 mmol/L (3.5-5.1) 11/12/24 05:40 Chloride 101 mmol/L (98-107) 11/12/24 05:40 Carbon Dioxide 26 mmol/L (22-29) 11/12/24 05:40 Anion Gap 14.0 (5-19) 11/12/24 05:40 BUN 7 mg/dL (8-23) L 11/12/24 05:40 Creatinine 0.4 mg/dL (0.5-0.9) L 11/12/24 05:40 GFR Calculation 160.2 mL/min (90-130) H 11/12/24 05:40 Glucose 96 mg/dL (65-115) 11/12/24 05:40 POC Glucose 149 mg/dL (70-110) H 11/09/24 16:43 Estimat Average Glucose 91 11/09/24 15:58 Hemoglobin A1c 4.8 % (4.0-6.0) 11/09/24 15:58 Calculated Osmolality 282 mOsm/kg (285-295) L 11/12/24 05:40 Calcium 10.4 mg/dL (8.5-10.5) 11/12/24 05:40 Magnesium 1.7 mg/dL (1.7-2.3) 11/12/24 05:40 Iron 71 ug/dL (37-145) 11/09/24 15:58 TIBC 323 mcg/dl 11/09/24 15:58 % Saturation 21.9 % (20-50) 11/09/24 15:58 Unsat Iron Binding 252 ug/dL (112-347) 11/09/24 15:58 Total Bilirubin 0.3 mg/dL (0.15-1.2) 11/09/24 15:58 AST 25 U/L (0-32) 11/09/24 15:58 ALT 17 U/L (0-33) 11/09/24 15:58 Alkaline Phosphatase 77 U/L (35-105) 11/09/24 15:58 Total Protein 5.8 g/dL (6.6-8.7) L 11/09/24 15:58 Albumin 3.9 g/dL (3.5-5.2) 11/09/24 15:58 Globulin 1.9 g/dL (1.3-4.6) 11/09/24 15:58 Triglycerides 131 mg/dL (0-150) 11/10/24 03:49 Cholesterol 185 mg/dL (0-200) 11/10/24 03:49 LDL Cholesterol, Calc 111 mg/dL (50-129) 11/10/24 03:49 Total VLDL Cholesterol 26 mg/dL (0-30) 11/10/24 03:49 HDL Cholesterol 48 mg/dL (60-100) L 11/10/24 03:49 Cholesterol/HDL Ratio 3.85 mg/dL (0.0-4.40) 11/10/24 03:49 Vitamin B12 233 pg/mL (232-1245) 11/09/24 15:58 Folate 16.7 ng/mL (4.8-37.3) 11/10/24 03:49 TSH 2.21 uIU/mL (0.27-4.20) 11/09/24 15:58 Urine Color Yellow (Yellow) 11/09/24 18:20 Urine Appearance Clear (CLEAR) 11/09/24 18:20 Urine pH 5.0 (5-7) 11/09/24 18:20 Ur Specific [place] 1.021 (1.005-1.030) 11/09/24 18:20 Urine Protein Trace (Negative) A 11/09/24 18:20 Urine Glucose (UA) Negative (Normal) 11/09/24 18:20 Urine Ketones Negative (Negative) 11/09/24 18:20 Urine Blood Negative (Negative) 11/09/24 18:20 Urine Nitrate Negative (Negative) 11/09/24 18:20 Urine Bilirubin Negative (Negative) 11/09/24 18:20 Urine Urobilinogen 0.2 mg/dL (Negative) 11/09/24 18:20 Ur Leukocyte Esterase Negative (Negative) 11/09/24 18:20 Urine RBC 0-2 /hpf (0-2) 11/09/24 18:20 Urine WBC 6-10 /hpf (0-5) 11/09/24 18:20 Ur Squamous Epith Cells 0-5 /hpf (0-5) 11/09/24 18:20 Amorphous Sediment Not Reportable 11/09/24 18:20 Urine Bacteria None seen /hpf (NONE) 11/09/24 18:20 Hyaline Casts 11.57 /lpf 11/09/24 18:20 Nasal MRSA (PCR) Not detected (Not Detecte) 11/09/24 18:25 Blood Type B Positive 11/09/24 10:15 Rho(D) Type Rh positive 11/09/24 10:15 Antibody Screen Negative 11/09/24 10:15 Crossmatch See Detail 11/09/24 10:15 Vitals Last Vital Signs Temp 98.0 F 11/12/24 07:43 Pulse 84 11/12/24 07:43 Resp 14 11/12/24 07:43 BP 104/67 11/12/24 07:43 Pulse Ox 90 11/12/24 07:43 O2 Del Method Room Air 11/12/24 07:43 O2 Flow Rate 2 11/10/24 12:00 Discharge Plan Discharge Patient Disposition: Home Health Service Condition: Stable Prescriptions: New tramadol 50 mg Tablet 50 mg PO Q4H PRN (Reason: Mild Pain) 7 Days Qty: 42 0RF Rx Instructions: mild postop pain Continued alprazolam 0.25 mg tablet 0.25 mg PO DAILY PRN (Reason: Anxiety) Qty: 15 2RF cetirizine [Zyrtec] 10 mg tablet 10 mg PO DAILY PRN (Reason: Allergy Symptoms) (DME) hospital bed and mattress See Rx Instructions .Route .MEDSUPPLY Qty: 1 0RF Rx Instructions: As directed escitalopram oxalate [Lexapro] 10 mg tablet 10 mg PO DAILY Qty: 90 1RF pantoprazole 40 mg tablet,delayed release (DR/EC) 40 mg PO DAILY Qty: 90 1RF tramadol 50 mg tablet 50 mg PO Q6H PRN (Reason: pain) 5 Days Qty: 20 0RF epinephrine [EpiPen 2-Joselito] 0.3 mg/0.3 mL auto-injector 0.3 mg IM Q10M PRN (Reason: anaphylaxis) Qty: 2 0RF Rx Instructions: for 2 doses hydrocodone-acetaminophen 5-325 mg tablet 1 tab PO Q6H PRN (Reason: pain) 7 Days Qty: 28 0RF Held lisinopril 10 mg tablet 10 mg PO BID 90 Days Qty: 180 1RF Hold Instructions: Resume on 11/18/24. Restart if systolic blood pressure start trending over 140 mmHg Eliquis 5 mg tablet 5 mg PO BID Hold Instructions: Resume on 11/17/24. Discharge Orders: Discharge Order (Routine); Ordered 11/12/24 Ordered By: Rg Arias Referrals: [facility] [Outside] Maxim Warner DO [Primary Care Provider, Family Practice] - 11/17/24 1:00 pm Rg Arias DO [Physician, Orthopedics] - 11/24/24 2:00 pm Discharge Diet: Regular Discharge Activity: Limit activity as instructed Patient Instructions: Tramadol (By mouth), Acute Wound Care (DC), Total Hip Replacement (GEN), Opioid Safety, Post Anesthesia Care Activity Restrictions/Additional Instructions: Medicine discharge instruction: Do not take lisinopril for now. Goal blood pressures less than 140/90 mmHg and more than 100 systolic. Start lisinopril 10 mg daily if systolic blood pressures start trending more than 140 mmHg. Otherwise check her blood pressure daily at home and maintain a blood pressure diary and follow-up with a primary care provider within next 1 week for further adjustment of antihypertensive. Should have a repeat CBC check in 1 week. Hold off on Eliquis for a week. Orthopedic discharge instructions: Patient should keep dressings clean dry and intact Okay to shower over dressings if they do become wet these should be removed and new dressings applied Keep incisions clean dry and intact, leave Silverlon bandage dressings on in place for 7 days after that may rinse incisions with warm soapy water pat dry and redress with a dry dressing Weight-bear as tolerated to operative lower extremity Posterior hip precautions as instructed by physical therapy--posterior avoid hip flexion past 90 degrees, adduction, avoid internal rotation When sleeping or lying in bed in supine position use abduction pillow to prevent legs from crossing midline Ice as needed for pain and swelling Take pain medication as prescribed Take antinausea medication as needed May supplement for pain with Tylenol [id number] as needed(1000 mg every 8 hours-do not exceed more than 3000mg in 24-hour period) Supplement with Citracal vitamin D for bone health and healing Pain medication can cause constipation. take [id number] stool softeners and or MiraLAX. Continue taking your previously prescribed blood thinner as prescribed by primary resuming resume after a week from surgery okay to start on Saturday as long as cleared by primary (family doctor) Follow-up in the orthopedic office in 2 weeks Contact the office for any questions or concerns Discharge Attestations Time Spent in Discharge Care*: greater than 30 min Status at Discharge: Cognitive status at discharge: cognitively intact , Behavioral status at discharge: cooperative , Quality Metrics Clinical Quality Measures [ No reported AMI, CVA or VTE this stay] Coding Level of Care Code Acute Code for Chg Fwd Diagnoses Postoperative hemorrhagic shock T81.19XA S/P total right hip arthroplasty Z96.641 Hx pulmonary embolism Z86.711 Chronic anticoagulation Z79.01 Benign essential HTN I10 Time Spent (min) 35
[2024-11-12 11:03] VITALS: BP 104/67; PULSE 84; RESP 14; TEMP 36.7; O2SAT 90
[2024-11-12 11:39] VITALS: BP 120/58; PULSE 84; RESP 16; TEMP 37; O2SAT 94
== END 2024-11-12 12:50 | disposition home health service (06) | DRG 908 ==
LOC: ICU 19:36 → MEDSURG 11-11 16:31
PROVIDERS: Physician Assistant; Student in an Organized Health Care Education/Training Program; Admitting Provider Student in an Organized Health Care Education/Training Program; PCP Electrodiagnostic Medicine; Visit Provider Student in an Organized Health Care Education/Training Program
PROC: 8E0Y0CZ Robotic Assisted Procedure of Lower Extremity, Open Approach (ICD-10-PCS; CPT 27130; principal; 2024-11-09 11:05)
PROC: 0SR90JA Replacement of Right Hip Joint with Synthetic Substitute, Uncemented, Open Approach (ICD-10-PCS; 2024-11-09 11:05)
DX: T81.19XA Other postprocedural shock, initial encounter (principal); D62 Acute posthemorrhagic anemia; M87.051 Idiopathic aseptic necrosis of right femur; M16.11 Unilateral primary osteoarthritis, right hip; I10 Essential (primary) hypertension; I95.81 Postprocedural hypotension; E11.9 Type 2 diabetes mellitus without complications; E78.5 Hyperlipidemia, unspecified; I27.20 Pulmonary hypertension, unspecified; I48.91 Unspecified atrial fibrillation; L30.9 Dermatitis, unspecified; F41.0 Panic disorder [episodic paroxysmal anxiety]; K21.9 Gastro-esophageal reflux disease without esophagitis; Z79.01 Long term (current) use of anticoagulants; Z79.891 Long term (current) use of opiate analgesic; Z98.1 Arthrodesis status; Z86.711 Personal history of pulmonary embolism; Z86.718 Personal history of other venous thrombosis and embolism; Z85.89 Personal history of malignant neoplasm of other organs and systems; Z85.068 Personal history of other malignant neoplasm of small intestine
CPT/HCPCS: 36415; 36416; 36430; 51702; 71045; 73502; 80048; 80053; 80061; 81001; 82607; 82746; 82962; 83036; 83540; 83550; 83735; 84443; 85014; 85018; 85025; 86403; 86850; 86900; 86920; 87040; 88304; 88307; 88311; 93306; 96374; 96376; 97116; 97161; 97167; 97530; 97535; C1713; C1776; G0378; J0131; J0690; J0696; J1100; J1171; J1885; J2250; J2405; J2704; J3010; J3370; J3475; J3490; J7030; J7120; J9999; P9016; P9045

== ENCOUNTER 2024-11-18 16:37 | Emergency (ER) | payer MEDICARE, OTHER, SELFPAY ==
[2024-11-18] VITALS (8 sets, daily range): BP systolic 129–145; BP diastolic 80–90; PULSE 72–96; RESP 16–20; TEMP 36.7; O2SAT 91–99
--- NOTE | 2024-11-18 17:05 | XRR_ITS ---
PROCEDURE INFORMATION: Exam: XR Chest Exam date and time: 11/18/2024 5:23 PM Age: 64 years old Clinical indication: Other: Dizziness TECHNIQUE: Imaging protocol: Radiologic exam of the chest. Views: 1 view. COMPARISON: CR (CHEST, ) 11/09/2024 7:26 PM FINDINGS: Lungs: Unremarkable. No consolidation. Pleural spaces: Unremarkable. No pleural effusion. No pneumothorax. Heart/Mediastinum: Unremarkable. No cardiomegaly. Bones/joints: Posterior fusion of the thoracic spine. XR/XR chest 1V portable [id number] IMPRESSION: No acute findings.
[2024-11-18 17:27] LABS: Basophils % 0.3 %; Eosinophils # 0.1 10^3/uL (0.0-0.8); Eosinophils % 1.1 %; Hematocrit 32.2 % (36-47); Lymphocytes % 13.3 %; Mean Corpuscular Hemoglobin 30.8 pg (27-33); Mean Corpuscular Volume 96.4 fl (85-98); Mean Platelet Volume 9.1 fL (7.4-10.4); Monocytes # 0.6 10^3/uL (0.2-0.9); Monocytes % 8.1 %; Neutrophils # 5.71 10^3/uL (1.8-7.7); Neutrophils % 76.7 %; Nucleated Red Blood Cells % 0 %; Platelet Count 493 10^3/cmm (157-399); Red Blood Count 3.34 10^6/uL (3.85-5.65); White Blood Count 7.44 10^3/uL (3.29-11.43)
[2024-11-18 17:40] LABS: Bilirubin Urine Negative (Negative); Blood Urine Negative (Negative); Glucose Urine UA Negative (Normal); Ketones Urine Negative (Negative); Leukocyte Esterase Urine Negative (Negative); Nitrate Urine Negative (Negative); Protein Urine Negative (Negative); Specific Gravity, Urine 1.012 (1.005-1.030); Urine Appearance Clear (CLEAR); Urine Color Yellow (Yellow); pH Urine 8.5 (5-7)
[2024-11-18 17:46] LABS: Add Urine Microscopic? YES; Bacteria Urine None Seen /hpf; Hyaline Casts Urine 0-4 /lpf; RBC Urine 0-2 /hpf (0-2); Squamous Epithelial Cell Urine 0-5 /hpf (0-5); WBC Urine 0-5 /hpf (0-5)
[2024-11-18 17:56] LABS: Alanine Aminotransferase 11 U/L (0-33); Alkaline Phosphatase 110 U/L (35-105); Aspartate Amino Transferase 16 U/L (0-32); Blood Urea Nitrogen 4 mg/dL (8-23); Calcium 11.1 mg/dL (8.5-10.5); Carbon Dioxide 25 mmol/L (22-29); Chloride 97 mmol/L (98-107); Creatinine Clr Calc Pharmacy 80.0642; Globulin 2.9 g/dL (1.3-4.6); Glomerular Filtration Rate 123.8 mL/min (90-130); Glucose 113 mg/dL (65-115); Osmolality Calculated 284 mOsm/kg (285-295); Sodium 138 mmol/L (136-145); Total Bilirubin 0.4 mg/dL (0.15-1.2); Total Protein 6.9 g/dL (6.6-8.7)
[2024-11-18] MEDS: ondansetron hcl ODT 4 mg Tab PO (18:13)
--- NOTE | 2024-11-18 19:02 | W.ED.DIZZY ---
HPI - Dizziness General: Chief Complaint: Dizziness Stated Complaint: Dizzy/Nausea Time Seen by Provider: 11/18/24 17:05 History of Present Illness: HPI Narrative: Kimberli Jurado presents to the emergency department with severe hip pain following a recent hip surgery. The patient underwent a hip surgery on Saturday, November 09, which was complicated by bleeding during the procedure that was difficult to control. The patient reports that she was doing well post-operatively and had been receiving in-home physical therapy. She states that she was doing so good and had been able to walk and stand with assistance from the therapists. However, this morning she experienced a sudden onset of severe pain in her hip. The pain is described as throbbing and is accompanied by low back pain and discomfort in her leg. The patient reports that the pain is so severe she can't even get in a chair to sit, can't lay, can't do nothing. The patient notes that she started taking her prescribed medications yesterday morning, which included lisinopril, Protonix, and escitalopram. She took her usual pain medications this morning, including one tramadol and one hydrocodone, which is consistent with her pre-surgery regimen. Despite this, her pain has significantly worsened. The patient denies any visible changes to the surgical site, stating there is no redness, warmth, or dryness. She mentions some bruising, which is causing her anxiety. The sudden increase in pain and inability to get comfortable are causing significant distress and impacting her daily functioning. Related Data Home Medications ?Medication ?Instructions ?Recorded ?Confirmed apixaban 5 mg tablet (Eliquis) 5 mg PO BID 06/01/23 11/05/24 Held on 11/12/24. Instructions: Resume on 11/17/24. cetirizine 10 mg tablet (Zyrtec) 10 mg PO DAILY PRN Allergy Symptoms 10/30/24 11/09/24 Previous Rx's ?Medication ?Instructions ?Recorded hospital bed and mattress #1 ea 06/18/22 escitalopram oxalate 10 mg tablet 10 mg PO DAILY #90 tabs 08/15/22 (Lexapro) pantoprazole 40 mg tablet,delayed 40 mg PO DAILY #90 tabs 08/15/22 release alprazolam 0.25 mg tablet 0.25 mg PO DAILY PRN Anxiety #15 09/18/22 tabs lisinopril 10 mg tablet 10 mg PO BID 90 days #180 tabs 09/18/22 Held on 11/12/24. Instructions: Resume on 11/18/24. Restart if systolic blood pressure start trending over 140 mmHg epinephrine 0.3 mg/0.3 mL 0.3 mg (0.3 mL) IM Q10M PRN 06/02/23 injection, auto-injector (EpiPen anaphylaxis #2 ea 2-Joselito) tramadol 50 mg tablet 50 mg PO Q6H PRN pain 5 days #20 09/07/24 tabs oxycodone 5 mg tablet 5 mg PO TID #15 tabs 11/18/24 hydrocodone 5 mg-acetaminophen 325 1 tab PO Q6H PRN pain 5 days #20 11/19/24 mg tablet tabs Allergies Allergy/AdvReac Type Severity Reaction Status Date / Time Alpha-Gal Allergy ALGY-Anaphy Verified 11/09/24 10:08 (Zuvyhsygc-Vsfkg-0,3-Gala laxis Review of Systems General: Reports: 10 or more systems reviewed and unremarkable except in HPI and below PFSH ED PFSH: Medical History JULIUS positive Closed compression fracture of thoracic vertebra Pulmonary HTN Hyponatremia Pulmonary embolism 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 Acute appendicitis Bilateral carpal tunnel syndrome GERD (gastroesophageal reflux disease) Panic attack Benign essential HTN Eczema Surgical History S/P spinal fusion History of appendectomy History of dilatation and curettage x 1 History of 2 sections History of surgery on left wrist Comminuted fracture --repaired with bone graft from left hip History of hernia repair R spigelian Family History Other CAD (coronary artery disease) Family history of premature coronary artery disease Social History Smoking and tobacco/nicotine status: never used tobacco/nicotine Alcohol intake: never Substance/Drug Use: never 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 status: 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 Exam Const: COMMON NORMALS: no acute distress, patient oriented x3, healthy appearing, alert and well nourished HENMT: COMMON NORMALS: normocephalic HEAD & SCALP: normocephalic Eye: COMMON NORMALS: EOMs intact bilaterally Neck/C-Spine: COMMON NORMALS: full ROM and supple Resp: COMMON NORMALS: normal respiratory effort, No retractions and clear to auscultation bilaterally AUSCULTATION: clear to auscultation bilaterally Cardio: COMMON NORMALS: regular rate, regular rhythm, No gallops present (Cardio) and No murmurs present (Cardio) RATE: regular rate RHYTHM: regular rhythm GI: COMMON NORMALS: Soft to palpation and non-tender PALPATION: Yes Soft to palpation Extremity: GENERAL: Yes normal exam except as noted LEFT LOWER EXTREMITY: Yes hip joint Left hip: Yes inspection (Wound is clean dry and intact), Yes palpation (Nontender) and Yes neurovascular exam (Pedal, posterior tibial, and popliteal 2/4) Neuro: COMMON NORMALS: patient oriented x3 SENSORIUM/ORIENTATION: Yes alert Skin: COMMON NORMALS: no rashes or lesions noted GENERAL SKIN EXAM: no rashes or lesions noted Course Vital Signs: Vital signs: Vital Signs Temperature 98.1 F 11/18/24 16:38 Pulse Rate 93 11/18/24 21:26 Respiratory Rate 18 11/18/24 21:26 Blood Pressure 145/90 11/18/24 21:26 Pulse Oximetry 96 11/18/24 21:26 Oxygen Delivery Me thod Room Air 11/18/24 20:22 MDM - Dizziness Medical Decision Making 64-year-old female presents the emergency department for evaluation of worsening hip pain. She is status post total hip. She noted worsening pain prior to coming into the emergency department. She has not noticed any drainage from the wound. No warmth around the joint or incision. She denies fevers. No white count today. Hemoglobin though low has improved compared to postop. Elevated in platelets. Patient received 4 mg of morphine and her pain almost completely subsided. Contacted the on-call orthopedic surgeon who agreed that the patient is likely experiencing normal postoperative pain. Provide the patient a prescription of slightly stronger oral pain medications. Patient instructed to follow-up with her surgeon tomorrow for further evaluation of the hip. Patient and her were in agreement with this plan. Return precautions were discussed and the patient was discharged home. Lab Data 11/18/24 17:20 11/18/24 17:20 Radiology Impressions Chest X-Ray 11/18/24 17:05 IMPRESSION: No acute findings. Laboratory Results WBC 7.44 10^3/uL (3.29-11.43) 11/18/24 17:20 RBC 3.34 10^6/uL (3.85-5.65) L 11/18/24 17:20 Hgb 10.30 g/dL (11.27-16.99) L 11/18/24 17:20 Hct 32.2 % (36-47) L 11/18/24 17:20 MCV 96.4 fl (85-98) 11/18/24 17:20 MCH 30.8 pg (27-33) 11/18/24 17:20 MCHC 32.0 g/dL (30-55) 11/18/24 17:20 RDW 15.0 % (12.1-15.1) 11/18/24 17:20 Plt Count 493 10^3/cmm (157-399) H 11/18/24 17:20 MPV 9.1 fL (7.4-10.4) 11/18/24 17:20 Neut % (Auto) 76.7 % 11/18/24 17:20 Lymph % (Auto) 13.3 % 11/18/24 17:20 [place] % (Auto) 8.1 % 11/18/24 17:20 Eos % (Auto) 1.1 % 11/18/24 17:20 Baso % (Auto) 0.3 % 11/18/24 17:20 Neut # (Auto) 5.71 10^3/uL (1.8-7.7) 11/18/24 17:20 Lymph # (Auto) 1.0 10^3/uL (0.8-4.8) 11/18/24 17:20 [place] # (Auto) 0.6 10^3/uL (0.2-0.9) 11/18/24 17:20 Eos # (Auto) 0.1 10^3/uL (0.0-0.8) 11/18/24 17:20 Baso # (Auto) 0.0 10^3/uL (0.0-0.1) 11/18/24 17:20 Nucleated RBC % (auto) 0 % 11/18/24 17:20 Nucleated RBCs # 0.0 /100WBC 11/18/24 17:20 Sodium 138 mmol/L (136-145) 11/18/24 17:20 Potassium 4.0 mmol/L (3.5-5.1) 11/18/24 17:20 Chloride 97 mmol/L (98-107) L 11/18/24 17:20 Carbon Dioxide 25 mmol/L (22-29) 11/18/24 17:20 Anion Gap 20.0 (5-19) H 11/18/24 17:20 BUN 4 mg/dL (8-23) L 11/18/24 17:20 Creatinine 0.5 mg/dL (0.5-0.9) 11/18/24 17:20 GFR Calculation 123.8 mL/min (90-130) 11/18/24 17:20 Glucose 113 mg/dL (65-115) 11/18/24 17:20 Calculated Osmolality 284 mOsm/kg (285-295) L 11/18/24 17:20 Calcium 11.1 mg/dL (8.5-10.5) H 11/18/24 17:20 Total Bilirubin 0.4 mg/dL (0.15-1.2) 11/18/24 17:20 AST 16 U/L (0-32) 11/18/24 17:20 ALT 11 U/L (0-33) 11/18/24 17:20 Alkaline Phosphatase 110 U/L (35-105) H 11/18/24 17:20 Total Protein 6.9 g/dL (6.6-8.7) 11/18/24 17:20 Albumin 4.0 g/dL (3.5-5.2) 11/18/24 17:20 Globulin 2.9 g/dL (1.3-4.6) 11/18/24 17:20 TSH 2.20 uIU/mL (0.27-4.20) 11/18/24 17:20 Urine Color Yellow (Yellow) 11/18/24 17:30 Urine Appearance Clear (CLEAR) 11/18/24 17:30 Urine pH 8.5 (5-7) A 11/18/24 17:30 Ur Specific [place] 1.012 (1.005-1.030) 11/18/24 17:30 Urine Protein Negative (Negative) 11/18/24 17:30 Urine Glucose (UA) Negative (Normal) 11/18/24 17:30 Urine Ketones Negative (Negative) 11/18/24 17:30 Urine Blood Negative (Negative) 11/18/24 17:30 Urine Nitrate Negative (Negative) 11/18/24 17:30 Urine Bilirubin Negative (Negative) 11/18/24 17:30 Urine Urobilinogen 1.0 mg/dL (Negative) 11/18/24 17:30 Ur Leukocyte Esterase Negative (Negative) 11/18/24 17:30 Urine RBC 0-2 /hpf (0-2) 11/18/24 17:30 Urine WBC 0-5 /hpf (0-5) 11/18/24 17:30 Ur Squamous Epith Cells 0-5 /hpf (0-5) 11/18/24 17:30 Amorphous Sediment Not Reportable 11/18/24 17:30 Urine Bacteria None seen /hpf (NONE) 11/18/24 17:30 Hyaline Casts 0-4 /lpf H 11/18/24 17:30 All radiology interpretation(s) finalized by discharge Discharge Plan Discharge Patient Disposition: Home Clinical Impression: Post-op pain Condition: Stable Prescriptions: New oxycodone 5 mg tablet 5 mg PO TID Qty: 15 0RF No Action alprazolam 0.25 mg tablet 0.25 mg PO DAILY PRN (Reason: Anxiety) Qty: 15 2RF lisinopril 10 mg tablet 10 mg PO BID 90 Days Qty: 180 1RF cetirizine [Zyrtec] 10 mg tablet 10 mg PO DAILY PRN (Reason: Allergy Symptoms) (DME) hospital bed and mattress See Rx Instructions .Route .MEDSUPPLY Qty: 1 0RF Rx Instructions: As directed escitalopram oxalate [Lexapro] 10 mg tablet 10 mg PO DAILY Qty: 90 1RF pantoprazole 40 mg tablet,delayed release (DR/EC) 40 mg PO DAILY Qty: 90 1RF tramadol 50 mg tablet 50 mg PO Q6H PRN (Reason: pain) 5 Days Qty: 20 0RF hydrocodone-acetaminophen 5-325 mg tablet 1 tab PO Q6H PRN (Reason: pain) 5 Days Qty: 20 0RF Eliquis 5 mg tablet 5 mg PO BID epinephrine [EpiPen 2-Joseltio] 0.3 mg/0.3 mL auto-injector 0.3 mg IM Q10M PRN (Reason: anaphylaxis) Qty: 2 0RF Rx Instructions: for 2 doses Discharge Orders: Discharge ED (Routine); Ordered 11/18/24 Ordered By: Geo Law Referrals: Maxim Warner DO [Primary Care Provider, [facility]] Discharge Diet: Advance as tolerated Discharge Activity: Resume usual activity Patient Instructions: Opioid Safety, Pain Management Activity Restrictions/Additional Instructions: Please follow-up with orthopedic surgery tomorrow as discussed. Return to the emergency department with any new or worsening symptoms. Print Language: Turkish Coding Level of Care Code ED Home Help Aide 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
[2024-11-18] MEDS: morphine 4 mg/mL SDV 1 mL IVP (19:36)
== END 2024-11-18 21:28 | disposition home or self-care (01) ==
PROVIDERS: Emergency Provider General Practice; PCP Electrodiagnostic Medicine
DX: G89.18 Other acute postprocedural pain (principal); I10 Essential (primary) hypertension
CPT/HCPCS: 71045; 80053; 81001; 84443; 85025; 96374; 99284; J2270; Q0162

== ENCOUNTER → 2024-11-24 14:03 | Outpatient (BNVA) | payer MEDICARE, OTHER, SELFPAY | PROVIDERS: PCP Electrodiagnostic Medicine; Visit Provider Student in an Organized Health Care Education/Training Program | DX: Z96.641 Presence of right artificial hip joint (principal); Z79.01 Long term (current) use of anticoagulants | CPT/HCPCS: 73502; 99024 ==

== ENCOUNTER → 2025-01-05 13:08 | Outpatient (BNVA) | payer MEDICARE, OTHER, SELFPAY | PROVIDERS: PCP Electrodiagnostic Medicine; Visit Provider Physician Assistant | DX: Z96.641 Presence of right artificial hip joint (principal) | CPT/HCPCS: 73502; 99024 ==

== ENCOUNTER → 2025-01-22 08:48 | Outpatient (BNVA) | payer MEDICARE, OTHER, SELFPAY | PROVIDERS: PCP Electrodiagnostic Medicine; Referring Provider Electrodiagnostic Medicine; Visit Provider Internal Medicine | DX: N20.0 Calculus of kidney (principal); E21.0 Primary hyperparathyroidism; I10 Essential (primary) hypertension | CPT/HCPCS: 99204 ==

== ENCOUNTER 2025-02-11 07:30 | Outpatient (CLI) | payer MEDICARE, OTHER, SELFPAY ==
--- NOTE | 2025-02-11 08:00 | NM_ITS ---
WS: [id number] EXAMINATION: NM parathyroid [id number] ORDER DATE: 02/11/2025 7:45 AM COMPARISON: Thyroid ultrasound 01/18/2025 HISTORY: primary hyperparathyroidism TECHNIQUE: Parathyroid scintigraphy with 21.9 mCi of technetium 99m sestamibi administered. AP and oblique views obtained with and without chin and suprasternal notch markers. Initial and 2 hour delayed imaging acquired. FINDINGS: Normal thyroid uptake. Normal thyroid washout. No suspicious areas of retained activity to indicate parathyroid adenoma. Normal salivary gland activity. NM/NM parathyroid [id number] IMPRESSION: No evidence of parathyroid adenoma
== END 2025-02-11 07:31 | disposition home or self-care (01) ==
LOC: RAD 07:35
PROVIDERS: PCP Electrodiagnostic Medicine; Visit Provider Internal Medicine
DX: E21.0 Primary hyperparathyroidism (principal)
CPT/HCPCS: 78070; A9500

== ENCOUNTER → 2025-03-26 12:57 | Outpatient (BNVA) | payer MEDICARE, OTHER, SELFPAY | PROVIDERS: PCP Electrodiagnostic Medicine; Referring Provider Electrodiagnostic Medicine; Visit Provider Internal Medicine | DX: E21.0 Primary hyperparathyroidism (principal); E11.9 Type 2 diabetes mellitus without complications | CPT/HCPCS: 36415; 80053; 82306; 82310; 83970 ==

== ENCOUNTER → 2025-05-11 13:44 | Outpatient (BNVA) | payer MEDICARE, OTHER, SELFPAY | PROVIDERS: PCP Electrodiagnostic Medicine; Visit Provider Student in an Organized Health Care Education/Training Program | DX: Z96.641 Presence of right artificial hip joint (principal); M25.521 Pain in right elbow; S52.121A Displaced fracture of head of right radius, initial encounter for closed fracture; W19.XXXA Unspecified fall, initial encounter | CPT/HCPCS: 73080; 73502; 99214 ==